=== PATIENT | female | born 1970 ===

== ENCOUNTER 2020-04-02 16:19 | Outpatient (REF) | payer OTHER, SELFPAY ==
[2020-04-02 17:36] LABS: Thyroid Stimulating Hormone 0.32 uIU/mL (0.32-4.0)
== END 2020-04-02 16:20 | disposition home or self-care (01) ==
LOC: HO.LAB 16:19
PROVIDERS: PCP Internal Medicine; Visit Provider Internal Medicine
DX: E89.0 Postprocedural hypothyroidism (principal); L68.0 Hirsutism; E66.01 Morbid (severe) obesity due to excess calories
CPT/HCPCS: 84439; 84443

== ENCOUNTER → 2020-04-03 08:08 | Outpatient (BNVA) | payer OTHER, SELFPAY | PROVIDERS: PCP Internal Medicine; Referring Provider Internal Medicine; Visit Provider Internal Medicine | DX: Z76.89 Persons encountering health services in other specified circumstances (principal) ==

== ENCOUNTER 2020-08-29 10:42 | Outpatient (REF) | payer OTHER, SELFPAY ==
--- NOTE | ~2020-08-29 | XR_ITS ---
EXAMINATION: XR KNEE, LEFT CLINICAL INFORMATION: Pain left knee COMPARISON: None TECHNIQUE: Four views of the left knee. FINDINGS: The tricompartment joint space is maintained normal. No bony erosive changes. No fracture or dislocation. The soft tissues are normal. XR/XR knee LT 4V IMPRESSION: Unremarkable left knee exam.
[2020-08-29 14:08] LABS: D Dimer 230 NG/ML
== END 2020-08-29 10:43 | disposition home or self-care (01) ==
LOC: HO.HMGCX 10:42
PROVIDERS: Visit Provider Nurse Practitioner Family
DX: M25.562 Pain in left knee (principal)
CPT/HCPCS: 36415; 73564; 85379

== ENCOUNTER 2020-09-05 13:32 | Outpatient (REF) | payer OTHER, SELFPAY ==
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
== END 2020-09-05 13:33 | disposition home or self-care (01) ==
LOC: HO.MAMMO 13:32
PROVIDERS: Visit Provider Internal Medicine
DX: Z12.31 Encounter for screening mammogram for malignant neoplasm of breast (principal)
CPT/HCPCS: 77063; 77067

== ENCOUNTER 2020-09-30 08:19 | Outpatient (REF) | payer OTHER, SELFPAY | END 2020-09-30 08:20 | disposition home or self-care (01) | LOC: HO.HOSX 08:19 | PROVIDERS: Visit Provider Physician Assistant | DX: Z13.89 Encounter for screening for other disorder (principal) ==

== ENCOUNTER → 2020-10-06 07:56 | Outpatient (BNVA) | payer OTHER, SELFPAY | PROVIDERS: PCP Internal Medicine; Visit Provider Internal Medicine ==

== ENCOUNTER 2020-10-07 09:57 | Outpatient (REF) | payer OTHER, SELFPAY ==
--- NOTE | ~2020-10-07 | XR_ITS ---
EXAMINATION: XR KNEE, LEFT CLINICAL INFORMATION: Left knee pain. COMPARISON: Multiple priors, most recent left knee radiographs dated 08/29/2020 TECHNIQUE: [place] view of the left knee. FINDINGS: Normal patellofemoral alignment. Small patellofemoral marginal osteophytes. No osseous erosion. No abnormal soft tissue calcification. XR/XR knee LT 2V IMPRESSION: Mild patellofemoral osteoarthritis. Normal alignment.
[2020-10-07 14:53] LABS: Albumin Level 4.6 g/dL (3.5-5.0); Calcium 9.4 mg/dL (8.4-10.2)
[2020-10-07 15:13] LABS: Free T4 (Free Thyroxine) 1.25 ng/dL (0.71-1.85); Thyroid Stimulating Hormone 1.61 uIU/mL (0.32-4.0)
[2020-10-08 09:51] LABS: Sex Hormone Binding Globulin 51 nmol/L (17-124)
[2020-10-09 10:07] LABS: Calcium (PTHI) 9.4 mg/dL (8.6-10.2); PTHI 129 pg/mL (14-64)
[2020-10-11 13:27] LABS: Testosterone, Free 3.2 pg/mL (0.1-6.4); Testosterone, Total 29 ng/dL (2-45)
== END 2020-10-07 09:58 | disposition home or self-care (01) ==
LOC: HO.HOSX 09:57
PROVIDERS: Absent Provider Internal Medicine; PCP Internal Medicine; Visit Provider Physician Assistant
DX: M25.562 Pain in left knee (principal); M54.16 Radiculopathy, lumbar region; E89.0 Postprocedural hypothyroidism; N91.2 Amenorrhea, unspecified; E21.3 Hyperparathyroidism, unspecified; E55.9 Vitamin D deficiency, unspecified
CPT/HCPCS: 36415; 73560; 82040; 82306; 82310; 83970; 84100; 84270; 84402; 84403; 84439; 84443; 99202

== ENCOUNTER 2020-10-31 08:01 | Outpatient (REF) | payer OTHER, SELFPAY ==
--- NOTE | ~2020-10-31 | XR_ITS ---
EXAMINATION: XR LUMBAR SPINE WITH BENDING XR SI JOINTS CLINICAL INFORMATION: Low back pain. COMPARISON: None TECHNIQUE: Lumbar spine with bending views. SI joints 3 views. FINDINGS: LUMBAR SPINE: There is normal lumbar lordosis. There is loss of L5-S1 disc height with minimal grade 1 anterolisthesis L4-S1. The rest of the disc heights, vertebral heights and vertebral alignment is normal. On flexion and extension views, there is no movement of the vertebrae. On oblique views, there is no pars defect. No visible acute fracture or dislocation seen. There is no lytic or sclerotic process. SI JOINTS: There is normal symmetry of bilateral SI joints with minimal right SI joint sclerosis. No visible acute fracture, dislocation or subluxation seen. The soft tissues are normal. XR/XR sacroiliac joint 1-2V IMPRESSION: Grade 1 anterolisthesis L5 over S1 with degenerative disc changes at L5-S1 disc level. No pars defect seen. No subluxation seen on flexion or extension views. Minimal sclerosis right SI joint, likely early sacroiliitis. The left SI joint appears unremarkable.
--- NOTE | ~2020-10-31 | XR_ITS ---
EXAMINATION: XR LUMBAR SPINE WITH BENDING XR SI JOINTS CLINICAL INFORMATION: Low back pain. COMPARISON: None TECHNIQUE: Lumbar spine with bending views. SI joints 3 views. FINDINGS: LUMBAR SPINE: There is normal lumbar lordosis. There is loss of L5-S1 disc height with minimal grade 1 anterolisthesis L4-S1. The rest of the disc heights, vertebral heights and vertebral alignment is normal. On flexion and extension views, there is no movement of the vertebrae. On oblique views, there is no pars defect. No visible acute fracture or dislocation seen. There is no lytic or sclerotic process. SI JOINTS: There is normal symmetry of bilateral SI joints with minimal right SI joint sclerosis. No visible acute fracture, dislocation or subluxation seen. The soft tissues are normal. XR/XR lumbar spine 6V w bending IMPRESSION: Grade 1 anterolisthesis L5 over S1 with degenerative disc changes at L5-S1 disc level. No pars defect seen. No subluxation seen on flexion or extension views. Minimal sclerosis right SI joint, likely early sacroiliitis. The left SI joint appears unremarkable.
[2020-10-31 11:24] LABS: Free T4 (Free Thyroxine) 1.22 ng/dL (0.71-1.85); Thyroid Stimulating Hormone 1.73 uIU/mL (0.32-4.0)
== END 2020-10-31 08:02 | disposition home or self-care (01) ==
LOC: HO.XRAY 08:01
PROVIDERS: Absent Provider Internal Medicine; PCP Internal Medicine; Visit Provider Internal Medicine
DX: M54.5 Low back pain (principal); R10.9 Unspecified abdominal pain; M25.562 Pain in left knee; M79.601 Pain in right arm; M79.651 Pain in right thigh; E89.0 Postprocedural hypothyroidism; G89.29 Other chronic pain
CPT/HCPCS: 36415; 72114; 72200; 84439; 84443; 99202

== ENCOUNTER 2020-12-10 06:30 | Outpatient (REF) | payer OTHER, SELFPAY ==
--- NOTE | ~2020-12-10 | FL_ITS ---
EXAMINATION: XR FLUOROSCOPY WITH IMAGES CLINICAL INFORMATION: Bilateral sphenoid injection for medial branch block.. COMPARISON: None. TECHNIQUE: Fluoroscopy performed by Parish Mcpherson. Fluoroscopy time: 0.5 minutes DAP: 5.7 Gycm2 Images: 1 FINDINGS: There are needles positioned bilaterally adjacent and 5, L4 and L3 pedicles with contrast opacifying the soft tissues. Mild loss of L4-L5 and L5-S1 disc heights is noted. FL/FL guidance in treatment room IMPRESSION: Fluoroscopy was provided to Dr. Parish Redding for pain management.
== END 2020-12-10 06:31 | disposition home or self-care (01) ==
LOC: HO.RADIR 06:30
PROVIDERS: Visit Provider Internal Medicine
DX: I45.4 Nonspecific intraventricular block (principal); I10 Essential (primary) hypertension; E21.3 Hyperparathyroidism, unspecified; E03.9 Hypothyroidism, unspecified; E55.9 Vitamin D deficiency, unspecified; G47.33 Obstructive sleep apnea (adult) (pediatric)
CPT/HCPCS: 64493; 64494; Q9967

== ENCOUNTER → 2020-12-19 08:50 | Outpatient (BNVA) | payer OTHER, SELFPAY | PROVIDERS: PCP Internal Medicine; Visit Provider Internal Medicine | DX: M54.16 Radiculopathy, lumbar region (principal) | CPT/HCPCS: 99212 ==

== ENCOUNTER 2021-02-10 06:53 | Outpatient (REF) | payer OTHER, SELFPAY ==
--- NOTE | ~2021-02-10 | FL_ITS ---
EXAMINATION: XR FLUOROSCOPY WITH IMAGES CLINICAL INFORMATION: M54.16 - Radiculopathy, lumbar region COMPARISON: Radiographs lumbar spine 10/31/2020 TECHNIQUE: Fluoroscopy performed by Dr. José Vizcarra. Fluoroscopy time: 0.4 minutes DAP: 6.26 Gycm2 Images: 3 FINDINGS: There is interlaminar spinal needle just left of midline at level of L5-S1. There are degenerative changes again noted lumbar spine with lumbosacral disc narrowing and endplate sclerosis and mild spondylolisthesis lumbosacral junction. FL/FL guidance in treatment room IMPRESSION: Fluoroscopy for pain management procedure.
== END 2021-02-10 06:54 | disposition home or self-care (01) ==
LOC: HO.RADIR 06:53
PROVIDERS: Visit Provider Anesthesiology
DX: M54.16 Radiculopathy, lumbar region (principal)
CPT/HCPCS: 62321; J2250; J3300; Q9967

== ENCOUNTER → 2021-03-11 09:44 | Outpatient (BNVA) | payer OTHER, SELFPAY | PROVIDERS: PCP Internal Medicine; Visit Provider Anesthesiology ==

== ENCOUNTER 2021-03-21 21:11 | Emergency (ER) | payer OTHER, SELFPAY ==
[2021-03-21 21:33] VITALS: BP 151/74; PULSE 78; RESP 16; TEMP 36.6; O2SAT 98; BMI 40.7
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
[2021-03-21] MEDS: SUMAtriptan succinate 6 MG/0.5 ML VIAL SUBCUT (22:31)
[2021-03-21] MEDS: diphenhydrAMINE HCL 25 MG TABLET 50 MG PO (23:52)
[2021-03-21] MEDS: Ketorolac Tromethamine 60 MG/2 ML VIAL IM (23:54)
== END 2021-03-22 00:21 | disposition home or self-care (01) ==
PROVIDERS: Emergency Provider Internal Medicine; PCP Internal Medicine
DX: G43.909 Migraine, unspecified, not intractable, without status migrainosus (principal); F17.210 Nicotine dependence, cigarettes, uncomplicated; Z71.6 Tobacco abuse counseling; Z79.899 Other long term (current) drug therapy
CPT/HCPCS: 96372; 99284; J1885; J3030; Q0163

== ENCOUNTER → 2021-03-24 10:30 | Outpatient (BNVA) | payer OTHER, SELFPAY | PROVIDERS: PCP Internal Medicine; Referring Provider Internal Medicine; Visit Provider Surgery | DX: R22.9 Localized swelling, mass and lump, unspecified (principal) | CPT/HCPCS: 99202 ==

== ENCOUNTER 2021-04-01 09:14 | Outpatient (REF) | payer OTHER, SELFPAY ==
[2021-04-01 09:28] LABS: MANUAL DIFF FLAG NO
[2021-04-01 09:43] LABS: Basophils Percent Auto 0.5 % (0-2); Eosinophils Absolute Auto 0.1 X10*3/uL (0.0-0.4); Eosinophils Percent Auto 2.3 % (0-4); Hematocrit 39.4 % (37.0-47.0); Hemoglobin 13.1 g/dl (12.0-16.0); Imm Gran Abs Auto 0.01 X10*3/uL (0.00-0.03); Imm Gran Pct Auto 0.3 % (0.0-0.4); Lymphocytes Absolute Auto 1.4 X10*3/uL (1.2-4.9); Lymphocytes Percent Auto 36.6 % (20-40); Mean Corpuscular HGB Conc 33.2 g/dl (31.0-35.0); Mean Corpuscular Hemoglobin 29.7 pg (27.0-33.0); Mean Corpuscular Volume 89.3 fL (80.0-98.0); Monocytes Absolute Auto 0.4 X10*3/uL (0.1-1.2); Monocytes Percent Auto 9.1 % (2-11); Neutrophils Percent Auto 51.2 % (45-73); Platelet Count 196 X10*3/uL (160-400); Red Blood Count 4.41 X10*6/uL (4.20-5.50); Red Cell Distribution Width 12.6 % (11.0-16.0); White Blood Count 3.8 X10*3/uL (4.8-10.8)
[2021-04-01 10:15] LABS: Alanine Aminotransferase 39 U/L (0-31); Albumin Level 4.2 g/dL (3.5-5.0); Alkaline Phosphatase 66 U/L (39-117); Anion Gap 10 (12-20); Aspartate Amino Transferase 23 U/L (5-31); Bilirubin Total 0.4 mg/dL (0.0-1.0); Blood Urea Nitrogen 13 mg/dL (9-16); Calcium 9.1 mg/dL (8.4-10.2); Carbon Dioxide 29 mmol/L (22-29); Chloride 105 mmol/L (96-108); Cholesterol 202 mg/dL; Estimated Glomerular Filt Rate > 60; Glucose Fasting 95 mg/dL (60-99); HDL Cholesterol 66 mg/dL; LDL Cholesterol Calculated 125 mg/dl; Potassium 4.2 mmol/L (3.3-5.1); Sodium 140 mmol/L (135-145); Total Protein 6.9 g/dL (6.5-8.0); Triglycerides 57 mg/dL
[2021-04-01 10:38] LABS: Vitamin D 25-OH Total 23.7 ng/mL (>30)
[2021-04-01 11:03] LABS: Folate 9.4 ng/mL (> or = 4.0); Vitamin B12 1993 pg/mL (200-900)
== END 2021-04-01 09:15 | disposition home or self-care (01) ==
LOC: HO.LAB 09:14
PROVIDERS: PCP Internal Medicine; Visit Provider Nurse Practitioner Family
DX: Z13.1 Encounter for screening for diabetes mellitus (principal); Z13.220 Encounter for screening for lipoid disorders; E03.9 Hypothyroidism, unspecified
CPT/HCPCS: 36415; 80053; 80061; 82306; 82607; 82746; 85025

== ENCOUNTER 2021-04-17 07:54 | Outpatient (REF) | payer OTHER, SELFPAY ==
[2021-04-17 08:00] VITALS: BMI 35.9
[2021-04-17 08:01] VITALS: BP 133/78; PULSE 86; RESP 16; TEMP 36; O2SAT 95
[2021-04-17 08:51] VITALS: BP 129/76; PULSE 79; RESP 16; O2SAT 98
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
== END 2021-04-17 07:55 | disposition home or self-care (01) ==
LOC: HO.MS 07:54
PROVIDERS: PCP Internal Medicine; Visit Provider Surgery
PROC: (CPT 21930; principal; 2021-04-17 08:30)
DX: D17.1 Benign lipomatous neoplasm of skin and subcutaneous tissue of trunk (principal)
CPT/HCPCS: 21930; 88304

== ENCOUNTER → 2021-04-23 10:34 | Outpatient (BNVA) | payer OTHER, SELFPAY | PROVIDERS: PCP Internal Medicine; Referring Provider Internal Medicine; Visit Provider Surgery | DX: Z48.817 Encounter for surgical aftercare following surgery on the skin and subcutaneous tissue (principal); Z87.2 Personal history of diseases of the skin and subcutaneous tissue | CPT/HCPCS: 99212 ==

== ENCOUNTER 2021-05-27 13:35 | Outpatient (REF) | payer OTHER, SELFPAY ==
[2021-05-27 14:54] LABS: Binax Internal Control QC Valid; Binax Now Covid-19 Ag Negative (Negative)
== END 2021-05-27 13:36 | disposition home or self-care (01) ==
LOC: HO.LAB 13:35
PROVIDERS: Visit Provider Internal Medicine
DX: Z20.822 Contact with and (suspected) exposure to COVID-19 (principal)
CPT/HCPCS: C9803

== ENCOUNTER → 2021-06-18 13:40 | Outpatient (REF) | payer OTHER, SELFPAY ==
--- NOTE | 2021-06-18 13:46 | ECG_ITS ---
Test Reason : cp Blood Pressure : / mmHG Vent. Rate : 067 BPM Atrial Rate : 067 BPM P-R Int : 156 ms QRS Dur : 084 ms QT Int : 404 ms P-R-T Axes : 024 028 029 degrees QTc Int : 426 ms Normal sinus rhythm Normal ECG When compared with ECG of 26-NOV-2018 10:48, No significant change was found Referred By: Sammi Beal Electronically Signed By:KARO ROSA
== END ==
LOC: HO.CARD 13:40
PROVIDERS: PCP Internal Medicine; Visit Provider Internal Medicine
DX: R07.9 Chest pain, unspecified (principal)
CPT/HCPCS: 93005

== ENCOUNTER 2021-07-30 13:32 | Outpatient (REF) | payer OTHER, SELFPAY ==
[2021-07-30 13:54] LABS: MANUAL DIFF FLAG NO
[2021-07-30 14:14] LABS: Basophils Percent Auto 0.5 % (0-2); Eosinophils Absolute Auto 0.1 X10*3/uL (0.0-0.4); Eosinophils Percent Auto 1.9 % (0-4); Hematocrit 40.1 % (37.0-47.0); Hemoglobin 13.3 g/dl (12.0-16.0); Imm Gran Abs Auto 0.01 X10*3/uL (0.00-0.03); Imm Gran Pct Auto 0.3 % (0.0-0.4); Lymphocytes Absolute Auto 1.6 X10*3/uL (1.2-4.9); Lymphocytes Percent Auto 42.9 % (20-40); Mean Corpuscular HGB Conc 33.2 g/dl (31.0-35.0); Mean Corpuscular Hemoglobin 29.5 pg (27.0-33.0); Mean Corpuscular Volume 88.9 fL (80.0-98.0); Mean Platelet Volume 9.9 fL (9.4-12.3); Monocytes Absolute Auto 0.3 X10*3/uL (0.1-1.2); Monocytes Percent Auto 7.2 % (2-11); Neutrophils Absolute Auto 1.8 x10*3/uL (2.0-8.3); Neutrophils Percent Auto 47.2 % (45-73); Platelet Count 185 X10*3/uL (160-400); Red Blood Count 4.51 X10*6/uL (4.20-5.50); Red Cell Distribution Width 12.4 % (11.0-16.0); White Blood Count 3.8 X10*3/uL (4.8-10.8)
[2021-07-30 14:45] LABS: Alanine Aminotransferase 26 U/L (0-31); Albumin Level 4.2 g/dL (3.5-5.0); Alkaline Phosphatase 61 U/L (39-117); Anion Gap 10 (12-20); Aspartate Amino Transferase 18 U/L (5-31); Bilirubin Total 0.5 mg/dL (0.0-1.0); Blood Urea Nitrogen 15 mg/dL (9-16); Calcium 9.2 mg/dL (8.4-10.2); Carbon Dioxide 29 mmol/L (22-29); Chloride 105 mmol/L (96-108); Cholesterol 206 mg/dL; Estimated Glomerular Filt Rate > 60; Glucose Fasting 90 mg/dL (60-99); HDL Cholesterol 67 mg/dL; LDL Cholesterol Calculated 130 mg/dl; Potassium 4.1 mmol/L (3.3-5.1); Sodium 140 mmol/L (135-145); Total Protein 7.2 g/dL (6.5-8.0); Triglycerides 49 mg/dL
[2021-07-30 14:53] LABS: Thyroid Stimulating Hormone 0.49 uIU/mL (0.32-4.0)
[2021-07-31 08:05] LABS: HBc Num1 0.08 S/CO (0.00-0.79); Hepatitis A Antibody IgM 0.21 Index (0-0.79); Hepatitis B Core Antibody Nonreactive (Nonreactive); ~HepC Num1 0.14 S/CO (0.00-0.79); ~Hepatitis A Antibody IgM Nonreactive (Nonreactive); ~Hepatitis B Surface Antibody NONREACTIVE (Nonreactive); ~Hepatitis C Antibody Nonreactive (Nonreactive)
[2021-07-31 08:20] LABS: HBsAGNum1 0.19 S/CO (0.00-0.99); Hepatitis B Surface Antigen Negative (Negative)
[2021-07-31 16:06] LABS: Calcium (PTHI) 9.1 mg/dL (8.6-10.4); PTHI 87 pg/mL (16-77)
[2021-08-03 10:46] LABS: Calcium, Ionized 4.8 mg/dL (4.8-5.6)
[2021-08-04 18:26] LABS: Vitamin D 25-OH, D2 <4 ng/mL; Vitamin D 25-OH, D3 30 ng/mL; Vitamin D 25-OH, Total 30 ng/mL (30-100)
== END 2021-07-30 13:33 | disposition home or self-care (01) ==
LOC: HO.LAB 13:32
PROVIDERS: Nurse Practitioner Family; PCP Internal Medicine; Visit Provider Internal Medicine
DX: E66.01 Morbid (severe) obesity due to excess calories (principal); Z68.41 Body mass index [BMI] 40.0-44.9, adult; E55.9 Vitamin D deficiency, unspecified; E89.0 Postprocedural hypothyroidism; E21.3 Hyperparathyroidism, unspecified; D64.9 Anemia, unspecified; E78.5 Hyperlipidemia, unspecified; R79.89 Other specified abnormal findings of blood chemistry
CPT/HCPCS: 36415; 80053; 80061; 82306; 82330; 83970; 84443; 85025; 86704; 86706; 86709; 86803; 87340

== ENCOUNTER 2021-09-30 08:45 | Outpatient (REF) | payer OTHER, SELFPAY ==
[2021-09-30 11:18] LABS: Free T4 (Free Thyroxine) 1.18 ng/dL (0.71-1.85); Thyroid Stimulating Hormone 0.91 uIU/mL (0.32-4.0)
== END 2021-09-30 08:46 | disposition home or self-care (01) ==
LOC: HO.LAB 08:45
PROVIDERS: PCP Internal Medicine; Visit Provider Internal Medicine
DX: E89.0 Postprocedural hypothyroidism (principal)
CPT/HCPCS: 36415; 84439; 84443

== ENCOUNTER → 2021-10-05 08:05 | Outpatient (BNVA) | payer OTHER, SELFPAY | PROVIDERS: PCP Internal Medicine; Visit Provider Internal Medicine | DX: Z13.89 Encounter for screening for other disorder (principal) ==

== ENCOUNTER → 2021-11-02 09:08 | Outpatient (BNVA) | payer OTHER, SELFPAY | PROVIDERS: PCP Internal Medicine; Visit Provider Dietitian, Registered | DX: E66.01 Morbid (severe) obesity due to excess calories (principal); Z68.41 Body mass index [BMI] 40.0-44.9, adult; Z98.84 Bariatric surgery status; Z71.3 Dietary counseling and surveillance | CPT/HCPCS: 97802 ==

== ENCOUNTER 2021-11-04 14:07 | Emergency (ER) | payer OTHER, SELFPAY ==
--- NOTE | ~2021-11-04 | CT_ITS ---
EXAMINATION: CT HEAD WITHOUT CONTRAST CLINICAL INFORMATION: Headache times days. COMPARISON: None TECHNIQUE: Contiguous axial imaging was performed from the skull base to vertex without intravenous administration of contrast. This CT examination was performed using dose optimization techniques as appropriate, variously including the following: *Automated exposure control *Adjustment of mA and/or kV according to patient size (this includes techniques or standardized protocols for targeted exams where dose is matched to indication/reason for exam; i.e. extremities or head) *Use of iterative reconstruction technique DLP: 700 mGy-cm FINDINGS: There is no evidence of acute intracranial hemorrhage or territorial infarction. No abnormal mass effect or midline shift is seen. Gomez to white matter differentiation is well preserved. No extra-axial fluid collections are identified. The ventricles are normal in size. There is no abnormal attenuation within the brain parenchyma. The osseous structures and soft tissues are normal. The mastoid air cells and visualized portions of the paranasal sinuses are well aerated. CT/CT head/brain wo con IMPRESSION: No acute intracranial process seen.
[2021-11-04 14:27] VITALS: BP 145/86; PULSE 77; RESP 16; TEMP 36.4; O2SAT 98; BMI 40.7
--- NOTE | 2021-11-04 15:06 | ED.GENADULT ---
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 Patient states that she gets migraines fairly often and that this feels like one of those but her normal medications aren't helping. Patient states that she has been nauseous and vomited once. Patient denies any dizziness, lightheadedness, abdominal pain, fever, chills, blurry vision, double vision, loss of vision, chest pain, difficulty breathing, shortness of breath, back pain, night sweats, pain with urination, increased urinary frequency, increased urinary urgency, blood in her urine or stool, syncope or a near syncopal episode, recent trauma or falls, bowel incontinence, bladder incontinence, bowel retention, bladder retention, or any other complaints at this time. Onset (ago): day(s) (5) Location: head Radiation: non-radiation Severity: mild Severity scale (1-10): 1 Quality: dull Pain Consistency: constant Relieving factors: none Exacerbating factors: none Associated symptoms: nausea/vomiting Treatments prior to arrival: none Related Data Home Medications Medication Instructions Recorded Confirmed calcium citrate 315 mg tab PO 04/03/20 10/05/21 calcium-vitamin D3 6.25 mcg (250 unit) tablet citalopram 20 mg tablet 20 mg PO DAILY 04/03/20 10/05/21 trazodone 100 mg tablet 100 mg PO BEDTIME PRN insomnia 10/06/20 10/05/21 lorazepam 2 mg tablet 2 mg PO BEDTIME PRN 03/24/21 10/05/21 Previous Rx's Medication Instructions Recorded esterified estrogens 0.3 mg tablet 0.3 mg PO DAILY 30 days #30 tabs 04/09/20 pediatric multivitamin 1 tab PO DAILY #30 tabs 03/07/21 (Flintstones/Extra C) jdgkmrvowc-nlumnuvfycdbi-wvjpftfa 1 tab PO Q6H PRN pain headache 15 03/11/21 50 mg-325 mg-40 mg tablet days #60 tabs omeprazole 40 mg capsule,delayed 40 mg PO DAILY 90 days #90 caps 09/06/21 release furosemide 20 mg tablet 20 mg PO DAILY 30 days #30 tabs 09/13/21 cholecalciferol (vitamin D3) 25 25 mcg PO DAILY 3 months #90 tabs 10/11/21 mcg (1,000 unit) tablet tramadol 50 mg tablet 50 mg PO Q8H PRN pain 30 days #90 10/12/21 tabs cyclobenzaprine 10 mg tablet 10 mg PO BEDTIME PRN muscle spasm 10/20/21 90 days #90 tabs levothyroxine 137 mcg tablet 137 mcg PO DAILY 30 days #30 tabs 11/03/21 Allergies Allergy/AdvReac Type Severity Reaction Status Date / Time aspirin Allergy Severe Swelling Verified 10/05/21 08:08 topiramate AdvReac Intermediate cough Verified 10/05/21 08:08 Review of Systems Constitutional: Constitutional: Reports no additional constitutional complaints, Denies chills, Denies fever(s), Reports headache(s) and Denies night sweats Eyes: Eyes: Reports no additional eye complaints, Denies blurry vision, Denies change in vision, Denies diplopia, Denies eye discharge, Denies loss of vision and Denies eye pain ENT: Denies dizziness and Reports headache(s) Cardiovascular: Cardiovascular: Reports no additional cardiovascular complaints, Denies chest pain, Denies lightheadedness, Denies Loss of Consciousness and Denies dyspnea Respiratory: Respiratory: Reports no additional respiratory complaints and Denies dyspnea Gastrointestinal: Gastrointestinal: Reports no additional gastrointestinal complaints, Denies abdominal pain, Denies melena, Denies hematochezia, Denies change in bowel habits, Denies change in stool character, Reports nausea and Reports vomiting Genitourinary: Genitourinary: Denies hematuria, Denies urinary frequency, Denies dysuria, Denies urinary incontinence, Denies urinary hesitancy and Denies urinary urgency Musculoskeletal: Musculoskeletal: Reports no additional musculoskeletal complaints, Denies numbness and Denies tingling Neurologic: Denies dizziness, Reports headache(s), Denies loss of vision, Denies numbness and Denies tingling Psychiatric: Psychiatric: Reports no additional psychiatric complaints Endocrine: Endocrine: Reports no additional endocrine complaints Hematologic/Lymphatic: Hematologic/Lymphatic: Reports no additional hematologic/lymphatic complaints Allergic/Immunologic: Allergic/Immunologic: Reports no additional allergic/immunologic complaints PMFSH Past Medical History Attestation statement: The following information was validated with the patient. Source: old records reviewed Medical History HTN (hypertension) Obstructive sleep apnea Surgical History History of thyroidectomy Hx of gastric bypass Hx of hemorrhoidectomy Hx of hysterectomy Hx of multiple trauma Hx of tubal ligation Family History Family History Father Diabetes Hypertension Mother No problems noted. Brother Substance use disorder Family/Other Mental health disorder Social History Social History Housing: Apartment Alcohol intake: never Patient Tobacco Use Status: Former Tobacco user Tobacco use type: Cigarette Cigarette Packs Per Day: 1 Years Smoked: 15 e-Cigarette/Vaping Use: Never Used Second Hand Smoke Exposure: No Use of substances other than those prescribed or required for medical reasons: No Advance Directives: No Advance Directives Information Provided: No Patient : No service: No 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al status: unemployed Cognitive needs: No Hearing needs: No Vision needs: Yes (Glasses) Physical Exam ED Vital Signs: Vital Signs - 24 hr 11/04/21 14:27 11/04/21 15:08 Temperature 97.6 F 98.3 F Pulse Rate 77 66 Respiratory Rate 16 18 Blood Pressure 145/86 H 127/76 Pulse Oximetry 98 97 Oxygen Delivery Method Room Air Room Air BMI result Body Mass Index 40.7 Const General: cooperative, no acute distress, alert and awake Nutritional Appearance: well nourished Orientation/consciousness: patient oriented x3 Limitations: no limitations [facility] Head: Yes normal to inspection and Yes atraumatic Ears: hearing grossly normal bilaterally and external ears normal General nose exam: Normal external nose present, no nasal discharge noted and no epistaxis Face and sinus: Yes normal facial exam, No abrasion and No laceration Mouth: Normal oral and palatal mucosa present, no drooling and no muffled voice Eyes General: appearance normal, both eyes and all related structures Periorbital: periorbital findings normal Eyelids: Yes eyelids normal Conjunctivae: conjunctivae normal Pupils: Equal, round and reactive pupils present EOM: EOMs intact bilaterally Neck Neck: Yes normal visual inspection, Yes full ROM and Yes no lymphadenopathy Chest Chest palpation & inspection: normal inspection of the chest Resp Effort & Inspection: normal respiratory effort and able to speak in complete sentences Auscultation: clear to auscultation bilaterally Cardio Rate: regular rate Rhythm: regular rhythm GI Inspection: Yes normal to inspection Neuro General: patient oriented x3 and moves all extremities Cranial nerves: Yes Equal, round and reactive pupils present Cognition (Neuro): normal cognition Motor exam (neuro): 5/5 motor strength present throughout Sensory Exam: Normal double simultaneous stimulation for sensation Coordination: mxpgan-qq-tiro test normal Extrem General: Yes normal to inspection, Yes full ROM and Yes capillary refill normal Psych Appearance: grossly normal Mental Status: mental status grossly normal Affect: normal affect Attitude: cooperative Thought process: Normal thought process present Thought content: Normal thought content present Insight: Good insight present (Psych) Medical Decision Making MDM Narrative Medical decision making narrative: Patient is a 51 year old female presenting to the emergency department today with a migraine headache. Patient's physical exam was unremarkable. Patient's blood work was unremarkable. Patient's head CT showed no acute process. I explained my physical exam findings as well as all test results to the patient. I answered all questions asked by the patient. Patient received IM toradol, IM benadryl, and PO Zofran which she stated helped her symptoms significantly. I stressed the importance of the patient taking her medication as prescribed. I stressed the importance of the patient following up with her primary care provider. I stressed the importance of the patient returning to the emergency department immediately if her symptoms were to worsen or if she were to develop any dizziness, shortness of breath, difficulty breathing, chest pain, blurry vision, loss of vision, nausea, vomiting, abdominal pain, fever, chills, back pain, or any other complaints. Patient verbalized agreement and understanding with this treatment plan and discharge. Differential Diagnosis Differential Diagnosis: migraine, headache Medical Records Medical records reviewed: Yes I reviewed the patient's medical records. Lab Data Lab results reviewed: Yes I reviewed the patient's lab results. Result diagrams: 11/04/21 16:25 11/04/21 16:25 Labs: Lab Results 11/04/21 11/04/21 11/04/21 Range/Units 16:25 16:25 16:25 WBC 4.8 (4.8-10.8) X10*3/uL RBC 4.82 (4.20-5.50) X10*6/uL Hgb 14.0 (12.0-16.0) g/dl Hct 42.1 (37.0-47.0) % MCV 87.3 (80.0-98.0) fL MCH 29.0 (27.0-33.0) pg MCHC 33.3 (31.0-35.0) g/dl RDW 12.6 (11.0-16.0) % Plt Count 193 (160-400) X10*3/uL MPV 10.4 (9.4-12.3) fL Immature Gran % (Auto) 0.4 (0.0-0.4) % Neut % (Auto) 48.7 (45-73) % Lymph % (Auto) 40.2 H (20-40) % [place] % (Auto) 8.4 (2-11) % Eos % (Auto) 1.9 (0-4) % Baso % (Auto) 0.4 (0-2) % Lymph # (Auto) 1.9 (1.2-4.9) X10*3/uL [place] # (Auto) 0.4 (0.1-1.2) X10*3/uL Eos # (Auto) 0.1 (0.0-0.4) X10*3/uL Baso # (Auto) 0.0 (0.0-0.2) X10*3/uL Abs Immat Gran (auto) 0.02 (0.00-0.03) X10*3/uL Absolute Neuts (auto) 2.3 (2.0-8.3) x10*3/uL Absolute Nucleated RBC 0.000 (0.0-0.012) X10*3/uL Nucleated RBC % (auto) 0.0 (0.0-0.2) /100WBC Sodium 138 (135-145) mmol/L Potassium 4.4 (3.3-5.1) mmol/L Chloride 101 (96-108) mmol/L Carbon Dioxide 31 H (22-29) mmol/L Anion Gap 10 L (12-20) BUN 15 (9-16) mg/dL Creatinine 0.76 (0.5-1.4) mg/dL Estim Creat Clear Calc 102.3 Estimated GFR > 60 Random Glucose 88 (60-115) mg/dL Calcium 9.3 (8.4-10.2) mg/dL Magnesium 2.1 (1.6-2.6) mg/dL Total Bilirubin 0.4 (0.0-1.0) mg/dL AST 27 D (5-31) U/L ALT 32 H (0-31) U/L Alkaline Phosphatase 63 (39-117) U/L Total Protein 7.6 (6.5-8.0) g/dL Albumin 4.5 (3.5-5.0) g/dL COVID-19 (JC) (Negative) COVID-19 Clin Com Influenza Type A (MARYAM) Negative (Negative) Influenza Type B (MARYAM) Negative (Negative) Influenza A & B Note See Note 11/04/21 Range/Units 16:25 WBC (4.8-10.8) X10*3/uL RBC (4.20-5.50) X10*6/uL Hgb (12.0-16.0) g/dl Hct (37.0-47.0) % MCV (80.0-98.0) fL MCH (27.0-33.0) pg MCHC (31.0-35.0) g/dl RDW (11.0-16.0) % Plt Count (160-400) X10*3/uL MPV (9.4-12.3) fL Immature Gran % (Auto) (0.0-0.4) % Neut % (Auto) (45-73) % Lymph % (Auto) (20-40) % [place] % (Auto) (2-11) % Eos % (Auto) (0-4) % Baso % (Auto) (0-2) % Lymph # (Auto) (1.2-4.9) X10*3/uL [place] # (Auto) (0.1-1.2) X10*3/uL Eos # (Auto) (0.0-0.4) X10*3/uL Baso # (Auto) (0.0-0.2) X10*3/uL Abs Immat Gran (auto) (0.00-0.03) X10*3/uL Absolute Neuts (auto) (2.0-8.3) x10*3/uL Absolute Nucleated RBC (0.0-0.012) X10*3/uL Nucleated RBC % (auto) (0.0-0.2) /100WBC Sodium (135-145) mmol/L Potassium (3.3-5.1) mmol/L Chloride (96-108) mmol/L Carbon Dioxide (22-29) mmol/L Anion Gap (12-20) BUN (9-16) mg/dL Creatinine (0.5-1.4) mg/dL Estim Creat Clear Calc Estimated GFR Random Glucose (60-115) mg/dL Calcium (8.4-10.2) mg/dL Magnesium (1.6-2.6) mg/dL Total Bilirubin (0.0-1.0) mg/dL AST (5-31) U/L ALT (0-31) U/L Alkaline Phosphatase (39-117) U/L Total Protein (6.5-8.0) g/dL Albumin (3.5-5.0) g/dL COVID-19 (JC) Negative (Negative) COVID-19 Clin Com See Note Influenza Type A (MARYAM) (Negative) Influenza Type B (MARYAM) (Negative) Influenza A & B Note Imaging Data CT scan - head: Attestation: I personally reviewed and interpreted this imaging study as follows: My impression: No acute process. Radiologist's impression: EXAMINATION: CT HEAD WITHOUT CONTRAST CLINICAL INFORMATION: Headache times days.? COMPARISON: None TECHNIQUE: Contiguous axial imaging was performed from the skull base to vertex without intravenous administration of contrast. This CT examination was performed using dose optimization techniques as appropriate, variously including the following: *Automated exposure control *Adjustment of mA and/or kV according to patient size (this includes techniques or standardized protocols for targeted exams where dose is matched to indication/reason for exam; i.e. extremities or head) *Use of iterative reconstruction technique DLP: 700 mGy-cm FINDINGS: There is no evidence of acute intracranial hemorrhage or territorial infarction. No abnormal mass effect or midline shift is seen. Gomez to white matter differentiation is well preserved. No extra-axial fluid collections are identified. The ventricles are normal in size. There is no abnormal attenuation within the brain parenchyma. The osseous structures and soft tissues are normal. The mastoid air cells and visualized portions of the paranasal sinuses are well aerated. ? CT/CT head/brain wo con IMPRESSION: No acute intracranial process seen. Dictated By: Dov Chong MD Signed By: Electronically signed by Dov Chong MD 11/04/21 [id number] Discharge Plan Discharge Clinical Impression: Migraine Patient Disposition: Home, Self-Care Instructions: Migraine Headache (ED) Additional Instructions: Follow up with your primary care provider. Return to the emergency department immediately if your symptoms worsen or if you develop any dizziness, shortness of breath, difficulty breathing, chest pain, blurry vision, loss of vision, nausea, vomiting, abdominal pain, fever, chills, back pain, or any other complaints. Prescriptions: No Action Flintstones/Extra C Tablet,Chewable 1 tab PO DAILY Qty: 30 8RF omeprazole 40 mg capsule,delayed release(DR/EC) 40 mg PO DAILY 90 Days Qty: 90 3RF furosemide 20 mg tablet 20 mg PO DAILY 30 Days Qty: 30 2RF cholecalciferol (vitamin D3) 25 mcg (1,000 unit) tablet 25 mcg PO DAILY 90 Days Qty: 90 0RF tramadol 50 mg tablet 50 mg PO Q8H PRN (Reason: pain) 30 Days Qty: 90 0RF cyclobenzaprine 10 mg tablet 10 mg PO BEDTIME PRN (Reason: muscle spasm) 90 Days Qty: 90 0RF levothyroxine 137 mcg tablet 137 mcg PO DAILY 30 Days Qty: 30 1RF esterified estrogens 0.3 mg tablet 0.3 mg PO DAILY 30 Days Qty: 30 0RF citalopram 20 mg tablet 20 mg PO DAILY calcium citrate-vitamin D3 315 mg-6.25 mcg (250 unit) tablet PO trazodone 100 mg tablet 100 mg PO BEDTIME PRN (Reason: insomnia) haxzibcyod-doemxhlzravat-fkwk 50-325-40 mg tablet 1 tab PO Q6H PRN (Reason: pain headache) 15 Days Qty: 60 5RF lorazepam 2 mg tablet 2 mg PO BEDTIME PRN Referrals: Sammi Kennedy MD [Primary Care Provider] - Print Language: Lebanese
[2021-11-04 15:08] VITALS: BP 127/76; PULSE 66; RESP 18; TEMP 36.8; O2SAT 97
[2021-11-04] MEDS: Ondansetron ODT 4 MG TAB.RAPDIS TRANSLINGU (16:13)
[2021-11-04] MEDS: diphenhydrAMINE HCL 50 MG/ML VIAL IM (16:13)
[2021-11-04] MEDS: Ketorolac Tromethamine 15 MG/ML VIAL IM (16:13)
--- NOTE | 2021-11-04 16:23 | PC.NURSE ---
patient a&ox3, c/o headache, pt medicated per order, tech to draw labs/nasal swabs, will continue to monitor.
[2021-11-04 16:38] LABS: MANUAL DIFF FLAG NO
[2021-11-04 17:00] LABS: Alanine Aminotransferase 32 U/L (0-31); Albumin Level 4.5 g/dL (3.5-5.0); Alkaline Phosphatase 63 U/L (39-117); Anion Gap 10 (12-20); Aspartate Amino Transferase 27 U/L (5-31); Bilirubin Total 0.4 mg/dL (0.0-1.0); Blood Urea Nitrogen 15 mg/dL (9-16); Calcium 9.3 mg/dL (8.4-10.2); Carbon Dioxide 31 mmol/L (22-29); Chloride 101 mmol/L (96-108); Creatinine Clr Calc Pharmacy 102.3; Estimated Glomerular Filt Rate > 60; Glucose Random 88 mg/dL (60-115); Magnesium 2.1 mg/dL (1.6-2.6); Potassium 4.4 mmol/L (3.3-5.1); Sodium 138 mmol/L (135-145); Total Protein 7.6 g/dL (6.5-8.0)
[2021-11-04 17:02] LABS: Basophils Percent Auto 0.4 % (0-2); Eosinophils Absolute Auto 0.1 X10*3/uL (0.0-0.4); Eosinophils Percent Auto 1.9 % (0-4); Hematocrit 42.1 % (37.0-47.0); Imm Gran Abs Auto 0.02 X10*3/uL (0.00-0.03); Imm Gran Pct Auto 0.4 % (0.0-0.4); Lymphocytes Absolute Auto 1.9 X10*3/uL (1.2-4.9); Lymphocytes Percent Auto 40.2 % (20-40); Mean Corpuscular HGB Conc 33.3 g/dl (31.0-35.0); Mean Corpuscular Volume 87.3 fL (80.0-98.0); Mean Platelet Volume 10.4 fL (9.4-12.3); Monocytes Absolute Auto 0.4 X10*3/uL (0.1-1.2); Monocytes Percent Auto 8.4 % (2-11); Neutrophils Absolute Auto 2.3 x10*3/uL (2.0-8.3); Neutrophils Percent Auto 48.7 % (45-73); Platelet Count 193 X10*3/uL (160-400); Red Blood Count 4.82 X10*6/uL (4.20-5.50); Red Cell Distribution Width 12.6 % (11.0-16.0); White Blood Count 4.8 X10*3/uL (4.8-10.8)
[2021-11-04 17:08] LABS: COVID-19 Test Negative (Negative); IDNOW Serial# 16C4AD1C; Influenza A Negative (Negative); Influenza B2 Negative (Negative)
== END 2021-11-04 17:45 | disposition home or self-care (01) ==
PROVIDERS: Physician Assistant Medical; Emergency Provider Emergency Medicine; PCP Internal Medicine
DX: G43.909 Migraine, unspecified, not intractable, without status migrainosus (principal); F41.9 Anxiety disorder, unspecified; F33.1 Major depressive disorder, recurrent, moderate; Z20.822 Contact with and (suspected) exposure to COVID-19; Z87.891 Personal history of nicotine dependence; Z79.899 Other long term (current) drug therapy
CPT/HCPCS: 70450; 80053; 83735; 85025; 87502; 87635; 96372; 99284; J1200; J1885

== ENCOUNTER 2021-11-13 10:21 | Outpatient (REF) | payer OTHER, SELFPAY ==
[2021-11-13 12:11] LABS: Alanine Aminotransferase 57 U/L (0-31); Albumin Level 4.3 g/dL (3.5-5.0); Alkaline Phosphatase 62 U/L (39-117); Anion Gap 12 (12-20); Aspartate Amino Transferase 34 U/L (5-31); Bilirubin Total 0.5 mg/dL (0.0-1.0); Blood Urea Nitrogen 14 mg/dL (9-16); Carbon Dioxide 28 mmol/L (22-29); Chloride 103 mmol/L (96-108); Estimated Glomerular Filt Rate > 60; Glucose Random 83 mg/dL (60-115); Phosphorus 3.7 mg/dL (2.7-4.5); Sodium 139 mmol/L (135-145); Total Protein 7.1 g/dL (6.5-8.0)
[2021-11-13 12:32] LABS: Free T4 (Free Thyroxine) 1.33 ng/dL (0.71-1.85); Thyroid Stimulating Hormone 0.69 uIU/mL (0.32-4.0); Vitamin D 25-OH Total 32.8 ng/mL (>30)
[2021-11-15 18:01] LABS: Calcium (PTHI) 9.2 mg/dL (8.6-10.4); PTHI 110 pg/mL (16-77)
== END 2021-11-13 10:22 | disposition home or self-care (01) ==
LOC: HO.LAB 10:21
PROVIDERS: PCP Student in an Organized Health Care Education/Training Program; Visit Provider Internal Medicine
DX: E21.3 Hyperparathyroidism, unspecified (principal); E89.0 Postprocedural hypothyroidism; E55.9 Vitamin D deficiency, unspecified
CPT/HCPCS: 36415; 80053; 82306; 83970; 84100; 84439; 84443

== ENCOUNTER 2021-11-17 15:54 | Outpatient (REF) | payer OTHER, SELFPAY ==
[2021-11-17 16:52] LABS: Total Volume 24 Hour Urine 2300 mL
[2021-11-17 17:05] LABS: Creatinine, 24Hr Urine 1.9 G/Day (1.0-2.0); Creatinine, mg/dL 82.34
[2021-11-19 17:42] LABS: Calcium, 24 Hr Urine 251 mg/24 h; Calcium/Creatinine Ratio 131 mg/g creat (30-275); Creatinine 24Hr Urine 1.91 g/24 h (0.50-2.15)
== END 2021-11-17 15:55 | disposition home or self-care (01) ==
LOC: HO.LNP 15:54
PROVIDERS: Visit Provider Internal Medicine
DX: E21.3 Hyperparathyroidism, unspecified (principal)
CPT/HCPCS: 82340; 82570

== ENCOUNTER → 2022-01-04 11:04 | Outpatient (BNVA) | payer OTHER, SELFPAY | PROVIDERS: PCP Internal Medicine; Visit Provider Dietitian, Registered | DX: E66.01 Morbid (severe) obesity due to excess calories (principal); Z68.41 Body mass index [BMI] 40.0-44.9, adult; Z71.3 Dietary counseling and surveillance | CPT/HCPCS: 97803 ==

== ENCOUNTER 2022-01-13 19:59 | Emergency (ER) | payer OTHER, SELFPAY ==
[2022-01-13 21:05] VITALS: BP 134/86; PULSE 74; RESP 16; TEMP 37.7; O2SAT 98; BMI 29.2
[2022-01-13 22:21] LABS: MANUAL DIFF FLAG NO
[2022-01-13 22:23] LABS: Basophils Percent Auto 0.6 % (0-2); Eosinophils Absolute Auto 0.1 X10*3/uL (0.0-0.4); Eosinophils Percent Auto 2.5 % (0-4); Hematocrit 39.6 % (37.0-47.0); Hemoglobin 13.6 g/dl (12.0-16.0); Imm Gran Abs Auto 0.01 X10*3/uL (0.00-0.03); Imm Gran Pct Auto 0.2 % (0.0-0.4); Lymphocytes Absolute Auto 1.9 X10*3/uL (1.2-4.9); Lymphocytes Percent Auto 35.6 % (20-40); Mean Corpuscular HGB Conc 34.3 g/dl (31.0-35.0); Mean Corpuscular Hemoglobin 29.8 pg (27.0-33.0); Mean Corpuscular Volume 86.8 fL (80.0-98.0); Mean Platelet Volume 10.2 fL (9.4-12.3); Monocytes Absolute Auto 0.4 X10*3/uL (0.1-1.2); Monocytes Percent Auto 8.1 % (2-11); Neutrophils Absolute Auto 2.8 x10*3/uL (2.0-8.3); Platelet Count 220 X10*3/uL (160-400); Red Blood Count 4.56 X10*6/uL (4.20-5.50); Red Cell Distribution Width 12.5 % (11.0-16.0); White Blood Count 5.2 X10*3/uL (4.8-10.8)
[2022-01-13 22:38] LABS: Alanine Aminotransferase 28 U/L (0-31); Albumin Level 4.3 g/dL (3.5-5.0); Alkaline Phosphatase 62 U/L (39-117); Anion Gap 15 (12-20); Aspartate Amino Transferase 21 U/L (5-31); Bilirubin Total 0.3 mg/dL (0.0-1.0); Blood Urea Nitrogen 12 mg/dL (9-16); Calcium 9.4 mg/dL (8.4-10.2); Carbon Dioxide 27 mmol/L (22-29); Chloride 104 mmol/L (96-108); Creatinine Clr Calc Pharmacy 80.6; Estimated Glomerular Filt Rate > 60; Glucose Random 144 mg/dL (60-115); Potassium 3.6 mmol/L (3.3-5.1); Sodium 142 mmol/L (135-145); Total Protein 7.2 g/dL (6.5-8.0)
--- NOTE | 2022-01-13 23:30 | ED.GENADULT ---
HPI - General Adult General Chief complaint: General Medical Stated complaint: headache,dizziness,nausea Time Seen by Provider: 01/13/22 23:30 Source: patient Mode of arrival: ambulatory Limitations: no limitations Related Data Home Medications Medication Instructions Recorded Confirmed citalopram 20 mg tablet 20 mg PO DAILY 04/03/20 12/03/21 trazodone 100 mg tablet 100 mg PO BEDTIME PRN insomnia 10/06/20 12/03/21 lorazepam 2 mg tablet 2 mg PO BEDTIME PRN 03/24/21 12/03/21 Previous Rx's Medication Instructions Recorded pediatric multivitamin 1 tab PO DAILY #30 tabs 03/07/21 (Flintstones/Extra C chewable tablet) pgtzyyahbg-mbnxuxfqhafuc-wlnbshpp 1 tab PO Q6H PRN pain headache 15 03/11/21 50 mg-325 mg-40 mg tablet days #60 tabs omeprazole 40 mg capsule,delayed 40 mg PO DAILY 90 days #90 caps 09/06/21 release cyclobenzaprine 10 mg tablet 10 mg PO BEDTIME PRN muscle spasm 10/20/21 90 days #90 tabs calcium carbonate 650 mg calcium 650 mg PO BID 30 days #60 tabs 11/19/21 (1,625 mg) tablet tramadol 50 mg tablet 50 mg PO Q8H PRN pain 30 days #90 12/01/21 tabs hydrochlorothiazide 12.5 mg tablet 12.5 mg PO DAILY 90 days #90 tabs 12/03/21 levothyroxine 137 mcg tablet 137 mcg PO DAILY 30 days #30 tabs 12/31/21 Allergies Allergy/AdvReac Type Severity Reaction Status Date / Time aspirin Allergy Severe Swelling Verified 12/03/21 10:28 topiramate AdvReac Intermediate cough Verified 12/03/21 10:28 PMFSH Past Medical History Medical History Amenorrhea Common cold JAYLENE (generalized anxiety disorder) Hot flash not due to menopause HTN (hypertension) Hyperparathyroidism Hypothyroidism Lump of skin Moderate recurrent major depression Morbid obesity with BMI of 40.0-44.9, adult Obesity Obstructive sleep apnea Vitamin D deficiency Surgical History History of thyroidectomy Hx of gastric bypass Hx of hemorrhoidectomy Hx of hysterectomy Hx of multiple trauma Hx of tubal ligation Family History Family History Father Diabetes Hypertension Mother No problems noted. Brother Substance use disorder Family/Other Mental health disorder Social History Social History Housing: Apartment Alcohol intake: never Patient Tobacco Use Status: Former Tobacco user Tobacco use type: Cigarette Cigarette Packs Per Day: 1 Years Smoked: 15 e-Cigarette/Vaping Use: Never Used Second Hand Smoke Exposure: No service: No 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al status: unemployed Cognitive needs: No Hearing needs: No Vision needs: Yes (Glasses) Physical Exam ED Vital Signs: Vital Signs - 24 hr 01/13/22 21:05 Temperature 99.9 F Pulse Rate 74 Respiratory Rate 16 Blood Pressure 134/86 Pulse Oximetry 98 Oxygen Delivery Method Room Air BMI result Body Mass Index 29.2 Medical Decision Making Lab Data Result diagrams: 01/13/22 22:16 01/13/22 22:16 Labs: Lab Results 01/13/22 01/13/22 Range/Units 22:16 22:16 WBC 5.2 (4.8-10.8) X10*3/uL RBC 4.56 (4.20-5.50) X10*6/uL Hgb 13.6 (12.0-16.0) g/dl Hct 39.6 (37.0-47.0) % MCV 86.8 (80.0-98.0) fL MCH 29.8 (27.0-33.0) pg MCHC 34.3 (31.0-35.0) g/dl RDW 12.5 (11.0-16.0) % Plt Count 220 (160-400) X10*3/uL MPV 10.2 (9.4-12.3) fL Immature Gran % (Auto) 0.2 (0.0-0.4) % Neut % (Auto) 53.0 (45-73) % Lymph % (Auto) 35.6 (20-40) % [place] % (Auto) 8.1 (2-11) % Eos % (Auto) 2.5 (0-4) % Baso % (Auto) 0.6 (0-2) % Lymph # (Auto) 1.9 (1.2-4.9) X10*3/uL [place] # (Auto) 0.4 (0.1-1.2) X10*3/uL Eos # (Auto) 0.1 (0.0-0.4) X10*3/uL Baso # (Auto) 0.0 (0.0-0.2) X10*3/uL Abs Immat Gran (auto) 0.01 (0.00-0.03) X10*3/uL Absolute Neuts (auto) 2.8 (2.0-8.3) x10*3/uL Absolute Nucleated RBC 0.000 (0.0-0.012) X10*3/uL Nucleated RBC % (auto) 0.0 (0.0-0.2) /100WBC Sodium 142 (135-145) mmol/L Potassium 3.6 (3.3-5.1) mmol/L Chloride 104 (96-108) mmol/L Carbon Dioxide 27 (22-29) mmol/L Anion Gap 15 (12-20) BUN 12 (9-16) mg/dL Creatinine 0.77 (0.5-1.4) mg/dL Estim Creat Clear Calc 80.6 Estimated GFR > 60 Random Glucose 144 H (60-115) mg/dL Calcium 9.4 (8.4-10.2) mg/dL Total Bilirubin 0.3 (0.0-1.0) mg/dL AST 21 (5-31) U/L ALT 28 (0-31) U/L Alkaline Phosphatase 62 (39-117) U/L Total Protein 7.2 (6.5-8.0) g/dL Albumin 4.3 (3.5-5.0) g/dL Discharge Plan Discharge Prescriptions: No Action Flintstones/Extra C Tablet,Chewable 1 tab PO DAILY Qty: 30 8RF omeprazole 40 mg capsule,delayed release(DR/EC) 40 mg PO DAILY 90 Days Qty: 90 3RF cyclobenzaprine 10 mg tablet 10 mg PO BEDTIME PRN (Reason: muscle spasm) 90 Days Qty: 90 0RF tramadol 50 mg tablet 50 mg PO Q8H PRN (Reason: pain) 30 Days Qty: 90 0RF levothyroxine 137 mcg tablet 137 mcg PO DAILY 30 Days Qty: 30 11RF hydrochlorothiazide 12.5 mg tablet 12.5 mg PO DAILY 90 Days Qty: 90 1RF citalopram 20 mg tablet 20 mg PO DAILY trazodone 100 mg tablet 100 mg PO BEDTIME PRN (Reason: insomnia) fkllemsyup-psjqtpzmfwufn-mszd 50-325-40 mg tablet 1 tab PO Q6H PRN (Reason: pain headache) 15 Days Qty: 60 5RF lorazepam 2 mg tablet 2 mg PO BEDTIME PRN calcium carbonate 650 mg calcium (1,625 mg) tablet 650 mg PO BID 30 Days Qty: 60 11RF
[2022-01-13 23:34] VITALS: BP 125/78; PULSE 58; RESP 17; O2SAT 99
[2022-01-14 00:55] LABS: Appearance Urine Clear; Color Urine Yellow; Glucose Urine UA Negative (Negative); Leukocyte Esterase Urine Trace (Negative); Nitrite Urine Positive (Negative); Specific Gravity - Urine 1.025 (1.005-1.025); Urine Blood Negative (Negative); Urine Ketones Negative (Negative); Urine Protein Negative (Neg-Trace)
--- NOTE | 2022-01-14 01:13 | ED.GENADULT ---
HPI - General Adult General Chief complaint: General Medical Stated complaint: headache,dizziness,nausea Time Seen by Provider: 01/13/22 23:30 Source: patient Mode of arrival: ambulatory Limitations: no limitations History of Present Illness HPI narrative: Patient comes to the emergency room complaining of anxiety, depression, no suicidal or homicidal ideation. Of this anxiety has been worsening patient's headaches/migraines. Patient states that she has been feeling worse over the last week because she abruptly stopped taking lorazepam. Patient has a prescription of lorazepam 2 mg once a day. She has been unable to get in touch with her PCP and patient has been out of her medications for 5 days. Patient denies any visual changes Related Data Home Medications Medication Instructions Recorded Confirmed citalopram 20 mg tablet 20 mg PO DAILY 04/03/20 12/03/21 trazodone 100 mg tablet 100 mg PO BEDTIME PRN insomnia 10/06/20 12/03/21 lorazepam 2 mg tablet 2 mg PO BEDTIME PRN 03/24/21 12/03/21 Previous Rx's Medication Instructions Recorded pediatric multivitamin 1 tab PO DAILY #30 tabs 03/07/21 (Flintstones/Extra C chewable tablet) zsqodntabs-vxhcibddtlwzv-slpgvbdg 1 tab PO Q6H PRN pain headache 15 03/11/21 50 mg-325 mg-40 mg tablet days #60 tabs omeprazole 40 mg capsule,delayed 40 mg PO DAILY 90 days #90 caps 09/06/21 release cyclobenzaprine 10 mg tablet 10 mg PO BEDTIME PRN muscle spasm 10/20/21 90 days #90 tabs calcium carbonate 650 mg calcium 650 mg PO BID 30 days #60 tabs 11/19/21 (1,625 mg) tablet tramadol 50 mg tablet 50 mg PO Q8H PRN pain 30 days #90 12/01/21 tabs hydrochlorothiazide 12.5 mg tablet 12.5 mg PO DAILY 90 days #90 tabs 12/03/21 levothyroxine 137 mcg tablet 137 mcg PO DAILY 30 days #30 tabs 12/31/21 pivkmrnxfp-kbmannirtyhbh-ijkjobdx 1 cap PO Q8H PRN pain #10 caps 01/14/22 50 mg-300 mg-40 mg capsule (Fioricet) lorazepam 2 mg tablet 2 mg PO DAILY #10 tabs 09/01/22 Allergies Allergy/AdvReac Type Severity Reaction Status Date / Time aspirin Allergy Severe Swelling Verified 12/03/21 10:28 topiramate AdvReac Intermediate cough Verified 12/03/21 10:28 Review of Systems Review of Systems: Constitutional : No Weight loss, No Fever, No Chills, No Night Sweats, No Fatigue, No Malaise ENT/Mouth : No Hearing loss, No Ear Pain, No Nasal Congestion, No Sinus Pain, No Hoarseness, No sore throat, No Rhinorrhea, No Swallowing Difficulty Eyes: No Eye Pain, No Swelling, No Redness, No Foreign Body, No Discharge, No Vision Changes Cardiovascular : No Chest Pain, No SOB, No Dyspnea on Exertion, No Orthopnea, No Edema, No Palpitations Respiratory : No Cough, No Sputum, No Wheezing, No Smoke Exposure, No Dyspnea Gastrointestinal : No Nausea, No Vomiting, No Diarrhea, No Constipation, No abdominal Pain, No Hematochezia, No Melena Genitourinary : no irregular bleeding, No Dysuria, No Urinary Frequency, No Hematuria, No Urinary Incontinence, No Urgency, No Flank Pain, No Urinary Flow Changes, No Hesitancy Musculoskeletal : No joint pain, No Myalgias, No Joint Swelling Skin : No Skin Lesions, No rash Neuro : No Weakness, No Numbness, No Paresthesias, No Loss of Consciousness, No Dizziness, complaining of a migraine Headache Psych : Complaining of worsening anxiety and depression, no suicidal or homicidal ideation, possibly withdrawing from benzos, Heme/Lymph: No Bruising, No Bleeding,No Lymphadenopathy Endocrine : No Polyuria, No Polydipsia, No Temperature Intolerance PMFSH Past Medical History Medical History Amenorrhea Common cold JAYLENE (generalized anxiety disorder) Hot flash not due to menopause HTN (hypertension) Hyperparathyroidism Hypothyroidism Lump of skin Moderate recurrent major depression Morbid obesity with BMI of 40.0-44.9, adult Obesity Obstructive sleep apnea Vitamin D deficiency Surgical History History of thyroidectomy Hx of gastric bypass Hx of hemorrhoidectomy Hx of hysterectomy Hx of multiple trauma Hx of tubal ligation Family History Family History Father Diabetes Hypertension Mother No problems noted. Brother Substance use disorder Family/Other Mental health disorder Social History Social History Housing: Apartment Alcohol intake: never Patient Tobacco Use Status: Former Tobacco user Tobacco use type: Cigarette Cigarette Packs Per Day: 1 Years Smoked: 15 e-Cigarette/Vaping Use: Never Used Second Hand Smoke Exposure: No Advance Directives: No Advance Directives Information Provided: Yes service: No 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al status: unemployed Cognitive needs: No Hearing needs: No Vision needs: Yes (Glasses) Physical Exam ED Vital Signs: Vital Signs - 24 hr 01/13/22 21:05 01/13/22 23:34 01/14/22 02:00 Temperature 99.9 F 98.0 F Pulse Rate 74 58 54 Respiratory Rate 16 17 16 Blood Pressure 134/86 125/78 112/74 Pulse Oximetry 98 99 98 Oxygen Delivery Method Room Air Room Air Room Air 01/14/22 03:59 Temperature 97.8 F Pulse Rate 52 Respiratory Rate 16 Blood Pressure 102/70 Pulse Oximetry 98 Oxygen Delivery Method Room Air BMI result Body Mass Index 29.2 Const Other: Appearance: Alert. Oriented X3. No acute distress. Eyes: Pupils equal, round and reactive to light. Patient has photophobia ENT: Pharynx normal. Neck: Normal inspection. Neck supple. No lymph nodes noted. No crepitus CVS: Normal heart rate and rhythm. Pulses normal. Normal S1 and S2 Respiratory: No respiratory distress. Breath sounds normal. No Wheezing. No rales Abdomen: Soft and nontender. No rigidity. No distention. Skin: Skin warm and dry. Normal skin color. Normal skin turgor. Extremities: No lower extremity edema. No Lacerations. No Rash Neuro: Oriented X 3. No motor deficit. No sensory deficit. Moving all extremities. No slurred speech. CN 2 through 12 grossly intact Psych: calm, cooperative, normal affect Course Course Course Narrative: Patient is possibly withdrawing from benzodiazepines. Patient given 2 mg p.o. of lorazepam. For headache patient given IV fluids, morphine, diphenhydramine, Reglan. I checked the patient's prescription monitoring program, patient does get prescriptions every month, she did not get her prescription refilled in December. Patient was given an additional dose of sumatriptan for the migraine. Patient feeling better. Medical Decision Making Lab Data Result diagrams: 01/13/22 22:16 01/13/22 22:16 Labs: Lab Results 01/13/22 01/13/22 01/14/22 Range/Units 22:16 22:16 00:45 WBC 5.2 (4.8-10.8) X10*3/uL RBC 4.56 (4.20-5.50) X10*6/uL Hgb 13.6 (12.0-16.0) g/dl Hct 39.6 (37.0-47.0) % MCV 86.8 (80.0-98.0) fL MCH 29.8 (27.0-33.0) pg MCHC 34.3 (31.0-35.0) g/dl RDW 12.5 (11.0-16.0) % Plt Count 220 (160-400) X10*3/uL MPV 10.2 (9.4-12.3) fL Immature Gran % (Auto) 0.2 (0.0-0.4) % Neut % (Auto) 53.0 (45-73) % Lymph % (Auto) 35.6 (20-40) % [place] % (Auto) 8.1 (2-11) % Eos % (Auto) 2.5 (0-4) % Baso % (Auto) 0.6 (0-2) % Lymph # (Auto) 1.9 (1.2-4.9) X10*3/uL [place] # (Auto) 0.4 (0.1-1.2) X10*3/uL Eos # (Auto) 0.1 (0.0-0.4) X10*3/uL Baso # (Auto) 0.0 (0.0-0.2) X10*3/uL Abs Immat Gran (auto) 0.01 (0.00-0.03) X10*3/uL Absolute Neuts (auto) 2.8 (2.0-8.3) x10*3/uL Absolute Nucleated RBC 0.000 (0.0-0.012) X10*3/uL Nucleated RBC % (auto) 0.0 (0.0-0.2) /100WBC Sodium 142 (135-145) mmol/L Potassium 3.6 (3.3-5.1) mmol/L Chloride 104 (96-108) mmol/L Carbon Dioxide 27 (22-29) mmol/L Anion Gap 15 (12-20) BUN 12 (9-16) mg/dL Creatinine 0.77 (0.5-1.4) mg/dL Estim Creat Clear Calc 80.6 Estimated GFR > 60 Random Glucose 144 H (60-115) mg/dL Calcium 9.4 (8.4-10.2) mg/dL Total Bilirubin 0.3 (0.0-1.0) mg/dL AST 21 (5-31) U/L ALT 28 (0-31) U/L Alkaline Phosphatase 62 (39-117) U/L Total Protein 7.2 (6.5-8.0) g/dL Albumin 4.3 (3.5-5.0) g/dL Urine Color Yellow Urine Appearance Clear Urine pH 6.0 (5.0-9.0) Ur Specific [place] 1.025 (1.005-1.025) Urine Protein Negative (Neg-Trace) mg/dL Urine Glucose (UA) Negative (Negative) mg/dL Urine Ketones Negative (Negative) mg/dL Urine Blood Negative (Negative) Urine Nitrite Positive H (Negative) Ur Leukocyte Esterase Trace H (Negative) Urine RBC 0-2 (0-2) /HPF Urine WBC 0-5 (0-5) /HPF Ur Squamous Epith Cells 11-20 (0-2) /HPF Urine Bacteria 2+ (None Seen) Hyaline Casts 0-2 (0-2) /LPF Discharge Plan Discharge Clinical Impression: Migraine, Benzodiazepine withdrawal Patient Disposition: Home, Self-Care Instructions: Migraine Headache (ED) Additional Instructions: Please follow-up with your primary care physician tomorrow. If you have any worsening or new symptoms, please return to the emergency room or call 911 Prescriptions: New wridemoqnu-daznowzkqsies-vnqd [Fioricet] 50-300-40 mg capsule 1 cap PO Q8H PRN (Reason: pain) Qty: 10 0RF lorazepam 2 mg tablet 2 mg PO DAILY Qty: 10 0RF No Action Flintstones/Extra C Tablet,Chewable 1 tab PO DAILY Qty: 30 8RF omeprazole 40 mg capsule,delayed release(DR/EC) 40 mg PO DAILY 90 Days Qty: 90 3RF cyclobenzaprine 10 mg tablet 10 mg PO BEDTIME PRN (Reason: muscle spasm) 90 Days Qty: 90 0RF tramadol 50 mg tablet 50 mg PO Q8H PRN (Reason: pain) 30 Days Qty: 90 0RF levothyroxine 137 mcg tablet 137 mcg PO DAILY 30 Days Qty: 30 11RF hydrochlorothiazide 12.5 mg tablet 12.5 mg PO DAILY 90 Days Qty: 90 1RF citalopram 20 mg tablet 20 mg PO DAILY trazodone 100 mg tablet 100 mg PO BEDTIME PRN (Reason: insomnia) qynedczplf-wtdhpdhqfgrzy-cfsk 50-325-40 mg tablet 1 tab PO Q6H PRN (Reason: pain headache) 15 Days Qty: 60 5RF lorazepam 2 mg tablet 2 mg PO BEDTIME PRN calcium carbonate 650 mg calcium (1,625 mg) tablet 650 mg PO BID 30 Days Qty: 60 11RF
[2022-01-14 01:21] LABS: Bacteria Urine 2+ (None Seen); Hyaline Casts Urine 0-2 /LPF (0-2); RBC Urine 0-2 /HPF (0-2); UACC Culture Trigger YES; WBC Urine 0-5 /HPF (0-5)
[2022-01-14] MEDS: Morphine Sulfate 4 MG/ML CARTRIDGE IVPUSH (01:22)
[2022-01-14] MEDS: LORazepam 1 MG TABLET 2 MG PO (01:22)
[2022-01-14] MEDS: diphenhydrAMINE HCL 50 MG/ML VIAL 25 MG IVPUSH (01:22)
[2022-01-14] MEDS: Metoclopramide HCl 10 MG/2 ML VIAL IVPUSH (01:22)
[2022-01-14] MEDS: 0.9 % Sodium Chloride 1,000 ML 999 ML IVCONT (01:23)
[2022-01-14 02:00] VITALS: BP 112/74; PULSE 54; RESP 16; TEMP 36.7; O2SAT 98
[2022-01-14 03:59] VITALS: BP 102/70; PULSE 52; RESP 16; TEMP 36.6; O2SAT 98
[2022-01-14] MEDS: SUMAtriptan succinate 50 MG TABLET PO (03:59)
== END 2022-01-14 04:40 | disposition home or self-care (01) ==
PROVIDERS: Emergency Provider Emergency Medicine; PCP Internal Medicine
DX: G43.909 Migraine, unspecified, not intractable, without status migrainosus (principal); R42 Dizziness and giddiness; Z79.899 Other long term (current) drug therapy; Z87.891 Personal history of nicotine dependence
CPT/HCPCS: 36415; 80053; 81001; 85025; 87086; 87088; 87186; 96374; 96375; 99284; J1200; J2270; J2765

== ENCOUNTER → 2022-03-09 14:55 | Outpatient (BNVA) | payer OTHER, SELFPAY | PROVIDERS: PCP Internal Medicine; Visit Provider Nurse Practitioner Family | DX: G43.109 Migraine with aura, not intractable, without status migrainosus (principal); R06.83 Snoring; G47.19 Other hypersomnia; E66.9 Obesity, unspecified; Z68.41 Body mass index [BMI] 40.0-44.9, adult | CPT/HCPCS: 99202 ==

== ENCOUNTER 2022-04-12 11:42 | Outpatient (REF) | payer OTHER, SELFPAY ==
[2022-04-12 13:53] LABS: Alanine Aminotransferase 30 U/L (0-31); Albumin Level 4.4 g/dL (3.5-5.0); Alkaline Phosphatase 66 U/L (39-117); Anion Gap 10 (12-20); Aspartate Amino Transferase 18 U/L (5-31); Bilirubin Total 0.7 mg/dL (0.0-1.0); Blood Urea Nitrogen 12 mg/dL (9-16); Calcium 9.7 mg/dL (8.4-10.2); Carbon Dioxide 31 mmol/L (22-29); Chloride 101 mmol/L (96-108); Cholesterol 211 mg/dL; Estimated Glomerular Filt Rate > 60; Free T4 (Free Thyroxine) 1.19 ng/dL (0.71-1.85); Glucose Random 94 mg/dL (60-115); HDL Cholesterol 72 mg/dL; LDL Cholesterol Calculated 129 mg/dl; Phosphorus 3.3 mg/dL (2.7-4.5); Potassium 4.1 mmol/L (3.3-5.1); Sodium 138 mmol/L (135-145); Thyroid Stimulating Hormone 0.46 uIU/mL (0.32-4.0); Total Protein 7.5 g/dL (6.5-8.0); Triglycerides 53 mg/dL; Vitamin D 25-OH Total 25.8 ng/mL (>30)
[2022-04-14 12:23] LABS: Calcium (PTHI) 9.7 mg/dL (8.6-10.4); PTHI 106 pg/mL (16-77)
== END 2022-04-12 11:43 | disposition home or self-care (01) ==
LOC: HO.LAB 11:42
PROVIDERS: Visit Provider Internal Medicine
DX: E21.3 Hyperparathyroidism, unspecified (principal); E89.0 Postprocedural hypothyroidism; E55.9 Vitamin D deficiency, unspecified; E78.5 Hyperlipidemia, unspecified
CPT/HCPCS: 36415; 80053; 80061; 82306; 83970; 84100; 84439; 84443

== ENCOUNTER 2022-05-02 | Outpatient (REF) | payer OTHER, SELFPAY ==
[2022-05-03 11:21] LABS: Creatinine, mg/dL 96.67
[2022-05-03 13:37] LABS: Total Volume 24 Hour Urine 2025 mL
[2022-05-05 18:23] LABS: Calcium, 24 Hr Urine 192 mg/24 h; Calcium/Creatinine Ratio 102 mg/g creat (30-275); Creatinine 24Hr Urine 1.88 g/24 h (0.50-2.15)
== END 2022-05-02 00:01 | disposition home or self-care (01) ==
LOC: HO.LNP
PROVIDERS: Visit Provider Internal Medicine
DX: E21.3 Hyperparathyroidism, unspecified (principal)
CPT/HCPCS: 82340; 82570

== ENCOUNTER 2022-06-16 15:02 | Outpatient (REF) | payer OTHER, SELFPAY ==
--- NOTE | ~2022-06-16 | US_ITS ---
EXAMINATION: US SOFT TISSUE NECK CLINICAL INFORMATION: Acute parotiditis on the right COMPARISON: None TECHNIQUE: Ultrasound of the parotid glands is performed with high- frequency bustamante-scale imaging and color Doppler. FINDINGS: The right parotid appears unremarkable and similar to the left. A small lymph node is present adjacent to the left parotid gland measuring 4 x 3 x 3 mm. An abnormal mass or fluid collection is not seen. US/US soft tiss head and/or neck IMPRESSION: No significant abnormality is seen.
[2022-06-16 15:10] LABS: MANUAL DIFF FLAG NO
[2022-06-16 15:29] LABS: Basophils Percent Auto 0.4 % (0-2); Eosinophils Absolute Auto 0.1 X10*3/uL (0.0-0.4); Eosinophils Percent Auto 2.8 % (0-4); Hematocrit 38.5 % (37.0-47.0); Hemoglobin 13.1 g/dl (12.0-16.0); Imm Gran Abs Auto 0.01 X10*3/uL (0.00-0.03); Imm Gran Pct Auto 0.2 % (0.0-0.4); Lymphocytes Absolute Auto 1.6 X10*3/uL (1.2-4.9); Lymphocytes Percent Auto 34.6 % (20-40); Mean Corpuscular Hemoglobin 29.5 pg (27.0-33.0); Mean Corpuscular Volume 86.7 fL (80.0-98.0); Mean Platelet Volume 11.6 fL (9.4-12.3); Monocytes Absolute Auto 0.3 X10*3/uL (0.1-1.2); Monocytes Percent Auto 7.3 % (2-11); Neutrophils Absolute Auto 2.5 x10*3/uL (2.0-8.3); Neutrophils Percent Auto 54.7 % (45-73); Platelet Count 156 X10*3/uL (160-400); Red Blood Count 4.44 X10*6/uL (4.20-5.50); Red Cell Distribution Width 12.7 % (11.0-16.0); White Blood Count 4.6 X10*3/uL (4.8-10.8)
[2022-06-18 01:03] LABS: Mumps Virus IgG Antibody <9.00 AU/mL
[2022-06-19 21:59] LABS: Mumps Virus IgM Antibody <1:20 titer
== END 2022-06-16 15:03 | disposition home or self-care (01) ==
LOC: HO.US 15:02
PROVIDERS: Absent Provider Nurse Practitioner Family; PCP Internal Medicine; Visit Provider Internal Medicine
DX: K11.21 Acute sialoadenitis (principal)
CPT/HCPCS: 36415; 76536; 85025; 86735

== ENCOUNTER → 2022-07-07 08:53 | Outpatient (REF) | payer OTHER, SELFPAY | LOC: HO.SL 08:53 | PROVIDERS: PCP Internal Medicine; Visit Provider Nurse Practitioner Family | DX: Z13.89 Encounter for screening for other disorder (principal) ==

== ENCOUNTER 2022-09-27 11:19 | Outpatient (REF) | payer OTHER, SELFPAY ==
[2022-09-27 13:30] LABS: Alanine Aminotransferase 41 U/L (0-31); Albumin Level 4.4 g/dL (3.5-5.0); Alkaline Phosphatase 63 U/L (39-117); Anion Gap 11 (12-20); Aspartate Amino Transferase 24 U/L (5-31); Bilirubin Total 0.7 mg/dL (0.0-1.0); Blood Urea Nitrogen 15 mg/dL (9-16); Calcium 9.2 mg/dL (8.4-10.2); Carbon Dioxide 32 mmol/L (22-29); Chloride 101 mmol/L (96-108); Estimated Glomerular Filt Rate > 60; Glucose Random 92 mg/dL (60-115); Phosphorus 3.4 mg/dL (2.7-4.5); Sodium 140 mmol/L (135-145); Total Protein 7.2 g/dL (6.5-8.0)
[2022-09-27 13:48] LABS: Free T4 (Free Thyroxine) 1.19 ng/dL (0.71-1.85); Thyroid Stimulating Hormone 1.49 uIU/mL (0.32-4.0); Vitamin D 25-OH Total 24.9 ng/mL (>30)
[2022-09-28 16:25] LABS: Calcium (PTHI) 9.3 mg/dL (8.6-10.4); PTHI 147 pg/mL (16-77)
== END 2022-09-27 11:20 | disposition home or self-care (01) ==
LOC: HO.LAB 11:19
PROVIDERS: PCP Internal Medicine; Visit Provider Internal Medicine
DX: E55.9 Vitamin D deficiency, unspecified (principal); E21.3 Hyperparathyroidism, unspecified; E89.0 Postprocedural hypothyroidism
CPT/HCPCS: 36415; 80053; 82306; 83970; 84100; 84439; 84443; 99212

== ENCOUNTER 2022-11-10 10:20 | Outpatient (REF) | payer OTHER, SELFPAY ==
--- NOTE | ~2022-11-10 | MM_ITS ---
EXAMINATION: MM SCREENING DIGITAL BREAST TOMOSYNTHESIS, BILATERAL CLINICAL INFORMATION: Screening. Asymptomatic. The lifetime risk of breast cancer based on the Tyrer-Cuzick Model is 13.1.%. COMPARISON: Mammography: This study is compared with the prior mammograms dating back to 2019. TECHNIQUE: Digital breast tomosynthesis is performed in both the craniocaudal and mediolateral oblique views along with computer-aided detection (CAD). Synthesized 2D images are generated from the tomosynthesis. FINDINGS: There are scattered areas of fibroglandular density (ACR BI-RADS breast composition Category b). There are no significant masses, abnormal calcifications, or other abnormalities. There is a single triangular fragment of shrapnel in the upper outer quadrant of the right breast. There are multiple benign calcifications at the central and inferior portion of the right breast. Some of these hyperdense areas may also be due to shrapnel. MM/MM tomosynthesis screening BI IMPRESSION: No mammographic evidence of malignancy. ASSESSMENT: BI-RADS BI-RADS 2 - Benign Findings RECOMMENDATION: Routine annual mammography screening. 1 year F/U This patient's information was entered into a reminder system with a target due date for their next mammogram.
== END 2022-11-10 10:21 | disposition home or self-care (01) ==
LOC: HO.MAMMO 10:20
PROVIDERS: PCP Internal Medicine; Visit Provider Internal Medicine
DX: Z12.31 Encounter for screening mammogram for malignant neoplasm of breast (principal)
CPT/HCPCS: 77063; 77067

== ENCOUNTER → 2022-11-10 10:30 | Outpatient (BNV) | payer OTHER, SELFPAY | PROVIDERS: PCP Internal Medicine; Visit Provider Radiology Diagnostic Radiology | DX: Z12.31 Encounter for screening mammogram for malignant neoplasm of breast (principal) | CPT/HCPCS: 77063; 77067 ==

== ENCOUNTER 2022-11-14 08:23 | Emergency (ER) | payer OTHER, SELFPAY ==
[2022-11-14 08:27] VITALS: BP 139/81; PULSE 81; RESP 18; TEMP 37.8; O2SAT 99; BMI 30.7
--- NOTE | 2022-11-14 09:21 | ED.FEMALEGU ---
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 Reports lower back pain. Denies flank pain. Denies nausea, vomiting, diarrhea, constipation. Denies any abnormal vaginal discharge. Denies concern for STIs. MD elicited complaint: dysuria Onset (ago): day(s) Location of symptoms: suprapubic Severity: severe Severity scale (1-10): 8 Quality of pain: aching Consistency: constant Vaginal discharge: none Vaginal bleeding: none Urinary symptoms: Dysuria, Urgency and Frequency Exacerbating factors: none Relieving factors: none Associated symptoms: chills Treatment prior to arrival: none Related Data Home Medications Medication Instructions Recorded Confirmed citalopram 20 mg tablet 20 mg PO DAILY 04/03/20 10/27/22 cyclobenzaprine 10 mg tablet 10 mg PO BEDTIME PRN muscle spasm 09/27/22 10/27/22 omeprazole 40 mg capsule,delayed 40 mg PO DAILY PRN 09/27/22 10/27/22 release Previous Rx's Medication Instructions Recorded snpdghloqo-hcpsjpwfxnuac-xwucqrns 1 tab PO Q6H PRN pain headache 15 03/11/21 50 mg-325 mg-40 mg tablet days #60 tabs levothyroxine 137 mcg tablet 137 mcg PO DAILY 30 days #30 tabs 12/31/21 lorazepam 2 mg tablet 2 mg PO DAILY #10 tabs 01/14/22 cholecalciferol (vitamin D3) 25 25 mcg PO DAILY 30 days #30 caps 09/29/22 mcg (1,000 unit) capsule tramadol 50 mg tablet 50 mg PO Q8H PRN pain 30 days #90 10/25/22 tabs hydrochlorothiazide 12.5 mg tablet 12.5 mg PO DAILY 90 days #90 tabs 11/13/22 nitrofurantoin 100 mg PO BID #10 caps 11/14/22 monohydrate/macrocrystals 100 mg capsule (Macrobid) Allergies Allergy/AdvReac Type Severity Reaction Status Date / Time aspirin Allergy Severe Swelling Verified 10/27/22 11:25 topiramate AdvReac Intermediate cough Verified 10/27/22 11:25 Review of Systems Review of Systems: As per HPI. Yes all other systems are reviewed and are negative Constitutional: Constitutional: Reports as per HPI [facility] Past Medical History Medical History (Updated 11/14/22 @ 10:52 by Ankita Kenny NP) Amenorrhea Common cold JAYLENE (generalized anxiety disorder) Hot flash not due to menopause HTN (hypertension) Hyperparathyroidism Hypothyroidism Lump of skin Moderate recurrent major depression Morbid obesity with BMI of 40.0-44.9, adult Obesity Obstructive sleep apnea Vitamin D deficiency Surgical History History of thyroidectomy Hx of gastric bypass Hx of hemorrhoidectomy Hx of hysterectomy Hx of multiple trauma Hx of tubal ligation Family History Family History Father Diabetes Hypertension Mother No problems noted. Brother Substance use disorder Family/Other Mental health disorder Maternal Aunt Cancer Social History Social History Housing: Apartment Alcohol intake: current Alcohol intake frequency: a few times a month Alcohol type: wine Patient Tobacco Use Status: Current everyday Tobacco user Tobacco use type: Cigarette Cigarettes Per Day: 3 Years Smoked: 15 e-Cigarette/Vaping Use: Never Used Second Hand Smoke Exposure: No Advance Directives: No Advance Directives Information Provided: Yes service: No 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al status: unemployed Cognitive needs: No Hearing needs: No Vision needs: Yes (Glasses) Physical Exam Vital Signs: Vital Signs: Last Vital Signs Temp 100.1 F 11/14/22 08:27 Pulse 81 11/14/22 08:27 Resp 18 11/14/22 08:27 BP 139/81 11/14/22 08:27 Pulse Ox 99 11/14/22 08:27 O2 Del Method Room Air 11/14/22 08:27 BMI result Body Mass Index 30.7 Vital signs have been reviewed and appear to be correct. Blood pressure normal. Heart rate normal. Respiratory rate normal. Temperature normal. Oxygen saturation normal. Const: General: cooperative, healthy appearing and no acute distress Orientation/consciousness: oriented to person, oriented to place, oriented to time and patient oriented x3 Limitations: no limitations HEENT: Head: Yes normocephalic and Yes atraumatic Ears: external ears normal General nose exam: Normal external nose present Face and sinus: Yes face symmetric Mouth: oropharynx normal and moist mucous membranes Throat: Yes uvula midline Eyes: Pupils: Equal, round and reactive pupils present Neck: Neck: Yes normal visual inspection and Yes supple Resp: Effort & Inspection: normal respiratory effort and able to speak in complete sentences Auscultation: clear to auscultation bilaterally Cardio: Rate: regular rate Rhythm: regular rhythm Heart sounds: S1 normal heart sound present and S2 normal heart sound present GI: Palpation (GI): Soft to palpation and nontender Auscultation: normoactive bowel sounds : General: Yes no CVA tenderness Back/Spine/Pelvis: Back: no CVA tenderness Skin: General skin exam: elasticity normal and turgor normal Neuro: General: oriented to person, oriented to place, oriented to time, patient oriented x3, moves all extremities, no focal motor deficits and CN's II-XI intact bilaterally Cranial nerves: Yes Equal, round and reactive pupils present Cognition (Neuro): normal cognition Extrem: General: Yes full ROM, Yes no pedal edema and Yes no calf tenderness Psych: Mental Status: mental status grossly normal Affect: normal affect Thought process: Normal thought process present Medications Administered Discontinued Medications Generic Name Dose Route Start Last Admin Trade Name Freq PRN Reason Stop Dose Admin Ibuprofen 600 mg 11/14/22 10:06 11/14/22 10:26 Ibuprofen 600 Mg Tablet PO 11/14/22 10:07 Not Given ONCE ONE Phenazopyridine HCl 200 mg 11/14/22 10:06 11/14/22 10:24 Phenazopyridine Hcl 200 Mg Tablet PO 11/14/22 10:07 200 mg ONCE ONE Administration Medical Decision Making Medical Decision Making [facility] Narrative: Patient is a 52-year-old Tajik-speaking female with history of HTN, migraines, HLD, elevated LFTs, hypothyroidism presenting to the emergency department with dysuria and lower abdominal discomfort since yesterday as well as sweats, chills last night. On exam patient is awake, A+Ox3, VS WNL, temp 100.1, normal neurological exam without focal deficits, abdomen is soft and nontender, no guarding or rebound tenderness, no CVA tenderness. Given reported symptoms and physical exam findings, differential includes UTI, pyelonephritis, SOLANGE. Less likely renal colic as patient denies flank pain, has no CVA tenderness. Do not suspect sepsis at this time. UA positive for 2+ leukocytes, 3+ blood, 4+ protein, 4+ bacteria. Labs notable for no leukocytosis, no evidence of SOLANGE. Culture from 01/14/22 grew staph xylosis which was succeptible to Macrobid. Will prescribe Macrobid for UTI today. Patient updated on all results and all questions answered. Return precautions discussed at bedside. Instructed patient to follow-up with PCP. Patient verbalized understanding of and agreement with plan. Differential Diagnosis Differential Diagnoses: The differential diagnosis associated with the presentation includes As above. Lab Data MDM Lab Attestation statement: I reviewed the patient's lab results. As above. 11/14/22 10:20 11/14/22 10:20 Labs: Lab Results 11/14/22 11/14/22 11/14/22 Range/Units 08:46 08:46 10:20 WBC 5.4 (4.8-10.8) X10*3/uL RBC 4.73 (4.20-5.50) X10*6/uL Hgb 13.6 (12.0-16.0) g/dl Hct 41.6 (37.0-47.0) % MCV 87.9 (80.0-98.0) fL MCH 28.8 (27.0-33.0) pg MCHC 32.7 (31.0-35.0) g/dl RDW 12.7 (11.0-16.0) % Plt Count 205 D (160-400) X10*3/uL MPV 10.0 (9.4-12.3) fL Immature Gran % (Auto) 0.2 (0.0-0.4) % Neut % (Auto) 58.0 (45-73) % Lymph % (Auto) 31.5 (20-40) % [place] % (Auto) 6.9 (2-11) % Eos % (Auto) 3.0 (0-4) % Baso % (Auto) 0.4 (0-2) % Lymph # (Auto) 1.7 (1.2-4.9) X10*3/uL [place] # (Auto) 0.4 (0.1-1.2) X10*3/uL Eos # (Auto) 0.2 (0.0-0.4) X10*3/uL Baso # (Auto) 0.0 (0.0-0.2) X10*3/uL Abs Immat Gran (auto) 0.01 (0.00-0.03) X10*3/uL Absolute Neuts (auto) 3.1 (2.0-8.3) x10*3/uL Absolute Nucleated RBC 0.000 (0.0-0.012) X10*3/uL Nucleated RBC % (auto) 0.0 (0.0-0.2) /100WBC Sodium (135-145) mmol/L Potassium (3.3-5.1) mmol/L Chloride (96-108) mmol/L Carbon Dioxide (22-29) mmol/L Anion Gap (12-20) BUN (9-16) mg/dL Creatinine (0.5-1.4) mg/dL Estim Creat Clear Calc Estimated GFR Random Glucose (60-115) mg/dL Calcium (8.4-10.2) mg/dL Urine Color Yellow Urine Appearance Turbid Urine pH 6.0 (5.0-9.0) Ur Specific [place] >= 1.030 H (1.005-1.025) Urine Protein >=1000 (4+) H (Neg-Trace) mg/dL Urine Glucose (UA) Negative (Negative) mg/dL Urine Ketones Negative (Negative) mg/dL Urine Blood Large (3+) H (Negative) Urine Nitrite Negative (Negative) Ur Leukocyte Esterase Moderate (2+) H (Negative) Urine RBC >20 H (0-2) /HPF Urine WBC >50 H (0-5) /HPF Ur Squamous Epith Cells >20 (0-2) /HPF Urine Bacteria 4+ (None Seen) Hyaline Casts 0-2 (0-2) /LPF Urine Test NEGATIVE (NEGATIVE) 11/14/22 Range/Units 10:20 WBC (4.8-10.8) X10*3/uL RBC (4.20-5.50) X10*6/uL Hgb (12.0-16.0) g/dl Hct (37.0-47.0) % MCV (80.0-98.0) fL MCH (27.0-33.0) pg MCHC (31.0-35.0) g/dl RDW (11.0-16.0) % Plt Count (160-400) X10*3/uL MPV (9.4-12.3) fL Immature Gran % (Auto) (0.0-0.4) % Neut % (Auto) (45-73) % Lymph % (Auto) (20-40) % [place] % (Auto) (2-11) % Eos % (Auto) (0-4) % Baso % (Auto) (0-2) % Lymph # (Auto) (1.2-4.9) X10*3/uL [place] # (Auto) (0.1-1.2) X10*3/uL Eos # (Auto) (0.0-0.4) X10*3/uL Baso # (Auto) (0.0-0.2) X10*3/uL Abs Immat Gran (auto) (0.00-0.03) X10*3/uL Absolute Neuts (auto) (2.0-8.3) x10*3/uL Absolute Nucleated RBC (0.0-0.012) X10*3/uL Nucleated RBC % (auto) (0.0-0.2) /100WBC Sodium 139 (135-145) mmol/L Potassium 4.4 (3.3-5.1) mmol/L Chloride 103 (96-108) mmol/L Carbon Dioxide 29 (22-29) mmol/L Anion Gap 11 L (12-20) BUN 17 H (9-16) mg/dL Creatinine 0.72 (0.5-1.4) mg/dL Estim Creat Clear Calc 102.2 Estimated GFR > 60 Random Glucose 101 (60-115) mg/dL Calcium 9.4 (8.4-10.2) mg/dL Urine Color Urine Appearance Urine pH (5.0-9.0) Ur Specific [place] (1.005-1.025) Urine Protein (Neg-Trace) mg/dL Urine Glucose (UA) (Negative) mg/dL Urine Ketones (Negative) mg/dL Urine Blood (Negative) Urine Nitrite (Negative) Ur Leukocyte Esterase (Negative) Urine RBC (0-2) /HPF Urine WBC (0-5) /HPF Ur Squamous Epith Cells (0-2) /HPF Urine Bacteria (None Seen) Hyaline Casts (0-2) /LPF Urine Test (NEGATIVE) External Record Review External record reviewed: Inpatient record, Office record and Outpatient record Prescription Management I considered prescription management with: Antibiotic (Macrobid) Chronic Conditions Patient?s care impacted by: Hypertension Discharge Plan Discharge Clinical Impression: UTI (urinary tract infection) Patient Disposition: Home, Self-Care Instructions: Urinary Tract Infection in Women (DC) Additional Instructions: You have been evaluated in the emergency department today for your urinary symptoms. Your evaluation, including urinalysis, suggests that your symptoms are due to urinary tract infection. Please take your prescribed antibiotics for the full course of medication as directed. Please follow-up with your primary care provider within 2 days. Return to the emergency department if you experience fevers 100.4? F or greater, worsening or uncontrolled pain, vomiting, flank pain, or for any other concerning symptoms. Prescriptions: New nitrofurantoin monohyd/m-cryst [Macrobid] 100 mg capsule 100 mg PO BID Qty: 10 0RF Rx Instructions: must administer with a meal/food No Action levothyroxine 137 mcg tablet 137 mcg PO DAILY 30 Days Qty: 30 11RF cholecalciferol (vitamin D3) 25 mcg (1,000 unit) capsule 25 mcg PO DAILY 30 Days Qty: 30 11RF tramadol 50 mg tablet 50 mg PO Q8H PRN (Reason: pain) 30 Days Qty: 90 0RF hydrochlorothiazide 12.5 mg tablet 12.5 mg PO DAILY 90 Days Qty: 90 0RF lorazepam 2 mg tablet 2 mg PO DAILY Qty: 10 0RF citalopram 20 mg tablet 20 mg PO DAILY ctsxjzacas-undgygagrsawa-psnu 50-325-40 mg tablet 1 tab PO Q6H PRN (Reason: pain headache) 15 Days Qty: 60 5RF cyclobenzaprine 10 mg tablet 10 mg PO BEDTIME PRN (Reason: muscle spasm) omeprazole 40 mg capsule,delayed release(DR/EC) 40 mg PO DAILY PRN
--- NOTE | 2022-11-14 10:55 | PC.NURSE ---
pt medicated per Masr for 10/10 pain
== END 2022-11-14 11:13 | disposition home or self-care (01) ==
PROVIDERS: Emergency Provider Emergency Medicine Emergency Medical Services; PCP Internal Medicine
DX: N39.0 Urinary tract infection, site not specified (principal); R30.0 Dysuria; I10 Essential (primary) hypertension; G43.909 Migraine, unspecified, not intractable, without status migrainosus; E78.5 Hyperlipidemia, unspecified
CPT/HCPCS: 36415; 80048; 81001; 81025; 85025; 87086; 96372; 99284; J1885

== ENCOUNTER 2022-11-21 19:40 | Emergency (ER) | payer OTHER, SELFPAY ==
[2022-11-21 20:00] VITALS: BP 147/86; PULSE 87; RESP 18; TEMP 36.8; O2SAT 97; BMI 41.6
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
[2022-11-21 20:48] LABS: Alanine Aminotransferase 34 U/L (0-31); Albumin Level 4.2 g/dL (3.5-5.0); Alkaline Phosphatase 66 U/L (39-117); Anion Gap 11 (12-20); Aspartate Amino Transferase 24 U/L (5-31); Bilirubin Total 0.5 mg/dL (0.0-1.0); Blood Urea Nitrogen 16 mg/dL (9-16); Calcium 9.9 mg/dL (8.4-10.2); Carbon Dioxide 30 mmol/L (22-29); Chloride 107 mmol/L (96-108); Creatinine Clr Calc Pharmacy 106.6; Estimated Glomerular Filt Rate > 60; Glucose Random 103 mg/dL (60-115); Sodium 144 mmol/L (135-145); Total Protein 7.5 g/dL (6.5-8.0)
[2022-11-21 22:25] VITALS: BP 124/66; PULSE 85; RESP 18; TEMP 36.7; O2SAT 97
--- NOTE | 2022-11-21 23:26 | PC.NURSE ---
pt medicated according to jeremy. court interpreter utilized. pt provided with discharge packet. pt vrebalized understanding of discharge plan
[2022-11-21 23:28] VITALS: BP 127/79; PULSE 74; RESP 15; TEMP 36.8; O2SAT 98
== END 2022-11-21 23:35 | disposition home or self-care (01) ==
PROVIDERS: Physician Assistant; Emergency Provider Emergency Medicine Emergency Medical Services; PCP Internal Medicine
DX: N39.0 Urinary tract infection, site not specified (principal); R31.9 Hematuria, unspecified; F17.210 Nicotine dependence, cigarettes, uncomplicated; Z71.6 Tobacco abuse counseling; Z79.899 Other long term (current) drug therapy
CPT/HCPCS: 36415; 80053; 81001; 81025; 84702; 85025; 87086; 99284

== ENCOUNTER 2022-12-09 11:15 | Outpatient (REF) | payer OTHER, SELFPAY ==
--- NOTE | ~2022-12-09 | XR_ITS ---
EXAMINATION: XR KNEE, LEFT XR KNEE STANDING, BILATERAL CLINICAL INFORMATION: Left knee pain. COMPARISON: 10/07/2020 and 08/29/2020 TECHNIQUE: AP standing view of both knees and patellar sunrise and lateral views of the left knee. FINDINGS: There is minimal spurring seen medial joint space compartments of the right knee. Views of the left knee demonstrate duio-re-ucsptjbg narrowing of the medial joint space compartment. Lateral joint space is maintained with mild spurring. No significant effusion is seen. There is spurring about the lateral facet of the patellofemoral joint. XR/XR knee standing BI IMPRESSION: Degenerative change of the left knee involving the medial joint space compartment and patellofemoral joint.
--- NOTE | ~2022-12-09 | XR_ITS ---
EXAMINATION: XR KNEE, LEFT XR KNEE STANDING, BILATERAL CLINICAL INFORMATION: Left knee pain. COMPARISON: 10/07/2020 and 08/29/2020 TECHNIQUE: AP standing view of both knees and patellar sunrise and lateral views of the left knee. FINDINGS: There is minimal spurring seen medial joint space compartments of the right knee. Views of the left knee demonstrate zzzx-um-fbkuqjnq narrowing of the medial joint space compartment. Lateral joint space is maintained with mild spurring. No significant effusion is seen. There is spurring about the lateral facet of the patellofemoral joint. XR/XR knee LT 2V IMPRESSION: Degenerative change of the left knee involving the medial joint space compartment and patellofemoral joint.
== END 2022-12-09 11:16 | disposition home or self-care (01) ==
LOC: HO.HOSX 11:15
PROVIDERS: Visit Provider Physician Assistant
DX: M17.12 Unilateral primary osteoarthritis, left knee (principal)
CPT/HCPCS: 20610; 73560; 73565; J1040

== ENCOUNTER 2022-12-09 13:57 | Outpatient (AMB) | payer OTHER, SELFPAY ==
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
[2022-12-09 14:18] VITALS: BMI 41.6
== END 2022-12-09 15:21 | disposition home or self-care (01) ==
PROVIDERS: PCP Internal Medicine; Visit Provider Physician Assistant
DX: M17.12 Unilateral primary osteoarthritis, left knee (principal)
CPT/HCPCS: 20610; 99213

== ENCOUNTER 2022-12-24 09:42 | Outpatient (AMB) | payer OTHER, SELFPAY ==
--- NOTE | 2022-12-24 09:51 | A.OFFVIS_ITS ---
Intake Intake Visit Reasons: ER follow up- UTI/hematuria Intake Note: New Patient presents for initial visit [facility] [place] ER follow up uti/hematuria ER Visit : 11/21/22 Urology Medications: none Blood Thinner: none PVR: 0ml's [employer] Installation Manager Required: Yes Accompanied by: Self / Same As Patient Allergies aspirin Allergy (Severe, Verified 12/24/22 10:41) Swelling topiramate Adverse Reaction (Intermediate, Verified 12/24/22 10:41) cough Medication List - Last Reconciled 12/24/22 by YOANA Jordan dtthfssrjs-spyuzqkeyhyga-vwbm 50-325-40 mg 1 tab PO Q6H PRN 15 days celecoxib (Celebrex) 200 mg PO BID 30 days cholecalciferol (vitamin D3) 25 mcg PO DAILY 30 days cyclobenzaprine 10 mg PO BEDTIME PRN diphenhydramine HCl (Benadryl) 25 mg PO Q6-8H PRN levothyroxine 137 mcg PO DAILY 30 days lorazepam 2 mg PO DAILY omeprazole 40 mg PO DAILY PRN tramadol 50 mg PO Q8H PRN 30 days HPI HPI Comments History of Present Illness Details Matthias is a pleasant 52-year-old Azeri-speaking female patient of Dr. Nacho Beal. She has a past medical history of hypertension, obesity, migraines, hyperparathyroidism, depression, vitamin-D deficiency, and obstructive sleep apnea. She presents to the office today as a new patient for recurrent urinary tract infection. In discussion with the patient today she reports seeking emergency room care approximately 1 month ago for dysuria, suprapubic pain, and hematuria. She reports being diagnosed with a urinary tract infection at which time she was prescribed antibiotics and suggested to follow-up with Urology. When asked she reports completing antibiotic therapy as prescribed by ER physician. She denies any UTI like symptoms at this time. However, she continues with bladder pressure and mixed stress incontinence however she states this is not new for her. She discusses having had a previous surgical intervention on her bladder through [facility] many years ago. Will attempt to obtain records for continuity of care. She also reports having tried pelvic floor therapy in the past with no benefit. In office urinalysis results reviewed with the patient today. When asked she currently denies urinary urgency, urinary frequency, nocturia, hematuria, dysuria, foul smelling urine, changes to urinary stream, flank pain, fever, and or chills. When asked she does report having had 2 vaginal births in the past and reports second vaginal to have been a long labor as well as her baby to have been on the larger size. Discussed trial of Estrace as well as obtaining retroperitoneal ultrasound for further assessment evaluation. Discussed pelvic floor therapy and or overactive bladder medications to assist with neck stress incontinence. Patient otherwise denies any issues or concerns at this time. [facility] Medical History Amenorrhea Common cold JAYLENE (generalized anxiety disorder) Hot flash not due to menopause HTN (hypertension) Hyperparathyroidism Hypothyroidism Lump of skin Moderate recurrent major depression Morbid obesity with BMI of 40.0-44.9, adult Obesity Obstructive sleep apnea Vitamin D deficiency Surgical History History of thyroidectomy Hx of gastric bypass Hx of hemorrhoidectomy Hx of hysterectomy Hx of multiple trauma Hx of tubal ligation Family History Father Diabetes Hypertension Mother No problems noted. 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 Cognitive needs: No Hearing needs: No Vision needs: Yes (Glasses) Review of Systems Eyes Reports no additional complaints ENT Reports as per HPI Card Reports as per HPI Resp Reports as per HPI GI Reports as per HPI Reports as per HPI Musc Reports no additional complaints Neuro Reports no additional complaints Psych Reports as per HPI Endo Reports no additional complaints Jeanmarie/Lymph Reports no additional complaints Aller/Immun Reports no additional complaints Physical Exam Const General: cooperative, healthy appearing, comfortable, no acute distress, well developed, alert and awake Nutritional Appearance: overweight Orientation/consciousness: patient oriented x3 Limitations: no limitations HEENT Head: Yes normal to inspection, Yes normocephalic and Yes atraumatic Ears: hearing grossly normal bilaterally Eyes General: appearance normal, both eyes and all related structures Neck Neck: Yes normal visual inspection and Yes trachea midline Chest Chest palpation & inspection: normal inspection of the chest Resp Effort & Inspection: normal respiratory effort and able to speak in complete sentences Cardio Rate: regular rate GI Inspection: Yes normal to inspection General: Yes no CVA tenderness Back/Spine/Pelvis Back: no CVA tenderness Skin General skin exam: no rashes or lesions noted Neuro General: patient oriented x3 Extrem General: Yes normal to inspection Psych Appearance: grossly normal and well kempt Mental Status: mental status grossly normal Speech and movement: Normal speech and movement present and Clear speech present Affect: normal affect Attitude: cooperative Thought process: Normal thought process present Thought content: Normal thought content present Insight: Good insight present (Psych) Judgement: Good judgement present (Psych) Office Procedures Post Void Residual Post Residual Void Post Void Residual (PVR): 0 27106-Iilx Void Residual by ultrasound Results AMB Urinalysis, Automated UA Leukoctes 0 Preet/uL Last Edit by RawFlow on 12/24/22 10:15 UA Nitrite Last Edit by RawFlow on 12/24/22 10:15 UA Urobilinogen 0.2 mg/dL Last Edit by RawFlow on 12/24/22 10:15 UA Protein 30 mg/dL Last Edit by RawFlow on 12/24/22 10:15 UA pH 5.5 Last Edit by RawFlow on 12/24/22 10:15 UA Blood 0 Ishmael/uL Last Edit by RawFlow on 12/24/22 10:15 UA Specific [place] 1.030 Last Edit by RawFlow on 12/24/22 10:15 UA Ketone Last Edit by RawFlow on 12/24/22 10:15 UA Bilirubin 0 mg/dL Last Edit by RawFlow on 12/24/22 10:15 UA Glucose 0 mg/dL Last Edit by RawFlow on 12/24/22 10:15 Results Reviewed Results Reviewed: Laboratory Last Values Urine pH (Auto) 5.5 12/24/22 10:01 Specific [place] (Auto) 1.030 12/24/22 10:01 Urine Protein (Auto) 30 mg/dL 12/24/22 10:01 Glucose (UA)(Auto) 0 mg/dL 12/24/22 10:01 Urine Blood (Auto) 0 Ishmael/uL 12/24/22 10:01 Urine Bilirubin (Auto) 0 mg/dL 12/24/22 10:01 Urine Urobilinogen (Auto) 0.2 mg/dL 12/24/22 10:01 Leukocyte Esterase (Auto) 0 Preet/uL 12/24/22 10:01 Assessment & Plan Assessment & Plan (1) Sensation of pressure in bladder area: Code(s): R39.89 - Other symptoms and signs involving the genitourinary system (2) Mixed incontinence urge and stress: Code(s): N39.46 - Mixed incontinence (3) Recurrent UTI: Code(s): N39.0 - Urinary tract infection, site not specified Plan In office urinalysis results reviewed with the patient today; as noted above. Discussed at length UTI prevention with D mannose supplement, vitamin-C, increasing fluid intake, behavioral therapy with timed voiding, perineal hygiene and postcoital voiding, and management of constipation with stool softeners and increased fiber intake. Will attempt to obtain previous [facility] records for continuity of care. Discussed obtaining retroperitoneal ultrasound for further assessment evaluation. Discussed pelvic floor therapy and or trial of overactive bladder medication Discussed near future in office cystoscopy is symptoms persist and/or worsen Start oxybutynin as discussed and prescribed. Discussed trial of Estrace cream Follow-up in 6-8 weeks with PVR and imaging to be completed prior; or sooner with any issues, concerns, and or questions. Orders: Orders US retroperitoneal comp Today N39.0 - Urinary tract infection, site not specified, N39.46 - Mixed incontinence, R39.89 - Other symptoms and signs involving the genitourinary system AMB Urinalysis Automated Today Z13.9 - Encounter for screening, unspecified AMB Post Void Residual by ultrasound Today Z13.9 - Encounter for screening, unspecified Medications: New oxybutynin chloride ER 10 mg PO DAILY 30 tabs 1RF 30 days N32.81 - Overactive bladder Patient Instructions: The patient had an opportunity to ask questions regarding the treatment plan. All questions were answered. Physical exam, labs, and imaging were discussed and reviewed in detail. As well as risks, benefits, and discussion of treatment choices. No major barriers to understanding were identified. The patient expressed understanding and agreement with the above treatment plan. The patient was made aware they should contact our office by phone for worsening of their current condition, the appearance of new symptoms, or with any questions or concerns. Compliance is encouraged with any medications and follow up testing that is ordered. It is a privilege to be allowed the opportunity to participate in? your urological care.? Again, if you have any questions or concerns If you have any questions or concerns please do not hesitate to contact me. The office is [phone]. This note is constructed using voice recognition software. While every effort has been made to ensure accuracy embossing unit operator errors may have been included. Yours sincerely, YOANA Jordan Coding Level of Care Code New Pt Level 4 (50978) Diagnoses Sensation of pressure in bladder area R39.89 Mixed incontinence urge and stress N39.46 Recurrent UTI N39.0 CPT Codes Post Residual Void - PVR CPT Code: 70267-Nthx Void Residual by ultrasound ([id number])
== END 2022-12-24 10:41 | disposition home or self-care (01) ==
PROVIDERS: PCP Internal Medicine; Visit Provider Nurse Practitioner Family
DX: R39.89 Other symptoms and signs involving the genitourinary system (principal); N39.46 Mixed incontinence; N39.0 Urinary tract infection, site not specified
CPT/HCPCS: 99204

== ENCOUNTER → 2022-12-24 09:42 | Outpatient (BNVA) | payer OTHER, SELFPAY | PROVIDERS: PCP Internal Medicine; Visit Provider Nurse Practitioner Family | DX: N39.0 Urinary tract infection, site not specified (principal); R31.9 Hematuria, unspecified; N39.46 Mixed incontinence | CPT/HCPCS: 51798; 99202 ==

== ENCOUNTER 2023-01-27 15:06 | Outpatient (REF) | payer OTHER, SELFPAY ==
--- NOTE | ~2023-01-27 | US_ITS ---
EXAMINATION: US RETROPERITONEAL COMPLETE (RENAL) CLINICAL INFORMATION: Urinary tract infection, site not specified. COMPARISON: Ultrasound abdomen complete 10/28/2015. TECHNIQUE: Real-time imaging of the kidneys and bladder. FINDINGS: RIGHT KIDNEY: 12.3 x 5.2 x 4.7 cm (SAG x AP x TRV). The kidney is normal in size, contour, and echogenicity. Renal cortical thickness is normal. No calculi or focal parenchymal lesions. No hydronephrosis. LEFT KIDNEY: 12.6 x 7.3 x 5.2 cm (SAG x AP x TRV). The kidney is normal in size, contour, and echogenicity. Renal cortical thickness is normal. No renal calculi or hydronephrosis. Multiple benign parapelvic Bosniak class I renal cysts are noted which require no additional imaging or follow-up. No solid renal masses are seen. BLADDER: Partially distended. Bilateral ureteral jets are demonstrated. Prevoid bladder volume is 128 mL. There is no postvoid residual. US/US retroperitoneal comp IMPRESSION: Negative exam.
== END 2023-01-27 15:07 | disposition home or self-care (01) ==
LOC: HO.US 15:06
PROVIDERS: PCP Internal Medicine; Visit Provider Nurse Practitioner Family
DX: N39.0 Urinary tract infection, site not specified (principal); N39.46 Mixed incontinence; R39.89 Other symptoms and signs involving the genitourinary system
CPT/HCPCS: 76770

== ENCOUNTER 2023-01-31 09:19 | Outpatient (AMB) | payer OTHER, SELFPAY ==
--- NOTE | 2023-01-31 09:23 | A.OFFVIS_ITS ---
Intake Intake Visit Reasons: 6w/US(SET) Intake Note: Patient presents for follow up visit uti/hematuria Urology Medications: Oxybutynin Blood Thinner: none PVR: 131ml's Body Former Required: Yes Body Former Name: Hailee Accompanied by: Spouse Allergies aspirin Allergy (Severe, Verified 01/31/23 10:19) Swelling topiramate Adverse Reaction (Intermediate, Verified 01/31/23 10:19) cough Medication List - Last Reconciled 01/31/23 by YOANA Jordan psigozrqew-thvotobyvcepi-lxch 50-325-40 mg 1 tab PO Q6H PRN 15 days celecoxib (Celebrex) 200 mg PO BID 30 days cholecalciferol (vitamin D3) 25 mcg PO DAILY 30 days cyclobenzaprine 10 mg PO BEDTIME PRN diphenhydramine HCl (Benadryl) 25 mg PO Q6-8H PRN levothyroxine 137 mcg PO DAILY lorazepam 2 mg PO DAILY mirabegron ER (Myrbetriq) 25 mg PO DAILY 30 days omeprazole 40 mg PO DAILY PRN tramadol 50 mg PO Q8H PRN 30 days HPI HPI Comments History of Present Illness Details Caro is a pleasant 53-year-old German-speaking female patient of Dr. Nacho Beal was accompanied by her spouse at today's visit. She has a past medical history of hypertension, obesity, migraines, hyperparathyroidism, depres jus, vitamin-D deficiency, and obstructive sleep apnea. She presents to the office today for a follow up. Of note, patient was seen approximately 6 weeks ago as a new patient for recurrent urinary tract infection at which time a retroperitoneal ultrasound was ordered for further assessment evaluation. During last office visit patient's primary concern was ongoing urinary incontinence. At which time she was started on oxybutynin 10mg daily. Recent retroperitoneal ultrasound results reviewed with the patient today. Bilateral kidneys with no calculi, lesions, and or hydronephrosis noted. Left kidney with multiple benign peripelvic Bosniak class 1 renal cyst which require no additional imaging or follow-up per radiology report. The bladder is partially distended. Prevoid bladder volume is approximately 130 mL. Postvoid bladder volume is 0 mL. When asked she reports no significant improvement in urinary incontinence on 10 mg of oxybutynin daily. In discussion with the patient today regarding pelvic floor therapy and weight loss to assist with urinary incontinence she becomes tearful and discusses feeling like an experiment. Discussed at length potential causes for urinary incontinence. Discussed lifestyle modifications and trial of medications. Discussed in office cystoscopy for further assessment evaluation as patient reports she would not like to continue with trial of medications. When asked she denies having had any UTI like symptoms since her last office visit. She discusses having had a previous surgical intervention on her bladder through [facility] many years ago however does not recall what procedure was performed discussed attempting to obtain records for continuity of care. She also reports having tried pelvic floor therapy in the past with no benefit. In office urinalysis results reviewed with the patient today. When asked she currently denies urinary urgency, urinary frequency, nocturia, hematuria, dysuria, foul smelling urine, changes to urinary stream, flank pain, fever, and or chills. When asked she does report having had 2 vaginal births in the past and reports second vaginal to have been a long labor as well as her baby to have been on the larger size. She discusses feeling frustrated that her urinary incontinence has been present for many years and feels no improvement despite her previous treatment options. [facility] Medical History Amenorrhea Common cold JAYLENE (generalized anxiety disorder) Hot flash not due to menopause HTN (hypertension) Hyperparathyroidism Hypothyroidism Lump of skin Moderate recurrent major depression Morbid obesity with BMI of 40.0-44.9, adult Obesity Obstructive sleep apnea Vitamin D deficiency Surgical History History of thyroidectomy Hx of gastric bypass Hx of hemorrhoidectomy Hx of hysterectomy Hx of multiple trauma Hx of tubal ligation Family History Father Diabetes Hypertension Mother No problems noted. 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 Cognitive needs: No Hearing needs: No Vision needs: Yes (Glasses) Review of Systems Eyes Reports no additional complaints ENT Reports as per HPI Card Reports as per HPI Resp Reports as per HPI GI Reports as per HPI Reports as per HPI Musc Reports no additional complaints Neuro Reports no additional complaints Psych Reports as per HPI Endo Reports no additional complaints Jeanmarie/Lymph Reports no additional complaints Aller/Immun Reports no additional complaints Physical Exam Const General: cooperative, healthy appearing, comfortable, no acute distress, well de veloped, alert and awake Nutritional Appearance: overweight Orientation/consciousness: patient oriented x3 Limitations: no limitations HEENT Head: Yes normal to inspection, Yes normocephalic and Yes atraumatic Ears: hearing grossly normal bilaterally Eyes General: appearance normal, both eyes and all related structures Neck Neck: Yes normal visual inspection and Yes trachea midline Chest Chest palpation & inspection: normal inspection of the chest Resp Effort & Inspection: normal respiratory effort and able to speak in complete sentences Cardio Rate: regular rate GI Inspection: Yes normal to inspection General: Yes no CVA tenderness Back/Spine/Pelvis Back: no CVA tenderness Skin General skin exam: no rashes or lesions noted Neuro General: patient oriented x3 Extrem General: Yes normal to inspection Psych Appearance: grossly normal and well kempt Mental Status: mental status grossly normal Speech and movement: Normal speech and movement present and Clear speech present Affect: normal affect Attitude: cooperative Thought process: Normal thought process present Thought content: Normal thought content present Insight: Good insight present (Psych) Judgement: Good judgement present (Psych) Office Procedures Post Void Residual Post Residual Void Post Void Residual (PVR): 131 [id number] Void Residual by ultrasound Results AMB Urinalysis, Automated UA Leukoctes 0 Preet/uL Last Edit by Luis F Goetz on 01/31/23 09:53 UA Nitrite Last Edit by Luis F Goetz on 01/31/23 09:53 UA Urobilinogen 0.2 mg/dL Last Edit by Luis F Goetz on 01/31/23 09:53 UA Protein 15 mg/dL Last Edit by Luis F Goetz on 01/31/23 09:53 UA pH 6.0 Last Edit by Luis F Goetz on 01/31/23 09:53 UA Blood 0 Ishmael/uL Last Edit by Luis F Goetz on 01/31/23 09:53 UA Specific [place] 1.020 Last Edit by Luis F Hodgsonxavi on 01/31/23 09:53 UA Ketone Negative Last Edit by Luis F Hodgsonxavi on 01/31/23 09:53 UA Bilirubin 0 mg/dL Last Edit by Mehrdadcoybelen Hodgsonxavi on 01/31/23 09:53 UA Glucose 0 mg/dL Last Edit by Mehrdadjoanne Remaxavi on 01/31/23 09:53 Results Reviewed Results Reviewed: Laboratory Last Values Urine pH (Auto) 6.0 01/31/23 09:39 Specific [place] (Auto) 1.020 01/31/23 09:39 Urine Protein (Auto) 15 mg/dL 01/31/23 09:39 Glucose (UA)(Auto) 0 mg/dL 01/31/23 09:39 Urine Ketones (Auto) Negative 01/31/23 09:39 Urine Blood (Auto) 0 Ishmael/uL 01/31/23 09:39 Urine Bilirubin (Auto) 0 mg/dL 01/31/23 09:39 Urine Urobilinogen (Auto) 0.2 mg/dL 01/31/23 09:39 Leukocyte Esterase (Auto) 0 Preet/uL 01/31/23 09:39 Date of Service: 01/27/23 Procedure(s): US retroperitoneal comp FINDINGS: RIGHT KIDNEY: 12.3 x 5.2 x 4.7 cm (SAG x AP x TRV). The kidney is normal in size, contour, and echogenicity. Renal cortical thickness is normal. No calculi or focal parenchymal lesions. No hydronephrosis. LEFT KIDNEY: 12.6 x 7.3 x 5.2 cm (SAG x AP x TRV). The kidney is normal in size, contour, and echogenicity. Renal cortical thickness is normal. No renal calculi or hydronephrosis. Multiple benign parapelvic Bosniak class I renal cysts are noted which require no additional imaging or follow-up. No solid renal masses are seen. BLADDER: Partially distended. Bilateral ureteral jets are demonstrated. Prevoid bladder volume is 128 mL. There is no postvoid residual. IMPRESSION: Negative exam. Assessment & Plan Assessment & Plan (1) Mixed incontinence urge and stress: Code(s): N39.46 - Mixed incontinence (2) Recurrent UTI: Code(s): N39.0 - Urinary tract infection, site not specified Plan In office urinalysis results reviewed with the patient today; as noted above. PVR 131ml's Discussed at length potential causes for urinary incontinence. Stop oxybutynin as patient reports no improvement in urinary symptoms. Start Myrbetriq 25 mg daily as discussed and prescribed. Recent retroperitoneal ultrasound results reviewed with the patient today Discussed UTI prevention with D mannose supplement, vitamin-C, increasing fluid intake, behavioral therapy with timed voiding, perineal hygiene and postcoital voiding, and management of constipation with stool softeners and increased fiber intake. Discussed at length daily pelvic floor exercises to assist with incontinence. Discussed bladder triggers/irritants and avoiding heavy lifting, losing excess weight, and cutting down on caffeine and or alcohol Discussed potential candidate for bladder Botox versus InterStim Discussed possible near future in office urodynamics for further assessment lux luation Follow-up in office cystoscopy in 1-2 months; or sooner with any issues, concerns, and or questions. Orders: Orders AMB Post Void Residual by ultrasound Today N39.0 - Urinary tract infection, site not specified AMB Urinalysis Automated Today Z13.9 - Encounter for screening, unspecified Medications: New mirabegron ER (Myrbetriq) 25 mg PO DAILY 30 days 30 tabs 1RF N32.81 - Overactive bladder, R35.1 - Nocturia Discontinued oxybutynin chloride ER Discontinued Reason: Doctor's Order 10 mg PO DAILY 30 days 30 tabs 1RF N32.81 - Overactive bladder Patient Instructions: The patient had an opportunity to ask questions regarding the treatment plan. All questions were answered. Physical exam, labs, and imaging were discussed and reviewed in detail. As well as risks, benefits, and discussion of treatment choices. No major barriers to understanding were identified. The patient expressed understanding and agreement with the above treatment plan. The patient was made aware they should contact our office by phone for worsening of their current condition, the appearance of new symptoms, or with any questions or concerns. Compliance is encouraged with any medications and follow up testing that is ordered. It is a privilege to be allowed the opportunity to participate in? your urological care.? Again, if you have any questions or concerns If you have any questions or concerns please do not hesitate to contact me. The office is [phone]. This note is constructed using voice recognition software. While every effort has been made to ensure accuracy store cashier errors may have been included. Yours sincerely, BRODY Jordan-BC Coding Level of Care Code Est Pt Level 4 (84185) Diagnoses Mixed incontinence urge and stress N39.46 Recurrent UTI N39.0 CPT Codes Post Residual Void - PVR CPT Code: 35510-Oovw Void Residual by ultrasound ([id number])
== END 2023-01-31 10:20 | disposition home or self-care (01) ==
PROVIDERS: PCP Internal Medicine; Visit Provider Nurse Practitioner Family
DX: N39.46 Mixed incontinence (principal); N39.0 Urinary tract infection, site not specified
CPT/HCPCS: 99214

== ENCOUNTER → 2023-01-31 09:19 | Outpatient (BNVA) | payer OTHER, SELFPAY | PROVIDERS: PCP Internal Medicine; Visit Provider Nurse Practitioner Family | DX: N39.46 Mixed incontinence (principal); N39.0 Urinary tract infection, site not specified | CPT/HCPCS: 51798; 81003; 99212 ==

== ENCOUNTER 2023-03-04 10:22 | Outpatient (AMB) | payer OTHER, SELFPAY ==
--- NOTE | 2023-03-04 10:27 | A.OFFVIS_ITS ---
Intake Intake Visit Reasons: cysto Intake Note: Patient presents today for a CYSTOSCOPY Procedure: Meds: Myrbetriq Allergies to Antibiotic: No Known Allergies Blood Thinner: None Urinalysis test cleared for Cysto Disposable Uro-G Cystoscope Cannula: Lot: [id number] Exp: 09/26/2024 Stylist Assistant Required: No Accompanied by: Self / Same As Patient Allergies aspirin Allergy (Severe, Verified 03/04/23 10:41) Swelling topiramate Adverse Reaction (Intermediate, Verified 03/04/23 10:41) cough Medication List - Last Reconciled 03/04/23 by Taj Sanabria MD [id number] 50-325-40 mg 1 tab PO Q6H PRN 15 days celecoxib (Celebrex) 200 mg PO BID 30 days cholecalciferol (vitamin D3) 25 mcg PO DAILY 30 days cyclobenzaprine 10 mg PO BEDTIME PRN diphenhydramine HCl (Benadryl) 25 mg PO Q6-8H PRN estradiol (Vagifem) 10 mcg vaginal 2XW levothyroxine 137 mcg PO DAILY lorazepam 2 mg PO DAILY mirabegron ER (Myrbetriq) 50 mg PO DAILY omeprazole 40 mg PO DAILY PRN tramadol 50 mg PO Q8H PRN 30 days HPI HPI Comments History of Present Illness Details Caro is a 53-year-old female who presents today to the office for a follow-up. 03/04/2023? She is followed today for a Cystoscopy procedure. The patient is a [place] speaking female. Certified diamond cleaver was present during the visit. Past medical history of hypertension, migraines, hyperparathyroidism, obstructive sleep apnea. Comorbidities: obesity. She denies any family history of bladder cancer. She has seen Apple Vázquez on 01/31/2023 for UTI/hematuria. The patient was prescribed Myrbetriq 25 mg at that time and was advised to discontinue oxybutynin 10 mg. The patient was advised to follow-up for office Cystoscopy. She states that Myrbetriq is not helping. She also complains of recurrent urinary tract infection and her last one was about 2 months ago. She states she had surgery at [facility] about 5 yrs ago for dropped bladder which improved but her urinary symptoms of leakage with urgency did not improve after the surgery. I reviewed the renal US results from 01/27/23 - which revealed bilateral simple renal cyst. Cystoscopy procedure: Consent was obtained for cystoscopy procedure. Cystosocpy findings: No suspicious bladder lesions, mild bladder wall thickening 03/04/2023: Evaluation today?UA? leukocy jaleel: negative: blood: negative. 03/04/2023: Plan: Will increase Myrbetriq to 50 mg daily. Will start vaginal local estrogen therapy. Discussed scheduling Urodynamicss if her bladder symptoms do not improve on the changes in the medication therapy. REPLACED BY [facility] Medical History Morbid obesity with BMI of 40.0-44.9, adult JAYLENE (generalized anxiety disorder) Moderate recurrent major depression Lump of skin Vitamin D deficiency Hyperparathyroidism Common cold Hot flash not due to menopause HTN (hypertension) Amenorrhea Obesity Hypothyroidism Obstructive sleep apnea Surgical History History of thyroidectomy Hx of gastric bypass Hx of hemorrhoidectomy Hx of hysterectomy Hx of tubal ligation Hx of multiple trauma Family History Father Diabetes Hypertension Mother No problems noted. 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 Cognitive needs: No Hearing needs: No Vision needs: Yes (Glasses) Review of Systems Const All systems reviewed & are unremarkable except as noted in HPI and below Reports no additional complaints Eyes Reports no additional complaints ENT Reports no additional complaints Card Denies dyspnea Resp Denies cough and Denies dyspnea GI Reports no additional complaints Reports no additional complaints Musc Reports no additional complaints Skin/Breast Denies rash and Denies unusual bruising Neuro Reports no additional complaints Psych Reports no additional complaints Endo Reports no additional complaints Jeanmarie/Lymph Reports no additional complaints Aller/Immun Reports no additional complaints Office Procedures Cystoscopy Consent Discussed risk and benefit or proposed procedure with the patient. Information consent for procedure given to the patient. Discussed technical aspects, risks, benefits and alternatives in full. Addressed all of the patient's questions and concerns regarding the procedure. The patient demonstrated knowledge and understanding. They wish to proceed with this procedure. Preparation The patient was prepped in the usual manner. A agricultural sciences professor was present and in the room. Genitalia was prepped with betadine solution in a sterile manner. Lidocaine Jelly 2% was placed into the urethra and 16Fr flexible Olympus cystoscope was inserted into the meatus after adequate lubrication. Procedure Time out per protocol performed. Bladder Inspection Bladder Inspection: The bladder was inspected in its entirety with utilization retroflexion displaying: Tumor(s): none visualized Trabeculation: mild Mucosal Erthema: N/A Orifices: normal shape and position Urethra: normal Cystoscopy findings: no suspicious bladder lesions visualized [id number] DISPOSABLE SCOPE URO-G FLEXIBLE SCOPE Procedure code (CPT) selection complete Office Meds lidocaine HCl 2 % mucosal jelly in applicator Performing Provider: Taj Sanabria MD [place] [facility] [place] [facility] Administered by: Luann Rodriguez RN on 03/04/23 11:08 Dose Route Admin Location Dispensed Lot Number Expiration Date [facility] [place] Paralegal Supervisor 10 mL intra-urethral 20 mL naproxen 500 mg tablet Performing Provider: Taj Sanabria MD [place] [facility] [place] [facility] Administered by: Luann Rodriguez RN on 03/04/23 11:08 Dose Route Admin Location Dispensed Lot Number Expiration Date [facility] [place] Paralegal Supervisor 500 mg PO 1 tab ciprofloxacin HCl 500 mg tablet Performing Provider: Taj Sanabria MD [place]forming [place] [facility] [place] [facility] Administered by: Luann Rodriguez RN on 03/04/23 11:08 Dose Route Admin Location Dispensed Lot Number Expiration Date [facility] Paralegal Supervisor 500 mg PO 1 tab Results AMB Urinalysis, Automated UA Leukoctes 0 Preet/uL Last Edit by CATHERINE Ibarra on 03/04/23 10:58 UA Nitrite Negative Last Edit by CATHERINE Ibarra on 03/04/23 10:58 UA Urobilinogen 0.2 mg/dL Last Edit by CATHERINE Ibarra on 03/04/23 10:5 8 UA Protein 15 mg/dL Last Edit by CATHERINE Ibarra on 03/04/23 10:58 UA pH 6.0 Last Edit by CATHERINE Ibarra on 03/04/23 10:58 UA Blood 0 Ishmael/uL Last Edit by CATHERINE Ibarra on 03/04/23 10:58 UA Specific [place] 1.015 Last Edit by CATHERINE Ibarra on 03/04/23 10: 58 UA Ketone Negative Last Edit by CATEHRINE Ibarra on 03/04/23 10:58 UA Bilirubin 1 mg/dL Last Edit by CATHERINE Ibarra on 03/04/23 10:58 1+ Amanda De La Fuente 03/04/23 10:58 UA Glucose 0 mg/dL Last Edit by CATHERINE Ibarra on 03/04/23 10:58 Results Reviewed Results Reviewed: Laboratory Last Values Urine pH (Auto) 6.0 03/04/23 10:50 Specific [place] (Auto) 1.015 03/04/23 10:50 Urine Protein (Auto) 15 mg/dL 03/04/23 10:50 Glucose (UA)(Auto) 0 mg/dL 03/04/23 10:50 Urine Ketones (Auto) Negative 03/04/23 10:50 Urine Blood (Auto) 0 Ishmael/uL 03/04/23 10:50 Urine Nitrite (Auto) Negative 03/04/23 10:50 Urine Bilirubin (Auto) 1 mg/dL 03/04/23 10:50 Urine Urobilinogen (Auto) 0.2 mg/dL 03/04/23 10:50 Leukocyte Esterase (Auto) 0 Preet/uL 03/04/23 10:50 Date of Service: 01/27/23 EXAMINATION:? US RETROPERITONEAL COMPLETE (RENAL) CLINICAL INFORMATION: Urinary tract infection, site not specified. COMPARISON:? Ultrasound abdomen complete 10/28/2015. FINDINGS: RIGHT KIDNEY: 12.3 x 5.2 x 4.7 cm (SAG x AP x TRV). The kidney is normal in size, contour, and echogenicity. Renal cortical thickness is normal. No calculi or focal parenchymal lesions. No hydronephrosis. LEFT KIDNEY: 12.6 x 7.3 x 5.2 cm (SAG x AP x TRV). The kidney is normal in size, contour, and echogenicity. Renal cortical thickness is normal. No renal calculi or hydronephrosis. Multiple benign parapelvic Bosniak class I renal cysts are noted which require no additional imaging or follow-up. No solid renal masses are seen. BLADDER: Partially distended. Bilateral ureteral jets are demonstrated. Prevoid bladder volume is 128 mL. There is no postvoid residual.? IMPRESSION:? Negative exam. Assessment & Plan Assessment & Plan (1) Sensation of pressure in bladder area: Code(s): R39.89 - Other symptoms and signs involving the genitourinary system (2) Mixed incontinence urge and stress: Code(s): N39.46 - Mixed incontinence (3) Recurrent UTI: Code(s): N39.0 - Urinary tract infection, site not specified Plan Will increase Myrbetriq to 50 mg daily. Will start vaginal local estrogen therapy. Discussed scheduling Urodynamicss if her bladder symptoms do not improve on the changes in the medication therapy. Orders: Orders AMB Urinalysis Automated 03/04/23 Z13.9 - Encounter for screening, unspecified AMB Cystoscopy 03/04/23 N39.46 - Mixed incontinence Medications: New mirabegron ER (Myrbetriq) Myrbetriq 50 mg to replace 25 mg dose 50 mg PO DAILY 30 tabs 2RF estradiol (Vagifem) Use at bedtime 2 times a week, Mon/Thurs 10 mcg vaginal 2XW 24 tabs 1RF Discontinued mirabegron ER (Myrbetriq) Discontinued Reason: Doctor's Order 25 mg PO DAILY 30 days 30 tabs 1RF N32.81 - Overactive bladder, R35.1 - Nocturia Patient Instructions: The patient had an opportunity to ask questions regarding treatment plan. All questions were answered. Imaging, Laboratory studies and physical exam results were discussed and reviewed in detail. No major barriers to understanding were identified. The patient expressed understanding and agreement with the above treatment plan.? ? ? The patient is aware they should contact our office by phone for worsening of their current condition or the appearance of new symptoms. Compliance is encouraged with any medications and followup testing that is ordered.? ? ? It is a privilege to be allowed the opportunity to participate in the urologic care of your patient. If you have any questions or concerns regarding treatment for the above conditions please do not hesitate to contact me. The office telephone contact is [phone].? ? ? This note is constructed in part using voice recognition software. While every effort has been made to ensure accuracy tool and die engineer errors may have been included.? ? ? Yours sincerely,? ? ? Taj Sanabria MD? Coding Level of Care Code Est Pt Level 3 (60033) Diagnoses Sensation of pressure in bladder area R39.89 Mixed incontinence urge and stress N39.46 Recurrent UTI N39.0 CPT Codes Cystoscopy - CPT: 80756-[id number] ([id number])
== END 2023-03-04 12:01 | disposition home or self-care (01) ==
PROVIDERS: PCP Internal Medicine; Visit Provider Urology
DX: R39.89 Other symptoms and signs involving the genitourinary system (principal); N39.46 Mixed incontinence; N39.0 Urinary tract infection, site not specified
CPT/HCPCS: 52000; 99213

== ENCOUNTER → 2023-03-04 10:22 | Outpatient (BNVA) | payer OTHER, SELFPAY | PROVIDERS: PCP Internal Medicine; Visit Provider Urology | DX: N39.46 Mixed incontinence (principal); R39.89 Other symptoms and signs involving the genitourinary system; R39.0 Extravasation of urine | CPT/HCPCS: 52000; 81003; 99212 ==

== ENCOUNTER 2023-03-24 11:49 | Outpatient (REF) | payer OTHER, SELFPAY ==
[2023-03-24 14:16] LABS: Alanine Aminotransferase 24 U/L (0-31); Albumin Level 4.3 g/dL (3.5-5.0); Alkaline Phosphatase 56 U/L (39-117); Anion Gap 11 (12-20); Aspartate Amino Transferase 21 U/L (5-31); Bilirubin Total 0.5 mg/dL (0.0-1.0); Blood Urea Nitrogen 12 mg/dL (9-16); Calcium 8.9 mg/dL (8.4-10.2); Carbon Dioxide 31 mmol/L (22-29); Chloride 101 mmol/L (96-108); Estimated Glomerular Filt Rate > 60; Glucose Random 90 mg/dL (60-115); Phosphorus 2.6 mg/dL (2.7-4.5); Potassium 3.2 mmol/L (3.3-5.1); Sodium 140 mmol/L (135-145); Total Protein 7.3 g/dL (6.5-8.0)
[2023-03-28 17:17] LABS: Calcium (PTHI) 9.3 mg/dL (8.6-10.4); PTHI 92 pg/mL (16-77)
== END 2023-03-24 11:50 | disposition home or self-care (01) ==
LOC: HO.LAB 11:49
PROVIDERS: PCP Internal Medicine; Visit Provider Internal Medicine
DX: E21.3 Hyperparathyroidism, unspecified (principal); E55.9 Vitamin D deficiency, unspecified
CPT/HCPCS: 36415; 80053; 82306; 83970; 84100

== ENCOUNTER 2023-03-28 15:14 | Outpatient (AMB) | payer OTHER, SELFPAY ==
[2023-03-28 15:18] VITALS: BP 126/84; PULSE 80; BMI 44.2
--- NOTE | 2023-03-28 15:18 | A.OFFVIS_ITS ---
Intake Vital Signs 03/28/23 15:18 Height 5 ft 3 in Weight 249 lb 12.54 oz BMI 44.2 BP 126/84 Blood Pressure Location Lt brachial Position Sitting Pulse 80 Pulse Source Pulse Oximeter Intake Visit Reasons: F/U Hyperparathyroidism Intake Note: Patient present for Hyperparathyroidism follow up visit. Previously followed by Dr. Natarajan. Corporate Planning Manager Required: Yes Corporate Planning Manager Language: Bolivian Information Interpreted: non-clinical & clinical Accompanied by: Self / Same As Patient Allergies aspirin Allergy (Severe, Verified 03/28/23 15:25) Swelling topiramate Adverse Reaction (Intermediate, Verified 03/28/23 15:25) cough Medication List - Last Reconciled 03/28/23 by Jose Maria Kang MD [id number]-pumejezqlzwjq-zwny 50-325-40 mg 1 tab PO Q6H PRN 15 days celecoxib (Celebrex) 200 mg PO BID 30 days cholecalciferol (vitamin D3) 25 mcg PO DAILY 30 days cyclobenzaprine 10 mg PO BEDTIME PRN diphenhydramine HCl (Benadryl) 25 mg PO Q6-8H PRN estradiol (Vagifem) 10 mcg vaginal 2XW levothyroxine 137 mcg PO DAILY lorazepam 2 mg PO DAILY mirabegron ER (Myrbetriq) 50 mg PO DAILY omeprazole 40 mg PO DAILY PRN tramadol 50 mg PO Q8H PRN 30 days HPI HPI Comments History of Present Illness Details 53 YO Female with PMHx Obesity s/p gastric bypass, HTN who is seen in F/U for 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 1) Nontoxic MNG: She had a thyroid US completed in late November which revealed multiple bilateral thyroid nodules meeting indication for FNA biposy. She underwent FNA biopsy 02/08/19 of 3 nodules with results listed below: 1) L mid pole 1.7 cm nodule - Benign ([place] Category II) 2) L mid-lower pole 3.5 cm nodule - nondiagnostic 3) R mid pole 3.6 cm nodule - Benign ([place] Category II) She did have a significant amount of bleeding from the bipsy of the L mid-lower pole nodule, thus biopsy of this nodule was aborted prematurely. She had an additional L mid pole 1.9 cm nodule meeting indication for FNA biopsy, but due to the bleeding from the 3.5 cm nodule, this 1.9 cm nodule was not biopsied. She did complain of compressive symptoms with dysphagia as well as hoarseness of voice, and requested surgical thyroidectomy. This was completed 07/11/2019. Official path report revealed follicular nodular hyperplasia, and was benign. She has recovered well from the surgery. Postoperatively she was started on Levothyroxine 137 mcg PO daily, which she takes every morning. She waits 1 hour to eat, and takes the remainder of her medications after eating breakfast. She denies any symptoms of hypothyroidism. Except for recent weight gain of 30 lb recently She does have a family history of multinodular thyroid in her Daughter, but no known family history of thyroid cancer. She does take Biotin daily. 2) PCOS with Hirsutism: She initially complained of hirsutism which was very bothersome to her. She had a full biochemical workup for hyperandrogenism, which was WNL. She was started on Spironolactone 50 mg PO daily, but developed skin discoloration around her mouth, chin and forehead. Spironolactone was stopped, and skin discoloration resolved. She has remained off Spironolactone since. After her last visit her androgen levels were repeated and were WNL. She denies any violaceous striae. She denies frequent vaginal infections. Menarche was age 14. Menses were always irregular. She had a hysterectomy 12-13 years ago due to fibroid uterus. She has 2 children and did have issues with infertility. She used Clomid to help with Ovulation. She had imaging of the ovaries in 2016 which revealed only 1 ovary identified with multiple cysts. She is currently experiencing menopause symptoms and is following with [facility] for this. She does report galactorrhea which has persisted for many years from the R breast. Prolactin was WNL. 3) Hyperparathyroidism: Labs revealed elevated PTH. She states she rarely consumes dairy. She does remain on Vitamin D 1000 IU daily. She takes a Calcium supplement 650 mg PO daily. Labs: Laboratory Tests 11/13/21 11/13/21 11/17/21 10:44 10:44 15:55 Albumin 4.3 25-OH Vitamin D To benjie 32.8 TSH 0.69 Free T4 1.33 PTH Intact 110 H Calcium (PTH Intac t) 9.2 Ur 24 Hour Volume 2300 Ur Creatinine 24 H our 1.9 COUNTS INCLUDE 234 BEDS AT THE [facility] Medical History Morbid obesity with BMI of 40.0-44.9, adult JAYLENE (generalized anxiety disorder) Moderate recurrent major depression Lump of skin Vitamin D deficiency Hyperparathyroidism Common cold Hot flash not due to menopause HTN (hypertension) Amenorrhea Obesity Hypothyroidism Obstructive sleep apnea Surgical History History of thyroidectomy Hx of gastric bypass Hx of hemorrhoidectomy Hx of hysterectomy Hx of tubal ligation Hx of multiple trauma Family History Father Diabetes Hypertension Mother No problems noted. 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 Assessment & Plan Assessment & Plan (1) Hypothyroidism: Code(s): E03.9 - Hypothyroidism, unspecified Qualifiers: Hypothyroidism type: postoperative Qualified Code(s): E89.0 - Postprocedural hypothyroidism Plan: This is a 53-year-old female with a history of post-operative hypothyroidism currently being treated with levothyroxine 137 mcg. Appears to be clinically and biochemically euthyroid. Plan is to check TSH and free T4 and adjust levothyroxine (2) Vitamin D deficiency: Code(s): E55.9 - Vitamin D deficiency, unspecified Plan: Slightly low 25- vitamin-D level with PTH pending. Plan is to increase the vitamin-D to 3000-units per day and recheck 25 hydroxy vitamin-D and PTH and calcium in 3 months Orders: Orders Free T4 (Free Thyroxine) Today E03.9 - Hypothyroidism, unspecified Vitamin D 25-OH Total 3 Months E55.9 - Vitamin D deficiency, unspecified PTHI 3 Months E55.9 - Vitamin D deficiency, unspecified Thyroid Stimulating Hormone Today E03.9 - Hypothyroidism, unspecified Medications: New cholecalciferol (vitamin D3) take with 1000 IU for total of 3000 IU/day 50 mcg PO DAILY 30 caps 6RF Discontinued cholecalciferol (vitamin D3) Discontinued Reason: Doctor's Order 25 mcg PO DAILY 30 days 30 caps 11RF E55.9 - Vitamin D deficiency, unspecified Coding Level of Care Code Est Pt Level 3 (79838) Diagnoses Postoperative hypothyroidism E89.0 Hypothyroidism type: postoperative Vitamin D deficiency E55.9
== END 2023-03-28 15:57 | disposition home or self-care (01) ==
PROVIDERS: PCP Internal Medicine; Visit Provider Internal Medicine Endocrinology, Diabetes & Metabolism
DX: E89.0 Postprocedural hypothyroidism (principal); E55.9 Vitamin D deficiency, unspecified
CPT/HCPCS: 99213

== ENCOUNTER 2023-03-28 15:14 | Outpatient (REF) | payer OTHER, SELFPAY ==
[2023-03-28 17:36] LABS: Alanine Aminotransferase 24 U/L (0-31); Albumin Level 4.2 g/dL (3.5-5.0); Alkaline Phosphatase 55 U/L (39-117); Anion Gap 12 (12-20); Aspartate Amino Transferase 23 U/L (5-31); Bilirubin Total 0.4 mg/dL (0.0-1.0); Blood Urea Nitrogen 11 mg/dL (9-16); Calcium 9.5 mg/dL (8.4-10.2); Carbon Dioxide 31 mmol/L (22-29); Chloride 102 mmol/L (96-108); Estimated Glomerular Filt Rate > 60; Glucose Random 88 mg/dL (60-115); Phosphorus 3.2 mg/dL (2.7-4.5); Potassium 3.9 mmol/L (3.3-5.1); Sodium 141 mmol/L (135-145); Total Protein 7.4 g/dL (6.5-8.0)
[2023-03-28 17:56] LABS: Free T4 (Free Thyroxine) 0.99 ng/dL (0.71-1.85); Thyroid Stimulating Hormone 0.43 uIU/mL (0.32-4.0)
== END 2023-03-28 15:15 | disposition home or self-care (01) ==
LOC: HO.LAB 15:14
PROVIDERS: PCP Internal Medicine; Visit Provider Internal Medicine Endocrinology, Diabetes & Metabolism
DX: E89.0 Postprocedural hypothyroidism (principal); E55.9 Vitamin D deficiency, unspecified; E87.6 Hypokalemia; E83.39 Other disorders of phosphorus metabolism; Z79.899 Other long term (current) drug therapy
CPT/HCPCS: 36415; 80053; 84100; 84439; 84443; 99212

== ENCOUNTER 2023-03-29 11:09 | Outpatient (REF) | payer OTHER, SELFPAY ==
--- NOTE | ~2023-03-29 | XR_ITS ---
EXAMINATION: XR ABDOMEN KUB CLINICAL INDICATION: Back pain. COMPARISON: Ultrasound retroperitoneum 01/28/2023. Lumbar spine radiographs of 10/31/2020. TECHNIQUE: 2 AP views of the abdomen. FINDINGS: Surgical clips redemonstrated in the left upper quadrant and the upper abdomen. Small 6 mm radiodense fragment overlying the right upper quadrant, possibly representing a foreign body. Correlation with clinical exam and possible additional radiographs recommended. Mild levoscoliosis of the lumbar spine with multilevel degenerative changes. Omtosttz-rb-iqysg amount of stool in the colon. Nonobstructive bowel gas pattern. Asymmetric degenerative changes in the right sacroiliac joint. XR/XR KUB IMPRESSION: 1. Nonobstructive bowel gas pattern. Rqhgeamf-xe-prbdh amount of stool in the colon. 2. Small 6 mm radiodense fragment overlying the right upper quadrant, possibly representing a foreign body. Correlation with clinical exam and possible additional radiographs recommended. 3. No radiodense renal calculi are appreciated, although visualization of the kidneys is limited due to overlying bowel.
--- NOTE | ~2023-03-29 | XR_ITS ---
EXAMINATION: XR KNEE, LEFT CLINICAL INFORMATION: Pain in left knee COMPARISON: 12/09/2022 TECHNIQUE: AP, sunrise and lateral views of the left knee. FINDINGS: Nlih-ny-cdwscupk medial joint space narrowing. Small tricompartmental osteophytes. Moderate joint effusion. Small spur at the anterior distal aspect of the femur. XR/XR knee LT 2V IMPRESSION: Owks-ab-lxwylcxg degenerative changes.
== END 2023-03-29 11:10 | disposition home or self-care (01) ==
LOC: HO.XRAY 11:09
PROVIDERS: PCP Internal Medicine; Visit Provider Internal Medicine
DX: M54.9 Dorsalgia, unspecified (principal); M25.562 Pain in left knee
CPT/HCPCS: 73560; 74018

== ENCOUNTER 2023-03-30 09:35 | Outpatient (AMB) | payer OTHER, SELFPAY ==
--- NOTE | 2023-03-30 09:36 | A.OFFVIS_ITS ---
Intake Vital Signs 03/30/23 09:39 Height 5 ft 3 in Weight 249 lb BMI 44.1 Intake Visit Reasons: OV- LT knee pain Intake Note: Caro a 53 year old female presents today for a follow up of left knee pain, last injection 12/09/22. Patient reports last injection provided relief for a very short period of time. States she is now also having pain in her right knee. Patient would like to discuss repeat of injection. Allergies aspirin Allergy (Severe, Verified 03/30/23 09:38) Swelling topiramate Adverse Reaction (Intermediate, Verified 03/30/23 09:38) cough Medication List - Last Reconciled 03/30/23 by Danielle Wheatley PA-C [id number]-[id number] 50-325-40 mg 1 tab PO Q6H PRN 15 days celecoxib (Celebrex) 200 mg PO BID 30 days cholecalciferol (vitamin D3) 50 mcg PO DAILY cyclobenzaprine 10 mg PO BEDTIME PRN diphenhydramine HCl (Benadryl) 25 mg PO Q6-8H PRN estradiol (Vagifem) 10 mcg vaginal 2XW levothyroxine 137 mcg PO DAILY lorazepam 2 mg PO DAILY mirabegron ER (Myrbetriq) 50 mg PO DAILY omeprazole 40 mg PO DAILY PRN tramadol 50 mg PO Q8H PRN 30 days HPI OV- LT knee pain HPI Details 53-year-old female who returns to the [facility] today with an senior sharepoint architect for a follow-up of left knee pain. She states she has pain in her left knee and has been having pain in the right knee as well. She is taking Celebrex for her knee with minimal relief. She had her last injection on 12/09/22 which provided her relief for only about 2 days. She would like to discuss repeating the injection. [facility] Medical History Morbid obesity with BMI of 40.0-44.9, adult JAYLENE (generalized anxiety disorder) Moderate recurrent major depression Lump of skin Vitamin D deficiency Hyperparathyroidism Common cold Hot flash not due to menopause HTN (hypertension) Amenorrhea Obesity Hypothyroidism Obstructive sleep apnea Surgical History History of thyroidectomy Hx of gastric bypass Hx of hemorrhoidectomy Hx of hysterectomy Hx of tubal ligation Hx of multiple trauma Family History Father Diabetes Hypertension Mother No problems noted. 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 Cognitive needs: No Hearing needs: No Vision needs: Yes (Glasses) Review of Systems Const All systems reviewed & are unremarkable except as noted in HPI and below Physical Exam Vital Signs: BMI result Body Mass Index 44.1 Const General: cooperative, healthy appearing, comfortable, no acute distress, well developed and alert Orientation/consciousness: patient oriented x3 HEENT Head: Yes normal to inspection, Yes normocephalic and Yes atraumatic Eyes General: appearance normal, both eyes and all related structures Resp Effort & Inspection: normal respiratory effort and able to speak in complete sentences Cardio Rate: regular rate Peripheral pulses: Peripheral pulses 2+ throughout GI Palpation (GI): Soft to palpation Skin Lesions: no lesions Rashes: no rashes Neuro General: patient oriented x3 Extrem Other: Left knee: Skin intact, no erythema or joint effusion. Lateral retropatellar tenderness present. Full ROM with crepitus. Negative Tyrell?s. No ligamentous laxity. NVI. Right knee: Skin intact, no erythema or joint effusion. Tenderness along the medial and lateral joint line. Full ROM with crepitus. Negative Tyrell?s. No ligamentous laxity. NVI. Office Procedures Joint Injection/Drain Joint Injection/Drain Primary Site: right knee Secondary Site: left knee Prep: site was prepped using aseptic technique, ethochloride spray was applied and injection warnings given Injected: 80 mg of, DepoMedrol, with 8 mL of, 1% plain lidocaine and in the joint Approach Used: anterolateral Procedure: The patient tolerated the procedure well and there was some relief with the local anesthesia Coding 06312 - Glenohumeral/Tronchanteric Bursa/Intraarticular Procedure code (CPT) selection complete Results Reviewed Results Reviewed: 03/30/23 09:49 Lidocaine HCl 2 % MPF [Xylocaine 2 % MPF] 5 ml .ROUTE .STK-MED ONE methylPREDNISolone acetate [DEPO-MedroL] 80 mg .ROUTE .STK-MED ONE Assessment & Plan Assessment & Plan (1) Patellofemoral arthritis of left knee: Code(s): M17.12 - Unilateral primary osteoarthritis, left knee (2) Patellofemoral arthralgia of both knees: Code(s): M22.2X1 - Patellofemoral disorders, right knee; M22.2X2 - Patellofemoral disorders, left knee Plan We discussed options today which include steroid injection. They did consent to move forward with the bilateral knee injection, which was tolerated well. I recommended rest, ice and elevation and OTC anti-inflammatories PRN for discomfort. We will also refer her to pain management to discuss geniculate injection. If symptoms persist or worsens over the next 6-8 weeks, patient will contact the office, otherwise follow-up as needed. Orders: Referrals Pain Management Referral M17.12 - Unilateral primary osteoarthritis, left knee, M22.2X1 - Patellofemoral disorders, right knee, M22.2X2 - Patellofemoral disorders, left knee Patient Instructions: Scribed for Danielle Wheatley PA-C, by Abraham Kennedy medical billing representative, on 03/30/2023 at 9:30 AM EST. Danielle Padilla PA-C, have personally reviewed and agree with the information entered by the scribe. Coding Level of Care Code Est Pt Level 3 (54952) Diagnoses Patellofemoral arthritis of left knee M17.12 Patellofemoral arthralgia of both knees M22.2X1; M22.2X2 CPT Codes Coding - Joint 7: 23508 - Glenohumeral/Tronchanteric Bursa/Intraarticular ([id number])
[2023-03-30 09:39] VITALS: BMI 44.1
== END 2023-03-30 10:06 | disposition home or self-care (01) ==
PROVIDERS: PCP Internal Medicine; Visit Provider Physician Assistant
DX: M17.12 Unilateral primary osteoarthritis, left knee (principal); M22.2X1 Patellofemoral disorders, right knee; M22.2X2 Patellofemoral disorders, left knee
CPT/HCPCS: 20610; 99213

== ENCOUNTER → 2023-03-30 09:35 | Outpatient (BNVA) | payer OTHER, SELFPAY | PROVIDERS: PCP Internal Medicine; Visit Provider Physician Assistant | DX: M17.12 Unilateral primary osteoarthritis, left knee (principal); M22.2X1 Patellofemoral disorders, right knee; M22.2X2 Patellofemoral disorders, left knee | CPT/HCPCS: 20610; 99212; J1040 ==

== ENCOUNTER 2023-05-02 09:05 | Outpatient (AMB) | payer OTHER, SELFPAY ==
--- NOTE | 2023-05-02 09:18 | A.OFFPC_ITS ---
Vital Signs 05/02/23 09:25 Height 5 ft 3 in Weight 249 lb BMI 44.1 BP 136/80 Blood Pressure Location Lt brachial Position Sitting Intake Visit Reasons: PE Intake Note: Patient here for a physical exam Psychologist Private Practice Required: No Accompanied by: Slava Allergies aspirin Allergy (Severe, Verified 05/02/23 09:26) Swelling topiramate Adverse Reaction (Intermediate, Verified 05/02/23 09:26) cough Medication List - Last Reconciled 05/02/23 by Sammi Beal MD [id number]-uvtdxivlcmvzj-obsw 50-325-40 mg 1 tab PO Q6H PRN 15 days cholecalciferol (vitamin D3) 50 mcg PO DAILY cyclobenzaprine 10 mg PO BEDTIME PRN diphenhydramine HCl (Benadryl) 25 mg PO Q6-8H PRN estradiol (Vagifem) 10 mcg vaginal 2XW levothyroxine 137 mcg PO DAILY lorazepam 2 mg PO DAILY mirabegron ER (Myrbetriq) 50 mg PO DAILY omeprazole 40 mg PO DAILY PRN tramadol 50 mg PO Q8H PRN 30 days Tobacco use date assessed: 05/02/23 Dental Screening Dental Screen Date: 05/02/23 Did you have a dental visit in the last 12 months?: Yes Did you have a dental problem in the last 6 months where you did not have access to dental care?: No Was dental information given to patient?: Patient has dentist HPI HPI Comments History of Present Illness Details This is a 53-year-old female with morbid obesity and moderate recurrent major depression that comes accompanied by for her physical exam. She is morbidly obese with a BMI of 44.1 and would like to go back to weight management next month. She will call them. Depression is in remission. Last mammogram was October 2022 and was normal. Had Cologuard negative in May 2022. No chest pain or shortness of breath. No need for Pap smear due to hysterectomy. [facility] Medical History Morbid obesity with BMI of 40.0-44.9, adult JAYLENE (generalized anxiety disorder) Moderate recurrent major depression Lump of skin Vitamin D deficiency Hyperparathyroidism Common cold Hot flash not due to menopause HTN (hypertension) Amenorrhea Obesity Hypothyroidism Obstructive sleep apnea Surgical History History of thyroidectomy Hx of gastric bypass Hx of hemorrhoidectomy Hx of hysterectomy Hx of tubal ligation Hx of multiple trauma Family History (Updated 05/02/23 @ 09:38 by Sammi Beal MD) Father Diabetes Hypertension Mother Diabetes Alzheimer's disease Brother Substance use disorder Family/Other Mental health disorder Maternal Aunt Cancer Social History (Updated 05/02/23 @ 09:39 by Sammi Beal MD) Housing: Apartment Alcohol intake: current Alcohol intake frequency: holidays/special occasions only Alcohol type: wine Patient Tobacco Use Status: Former Tobacco user Tobacco use type: Cigarette Cigarettes Per Day: 3 Years Smoked: 15 e-Cigarette/Vaping Use: Never Used Second Hand Smoke Exposure: No service: No 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al status: unemployed and disabled 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 Jose Maria Lugo, Felicia Harmon, Yefri Peterson and colleagues, with an educational roger from [employer]. Review of Systems Const All systems reviewed & are unremarkable except as noted in HPI and below Eyes Reports no additional complaints, Denies change in vision and Denies other visual disturbances Card Denies chest pain at rest, Denies chest pain with activity, Denies edema, Denies irregular heart rhythm, Denies claudication, Denies dyspnea, Denies dyspnea on exertion, Denies orthopnea, Denies paroxysmal nocturnal dyspnea and Denies slow heart rate Resp Denies cough, Denies dyspnea and Denies dyspnea on exertion GI Denies abdominal pain, Denies change in bowel habits, Denies excessive flatus, Denies nausea and Denies vomiting Denies urinary incontinence, Denies urinary hesitancy and Denies urinary urgency Musc Denies abnormal gait, Denies atrophy, Denies deformity and Denies limited range of motion Skin/Breast Denies bleeding lesions, Denies changing lesions and Denies rash Neuro Denies abnormal gait, Denies behavioral changes, Denies confusion and Denies lack of coordination Psych Denies behavioral changes and Denies confusion Physical exam (Primary Care) Vital Signs: Last Vital Signs BP 136/80 05/02/23 09:25 BMI result Body Mass Index 44.1 Tobacco/Smoking Status: Tobacco use Status Tobacco use date assessed 05/02/23 05/02/23 09:42 Patient Tobacco Use Status Former Tobacco user 05/02/23 09:42 Tobacco use type Cigarette 05/02/23 09:39 e-Cigarette/Vaping Use Never Used 05/02/23 09:39 Thrive Assessment: Date of Thrive Assessment Date Thrive assessed 10/27/22 05/02/23 09:19 Const General: No confusion Orientation/consciousness: patient oriented x3 and No confusion HENMT Head: Yes normal to inspection, Yes normocephalic and Yes atraumatic Ears: external ears normal Eyes General: appearance normal, both eyes and all related structures Eyelids: Yes eyelids normal Conjunctivae: conjunctivae normal Neck Neck: Yes normal visual inspection and Yes supple Resp Effort & Inspection: normal respiratory effort Auscultation: clear to auscultation bilaterally Cardio Jugular venous distension: no JVD Rate: regular rate Rhythm: regular rhythm Heart sounds: S1 normal heart sound present and S2 normal heart sound present GI Inspection: Yes normal to inspection Palpation (GI): Soft to palpation and nontender Auscultation: normal bowel sounds Skin General skin exam: no rashes or lesions noted Neuro General: patient oriented x3, no focal motor deficits and No confusion Extrem General: Yes full ROM Psych Appearance: grossly normal Office Procedures Flu Questionnaire Does the patient have a severe egg allergy?: No Does the patient have severe life threatening allergies?: No Does the patient have a fever or illness today?: No Has the patient ever had Guillain-[place] Syndrome?: No Has the patient ever had any past reaction to a flu shot?: No Immunizations flu vacc [id number] 6mos up(PF) 60 mcg(15 mcgx4)/0.5 mL IM syringe Performing Provider: Sammi Beal MD Performing Location: [facility] Administered by: CATHERINE Pennington on 05/02/23 09:49 Dose Route Admin Location Dispensed Lot Number Expiration Date NDC Beet Flumer 0.5 mL IM Left Deltoid 0.5 mL [id number] 11/13/23 [id number] sambaash VIS Given Date VIS Provided VIS Publication Date 05/02/23 Single Vaccine 20 Eligibility Eligibility Date Funding Source Not [facility] Eligible 05/02/23 Private Assessment and Plan Assessment & Plan (1) Physical exam: Code(s): Z00.00 - Encounter for general adult medical examination without abnormal findings Plan: Repeat in a year. (2) Morbid obesity with BMI of 40.0-44.9, adult: Code(s): E66.01 - Morbid (severe) obesity due to excess calories; Z68.41 - Body mass index [BMI] 40.0-44.9, adult Plan: Contact weight management. BMI goal is less than 30. Start diet and exercise. (3) Moderate recurrent major depression: Code(s): F33.1 - Major depressive disorder, recurrent, moderate Plan: In remission. Orders: Orders Lipid Panel Today E78.5 - Hyperlipidemia, unspecified Thyroid Stimulating Hormone Today E89.0 - Postprocedural hypothyroidism Calcium, Ionized Today E21.3 - Hyperparathyroidism, unspecified Phosphorus Today E21.3 - Hyperparathyroidism, unspecified Influenza [id number] Immunization Today Z23 - Encounter for immunization Vitamin D 25-OH Total Today E55.9 - Vitamin D deficiency, unspecified Comprehensive [place]. Panel Fast Today I10 - Essential (primary) hypertension Parathyroid Hormone Intact Today E21.3 - Hyperparathyroidism, unspecified Coding Level of Care Code Est Pt Prev Care 40-64y(50288) Diagnoses Physical exam Z00.00 Morbid obesity with BMI of 40.0-44.9, adult E66.01; Z68.41 Moderate recurrent major depression F33.1 Time Spent (min) 32
[2023-05-02 09:25] VITALS: BP 136/80; BMI 44.1
== END 2023-05-02 09:54 | disposition home or self-care (01) ==
LOC: HO.HMGH 09:05
PROVIDERS: PCP Internal Medicine; Visit Provider Internal Medicine
DX: Z00.00 Encounter for general adult medical examination without abnormal findings (principal); E66.01 Morbid (severe) obesity due to excess calories; Z68.41 Body mass index [BMI] 40.0-44.9, adult; Z23 Encounter for immunization; F33.1 Major depressive disorder, recurrent, moderate
CPT/HCPCS: 90471; 90686; 99396

== ENCOUNTER 2023-05-02 09:59 | Outpatient (REF) | payer OTHER, SELFPAY ==
[2023-05-02 10:56] LABS: Alanine Aminotransferase 58 U/L (0-31); Albumin Level 4.1 g/dL (3.5-5.0); Alkaline Phosphatase 67 U/L (39-117); Anion Gap 12 (12-20); Aspartate Amino Transferase 29 U/L (5-31); Bilirubin Total 0.3 mg/dL (0.0-1.0); Blood Urea Nitrogen 10 mg/dL (9-16); Calcium 8.9 mg/dL (8.4-10.2); Carbon Dioxide 27 mmol/L (22-29); Chloride 106 mmol/L (96-108); Cholesterol 191 mg/dL (<200); Estimated Glomerular Filt Rate > 60; Glucose Fasting 95 mg/dL (60-99); HDL Cholesterol 73 mg/dL (>40); LDL Cholesterol Calculated 105 mg/dL (<100); Potassium 3.8 mmol/L (3.3-5.1); Sodium 141 mmol/L (135-145); Total Protein 7.2 g/dL (6.5-8.0); Triglycerides 69 mg/dL (<150)
[2023-05-02 10:59] LABS: Parathyroid Hormone Intact 141.7 pg/mL (8.7-77.1)
[2023-05-02 11:13] LABS: Thyroid Stimulating Hormone 0.72 uIU/mL (0.32-4.0); Vitamin D 25-OH Total 26.9 ng/mL (>30)
== END 2023-05-02 10:00 | disposition home or self-care (01) ==
LOC: HO.LAB 09:59
PROVIDERS: PCP Internal Medicine; Visit Provider Internal Medicine
DX: E21.3 Hyperparathyroidism, unspecified (principal); E89.0 Postprocedural hypothyroidism; I10 Essential (primary) hypertension; E78.5 Hyperlipidemia, unspecified; E55.9 Vitamin D deficiency, unspecified
CPT/HCPCS: 36415; 80053; 80061; 82306; 82330; 83970; 84100; 84443

== ENCOUNTER 2023-05-03 13:26 | Outpatient (AMB) | payer OTHER, SELFPAY ==
[2023-05-03 13:28] VITALS: BP 130/90; PULSE 78; BMI 44.4
--- NOTE | 2023-05-03 13:28 | MHC.OFFVIS ---
Intake Vital Signs 05/03/23 13:28 Height 5 ft 3 in Weight 250 lb 7.122 oz BMI 44.4 BP 130/90 H Blood Pressure Location Lt brachial Position Sitting Pulse 78 Pulse Source Pulse Oximeter Intake Visit Reasons: elevated thyriod levels Intake Note: Patient present today for elevated thyroid levels office visit. Real Estate Branch Manager Required: Yes Real Estate Branch Manager Language: Molder Name: [id number] Maria Esther Information Interpreted: non-clinical & clinical Accompanied by: Spouse Allergies aspirin Allergy (Severe, Verified 05/03/23 13:34) Swelling topiramate Adverse Reaction (Intermediate, Verified 05/03/23 13:34) cough Medication List - Last Reconciled 05/03/23 by Jose Maria Kang MD qwjjgjoxhl-todxgnihgftnr-tejh 50-325-40 mg 1 tab PO Q6H PRN 15 days cholecalciferol (vitamin D3) 50 mcg PO DAILY cyclobenzaprine 10 mg PO BEDTIME PRN estradiol (Vagifem) 10 mcg vaginal 2XW levothyroxine 137 mcg PO DAILY lorazepam 2 mg PO DAILY mirabegron ER (Myrbetriq) 50 mg PO DAILY omeprazole 40 mg PO DAILY PRN tramadol 50 mg PO Q8H PRN 30 days HPI HPI Comments History of Present Illness Details 53 YO Female with PMHx Obesity s/p gastric bypass, HTN who is seen in F/U for 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 1) Nontoxic MNG: She had a thyroid US completed in late November which revealed multiple bilateral thyroid nodules meeting indication for FNA biposy. She underwent FNA biopsy 02/08/19 of 3 nodules with results listed below: 1) L mid pole 1.7 cm nodule - Benign ([place] Category II) 2) L mid-lower pole 3.5 cm nodule - nondiagnostic 3) R mid pole 3.6 cm nodule - Benign ([place] Category II) She did have a significant amount of bleeding from the bipsy of the L mid-lower pole nodule, thus biopsy of this nodule was aborted prematurely. She had an additional L mid pole 1.9 cm nodule meeting indication for FNA biopsy, but due to the bleeding from the 3.5 cm nodule, this 1.9 cm nodule was not biopsied. She did complain of compressive symptoms with dysphagia as well as hoarseness of voice, and requested surgical thyroidectomy. This was completed 07/11/2019. Official path report revealed follicular nodular hyperplasia, and was benign. She has recovered well from the surgery. Postoperatively she was started on Levothyroxine 137 mcg PO daily, which she takes every morning. She waits 1 hour to eat, and takes the remainder of her medications after eating breakfast. She denies any symptoms of hypothyroidism. Except for recent weight gain of 30 lb recently She does have a family history of multinodular thyroid in her Daughter, but no known family history of thyroid cancer. She does take Biotin daily. 2) PCOS with Hirsutism: She initially complained of hirsutism which was very bothersome to her. She had a full biochemical workup for hyperandrogenism, which was WNL. She was started on Spironolactone 50 mg PO daily, but developed skin discoloration around her mouth, chin and forehead. Spironolactone was stopped, and skin discoloration resolved. She has remained off Spironolactone since. After her last visit her androgen levels were repeated and were WNL. She denies any violaceous striae. She denies frequent vaginal infections. Menarche was age 14. Menses were always irregular. She had a hysterectomy 12-13 years ago due to fibroid uterus. She has 2 children and did have issues with infertility. She used Clomid to help with Ovulation. She had imaging of the ovaries in 2016 which revealed only 1 ovary identified with multiple cysts. She is currently experiencing menopause symptoms and is following with [facility] for this. She does report galactorrhea which has persisted for many years from the R breast. Prolactin was WNL. 3) Hyperparathyroidism: Labs revealed elevated PTH. She states she rarely consumes dairy. She does remain on Vitamin D 2000 IU daily. She takes a Calcium supplement 650 mg PO daily. Labs: Laboratory Tests 11/13/21 11/13/21 11/17/21 10:44 10:44 15:55 Albumin 4.3 25-OH Vitamin D To benjie 32.8 TSH 0.69 Free T4 1.33 PTH Intact 110 H Calcium (PTH Intac t) 9.2 Ur 24 Hour Volume 2300 Ur Creatinine 24 H our 1.9 [facility] Medical History Morbid obesity with BMI of 40.0-44.9, adult JAYLENE (generalized anxiety disorder) Moderate recurrent major depression Lump of skin Vitamin D deficiency Hyperparathyroidism Common cold Hot flash not due to menopause HTN (hypertension) Amenorrhea Obesity Hypothyroidism Obstructive sleep apnea Surgical History History of thyroidectomy Hx of gastric bypass Hx of hemorrhoidectomy Hx of hysterectomy Hx of tubal ligation Hx of multiple trauma Family History Father Diabetes Hypertension Mother Diabetes Alzheimer's disease Brother Substance use disorder Family/Other Mental health disorder Maternal Aunt Cancer Social History Housing: Apartment Alcohol intake: current Alcohol intake frequency: holidays/special occasions only Alcohol type: wine Patient Tobacco Use Status: Former Tobacco user Tobacco use type: Cigarette Cigarettes Per Day: 3 Years Smoked: 15 e-Cigarette/Vaping Use: Never Used Second Hand Smoke Exposure: No service: No 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al status: unemployed and disabled 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 Assessment & Plan Assessment & Plan (1) Hypothyroidism: Code(s): E03.9 - Hypothyroidism, unspecified Qualifiers: Hypothyroidism type: postoperative Qualified Code(s): E89.0 - Postprocedural hypothyroidism Plan: This is a 53-year-old female with a history of post-operative hypothyroidism currently being treated with levothyroxine 137 mcg. Appears to be clinically and biochemically euthyroid. Plan is to c continue current therapy. At this point, patient returned to the care of her primary care provider regarding hypothyroidism and back to endocrinology as needed (2) Vitamin D deficiency: Code(s): E55.9 - Vitamin D deficiency, unspecified Plan: Slightly low 25- vitamin-D level with PTH increasing. Differential includes secondary hyperparathyroidism versus normocalcium it primary hyperparathyroidism Plan is to increase the vitamin-D to 5000 I-units per day and recheck 25 hydroxy vitamin-D and PTH and calcium in 3 months Orders: Orders Creatinine, 24 Hr Group 3 Months E55.9 - Vitamin D deficiency, unspecified Calcium, 24 Hr Ur 3 Months E55.9 - Vitamin D deficiency, unspecified Vitamin D 25-OH Total 3 Months E55.9 - Vitamin D deficiency, unspecified Medications: New cholecalciferol (vitamin D3) 125 mcg PO DAILY 30 caps 5RF Discontinued cholecalciferol (vitamin D3) take with 1000 IU for total of 3000 IU/day Discontinued Reason: Doctor's Order 50 mcg PO DAILY 30 caps 6RF Coding Level of Care Code Est Pt Level 3 (16570) Diagnoses Postoperative hypothyroidism E89.0 Hypothyroidism type: postoperative Vitamin D deficiency E55.9
== END 2023-05-03 13:57 | disposition home or self-care (01) ==
PROVIDERS: PCP Internal Medicine; Visit Provider Internal Medicine Endocrinology, Diabetes & Metabolism
DX: E89.0 Postprocedural hypothyroidism (principal); E55.9 Vitamin D deficiency, unspecified
CPT/HCPCS: 99213

== ENCOUNTER → 2023-05-03 13:26 | Outpatient (BNVA) | payer OTHER, SELFPAY | PROVIDERS: PCP Internal Medicine; Visit Provider Internal Medicine Endocrinology, Diabetes & Metabolism | DX: E89.0 Postprocedural hypothyroidism (principal); E55.9 Vitamin D deficiency, unspecified | CPT/HCPCS: 99212 ==

== ENCOUNTER 2023-05-20 09:41 | Outpatient (REF) | payer OTHER, SELFPAY | END 2023-05-20 09:42 | disposition home or self-care (01) | LOC: HO.LAB 09:41 | PROVIDERS: Absent Provider Urology; PCP Internal Medicine; Visit Provider Internal Medicine Endocrinology, Diabetes & Metabolism | DX: N39.0 Urinary tract infection, site not specified (principal) | CPT/HCPCS: 81001; 87086 ==

== ENCOUNTER 2023-06-01 13:37 | Outpatient (AMB) | payer OTHER, SELFPAY ==
--- NOTE | 2023-06-01 13:38 | A.OFFVIS_ITS ---
Intake Intake Visit Reasons: Urodynamics Intake Note: Patient presents today for a URODYNAMIC Procedure: Meds: Myrbetriq & Estradiol Allergies to Antibiotic: No Known Allergies Blood Thinner: None Motion Picture Scene Builder Required: No Accompanied by: Self / Same As Patient Allergies aspirin Allergy (Severe, Verified 06/01/23 15:49) Swelling topiramate Adverse Reaction (Intermediate, Verified 06/01/23 15:49) cough Medication List - Last Reconciled 06/01/23 by Taj Sanabria MD wczlkitjbq-hxglykxsayvll-uqal 50-325-40 mg 1 tab PO Q6H PRN 15 days cholecalciferol (vitamin D3) 125 mcg PO DAILY cyclobenzaprine 10 mg PO BEDTIME PRN estradiol (Vagifem) 10 mcg vaginal 2XW levothyroxine 137 mcg PO DAILY lorazepam 2 mg PO DAILY mirabegron ER (Myrbetriq) 50 mg PO DAILY omeprazole 40 mg PO DAILY PRN tramadol 50 mg PO Q8H PRN 30 days HPI HPI Comments History of Present Illness Details Caro is a 53-year-old female who presents today to the office for a urodynamics. She has been on Myrbetriq and oxybutynin in the past without improvement in her symptoms CMG parameters detailed below. Interpretation: During the filling phase there was sensory urgency was noted, strong urge was noted at 224 mL with a detrusor contraction and associated leakage; bladder capacity was less than average, the patient felt that she was at capacity at 227 mL Leakage was not observe with valsalva, leakage was observed with cough and it was not clear if there may have been an associated cough induced detrusor contraction Findings consistent with less than average functional bladder capacity, and de trusor overactivity. EMG- Appropriate changes in the waveforms were noted through out the study. There was a decrease in the EMG activity during the voiding c/w normal function of the pelvic floor. Plan: Pt has failed, PO anticholinergic therapy, Myrbetriq and oxybutynin. Discussed Botox bladder injection 200 units [facility] Medical History Morbid obesity with BMI of 40.0-44.9, adult JAYLENE (generalized anxiety disorder) Moderate recurrent major depression Lump of skin Vitamin D deficiency Hyperparathyroidism Common cold Hot flash not due to menopause HTN (hypertension) Amenorrhea Obesity Hypothyroidism Obstructive sleep apnea Surgical History History of thyroidectomy Hx of gastric bypass Hx of hemorrhoidectomy Hx of hysterectomy Hx of tubal ligation Hx of multiple trauma Family History Father Diabetes Hypertension Mother Diabetes Alzheimer's disease Brother Substance use disorder Family/Other Mental health disorder Maternal Aunt Cancer Social History Housing: Apartment Alcohol intake: current Alcohol intake frequency: holidays/special occasions only Alcohol type: wine Patient Tobacco Use Status: Former Tobacco user Tobacco use type: Cigarette Cigarettes Per Day: 3 Years Smoked: 15 e-Cigarette/Vaping Use: Never Used Second Hand Smoke Exposure: No service: No 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al status: unemployed and disabled 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 Cognitive needs: No Hearing needs: No Vision needs: Yes (Glasses) Review of Systems Const All systems reviewed & are unremarkable except as noted in HPI and below Reports no additional complaints Eyes Reports no additional complaints ENT Reports no additional complaints Card Denies dyspnea Resp Denies cough and Denies dyspnea GI Reports no additional complaints Reports no additional complaints Musc Reports no additional complaints Skin/Breast Denies rash and Denies unusual bruising Neuro Reports no additional complaints Psych Reports no additional complaints Endo Reports no additional complaints Jeanmarie/Lymph Reports no additional complaints Aller/Immun Reports no additional complaints Office Procedures Urodynamic Studies Consent Discussed risk and benefit or proposed procedure with the patient. Information consent for procedure given to the patient. Discussed technical aspects, risks, benefits and alternatives in full. Addressed all of the patient's questions and concerns regarding the procedure. The patient demonstrated knowledge and understanding. They wish to proceed with this procedure. Preparation The patient was prepped in the usual manner. A castables worker was present and in the room. Genitalia was prepped with betadine solution in a sterile manner. Prep: The patient was prepped in the usual manner. A castables worker was present and in the room. Genitalia was prepped with betadine solution in a sterile manner. Complex Uroflow Complex uroflow performed by: Taj Sanabria Maximum urinary flow rate (mL/second): 6 mL Voiding time (seconds): 83 s Voided volume (mL): 121 mL Residual urine (mL): 40 mL Cystometrogram Void Pressure Vaginal/rectal catheter type: rectal First sensation at (mL): 32 mL First desire at (mL): 33 mL Strong desire to void occured at (mL): 224 mL Strong desire detrussor pressure (cm H2O): 7.1 Maximum fill (mL): 227 mL Voided with max detrussor pressure of (cm H2O): 28 Maximum flow rate (mL/second): 8.7 mL/s 70578-Uadggztlaievdx w/ COMPLIANCE INVESTIGATOR 28376-Orvgblp-Iwtsqlkwocus First 18628-Lrhl/Urinary Muscle Study 56925-Bbazz-Smoldadkg Pressure Test Procedure code (CPT) selection complete Office Meds nitrofurantoin monohydrate/macrocrystals 100 mg capsule Performing Provider: Taj Sanabria MD Performing Location[facility] [place] [facility] Documented (not given) by: Taj Sanabria MD on 06/24/23 13:17 Dose Route Admin Location Dispensed Lot Number Expiration Date NDC First Aid Trainer 100 mg PO cap Assessment & Plan Assessment & Plan (1) Sensation of pressure in bladder area: Code(s): R39.89 - Other symptoms and signs involving the genitourinary system (2) OAB (overactive bladder): Code(s): N32.81 - Overactive bladder (3) Detrusor overactivity: Code(s): N32.81 - Overactive bladder Plan Plan: Bladder Botox injection 200 units Orders: Orders AMB Urodynamics Studies 06/01/23 R33.9 - Retention of urine, unspecified Medications: New nitrofurantoin monohyd/m-cryst 100 mg 100 mg PO ONCE 1 cap 0RF R33.9 - Retention of urine, unspecified Coding Level of Care Code Procedure Only Diagnoses Sensation of pressure in bladder area R39.89 OAB (overactive bladder) N32.81 Detrusor overactivity N32.81 CPT Codes Urodynamic Studies - CPT: 99534-Sxgpmfvmospfkk w/ COMPLIANCE INVESTIGATOR ([id number]) Urodynamic Studies - CPT: 22865-Jdebfdl-Dmjbozfwxmdc First ([id number]) Urodynamic Studies - CPT: 82193-Jouw/Urinary Muscle Study ([id number]) Urodynamic Studies - CPT: 41376-Famrn-Qvutrambo Pressure Test ([id number])
== END 2023-06-01 15:25 | disposition home or self-care (01) ==
PROVIDERS: PCP Internal Medicine; Visit Provider Urology
DX: N32.81 Overactive bladder (principal); R39.89 Other symptoms and signs involving the genitourinary system
CPT/HCPCS: 51728; 51741; 51784; 51797

== ENCOUNTER → 2023-06-01 13:37 | Outpatient (BNVA) | payer OTHER, SELFPAY | PROVIDERS: PCP Internal Medicine; Visit Provider Urology | DX: N32.81 Overactive bladder (principal); R39.89 Other symptoms and signs involving the genitourinary system | CPT/HCPCS: 51728; 51741; 51784; 51797 ==

== ENCOUNTER 2023-07-21 07:53 | Outpatient (REF) | payer OTHER, SELFPAY ==
[2023-07-21 09:57] LABS: Vitamin D 25-OH Total 30.9 ng/mL (>30)
== END 2023-07-21 07:54 | disposition home or self-care (01) ==
LOC: HO.LAB 07:53
PROVIDERS: PCP Internal Medicine; Visit Provider Internal Medicine Endocrinology, Diabetes & Metabolism
DX: E55.9 Vitamin D deficiency, unspecified (principal)
CPT/HCPCS: 36415; 82306

== ENCOUNTER 2023-07-22 15:45 | Outpatient (REF) | payer OTHER, SELFPAY ==
[2023-07-22 17:44] LABS: Creatinine, mg/dL 173.56
[2023-07-22 19:39] LABS: Total Volume 24 Hour Urine 600 mL
[2023-07-23 20:58] LABS: Calcium, 24 Hr Urine 82 mg/24 h; Calcium/Creatinine Ratio 81 mg/g creat (30-275); Creatinine 24Hr Urine 1.02 g/24 h (0.50-2.15)
== END 2023-07-22 15:46 | disposition home or self-care (01) ==
LOC: HO.LNP 15:45
PROVIDERS: Visit Provider Internal Medicine Endocrinology, Diabetes & Metabolism
DX: E55.9 Vitamin D deficiency, unspecified (principal)
CPT/HCPCS: 82340; 82570

== ENCOUNTER 2023-07-27 14:07 | Outpatient (AMB) | payer OTHER, SELFPAY ==
--- NOTE | 2023-07-27 14:12 | A.OFFVIS_ITS ---
Intake Vital Signs 07/27/23 14:13 Height 5 ft 3 in Weight 259 lb 0.69 oz BMI 45.9 BP 122/80 Blood Pressure Location Lt brachial Position Sitting Intake Visit Reasons: f/u secondary hyperparathyroidism-confirmed Intake Note: Patient present today for secondary hyperparathyroidism follow up visit. 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 1) Nontoxic MNG: She had a thyroid US completed in late November which revealed multiple bilateral thyroid nodules meeting indication for FNA biposy. She underwent FNA biopsy 02/08/19 of 3 nodules with results listed below: 1) L mid pole 1.7 cm nodule - Benign (Mystic Category II) 2) L mid-lower pole 3.5 cm nodule - nondiagnostic 3) R mid pole 3.6 cm nodule - Benign (Mystic Category II) She did have a significant amount of bleeding from the bipsy of the L mid-lower pole nodule, thus biopsy of this nodule was aborted prematurely. She had an additional L mid pole 1.9 cm nodule meeting indication for FNA biopsy, but due to the bleeding from the 3.5 cm nodule, this 1.9 cm nodule was not biopsied. She did complain of compressive symptoms with dysphagia as well as hoarseness of voice, and requested surgical thyroidectomy. This was completed 07/11/2019. Official path report revealed follicular nodular hyperplasia, and was benign. She has recovered well from the surgery. Postoperatively she was started on Levothyroxine 137 mcg PO daily, which she takes every morning. She waits 1 hour to eat, and takes the remainder of her medications after eating breakfast. She denies any symptoms of hypothyroidism. Except for recent weight gain of 30 lb recently She does have a family history of multinodular thyroid in her Daughter, but no known family history of thyroid cancer. She does take Biotin daily. 2) PCOS with Hirsutism: She initially complained of hirsutism which was very bothersome to her. She had a full biochemical workup for hyperandrogenism, which was WNL. She was started on Spironolactone 50 mg PO daily, but developed skin discoloration around her mouth, chin and forehead. Spironolactone was stopped, and skin discoloration resolved. She has remained off Spironolactone since. After her last visit her androgen levels were repeated and were WNL. She denies any violaceous striae. She denies frequent vaginal infections. Menarche was age 14. Menses were always irregular. She had a hysterectomy 12-13 years ago due to fibroid uterus. She has 2 children and did have issues with infertility. She used Clomid to help with Ovulation. She had imaging of the ovaries in 2016 which revealed only 1 ovary identified with multiple cysts. She is currently experiencing menopause symptoms and is following with [facility] for this. She does report galactorrhea which has persisted for many years from the R breast. Prolactin was WNL. 3) Hyperparathyroidism: Labs revealed elevated PTH. She states she rarely consumes dairy. She does not take Vitamin D 5000 IU daily as prescribed She takes a Calcium supplement 650 mg PO daily. Labs: Laboratory Tests 11/13/21 11/13/21 11/17/21 10:44 10:44 15:55 Albumin 4.3 25-OH Vitamin D To benjie 32.8 TSH 0.69 Free T4 1.33 PTH Intact 110 H Calcium (PTH Intac t) 9.2 Ur 24 Hour Volume 2300 Ur Creatinine 24 H our 1.9 PFSH Medical History Morbid obesity with BMI of 40.0-44.9, adult JAYLENE (generalized anxiety disorder) Moderate recurrent major depression Lump of skin Vitamin D deficiency Hyperparathyroidism Common cold Hot flash not due to menopause HTN (hypertension) Amenorrhea Obesity Hypothyroidism Obstructive sleep apnea Surgical History History of thyroidectomy Hx of gastric bypass Hx of hemorrhoidectomy Hx of hysterectomy Hx of tubal ligation Hx of multiple trauma Family History Father Diabetes Hypertension Mother Diabetes Alzheimer's disease Brother Substance use disorder Family/Other Mental health disorder Maternal Aunt Cancer Social History Housing: Apartment Alcohol intake: current Alcohol intake frequency: holidays/special occasions only Alcohol type: wine Patient Tobacco Use Status: Former Tobacco user Tobacco use type: Cigarette Cigarettes Per Day: 3 Years Smoked: 15 e-Cigarette/Vaping Use: Never Used Second Hand Smoke Exposure: No service: No 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al status: unemployed and disabled 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 Differential includes secondary hyperparathyroidism versus normocalcium vs primary hyperparathyroidism. 25-D levels are borderline but patient was only taking 600 IU Plan is to increase the vitamin-D to 2000 I-units per day and recheck 25 hydroxy vitamin-D and PTH and calcium in 3 months Medications: New cholecalciferol (vitamin D3) 50 mcg PO DAILY 30 caps 4RF Coding Level of Care Code Est Pt Level 3 (52753) Diagnoses Vitamin D deficiency E55.9
[2023-07-27 14:13] VITALS: BP 122/80; BMI 45.9
== END 2023-07-27 14:47 | disposition home or self-care (01) ==
PROVIDERS: PCP Internal Medicine; Visit Provider Internal Medicine Endocrinology, Diabetes & Metabolism
DX: E55.9 Vitamin D deficiency, unspecified (principal)
CPT/HCPCS: 99213

== ENCOUNTER → 2023-07-27 14:07 | Outpatient (BNVA) | payer OTHER, SELFPAY | PROVIDERS: PCP Internal Medicine; Visit Provider Internal Medicine Endocrinology, Diabetes & Metabolism | DX: E55.9 Vitamin D deficiency, unspecified (principal) | CPT/HCPCS: 99212 ==

== ENCOUNTER 2023-08-09 10:34 | Outpatient (AMB) | payer OTHER, SELFPAY ==
[2023-08-09 10:36] VITALS: BP 148/96; PULSE 79; TEMP 36.7; O2SAT 97; BMI 45.9
--- NOTE | 2023-08-09 10:36 | MHC.OFFWIV ---
Intake Vital Signs 08/09/23 10:36 Height 5 ft 3 in Weight 259 lb BMI 45.9 BP 148/96 H Blood Pressure Location Lt brachial Position Sitting Pulse 79 Pulse Source Pulse Oximeter Temp 98.0 F Temp Source Oral Pulse Oximetry (%) 97 Oxygen Delivery Method Room Air Intake Visit Reasons: EP Back/Knee pain Intake Note: Pt presents to the office today for complaints of back pain and knee pain. Pt states the pain has been going on for 3 days now. Pt denies any injury to the back or knee. Patient Tobacco Use Status: Former Tobacco user Allergies aspirin Allergy (Severe, Verified 08/09/23 11:47) Swelling topiramate Adverse Reaction (Intermediate, Verified 08/09/23 11:47) cough Medication List - Last Reconciled 08/09/23 by BRODY Blas hrzemkxkkn-teqwrhtvndyqk-fwgn 50-325-40 mg 1 tab PO Q6H PRN 15 days capsaicin 0.1% (Arthritis Pain Relief (capsaicin)) 1 appl topical BID cholecalciferol (vitamin D3) 50 mcg PO DAILY cyclobenzaprine 10 mg PO BEDTIME PRN estradiol (Vagifem) 10 mcg vaginal 2XW hydrochlorothiazide 12.5 mg PO DAILY 90 days levothyroxine 137 mcg PO DAILY lorazepam 2 mg PO DAILY mirabegron ER (Myrbetriq) 50 mg PO DAILY omeprazole 40 mg PO DAILY PRN prednisone 50 mg PO DAILY tramadol 50 mg PO Q8H PRN 30 days HPI HPI Comments History of Present Illness Details Patient is a 53-year-old female in today for a sick visit. Patient has a past medical history significant for lower back pain with radiculopathy, left knee pain, obesity, hypertension, migraine, h hyperlipidemia. Patient is here for acute on chronic left knee pain that has gotten significantly worse over the past 3 days. Patient denies any trauma to the area. States she has had injections in the past for relief. Patient is also offering lower back pain, left SI joint with a burning sensation down her left leg. Patient has been utilizing a left knee brace for support on the left knee. Denies tingling, numbness, nausea, vomiting, diarrhea. Patient denies chest pain shortness a breath, dizziness. [facility], [facility] Medical History Morbid obesity with BMI of 40.0-44.9, adult JAYLENE (generalized anxiety disorder) Moderate recurrent major depression Lump of skin Vitamin D deficiency Hyperparathyroidism Common cold Hot flash not due to menopause HTN (hypertension) Amenorrhea Obesity Hypothyroidism Obstructive sleep apnea Surgical History History of thyroidectomy Hx of gastric bypass Hx of hemorrhoidectomy Hx of hysterectomy Hx of tubal ligation Hx of multiple trauma Family History Father Diabetes Hypertension Mother Diabetes Alzheimer's disease Brother Substance use disorder Family/Other Mental health disorder Maternal Aunt Cancer Social History Housing: Apartment Alcohol intake: current Alcohol intake frequency: holidays/special occasions only Alcohol type: wine Patient Tobacco Use Status: Former Tobacco user Tobacco use type: Cigarette Cigarettes Per Day: 3 Years Smoked: 15 e-Cigarette/Vaping Use: Never Used Second Hand Smoke Exposure: No service: No 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al status: unemployed and disabled 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 Cognitive needs: No Hearing needs: No Vision needs: Yes (Glasses) Review of Systems Const Details: Constitutional : No Weight loss, No Fever, No Chills, No Fatigue, No Malaise ENT/Mouth : No sore throat, No Rhinorrhea Eyes: No Eye Pain, No Swelling, No Redness Cardiovascular : No Chest Pain, No SOB, No Dyspnea on Exertion, No Orthopnea, No Edema, No Palpitations Respiratory : No Cough, No Sputum, No Wheezing Gastrointestinal : No Nausea, No Vomiting, No Diarrhea, No Constipation, No abdominal Pain, No Hematochezia, No Melena Genitourinary : No Dysuria, No Urinary Frequency, No Hematuria, Musculoskeletal :Admits left knee pain and lower back back with a burning sensation. Skin : No Skin Lesions, No rash Neuro : No Weakness, No Numbness, No Dizziness, No Headache Psych : No Anxiety/Panic, No Depression Heme/Lymph: No Bruising, No Bleeding,No Lymphadenopathy Endocrine : No Polyuria, No Polydipsia All other systems reviewed and are negative Physical Exam Vital Signs: Last Vital Signs Temp 98.0 F 08/09/23 10:36 Pulse 79 08/09/23 10:36 BP 148/96 H 08/09/23 10:36 Pulse Ox 97 08/09/23 10:36 Oxygen Delivery Method Room Air 08/09/23 10:36 BMI result Body Mass Index 45.9 Vital signs reviewed stable Const Other: Appearance: Alert.? Oriented X3.? No acute distress.? Head: Normocephalic, atraumatic, no step-offs or deformities Eyes: Pupils equal, round and reactive to light.? CVS: Normal heart rate and rhythm.? Pulses normal.? Respiratory: No respiratory distress.? Breath sounds normal.? Skin: Skin warm and dry.? Normal skin color.? Normal skin turgor.? Extremities: Point tenderness to left patella. Patient able to bear weight on affected limb with limp. Limited range of motion. Back: SI tenderness to left SI joint. no CVA tenderness bilaterally. Limited range of motion to flexion and extension. Neuro: Oriented X 3.? No motor deficit.? No sensory deficit. CN 2-12 intact Results Reviewed Results Reviewed: Preliminary x-ray results reviewed. No apparent fracture. Assessment & Plan Assessment & Plan (1) Left knee pain: Comment: Acute on chronic left knee pain. Will obtain x-ray. Patient has allergy to aspirin, also has history of stomach surgery not able to take NSAIDs. Will prescribe left capsaicin cream Code(s): M25.562 - Pain in left knee Qualifiers: Chronicity: unspecified Qualified Code(s): M25.562 - Pain in left knee Plan: Take your medications as prescribed. If you were prescribed antibiotics today, it is important that you take your medication to their entirety, do not skip any doses, do not finish them early. Follow-up with your primary care provider this week. Return to the emergency department with new or worsening symptoms. Such as fevers, chills, chest pain, shortness of breath, nausea, vomiting, dizziness, headache, vision changes, lethargy In case of emergency call 911 (2) Lumbar back pain with radiculopathy affecting left lower extremity: Comment: Will obtain lumbar x-ray. Will give prednisone for radiculopathy. Will prescribe prednisone to be taken as directed. Code(s): M54.16 - Radiculopathy, lumbar region Plan Follow-up with PCP Orders: Orders XR lumbar spine 2-3V Today M54.16 - Radiculopathy, lumbar region Medications: New prednisone 50 mg PO DAILY 5 tabs 0RF capsaicin 0.1% (Arthritis Pain Relief (capsaicin)) do not wash area for at least 30 min after application 1 appl topical BID 42.5 grams 0RF Coding Level of Care Code Est Pt Level 4 (77794) Diagnoses Left knee pain, unspecified chronicity M25.562 Chronicity: unspecified Lumbar back pain with radiculopathy affecting left lower extremity M54.16 Time Spent (min) 45
== END 2023-08-09 12:07 | disposition home or self-care (01) ==
PROVIDERS: PCP Internal Medicine; Visit Provider Nurse Practitioner Primary Care
DX: M25.562 Pain in left knee (principal); M54.16 Radiculopathy, lumbar region
CPT/HCPCS: 99214

== ENCOUNTER 2023-08-09 11:04 | Outpatient (REF) | payer OTHER, SELFPAY ==
--- NOTE | ~2023-08-09 | XR_ITS ---
EXAMINATION: XR LUMBOSACRAL SPINE CLINICAL INFORMATION: Lumbar radiculopathy. COMPARISON: Most recent lumbar spine radiographs dated 10/31/2020. TECHNIQUE: Three views of the lumbosacral spine. FINDINGS: The lumbar lordosis is maintained. Minimal grade 1 anterolisthesis of L5 on S1 is redemonstrated. No acute fracture or subluxation. No loss of vertebral body height. Loss of intervertebral disc height with degenerative endplate changes at L5-S1, progressed when compared to the prior examination. Minimal degenerative disc disease at L3-L4 and L4-L5, slightly progressed. No concerning lytic or blastic osseous lesion. No abnormal soft tissue calcification. XR/XR lumbar spine 2-3V IMPRESSION: 1. Minimal grade 1 anterolisthesis of L5 on S1, unchanged. 2. Degenerative disc disease at L3-L4, L4-L5 and L5-S1, progressed when compared to the prior examination.
--- NOTE | ~2023-08-09 | XR_ITS ---
EXAMINATION: XR KNEE, LEFT CLINICAL INFORMATION: Left knee pain. COMPARISON: Left knee radiographs dated 03/29/2023. TECHNIQUE: Four views of the left knee. FINDINGS: Mild medial compartment joint space narrowing. Tricompartmental marginal osteophytes. No acute fracture or dislocation. No concerning lytic or blastic osseous lesion. Small to moderate joint effusion. XR/XR knee LT 4V IMPRESSION: Mild to moderate tricompartmental osteoarthritis, minimally progressed. Small to moderate joint effusion.
== END 2023-08-09 11:05 | disposition home or self-care (01) ==
LOC: HO.HMGCX 11:04
PROVIDERS: PCP Internal Medicine; Visit Provider Nurse Practitioner Primary Care
DX: M54.16 Radiculopathy, lumbar region (principal); M25.562 Pain in left knee
CPT/HCPCS: 72100; 73564

== ENCOUNTER 2023-08-16 07:59 | Day surgery (SDC) | payer OTHER, SELFPAY ==
[2023-06-24 14:37] VITALS: BMI 44.3
--- NOTE | 2023-06-27 10:46 | P.CONAN_ITS ---
HPI - Anesthesia Eval Consult details Narrative: 53yo F for Cystoscopy Botox Injection, 07/19/23 [facility] Active Problems Active Problems: All Active Problems (Updated 06/24/23 @ 13:23 by Taj Sanabria MD) Detrusor overactivity (Acute) OAB (overactive bladder) (Acute) Urinary retention (Acute) Hypophosphatemia (Acute) Hypokalemia (Acute) Sensation of pressure in bladder area (Acute) Mixed incontinence urge and stress (Acute) Recurrent UTI (Acute) Patellofemoral arthritis of left knee (Acute) HTN (hypertension) (Acute) Costovertebral angle tenderness (Acute) Left knee pain (Acute) Immunization due (Acute) Acute parotitis (Acute) Physical exam (Acute) Migraine with aura (Acute) Excessive daytime sleepiness (Acute) Snoring (Acute) Migraine (Acute) Benzodiazepine withdrawal (Acute) Migraines (Acute) Leg edema (Acute) Obesity (Acute) Lipoma (Acute) Hyperlipidemia (Acute) Elevated LFTs (Acute) Adult general medical exam (Acute) Elevated blood pressure reading (Acute) Screening for colon cancer (Acute) Screening for hyperlipidemia (Acute) Screening for diabetes mellitus (Acute) Morbid obesity with BMI of 40.0-44.9, adult (Acute) JAYLENE (generalized anxiety disorder) (Acute) Moderate recurrent major depression (Acute) Lump of skin (Acute) Low back pain (Acute) Lumbar back pain with radiculopathy affecting left lower extremity (Acute) Vitamin D deficiency (Acute) Hyperparathyroidism (Acute) Knee pain (Acute) Common cold (Acute) Hot flash not due to menopause (Acute) Amenorrhea (Acute) Hypothyroidism (Acute) Past Medical History Medical History Morbid obesity with BMI of 40.0-44.9, adult JAYLENE (generalized anxiety disorder) Moderate recurrent major depression Lump of skin Vitamin D deficiency Hyperparathyroidism Common cold Hot flash not due to menopause HTN (hypertension) Amenorrhea Obesity Hypothyroidism Obstructive sleep apnea Family History Family History Father Diabetes Hypertension Mother Diabetes Alzheimer's disease Brother Substance use disorder Family/Other Mental health disorder Maternal Aunt Cancer Surgical History Surgical History History of thyroidectomy Hx of gastric bypass Hx of hemorrhoidectomy Hx of hysterectomy Hx of tubal ligation Hx of multiple trauma Social History Social History Housing: Apartment Alcohol intake: current Alcohol intake frequency: holidays/special occasions only Alcohol type: wine Patient Tobacco Use Status: Former Tobacco user Tobacco use type: Cigarette Cigarettes Per Day: 3 Years Smoked: 15 e-Cigarette/Vaping Use: Never Used Second Hand Smoke Exposure: No service: No 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al status: unemployed and disabled 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 Cognitive needs: No Hearing needs: No Vision needs: Yes (Glasses) Meds Allergies Allergy/AdvReac Type Severity Reaction Status Date / Time aspirin Allergy Severe Swelling Verified 06/01/23 15:49 topiramate AdvReac Intermediate cough Verified 06/01/23 15:49 Home Medications Medication Instructions Recorded Confirmed Last Taken Type cyclobenzaprine 10 mg tablet 10 mg PO BEDTIME PRN muscle spasm 09/27/22 06/01/23 Unknown History omeprazole 40 mg capsule,delayed 40 mg PO DAILY PRN 09/27/22 06/01/23 Unknown History release Exam Height,Weight and Vital Signs: Height 5 ft 3 in Weight 113.398 kg Pertinent Lab Results Pertinent Lab Results: Laboratory Tests 11/21/22 05/02/23 20:21 10:11 WBC 5.9 Hgb 13.8 Hct 41.5 Plt Count 211 Sodium 141 Potassium 3.8 Chloride 106 Carbon Dioxide 27 BUN 10 Creatinine 0.63 Assessment and Plan Assessment Anesthesia Assessment: Chart Reviewed
--- NOTE | 2023-08-12 14:07 | HO.ANESPROP2 ---
HPI - Anesthesia Eval Consult details Narrative: 53yo F for Cystoscopy Botox Injection PMFSH Active Problems Active Problems: All Active Problems (Updated 08/09/23 @ 11:48 by BRODY Blas) Urinary incontinence (Acute) Detrusor overactivity (Acute) OAB (overactive bladder) (Acute) Urinary retention (Acute) Hypophosphatemia (Acute) Hypokalemia (Acute) Sensation of pressure in bladder area (Acute) Mixed incontinence urge and stress (Acute) Recurrent UTI (Acute) Patellofemoral arthritis of left knee (Acute) HTN (hypertension) (Acute) Costovertebral angle tenderness (Acute) Left knee pain (Acute) Immunization due (Acute) Acute parotitis (Acute) Physical exam (Acute) Migraine with aura (Acute) Excessive daytime sleepiness (Acute) Snoring (Acute) Migraine (Acute) Benzodiazepine withdrawal (Acute) Migraines (Acute) Leg edema (Acute) Obesity (Acute) Lipoma (Acute) Hyperlipidemia (Acute) Elevated LFTs (Acute) Adult general medical exam (Acute) Elevated blood pressure reading (Acute) Screening for colon cancer (Acute) Screening for hyperlipidemia (Acute) Screening for diabetes mellitus (Acute) Morbid obesity with BMI of 40.0-44.9, adult (Acute) JAYLENE (generalized anxiety disorder) (Acute) Moderate recurrent major depression (Acute) Lump of skin (Acute) Low back pain (Acute) Lumbar back pain with radiculopathy affecting left lower extremity (Acute) Vitamin D deficiency (Acute) Hyperparathyroidism (Acute) Knee pain (Acute) Common cold (Acute) Hot flash not due to menopause (Acute) Amenorrhea (Acute) Hypothyroidism (Acute) Past Medical History Medical History Morbid obesity with BMI of 40.0-44.9, adult JAYLENE (generalized anxiety disorder) Moderate recurrent major depression Lump of skin Vitamin D deficiency Hyperparathyroidism Common cold Hot flash not due to menopause HTN (hypertension) Amenorrhea Obesity Hypothyroidism Obstructive sleep apnea Family History Family History Father Diabetes Hypertension Mother Diabetes Alzheimer's disease Brother Substance use disorder Family/Other Mental health disorder Maternal Aunt Cancer Surgical History Surgical History History of thyroidectomy Hx of gastric bypass Hx of hemorrhoidectomy Hx of hysterectomy Hx of tubal ligation Hx of multiple trauma Social History Social History Housing: Apartment Alcohol intake: current Alcohol intake frequency: holidays/special occasions only Alcohol type: wine Patient Tobacco Use Status: Former Tobacco user Tobacco use type: Cigarette Cigarettes Per Day: 3 Years Smoked: 15 e-Cigarette/Vaping Use: Never Used Second Hand Smoke Exposure: No service: No 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al status: unemployed and disabled 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 Cognitive needs: No Hearing needs: No Vision needs: Yes (Glasses) Meds Allergies Allergy/AdvReac Type Severity Reaction Status Date / Time aspirin Allergy Severe Swelling Verified 08/09/23 11:47 topiramate AdvReac Intermediate cough Verified 08/09/23 11:47 Home Medications ?Medication ?Instructions ?Recorded ?Confirmed ?Last Taken ?Type cyclobenzaprine 10 mg tablet 10 mg PO BEDTIME PRN muscle spasm 09/27/22 08/09/23 Unknown History omeprazole 40 mg capsule,delayed 40 mg PO DAILY PRN 09/27/22 08/09/23 Unknown History release Exam Height,Weight and Vital Signs: Height 5 ft 3 in Weight 113.398 kg Assessment and Plan Assessment Anesthesia Assessment: Chart Reviewed
[2023-08-16] VITALS (7 sets, daily range): BP systolic 142–162; BP diastolic 64–99; PULSE 71–84; RESP 16–22; TEMP 36.4–36.6; O2SAT 94–99; BMI 46.2
[2023-08-16] MEDS: Lactated Ringers 1,000 ML 100 ML IVCONT (10:06)
--- NOTE | 2023-08-16 10:09 | MHC.SHP ---
Pre-Procedural Eval Section A - 24 Hr Update-Section A only Date of Service: 08/16/23 The patient is an INPATIENT: No The patient has been examined within 24 hours of the surgical procedure. The History & Physical has been completed within 30 days and I have reviewed it.: Yes Section B - Complete if H&P > 30 days Chief Complaint: Mixed incontinence Relevant Family History (Specify if Yes): No Allergies: Allergies Allergy/AdvReac Type Severity Reaction Status Date / Time aspirin Allergy Severe Swelling Verified 08/09/23 11:47 topiramate AdvReac Intermediate cough Verified 08/09/23 11:47 Review of Systems Sugical H&P ROS: Negative: Cardiovascular, Respiratory, Neurological, Psychiatric, Hem-Onc, Gastrointestinal, Integumentary and Eyes/Ears/Nose/Throat Exam Surgical H&P Exam: Normal: HEENT, Normal: Heart, Normal: Lungs and Normal: Skin Plan Diagnosis/Plan: Unchanged I have reviewed the history and physical and performed a pertinent physical examination on my patient. No changes have occurred unless specified. Cystoscopy Bladder Botox injection. Time Spent With Patient Time: Total time managing care of this patient today ____ minutes.
--- NOTE | 2023-08-16 10:38 | W.PM.OPN ---
Operative Note Operative Note Date of Service: 08/16/23 Narrative: PREOP DIAGNOSIS: OAB POSTOP DIAGNOSIS: OAB PROCEDURE: CYSTOSCOPY, BLADDER BOTOX INJECTION 100 UNITS SURGEON: Taj Sanabria MD ANESTHESIA: General Indications: Caro has failed multiple anticholinergics for LUTS. Details of procedure: The patient was brought into the operating room placed on the OR table in supine position. Antibiotics confirmed. General anesthesia was administered. The patient was repositioned into lithotomy position, prepped and draped in the usual sterile fashion. Time-out was done per protocol. A 22 fr cystoscope was placed transurethrally into the bladder. Urine was sent for culture. The right and left ureteral orifices were visualized. There were no suspicious bladder lesions seen. The Botox 100 units was mixed with 10 cc of normal saline and injected transurethrally 1/2 cc per injection into the posterior bladder wall in template pattern. The cystoscope was removed. 2% lidocaine urojet was passed transurethrally into the bladder. The patient was brought out of anesthesia and taken to recovery in stable condition. Complications: None Drains: none
[2023-08-16] MEDS: Phenazopyridine HCL 200 MG TABLET PO (10:53)
[2023-08-16 12:46] LABS: Glucose, Whole Blood 106 mg/dL (60-115)
[2023-08-16] MEDS: Ondansetron ODT 4 MG TAB.RAPDIS 8 MG TRANSLINGU (12:48)
[2023-08-16] MEDS: Scopolamine 1.5 MG PATCH.TD.3 EAR-BEHIND (12:50)
--- NOTE | 2023-08-16 13:00 | HO.INF ---
PATIENT WAS FEELING NAUSEOUS AND DIZZY IN DC AREA. BP 147/92, R 18, O2 100%, P 73. BS [address] BENTLEY ACCESSED. PATIENT GIVEN ZOFRAN SL AND A SCOPOLAMINE PATCH BEHIND LEFT EAR.
--- NOTE | 2023-08-16 13:35 | HO.INF ---
PATIENT STATED FEELING BETTER AT 1310 AND WAS DISCHARGED HOME.
== END 2023-08-16 13:10 | disposition home or self-care (01) ==
PROVIDERS: PCP Internal Medicine; Visit Provider Urology
PROC: 3E0K8GC Introduction of Other Therapeutic Substance into Genitourinary Tract, Via Natural or Artificial Opening Endoscopic (ICD-10-PCS; CPT 52287; principal; 2023-08-16 13:10)
DX: N32.81 Overactive bladder (principal); N39.46 Mixed incontinence; I10 Essential (primary) hypertension
CPT/HCPCS: 52287; 82947; J0585; J0690; J2704; J3010

== ENCOUNTER → 2023-08-16 07:59 | Outpatient (BNV) | payer OTHER, SELFPAY | PROVIDERS: PCP Internal Medicine; Visit Provider Urology | DX: N39.46 Mixed incontinence (principal) | CPT/HCPCS: 52287 ==

== ENCOUNTER → 2023-08-31 10:06 | Outpatient (BNVA) | payer OTHER, SELFPAY | PROVIDERS: PCP Internal Medicine; Visit Provider Urology | DX: N32.81 Overactive bladder (principal) | CPT/HCPCS: 51798 ==

== ENCOUNTER 2023-09-12 10:14 | Outpatient (AMB) | payer OTHER, SELFPAY ==
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
[2023-09-12 10:27] VITALS: BP 124/74; PULSE 81; RESP 18; O2SAT 95; BMI 45.1
== END 2023-09-12 10:52 | disposition home or self-care (01) ==
PROVIDERS: PCP Internal Medicine; Visit Provider Anesthesiology
DX: M17.12 Unilateral primary osteoarthritis, left knee (principal); M47.816 Spondylosis without myelopathy or radiculopathy, lumbar region; G89.4 Chronic pain syndrome; M25.562 Pain in left knee
CPT/HCPCS: 99213

== ENCOUNTER → 2023-09-12 10:14 | Outpatient (BNVA) | payer OTHER, SELFPAY | PROVIDERS: PCP Internal Medicine; Visit Provider Anesthesiology | DX: M17.12 Unilateral primary osteoarthritis, left knee (principal); M79.602 Pain in left arm; M47.816 Spondylosis without myelopathy or radiculopathy, lumbar region; E66.9 Obesity, unspecified; G89.4 Chronic pain syndrome | CPT/HCPCS: 99212 ==

== ENCOUNTER 2023-09-19 12:06 | Outpatient (AMB) | payer OTHER, SELFPAY ==
--- NOTE | 2023-09-19 13:04 | A.OFFPC_ITS ---
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: No Accompanied by: Self / Same As Patient Allergies aspirin Allergy (Severe, Verified 09/19/23 13:18) Swelling topiramate Adverse Reaction (Intermediate, Verified 09/19/23 13:18) cough Medication List - Last Reconciled 09/19/23 by Sammi Beal MD [id number] 50-325-40 mg 1 tab PO Q6H PRN 15 days capsaicin 0.1% (Arthritis Pain Relief (capsaicin)) 1 appl topical BID cholecalciferol (vitamin D3) 50 mcg PO DAILY cyclobenzaprine 10 mg PO BEDTIME PRN estradiol (Vagifem) 10 mcg vaginal 2XW hydrochlorothiazide 12.5 mg PO DAILY 90 days levothyroxine 137 mcg PO DAILY lorazepam 2 mg PO DAILY mirabegron ER (Myrbetriq) 50 mg PO DAILY omeprazole 40 mg PO DAILY PRN tramadol 50 mg PO Q8H PRN 30 days Tobacco use date assessed: 09/19/23 Dental Screening Dental Screen Date: 09/19/23 Did you have a dental visit in the last 12 months?: No Did you have a dental problem in the last 6 months where you did not have access to dental care?: No Was dental information given to patient?: Patient has dentist HPI HPI Comments 2 History of Present Illness Details This is a 53-year-old female with moderate recurrent major depression, hypertension, morbid obesity, cervical radiculopathy and lumbar radiculopathy that complains of bilateral knee pain aggravated by activity that started few months ago. X-ray shows mild to moderate knee osteoarthritis. Will be referred to ortho at [facility] for a 2nd opinion. Also has low back pain radiating to both legs more prominent in the left with bilateral straight leg test positive. Complains of left toe numbness and left 1st and 2nd finger numbness. Also has neck pain radiating to the left arm. Blood pressure elevated and will be recheck in 3 weeks by nurse navigator. Has no suicidal thoughts but declines tr eatment at the moment. She is morbidly obese with a BMI of 44.8 and was advised to diet and exercise as tolerated to reach BMI goal less than 30. [facility] Medical History (Updated 09/19/23 @ 13:30 by Sammi Beal MD) Morbid obesity with BMI of 40.0-44.9, adult JAYLENE (generalized anxiety disorder) Moderate recurrent major depression Lump of skin Vitamin D deficiency Hyperparathyroidism Common cold Hot flash not due to menopause HTN (hypertension) Amenorrhea Obesity Hypothyroidism Obstructive sleep apnea Surgical History History of thyroidectomy Hx of gastric bypass Hx of hemorrhoidectomy Hx of hysterectomy Hx of tubal ligation Hx of multiple trauma Family History Father Diabetes Hypertension Mother Diabetes Alzheimer's disease Brother Substance use disorder Family/Other Mental health disorder Maternal Aunt Cancer Social History Housing: Apartment Alcohol intake: current Alcohol intake frequency: holidays/special occasions only Alcohol type: wine Patient Tobacco Use Status: Former Tobacco user Tobacco use type: Cigarette Cigarettes Per Day: 3 Years Smoked: 15 e-Cigarette/Vaping Use: Never Used Second Hand Smoke Exposure: No service: No 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al status: unemployed and disabled 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 1. Little interest or pleasure in doing things: more than half the days 2. Feeling down, depressed, or hopeless: more than half the days 3. Trouble falling or staying asleep, or sleeping too much: more than half the days 4. Feeling tired or having little energy: nearly every day 5. Poor appetite or overeating: several days 6. Feeling bad about yourself - or that you are a failure or have let yourself or your family down: nearly every day 7. Trouble concentrating on things, such as reading the newspaper or watching television: several days 8. Moving or speaking so slowly that other people could have noticed. Or the opposite - being so fidgety or restless that you have been moving around a lot more than usual: several days 9. Thoughts that you would be better off or of hurting yourself in some way: not at all Total score: 15 Depression Screening Interpretation: Positive (no suicidal thoughts) Depression Screening Follow-up: Existing condition and Declines treatment Depression Screening Done: Yes 01005 - PHQ-9 Billing: Yes Source: Developed by Drs. Jose Maria Lugo, Felicia Harmon, Yefri Peterson and colleagues, with an educational roger from [employer]. Thrive Questionnaire Date Thrive assessed: 09/19/23 I am a: Patient What is your living situation today?: I have a steady place to live Within the past 12 months, did the food you bought not last and you didn't have the money to get more?: Never true Within the past 12 months, did you worry whether your food would run out before you got money to buy more?: Never true Do you have trouble paying for medicines?: No Do you have trouble getting transportation to medical appointments?: No Do you have trouble paying your heating and electricity bill?: No Do you have trouble taking care of your child, family member or friend?: No Do you have trouble with day-to-day activities such as bathing, preparing meals, shopping, managing finances, etc.?: No Are you currently unemployed and looking for a job?: No Are you interested in more education?: No Please select the resources that you would like help with: None Currently or been in a relationship where the following occur: no concerns reported THRIVE Score: 0 AUDIT C Alcohol Use Questionnaire (AUDIT-C) 1. How often do you have a drink containing alcohol?: Monthly or less 2. How many drinks containing alcohol do you have on a typical day when you are drinking?: 1 or 2 3. How often do you have six or more drinks on one occasion?: Never Total Score: 1 Score Reviewed/Action Taken: No JAYLENE-7 AMB Questionnaire JAYLENE-7 Date JAYLENE - 7 assessed: 09/19/23 Feeling nervous, anxious, or on edge: 2 = More than half the days Not being able to stop or control worryin = Several days Worrying too much about different things: 3 = Nearly every day Trouble relaxin = Several days Being so restless that it is hard to sit still: 0 = Not at all Becoming easily annoyed or irritable: 1 = Several days Feeling afraid as if something awful might happen: 0 = Not at all Total JAYLENE-7 score (0-4 normal; 5-9 mild; 10-14 moderate; 15-21 severe): 8 Source: Developed by Drs. Jose Maria Lugo, Felicia Harmon, Yefri Peterson and colleagues, with an educational roger from [employer]. JAYLENE-7 Assessment Billing JAYLENE-7 Assessment Tool: JAYLENE-7 Assessment 22097 Review of Systems Const All systems reviewed & are unremarkable except as noted in HPI and below Eyes Reports no additional complaints, Denies change in vision and Denies other visual disturbances Card Denies chest pain at rest, Denies chest pain with activity, Denies edema, Denies irregular heart rhythm, Denies claudication, Denies dyspnea, Denies dyspnea on exertion, Denies orthopnea, Denies paroxysmal nocturnal dyspnea and Denies slow heart rate Resp Denies cough, Denies dyspnea and Denies dyspnea on exertion Physical exam (Primary Care) Vital Signs: Last Vital Signs BP 146/100 H 09/19/23 13:05 BMI result Body Mass Index 44.8 Tobacco/Smoking Status: Tobacco use Status Tobacco use date assessed 09/19/23 09/19/23 13:11 Patient Tobacco Use Status Former Tobacco user 09/19/23 13:11 Tobacco use type Cigarette 09/19/23 13:11 e-Cigarette/Vaping Use Never Used 09/19/23 13:11 PHQ-9: PHQ-9 Score PHQ-9: Total score 15 09/19/23 13:19 Depression Screening Interpretation: Positive (no suicidal thoughts) Depression Screening Follow-up: Existing condition and Declines treatment Thrive Assessment: Date of Thrive Assessment Date Thrive assessed 09/19/23 09/19/23 13:11 Currently or been in a relationship where the following occur: no concerns reported Resp Effort & Inspection: normal respiratory effort Auscultation: clear to auscultation bilaterally Cardio Jugular venous distension: no JVD Rate: regular rate Rhythm: regular rhythm Heart sounds: S1 normal heart sound present and S2 normal heart sound present Back/Spine/Pelvis Thoracic/Lumbar Spine: straight leg raise positive bilateral at 60 degrees Extrem General: Yes full ROM Assessment and Plan Assessment & Plan (1) Cervical radiculopathy: Code(s): M54.12 - Radiculopathy, cervical region Plan: Referred to Ortho. (2) Lumbar radiculopathy: Code(s): M54.16 - Radiculopathy, lumbar region Plan: Referred to Ortho. (3) Knee osteoarthritis: Code(s): M17.9 - Osteoarthritis of knee, unspecified Plan: Referred to Ortho. (4) HTN (hypertension): Code(s): I10 - Essential (primary) hypertension Plan: Continue hydrochlorothiazide. Blood pressure goal is equal or less than 130/80. Recheck blood pressure with nurse navigator in 3 weeks. (5) Moderate recurrent major depression: Code(s): F33.1 - Major depressive disorder, recurrent, moderate Plan: She will let us know if she wants treatment. (6) Morbid obesity with BMI of 40.0-44.9, adult: Code(s): E66.01 - Morbid (severe) obesity due to excess calories; Z68.41 - Body mass index [BMI] 40.0-44.9, adult Plan: Start diet and exercise as tolerated to reach BMI goal less than 30. Orders: Referrals Orthopedics Referral M17.9 - Osteoarthritis of knee, unspecified, M54.12 - Radiculopathy, cervical region, M54.16 - Radiculopathy, lumbar region Coding Level of Care Code Est Pt Level 4 (52220) Diagnoses Cervical radiculopathy M54.12 Lumbar radiculopathy M54.16 Knee osteoarthritis M17.9 HTN (hypertension) I10 Moderate recurrent major depression F33.1 Morbid obesity with BMI of 40.0-44.9, adult E66.01; Z68.41 Additional Codes JAYLENE-7 Assessment Billing - JAYLENE-7 Assessment Tool: JAYLENE-7 Assessment 47577 ([id number]) Time Spent (min) 23
[2023-09-19 13:05] VITALS: BP 146/100; BMI 44.8
== END 2023-09-19 13:34 | disposition home or self-care (01) ==
PROVIDERS: PCP Internal Medicine; Visit Provider Internal Medicine
DX: M54.12 Radiculopathy, cervical region (principal); E66.01 Morbid (severe) obesity due to excess calories; Z68.41 Body mass index [BMI] 40.0-44.9, adult; F33.1 Major depressive disorder, recurrent, moderate; I10 Essential (primary) hypertension; M54.16 Radiculopathy, lumbar region; M17.9 Osteoarthritis of knee, unspecified
CPT/HCPCS: 99214

== ENCOUNTER 2023-10-11 06:17 | Outpatient (REF) | payer OTHER, SELFPAY ==
--- NOTE | ~2023-10-11 | FL_ITS ---
EXAMINATION: XR FLUOROSCOPY WITH IMAGES CLINICAL INFORMATION: Arthritis. Unilateral primary osteoarthritis left knee. COMPARISON: None available. TECHNIQUE: Fluoroscopy Supervised By: Dr. Vizcarra. Fluoroscopy Time: 0.3 min. Cumulative Dose: 2.61 mGy. DAP: 0.0453 Gycm2. Images: 3. FINDINGS: Intraoperative fluoroscopy and spot films were performed during a procedure in the OR. 3 needles are seen around the left knee with 2 placed superiorly near the proximal distal femoral metaphysis and another medially adjacent to the tibial metaphysis Please see Dr. Vizcarra's report for complete details. FL/FL guidance in treatment room IMPRESSION: Intraoperative fluoroscopy and spot films were obtained. Please see Dr. Vizcarra's report for complete details.
== END 2023-10-11 06:18 | disposition home or self-care (01) ==
LOC: CF 06:17
PROVIDERS: Visit Provider Anesthesiology
DX: M17.12 Unilateral primary osteoarthritis, left knee (principal); M47.816 Spondylosis without myelopathy or radiculopathy, lumbar region; M25.562 Pain in left knee; G89.4 Chronic pain syndrome
CPT/HCPCS: 64454; J2795

== ENCOUNTER 2023-10-11 13:23 | Outpatient (AMB) | payer OTHER, SELFPAY ==
--- NOTE | 2023-10-11 13:24 | A.OFFVIS_ITS ---
Vital Signs 10/11/23 14:32 10/11/23 14:33 Height 5 ft 3 in Weight 253 lb BMI 44.8 BP 140/82 H 152/84 H Blood Pressure Location Lt brachial Lt brachial Position Sitting Sitting Respiration 18 20 Pulse 81 99 Pulse Source Pulse Oximeter Pulse Oximeter Pulse Oximetry (%) 97 94 Oxygen Delivery Method Room Air Room Air Comment Pre-Op Post-Op Intake Visit Reasons: LEFT GENICULAR NERVE BLOCK Allergies aspirin Allergy (Severe, Verified 09/19/23 13:18) Swelling topiramate Adverse Reaction (Intermediate, Verified 09/19/23 13:18) cough PFSH Medical History Morbid obesity with BMI of 40.0-44.9, adult JAYLENE (generalized anxiety disorder) Moderate recurrent major depression Lump of skin Vitamin D deficiency Hyperparathyroidism Common cold Hot flash not due to menopause HTN (hypertension) Amenorrhea Obesity Hypothyroidism Obstructive sleep apnea Surgical History History of thyroidectomy Hx of gastric bypass Hx of hemorrhoidectomy Hx of hysterectomy Hx of tubal ligation Hx of multiple trauma Family History Father Diabetes Hypertension Mother Diabetes Alzheimer's disease Brother Substance use disorder Family/Other Mental health disorder Maternal Aunt Cancer Social History Housing: Apartment Alcohol intake: current Alcohol intake frequency: holidays/special occasions only Alcohol type: wine Patient Tobacco Use Status: Former Tobacco user Tobacco use type: Cigarette Cigarettes Per Day: 3 Years Smoked: 15 e-Cigarette/Vaping Use: Never Used Second Hand Smoke Exposure: No service: No 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al status: unemployed and disabled 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 Informed consent was explained to the patient. All questions were explained and answered. The patient was taken inside the operating room. The patient was positioned supine on operating table with her right leg elevated on a gel bin. Time-out was performed delineating correct site, side, the nature of the procedure, patient's allergy, preoperative antibiotic if needed. All operating room staff was participating in OR time-out procedure. C-arm was brought over the operating field and picture of the right knee was demonstrated on the screen. Anterolateral and anteromedial surfaces of the knee as well as lower leg and the lower thigh were prepped with chloroprep and draped with utility towels. The point of interest were delineated for: FOR: superior lateral genicular nerve (branch of lateral femoral cutaneous nerve) as the connection of the metaphysis of the left femur with corresponding diaphysis on the lateral silhouette of the femur distal bone, For superior medial genicular nerve (suprapatellar saphenous nerve) the point of interest was delineated is the connection of metaphysis of left femur with corresponding diaphysis on the medial silhouette on the femoral distal bone. For inferior medial genicular nerve (infrapatellar saphenous nerve) the point of interest was delineated as connection of metaphysis of the proximal left tibia on the medial side with corresponding diaphysis of the same bone. The projections of the points of interest on anterior surface of the left knee was injected with small amount of lidocaine 2% 1-to 2 ml. After that to needles 22 gauge 3-1/2 inch long were driven to were the point of interest in tunnel vision fashion. When the needle gently contacted the bones the C arm view was turned lateral , care was taken to superimpose condyles of the knee. With condyles superimpsed the needles were adjusted the way the tips of the needle positioned at the middle of the shaft of the bone. After that injection of ro pivacaine o.5% 1 to 1.5 mls was performed at each needle location. the needles were removed and bandaids were applied. the patient tolerated the procedure very well. (2) Spondylosis without myelopathy or radiculopathy, lumbar region: Code(s): M47.816 - Spondylosis without myelopathy or radiculopathy, lumbar region Category: Medical (3) Chronic pain syndrome: Code(s): G89.4 - Chronic pain syndrome Category: Medical (4) Left knee pain: Comment: Acute on chronic left knee pain. Will obtain x-ray. Patient has allergy to aspirin, also has history of stomach surgery not able to take NSAIDs. Will prescribe left capsaicin cream Code(s): M25.562 - Pain in left knee Category: Medical Qualifiers: Chronicity: unspecified Qualified Code(s): M25.562 - Pain in left knee Plan This patient is suffering from advanced left knee osteoarthritis, moderate nature of the arthritis results in significant pain syndrome. I offered her to go for physical therapy to treat the pain in the knee. I also will schedule her for diagnostic genicular nerve block in preparation of peripheral nerve stimulation versus radiofrequency ablation of the genicular nerves. As of her lumbar condition she has significant spondylotic and spondylolisthesis changes in the lumbar spine. If the knee pain will be successfully treated we will address the pain in the lumbar spine on separate occasion. Orders: Orders FL guidance in treatment room Today M17.12 - Unilateral primary osteoarthritis, left knee Coding Level of Care Code Procedure Only Diagnoses Arthritis of left knee M17.12 Spondylosis without myelopathy or radiculopathy, lumbar region M47.816 Chronic pain syndrome G89.4 Left knee pain, unspecified chronicity M25.562 Chronicity: unspecified
[2023-10-11 14:32] VITALS: BP 140/82; PULSE 81; RESP 18; O2SAT 97; BMI 44.8
[2023-10-11 14:33] VITALS: BP 152/84; PULSE 99; RESP 20; O2SAT 94
== END 2023-10-11 14:26 | disposition home or self-care (01) ==
LOC: HO.PMCPRC 13:23
PROVIDERS: PCP Internal Medicine; Visit Provider Anesthesiology
DX: M25.562 Pain in left knee (principal); M17.12 Unilateral primary osteoarthritis, left knee; M47.816 Spondylosis without myelopathy or radiculopathy, lumbar region; G89.4 Chronic pain syndrome
CPT/HCPCS: 64454

== ENCOUNTER 2023-10-31 11:00 | Outpatient (RCR) | payer OTHER, SELFPAY ==
--- NOTE | 2023-10-05 10:50 | MHC.PT.EP ---
[facility] [place] Office [place] Office [place] Office [address] Nallely Avina [address] [phone] F: [phone] F: [phone] F: [phone] F: [phone] Physical Therapy Plan of Care Date of Evaluation: 10/04/23 Date of Surgery: Diagnosis: chronic pain syndrome, lumbar spondylosis without myeolopahy or radiculopathy, LEFT unilateral primary OA of knee (MD Dx) LEFT lumbar radiculopathy (PT Dx) (RS) Assessment: Patient is a pleasant Mongolian speaking 53 y.o. female who is referred to PT by Dr. José Vizcarra MD with Dx of chronic pain syndrome, lumbar spondylosis without myeolopahy or radiculopathy LEFT unilateral primary OA of knee. PT diagnosis is LEFT lumbar radiculopathy. Patient impairments include pain, poor posture, limited ROM in lumbar spine, L knee, weakness in LEs, radicular sxs in L LE, antalgic gait, hx of recent falls. Patient current functional limitations are prolonged standing, walking, bending, sitting, stair use. Patient will benefit from skilled PT to address aforementioned impairments and functional limitations to meet established goals. Fair prognosis due to severity and chronicity of pain. Frequency and Duration: The patient will be seen 2x/week for 4 weeks Short Term Goals: 2 weeks Patient demonstrates consistency and independence with HEP to self manage symptoms. Patient is able to centralize L LE symptoms to lumbar spine to reduce pain level 5/10. Alf Goals: 4 weeks Patient presents with increased lumbar spine flexion 80 degrees to restore mobility with bend/squat for ADLs. Patient presents with increased LEFT knee quad strength 4+/5 to be able to ambulate up 1 flight of stairs with railing. Treatment Plan: Modalities to reduce pain, spasms and effusion. Manual therapy to restore motion and function. Therapeutic exercise to improve strength and flexibility. Neuromuscular re-education for posture and balance. Therapeutic activities to return to functional activities of daily living. Electronically signed by: Casper Kwong, PT, DPT Please sign and return to therapist. Thank you for your referral.
--- NOTE | 2023-12-14 14:53 | MHC.PT.DC ---
[facility] [place] Office [place] [facility] [place] [facility] [address] [place] [address] [phone] F: [phone] F: [phone] F: [phone] F: [phone] Physical Therapy Discharge Report Diagnosis: chronic pain syndrome, lumbar spondylosis without myeolopahy or radiculopathy, LEFT unilateral primary OA of knee (MD Dx) LEFT lumbar radiculopathy (PT Dx) (RS) Date of Surgery: Date of Evaluation: 10/04/23 Date of Discharge: 12/14/23 Treatments to Date: 5 Cancellations to Date: 1 No Shows to Date: 0 Discharge Status: Independent with HEP Patient Elected to Stop Discharge Summary: Caro ceased attending PT after her session on 10/31/23. The assessment during that session reads, Pt tolerated session well, treatment was focused on hip strengthening to improve pt's knee/back pain. Pt was able to complete lateral band walks, step ups/step downs well, but PT needed to verbally remind pt to not let knees cave inward and keep toes pointed forward. Pt also did STS w/ slightly elevated chair w/o complaint, this will eventually be progressed to squats w/o chair. Pt did still experience pain attempting bridge, so exer was regressed to glute set which pt completed. She has an independent HEP. She is discharged from PT at this time as she did not schedule any appointments after this visit. Electronically signed by: Casper Kwong, PT, DPT Please sign and return to therapist. Thank you for your referral.
== END 2023-12-14 14:54 | disposition home or self-care (01) ==
LOC: HO.PT 11:00
PROVIDERS: PCP Internal Medicine; Visit Provider Anesthesiology
DX: M47.816 Spondylosis without myelopathy or radiculopathy, lumbar region (principal); M17.12 Unilateral primary osteoarthritis, left knee; G89.4 Chronic pain syndrome
CPT/HCPCS: 97110; 97140; 97162; 97530

== ENCOUNTER 2023-11-07 13:12 | Outpatient (AMB) | payer OTHER, SELFPAY ==
--- NOTE | 2023-11-07 13:13 | A.OFFVIS_ITS ---
Vital Signs 11/07/23 13:41 Height 5 ft 3 in Weight 247 lb BMI 43.7 BP 138/78 Blood Pressure Location Lt brachial Position Sitting Respiration 16 Pulse 100 Pulse Source Pulse Oximeter Pulse Oximetry (%) 98 Oxygen Delivery Method Room Air Intake Visit Reasons: LEFT GENICULAR NERVE BLOCK Intake Note: Patient comes in for post-op appointment. Reports pain 8/10. Allergies aspirin Allergy (Severe, Verified 11/07/23 13:43) Swelling topiramate Adverse Reaction (Intermediate, Verified 11/07/23 13:43) cough HPI Comments Details: Caro is back in my office after diagnostic left knee genicular nerve block. Although she had this procedure 1 month on 10/11/2023 ago she reported no pain improvement after the procedure. She reported only pain aggravation after the procedure. She is currently under care of [facility], THERE she was told that she needs to lose 10 lb of weight and then to come back. She is working on her diet to lose 10 lb of weight. I offered her today to perform diagnostic left femoral nerve block in the order to perform neuromodulation procedures helping her knee pain. She insists on having this procedure under deep sedation. I will schedule her in the operating room. [facility], [facility] Medical History Morbid obesity with BMI of 40.0-44.9, adult JAYLENE (generalized anxiety disorder) Moderate recurrent major depression Lump of skin Vitamin D deficiency Hyperparathyroidism Common cold Hot flash not due to menopause HTN (hypertension) Amenorrhea Obesity Hypothyroidism Obstructive sleep apnea Surgical History History of thyroidectomy Hx of gastric bypass Hx of hemorrhoidectomy Hx of hysterectomy Hx of tubal ligation Hx of multiple trauma Family History Father Diabetes Hypertension Mother Diabetes Alzheimer's disease Brother Substance use disorder Family/Other Mental health disorder Maternal Aunt Cancer Social History Housing: Apartment Alcohol intake: current Alcohol intake frequency: holidays/special occasions only Alcohol type: wine Patient Tobacco Use Status: Former Tobacco user Tobacco use type: Cigarette Cigarettes Per Day: 3 Years Smoked: 15 e-Cigarette/Vaping Use: Never Used Second Hand Smoke Exposure: No service: No 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al status: unemployed and disabled 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 Cognitive needs: No Hearing needs: No Vision needs: Yes (Glasses) Review of Systems Const All systems reviewed & are unremarkable except as noted in HPI and below Physical Exam Vital Signs: Last Vital Signs Pulse 100 11/07/23 13:41 Resp 16 11/07/23 13:41 BP 138/78 11/07/23 13:41 Pulse Ox 98 11/07/23 13:41 Oxygen Delivery Method Room Air 11/07/23 13:41 BMI result Body Mass Index 43.7 Const General: cooperative, healthy appearing, comfortable, no acute distress, well developed and alert Orientation/consciousness: patient oriented x3 HEENT Head: Yes normal to inspection, Yes normocephalic and Yes atraumatic Eyes General: appearance normal, both eyes and all related structures Resp Effort & Inspection: normal respiratory effort and able to speak in complete sentences Cardio Rate: regular rate Peripheral pulses: Peripheral pulses 2+ throughout GI Palpation (GI): Soft to palpation Skin Lesions: no lesions Rashes: no rashes Neuro General: patient oriented x3 Extrem Other: Left knee: Skin intact, no erythema or joint effusion. Lateral retropatellar tenderness present. Full ROM with crepitus. Negative Tyrell?s. No ligamentous laxity. NVI. Right knee: Skin intact, no erythema or joint effusion. Tenderness along the medial and lateral joint line. Full ROM with crepitus. Negative Tyrell?s. No ligamentous laxity. NVI. Assessment & Plan Assessment & Plan (1) Arthritis of left knee: Code(s): M17.12 - Unilateral primary osteoarthritis, left knee Category: Medical (2) Spondylosis without myelopathy or radiculopathy, lumbar region: Code(s): M47.816 - Spondylosis without myelopathy or radiculopathy, lumbar region Category: Medical (3) Chronic pain syndrome: Code(s): G89.4 - Chronic pain syndrome Category: Medical (4) Left knee pain: Code(s): M25.562 - Pain in left knee Category: Medical Qualifiers: Chronicity: unspecified Qualified Code(s): M25.562 - Pain in left knee Plan This patient is suffering from advanced left knee osteoarthritis, moderate nature of the arthritis results in significant pain syndrome. Diagnostic genicular nerve block did not result in improvement. She reported no pain relief. I offered her today femoral nerve block on the left, she insisted to have this procedure under deep sedation. I will schedule her accordingly. The procedure follow-up please schedule within 1 week after the injection. Patient Instructions: I here by testify that I spent 30 minutes in conversation with this patient as well as planning her care and organizing this note. The steeler from [employer] #[id number] helped us to maintain this conversation in Romanian. Coding Level of Care Code Est Pt Level 4 (97980) Diagnoses Arthritis of left knee M17.12 Spondylosis without myelopathy or radiculopathy, lumbar region M47.816 Chronic pain syndrome G89.4 Left knee pain, unspecified chronicity M25.562 Chronicity: unspecified
[2023-11-07 13:41] VITALS: BP 138/78; PULSE 100; RESP 16; O2SAT 98; BMI 43.7
== END 2023-11-07 13:33 | disposition home or self-care (01) ==
PROVIDERS: PCP Internal Medicine; Visit Provider Anesthesiology
DX: M17.12 Unilateral primary osteoarthritis, left knee (principal); M47.816 Spondylosis without myelopathy or radiculopathy, lumbar region; G89.4 Chronic pain syndrome; M25.562 Pain in left knee
CPT/HCPCS: 99214

== ENCOUNTER → 2023-11-07 13:12 | Outpatient (BNVA) | payer OTHER, SELFPAY | PROVIDERS: PCP Internal Medicine; Visit Provider Anesthesiology | DX: M17.12 Unilateral primary osteoarthritis, left knee (principal); M47.816 Spondylosis without myelopathy or radiculopathy, lumbar region; G89.4 Chronic pain syndrome | CPT/HCPCS: 99212 ==

== ENCOUNTER 2023-11-29 13:40 | Outpatient (REF) | payer OTHER, SELFPAY ==
[2023-11-29 15:13] LABS: Albumin Level 4.3 g/dL (3.5-5.0); Calcium 9.6 mg/dL (8.4-10.2)
[2023-11-29 15:23] LABS: Parathyroid Hormone Intact 106.9 pg/mL (8.7-77.1)
[2023-11-29 15:38] LABS: Vitamin D 25-OH Total 31.4 ng/mL (>30)
== END 2023-11-29 13:41 | disposition home or self-care (01) ==
LOC: HO.LAB 13:40
PROVIDERS: PCP Internal Medicine; Visit Provider Internal Medicine Endocrinology, Diabetes & Metabolism
DX: E21.3 Hyperparathyroidism, unspecified (principal); E55.9 Vitamin D deficiency, unspecified
CPT/HCPCS: 36415; 82040; 82306; 82310; 83970; 99212

== ENCOUNTER 2023-11-29 13:40 | Outpatient (AMB) | payer OTHER, SELFPAY ==
[2023-11-29 13:44] VITALS: BP 134/68; PULSE 105; BMI 44.0
--- NOTE | 2023-11-29 13:44 | A.OFFVIS_ITS ---
Vital Signs 11/29/23 13:44 Height 5 ft 3 in Weight 248 lb 10.903 oz BMI 44.0 BP 134/68 Blood Pressure Location Lt brachial Position Sitting Pulse 105 H Pulse Source Pulse Oximeter Intake Visit Reasons: f/u secondary hyperparathyroidism-confirmed Intake Note: Patient present today for secondary hyperparathyroidism follow up visit. Building Insulation Supervisor Required: Yes Building Insulation Supervisor Language: Entertainment Reporter Services: Building Insulation Supervisor Present Building Insulation Supervisor Name: Slava Information Interpreted: non-clinical & clinical Accompanied by: Self / Same As Patient Allergies aspirin Allergy (Severe, Verified 11/29/23 13:49) Swelling topiramate Adverse Reaction (Intermediate, Verified 11/29/23 13:49) cough HPI Comments Details: 53 YO Female with PMHx Obesity s/p gastric bypass, HTN who is seen in F/U for secondary hyperparathyroidism 3) Hyperparathyroidism: Labs revealed elevated PTH. She states she rarely consumes dairy. She does not take Vitamin D 2000 IU daily as prescribed She takes a Calcium supplement 650 mg PO daily. . She did not have recent labs performed Labs: Laboratory Tests 11/13/21 11/13/21 11/17/21 10:44 10:44 15:55 Albumin 4.3 25-OH Vitamin D Total 32.8 TSH 0.69 Free T4 1.33 PTH Intact 110 H Calcium (PTH Intact) 9.2 Ur 24 Hour Volume 2300 Ur Creatinine 24 Hour 1.9 PFSH Medical History Morbid obesity with BMI of 40.0-44.9, adult JAYLENE (generalized anxiety disorder) Moderate recurrent major depression Lump of skin Vitamin D deficiency Hyperparathyroidism Common cold Hot flash not due to menopause HTN (hypertension) Amenorrhea Obesity Hypothyroidism Obstructive sleep apnea Surgical History History of thyroidectomy Hx of gastric bypass Hx of hemorrhoidectomy Hx of hysterectomy Hx of tubal ligation Hx of multiple trauma Family History Father Diabetes Hypertension Mother Diabetes Alzheimer's disease Brother Substance use disorder Family/Other Mental health disorder Maternal Aunt Cancer Social History Housing: Apartment Alcohol intake: current Alcohol intake frequency: holidays/special occasions only Alcohol type: wine Patient Tobacco Use Status: Former Tobacco user Tobacco use type: Cigarette Cigarettes Per Day: 3 Years Smoked: 15 e-Cigarette/Vaping Use: Never Used Second Hand Smoke Exposure: No service: No 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al status: unemployed and disabled 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 Currently on calcium and vitamin-D supplementation as well as hydrochlorothiazide started by PCP for hypertension Plan is to recheck calcium, albumin, PTH, 25 hydroxy vitamin-D, 24 hour urine for calcium and creatinine. Further management based on the above Plan See above plan Orders: Orders Calcium Today E21.3 - Hyperparathyroidism, unspecified Calcium, 24 Hr Ur Today E21.3 - Hyperparathyroidism, unspecified Creatinine, 24 Hr Group Today E21.3 - Hyperparathyroidism, unspecified Albumin Level Today E21.3 - Hyperparathyroidism, unspecified Coding Level of Care Code Est Pt Level 3 (05022) Diagnoses Hyperparathyroidism E21.3 Vitamin D deficiency E55.9
== END 2023-11-29 13:56 | disposition home or self-care (01) ==
PROVIDERS: PCP Internal Medicine; Visit Provider Internal Medicine Endocrinology, Diabetes & Metabolism
DX: E21.3 Hyperparathyroidism, unspecified (principal); E55.9 Vitamin D deficiency, unspecified
CPT/HCPCS: 99213

== ENCOUNTER 2024-01-20 14:03 | Outpatient (REF) | payer OTHER, SELFPAY ==
--- NOTE | ~2024-01-20 | MM_ITS ---
EXAMINATION: MM SCREENING DIGITAL BREAST TOMOSYNTHESIS, BILATERAL CLINICAL INFORMATION: Screening. Asymptomatic. COMPARISON: Mammography: Comparison is made with available priors TECHNIQUE: Digital breast mammography with tomosynthesis is performed in both the craniocaudal and mediolateral oblique views along with computer-aided detection (CAD). FINDINGS: There are scattered areas of fibroglandular density (ACR BI-RADS breast composition Category b). Stable appearance of left breast metallic foreign body previously noted as shrapnel. Metallic densities in the lower inner right breast decreased from prior's and also previously noted to be shrapnel. There are no significant masses, abnormal calcifications, or other abnormalities. MM/MM tomosynthesis screening BI IMPRESSION: No mammographic evidence of malignancy. ASSESSMENT: BI-RADS BI-RADS 2 - Benign Findings RECOMMENDATION: Routine annual mammography screening. 1 year F/U This examination should not preclude the clinical evaluation of a suspicious palpable abnormality. This patient's information was entered into a reminder system with a target due date for their next mammogram. Electronically signed by: Francine Ferris DO 02/05/2024 06:49 PM EDT
== END 2024-01-20 14:04 | disposition home or self-care (01) ==
LOC: HO.MAMMO 14:03
PROVIDERS: PCP Internal Medicine; Visit Provider Internal Medicine
DX: Z12.31 Encounter for screening mammogram for malignant neoplasm of breast (principal)
CPT/HCPCS: 77063; 77067

== ENCOUNTER → 2024-01-20 14:30 | Outpatient (BNV) | payer OTHER, SELFPAY | PROVIDERS: PCP Internal Medicine; Visit Provider Internal Medicine | DX: Z12.31 Encounter for screening mammogram for malignant neoplasm of breast (principal) | CPT/HCPCS: 77063; 77067 ==

== ENCOUNTER 2024-01-24 14:12 | Outpatient (REF) | payer OTHER, SELFPAY ==
[2024-01-25 15:43] LABS: Creatinine, mg/dL 142.23
[2024-01-25 18:31] LABS: Creatinine, 24Hr Urine 2.3 G/Day (1.0-2.0); Total Volume 24 Hour Urine 1600 mL
[2024-01-27 20:44] LABS: Calcium, 24 Hr Urine 275 mg/24 h; Calcium/Creatinine Ratio 130 mg/g creat (30-275); Creatinine 24Hr Urine 2.11 g/24 h (0.50-2.15)
== END 2024-01-24 14:13 | disposition home or self-care (01) ==
LOC: HO.LNP 14:12
PROVIDERS: Visit Provider Internal Medicine Endocrinology, Diabetes & Metabolism
DX: E21.3 Hyperparathyroidism, unspecified (principal)
CPT/HCPCS: 82340; 82570

== ENCOUNTER 2024-01-25 14:01 | Outpatient (AMB) | payer OTHER, SELFPAY ==
--- NOTE | 2024-01-25 14:03 | A.OFFPC_ITS ---
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 Required: No Accompanied by: Self / Same As Patient Allergies aspirin Allergy (Severe, Verified 01/25/24 14:17) Swelling topiramate Adverse Reaction (Intermediate, Verified 01/25/24 14:17) cough Medication List - Last Reconciled 01/25/24 by Sammi Beal MD [id number] 50-325-40 mg 1 tab PO Q6H PRN 15 days capsaicin 0.1% (Arthritis Pain Relief (capsaicin)) 1 appl topical BID cholecalciferol (vitamin D3) 50 mcg PO DAILY cyclobenzaprine 10 mg PO BEDTIME PRN 30 days estradiol (Vagifem) 10 mcg vaginal 2XW hydrochlorothiazide 12.5 mg PO DAILY 90 days levothyroxine 137 mcg PO DAILY lorazepam 2 mg PO DAILY mirabegron ER (Myrbetriq) 50 mg PO DAILY omeprazole 40 mg PO DAILY PRN tramadol 50 mg PO Q8H PRN 30 days Tobacco use date assessed: 09/19/23 Dental Screening Dental Screen Date: 09/19/23 HPI HPI Comments History of Present Illness Details This is a 54-year-old female with hypertension, moderate recurrent major depression, morbid obesity, hypothyroidism and hyperparathyroidism that comes today complaining of left knee pain that has been present for few months. Saw ortho for it in the past and would like to see them again. Blood pressure elevated today and she did took her hydrochlorothiazide. Blood pressure will be recheck in 3 weeks by nurse navigator. Depression in remission. She is morbidly obese with a BMI of 42.2 and is trying to do diet and exercise. Has an appointment with weight management with Dr. Barry. TSH will be ordered. Has hyperparathyroidism follow by Endocrinology which will see her this month. [facility] Medical History (Updated 01/25/24 @ 15:48 by Sammi Beal MD) Benzodiazepine withdrawal Morbid obesity with BMI of 40.0-44.9, adult JAYLENE (generalized anxiety disorder) Moderate recurrent major depression Lump of skin Vitamin D deficiency Hyperparathyroidism Common cold Hot flash not due to menopause HTN (hypertension) Amenorrhea Obesity Hypothyroidism Obstructive sleep apnea Surgical History History of thyroidectomy Hx of gastric bypass Hx of hemorrhoidectomy Hx of hysterectomy Hx of tubal ligation Hx of multiple trauma Family History Father Diabetes Hypertension Mother Diabetes Alzheimer's disease Brother Substance use disorder Family/Other Mental health disorder Maternal Aunt Cancer Social History Housing: Apartment Alcohol intake: current Alcohol intake frequency: holidays/special occasions only Alcohol type: wine Patient Tobacco Use Status: Former Tobacco user Tobacco use type: Cigarette Cigarettes Per Day: 3 Years Smoked: 15 e-Cigarette/Vaping Use: Never Used Second Hand Smoke Exposure: No service: No 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al status: unemployed and disabled 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 Jose Maria Lugo, Felicia Harmon, Yefri Peterson and colleagues, with an educational roger from [employer]. Review of Systems Const All systems reviewed & are unremarkable except as noted in HPI and below Card Denies chest pain at rest, Denies chest pain with activity, Denies edema, Denies irregular heart rhythm, Denies claudication, Denies dyspnea, Denies dyspnea on exertion, Denies orthopnea, Denies paroxysmal nocturnal dyspnea and Denies slow heart rate Resp Denies cough, Denies dyspnea and Denies dyspnea on exertion GI Denies abdominal pain, Denies change in bowel habits, Denies excessive flatus, Denies nausea and Denies vomiting Denies urinary incontinence, Denies urinary hesitancy and Denies urinary urgency Musc Denies atrophy, Denies deformity and Denies limited range of motion Skin/Breast Denies bleeding lesions, Denies changing lesions and Denies rash Physical exam (Primary Care) Vital Signs: Last Vital Signs BP 140/90 H 01/25/24 15:35 BMI result Body Mass Index 42.2 BMI Assessment/Plan discussion: High BMI High, discussed plan: lifestyle, weight reduction, dietary and physical activity Tobacco/Smoking Status: Tobacco use Status Tobacco use date assessed 09/19/23 01/25/24 14:04 Patient Tobacco Use Status Former Tobacco user 01/25/24 14:04 Tobacco use type Cigarette 01/25/24 14:04 e-Cigarette/Vaping Use Never Used 01/25/24 14:04 Thrive Assessment: Date of Thrive Assessment Date Thrive assessed 09/19/23 01/25/24 14:04 Neck Neck: Yes normal visual inspection and Yes supple Resp Effort & Inspection: normal respiratory effort Auscultation: clear to auscultation bilaterally Cardio Jugular venous distension: no JVD Rate: regular rate Rhythm: regular rhythm Heart sounds: S1 normal heart sound present and S2 normal heart sound present Extrem General: Yes full ROM Assessment and Plan Assessment & Plan (1) Arthritis of left knee: Code(s): M17.12 - Unilateral primary osteoarthritis, left knee Plan: Referred to Ortho. (2) HTN (hypertension): Code(s): I10 - Essential (primary) hypertension Qualifiers: Hypertension type: primary hypertension Qualified Code(s): I10 - Essential (primary) hypertension Plan: Continue hydrochlorothiazide. Blood pressure goal is equal or less than 130/80. Recheck blood pressure with nurse navigator in 3 weeks. (3) Morbid obesity with BMI of 40.0-44.9, adult: Code(s): E66.01 - Morbid (severe) obesity due to excess calories; Z68.41 - Body mass index [BMI] 40.0-44.9, adult Plan: Continue diet and exercise. Follow-up with weight management. BMI goal is less than 30. (4) Moderate recurrent major depression: Code(s): F33.1 - Major depressive disorder, recurrent, moderate Plan: In remission. (5) Hyperparathyroidism: Code(s): E21.3 - Hyperparathyroidism, unspecified Plan: Continue vitamin-D supplements. Follow-up with endocrinology. (6) Hypothyroidism: Code(s): E03.9 - Hypothyroidism, unspecified Qualifiers: Hypothyroidism type: postoperative Qualified Code(s): E89.0 - Postprocedural hypothyroidism Plan: Continue levothyroxine. Repeat TSH. Orders: Orders Thyroid Stimulating Hormone Today E89.0 - Postprocedural hypothyroidism Comprehensive [place]. Panel Fast Today E66.01 - Morbid (severe) obesity due to excess calories, Z68.41 - Body mass index [BMI] 40.0-44.9, adult Referrals Orthopedics Referral M17.12 - Unilateral primary osteoarthritis, left knee Coding Level of Care Code Est Pt Level 4 (97551) Complex EM visit Add On G2211 Diagnoses Arthritis of left knee M17.12 Primary hypertension I10 Hypertension type: primary hypertension Morbid obesity with BMI of 40.0-44.9, adult E66.01; Z68.41 Moderate recurrent major depression F33.1 Hyperparathyroidism E21.3 Postoperative hypothyroidism E89.0 Hypothyroidism type: postoperative Time Spent (min) 22
[2024-01-25 14:06] VITALS: BP 142/100; BMI 42.2
[2024-01-25 15:35] VITALS: BP 140/90
== END 2024-01-25 14:29 | disposition home or self-care (01) ==
PROVIDERS: PCP Internal Medicine; Visit Provider Internal Medicine
DX: M17.12 Unilateral primary osteoarthritis, left knee (principal); I10 Essential (primary) hypertension; F33.1 Major depressive disorder, recurrent, moderate; E21.3 Hyperparathyroidism, unspecified; E89.0 Postprocedural hypothyroidism
CPT/HCPCS: 99214; G2211

== ENCOUNTER 2024-01-25 14:38 | Outpatient (REF) | payer OTHER, SELFPAY ==
[2024-01-25 15:49] LABS: Alanine Aminotransferase 27 U/L (0-31); Albumin Level 4.2 g/dL (3.5-5.0); Alkaline Phosphatase 66 U/L (39-117); Anion Gap 9 (12-20); Aspartate Amino Transferase 25 U/L (5-31); Bilirubin Total 0.4 mg/dL (0.0-1.0); Blood Urea Nitrogen 15 mg/dL (9-16); Calcium 9.6 mg/dL (8.4-10.2); Carbon Dioxide 34 mmol/L (22-29); Chloride 104 mmol/L (96-108); Estimated Glomerular Filt Rate > 60; Glucose Fasting 96 mg/dL (60-99); Potassium 3.7 mmol/L (3.3-5.1); Sodium 143 mmol/L (135-145); Total Protein 7.3 g/dL (6.5-8.0)
[2024-01-25 15:50] LABS: Parathyroid Hormone Intact 105.2 pg/mL (8.7-77.1)
[2024-01-25 16:05] LABS: Thyroid Stimulating Hormone 1.05 uIU/mL (0.32-4.0); Vitamin D 25-OH Total 34.8 ng/mL (>30)
== END 2024-01-25 14:39 | disposition home or self-care (01) ==
LOC: HO.LAB 14:38
PROVIDERS: PCP Internal Medicine; Visit Provider Internal Medicine Endocrinology, Diabetes & Metabolism
DX: E21.3 Hyperparathyroidism, unspecified (principal); E89.0 Postprocedural hypothyroidism; E66.01 Morbid (severe) obesity due to excess calories; Z68.41 Body mass index [BMI] 40.0-44.9, adult
CPT/HCPCS: 36415; 80053; 82306; 83970; 84443

== ENCOUNTER 2024-02-02 12:40 | Outpatient (AMB) | payer OTHER, SELFPAY ==
[2024-02-02 12:44] VITALS: BP 130/100; BMI 42.4
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
== END 2024-02-02 13:21 | disposition home or self-care (01) ==
PROVIDERS: PCP Internal Medicine; Visit Provider Student in an Organized Health Care Education/Training Program
DX: E21.3 Hyperparathyroidism, unspecified (principal); E89.0 Postprocedural hypothyroidism
CPT/HCPCS: 99214

== ENCOUNTER 2024-02-02 12:40 | Outpatient (REF) | payer OTHER, SELFPAY ==
[2024-02-02 14:13] LABS: Alanine Aminotransferase 26 U/L (0-31); Albumin Level 4.3 g/dL (3.5-5.0); Alkaline Phosphatase 69 U/L (39-117); Anion Gap 9 (12-20); Aspartate Amino Transferase 22 U/L (5-31); Bilirubin Total 0.5 mg/dL (0.0-1.0); Blood Urea Nitrogen 12 mg/dL (9-16); Calcium 9.9 mg/dL (8.4-10.2); Carbon Dioxide 32 mmol/L (22-29); Chloride 104 mmol/L (96-108); Cholesterol 194 mg/dL (<200); Estimated Glomerular Filt Rate > 60; Glucose Fasting 97 mg/dL (60-99); HDL Cholesterol 63 mg/dL (>40); LDL Cholesterol Calculated 120 mg/dL (<100); Sodium 141 mmol/L (135-145); Total Protein 7.8 g/dL (6.5-8.0); Triglycerides 55 mg/dL (<150)
== END 2024-02-02 12:41 | disposition home or self-care (01) ==
LOC: HO.LAB 12:40
PROVIDERS: Absent Provider Internal Medicine; PCP Internal Medicine; Visit Provider Student in an Organized Health Care Education/Training Program
DX: M54.16 Radiculopathy, lumbar region (principal); E78.5 Hyperlipidemia, unspecified
CPT/HCPCS: 36415; 80053; 80061

== ENCOUNTER 2024-02-22 09:44 | Outpatient (AMB) | payer OTHER, SELFPAY ==
--- NOTE | 2024-02-22 09:46 | A.OFFVIS_ITS ---
Vital Signs 02/22/24 09:50 Height 5 ft 3 in Weight 239 lb BMI 42.3 Intake Visit Reasons: OV- Left Knee OA Intake Note: Caro a 53 year old female presents today for a follow up of left knee pain, last injection 03/30/23. Patient reports last injection provided her with relief for pain. Today she would like to discuss other treatment options. She is not sure if she wants to repeat injections today. Commercial Estimator Required: Yes Commercial Estimator Language: Family Practitioner Name: [phone] Allergies aspirin Allergy (Severe, Verified 02/22/24 09:52) Swelling topiramate Adverse Reaction (Intermediate, Verified 02/22/24 09:52) cough Medication List - Last Reconciled 02/22/24 by Danielle Wheatley PA-C [id number]-peosaccdklbpw-[id number] 50-325-40 mg 1 tab PO Q6H PRN 15 days capsaicin 0.1% (Arthritis Pain Relief (capsaicin)) 1 appl topical BID cholecalciferol (vitamin D3) 50 mcg PO DAILY cholecalciferol (vitamin D3) 25 mcg PO DAILY cyclobenzaprine 10 mg PO BEDTIME PRN 30 days estradiol (Vagifem) 10 mcg vaginal 2XW hydrochlorothiazide 12.5 mg PO DAILY 90 days levothyroxine 137 mcg PO DAILY lorazepam 2 mg PO DAILY mirabegron ER (Myrbetriq) 50 mg PO DAILY omeprazole 40 mg PO DAILY PRN tramadol 50 mg PO Q8H PRN 30 days HPI HPI OV- Left Knee OA: Details: 54-year-old female who returns to the office today with an marine equipment test engineer for a follow-up of left knee pain. She states she has pain in her left knee that is aggravated with stair use and walking long distances. She rates the pain as 9 on the scale of 0-10. She has tried physical therapy in the past and takes tramadol for her pain without relief. She had her last left knee injection on 03/30/23 th at did not provide her any relief. She would like to discuss other treatment options today. She does not have a history of diabetes. [facility] Medical History (Updated 02/22/24 @ 10:51 by Danielle Wheatley PA-C) Benzodiazepine withdrawal Morbid obesity with BMI of 40.0-44.9, adult JAYLENE (generalized anxiety disorder) Moderate recurrent major depression Lump of skin Vitamin D deficiency Hyperparathyroidism Common cold Hot flash not due to menopause HTN (hypertension) Amenorrhea Obesity Hypothyroidism Obstructive sleep apnea Surgical History History of thyroidectomy Hx of gastric bypass Hx of hemorrhoidectomy Hx of hysterectomy Hx of tubal ligation Hx of multiple trauma Family History Father Diabetes Hypertension Mother Diabetes Alzheimer's disease Brother Substance use disorder Family/Other Mental health disorder Maternal Aunt Cancer Social History Housing: Apartment Alcohol intake: current Alcohol intake frequency: holidays/special occasions only Alcohol type: wine Patient Tobacco Use Status: Former Tobacco user Tobacco use type: Cigarette Cigarettes Per Day: 3 Years Smoked: 15 e-Cigarette/Vaping Use: Never Used Second Hand Smoke Exposure: No service: No 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al status: unemployed and disabled 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 Cognitive needs: No Hearing needs: No Vision needs: Yes (Glasses) Review of Systems Const All systems reviewed & are unremarkable except as noted in HPI and below Physical Exam Vital Signs: BMI result Body Mass Index 42.3 Const General: cooperative, healthy appearing, comfortable, no acute distress, well developed and alert Orientation/consciousness: patient oriented x3 HEENT Head: Yes normal to inspection, Yes normocephalic and Yes atraumatic Eyes General: appearance normal, both eyes and all related structures Resp Effort & Inspection: normal respiratory effort and able to speak in complete sentences Cardio Rate: regular rate Peripheral pulses: Peripheral pulses 2+ throughout GI Palpation (GI): Soft to palpation Skin Lesions: no lesions Rashes: no rashes Neuro General: patient oriented x3 Extrem Other: Left knee: Skin intact, no erythema or joint effusion. Lateral retropatellar tenderness present. Full ROM with crepitus. Negative Tyrell?s. No ligamentous laxity. NVI. Office Procedures Joint Injection/Aspiration Joint Injection/Aspiration Primary Site: left knee Prep: site was prepped using aseptic technique, ethochloride spray was applied and injection warnings given Injected: 80 mg of, DepoMedrol, with 8 mL of, 1% plain lidocaine and in the joint Approach Used: anterolateral Procedure: The patient tolerated the procedure well and there was some relief with the local anesthesia Coding 44503 - Glenohumeral/Tronchanteric Bursa/Intraarticular Procedure code (CPT) selection complete Assessment & Plan Assessment & Plan (1) Osteoarthritis of left knee: Code(s): M17.12 - Unilateral primary osteoarthritis, left knee Category: Medical Plan We discussed options today, which include steroid injection. The patient did consent to move forward with the left knee injection, which was tolerated well. I recommended rest, ice, and elevation and OTC anti-inflammatories as needed for discomfort. We did have a talk about referral to Dr. Vizcarra and their suggestion for a nerve block injection which she is in agreement with. An MRI of the left knee was ordered in the office today. If symptoms persist or worsen over the next 6-8 weeks, patient will contact the office, otherwise follow-up as needed. Orders: Orders MR knee LT wo con Today M17.12 - Unilateral primary osteoarthritis, left knee Patient Instructions: Scribed for Danielle Wheatley PA-C, by Abraham Kennedy medical claims processor, on 02/22/2024 at 9:30 AM EST.? I, Danielle Wheatley PA-C, have personally reviewed and agree with the information entered by the scribe. Coding Level of Care Code Est Pt Level 3 (14585) Complex EM visit Add On G2211 Diagnoses Osteoarthritis of left knee M17.12 CPT Codes Coding - Joint 7: 63089 - Glenohumeral/Tronchanteric Bursa/Intraarticular ([id number])
[2024-02-22 09:50] VITALS: BMI 42.3
== END 2024-02-22 10:30 | disposition home or self-care (01) ==
PROVIDERS: PCP Internal Medicine; Visit Provider Physician Assistant
DX: M17.12 Unilateral primary osteoarthritis, left knee (principal)
CPT/HCPCS: 20610; 99213

== ENCOUNTER → 2024-02-22 09:44 | Outpatient (BNVA) | payer OTHER, SELFPAY | PROVIDERS: PCP Internal Medicine; Visit Provider Physician Assistant | DX: M17.12 Unilateral primary osteoarthritis, left knee (principal) | CPT/HCPCS: 20610; 99212; J1010; J2003 ==

== ENCOUNTER 2024-04-30 12:23 | Outpatient (AMB) | payer OTHER, SELFPAY ==
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
[2024-04-30 13:02] VITALS: BP 140/100; BMI 42.6
== END 2024-04-30 13:20 | disposition home or self-care (01) ==
PROVIDERS: PCP Internal Medicine; Visit Provider Student in an Organized Health Care Education/Training Program
DX: E21.3 Hyperparathyroidism, unspecified (principal); E89.0 Postprocedural hypothyroidism; E55.9 Vitamin D deficiency, unspecified
CPT/HCPCS: 99213

== ENCOUNTER → 2024-04-30 12:23 | Outpatient (BNVA) | payer OTHER, SELFPAY | PROVIDERS: PCP Internal Medicine; Visit Provider Student in an Organized Health Care Education/Training Program | DX: E21.1 Secondary hyperparathyroidism, not elsewhere classified (principal); E89.0 Postprocedural hypothyroidism; E55.9 Vitamin D deficiency, unspecified | CPT/HCPCS: 99212 ==

== ENCOUNTER 2024-05-02 11:12 | Outpatient (REF) | payer OTHER, SELFPAY ==
[2024-05-02 12:53] LABS: Albumin Level 4.5 g/dL (3.5-5.0); Anion Gap 12 (12-20); Blood Urea Nitrogen 13 mg/dL (9-16); Calcium 9.6 mg/dL (8.4-10.2); Carbon Dioxide 31 mmol/L (22-29); Chloride 101 mmol/L (96-108); Estimated Glomerular Filt Rate > 60; Glucose Random 77 mg/dL (60-115); Parathyroid Hormone Intact 128.1 pg/mL (8.7-77.1); Phosphorus 2.3 mg/dL (2.7-4.5); Potassium 3.5 mmol/L (3.3-5.1); Sodium 140 mmol/L (135-145)
[2024-05-02 12:58] LABS: Total Volume 24 Hour Urine 600 mL
[2024-05-02 13:09] LABS: Vitamin D 25-OH Total 40.6 ng/mL (>30)
[2024-05-02 13:18] LABS: Creatinine, 24Hr Urine 1.1 G/Day (1.0-2.0); Creatinine, mg/dL 188.49; Creatinine, mg/dL 190.26; Sodium 24 Hr Urine 97.2 mmol/Day (40-220)
[2024-05-04 11:13] LABS: Calcium, Ionized 5.1 mg/dL (4.7-5.5)
[2024-05-04 19:59] LABS: Calcium, 24 Hr Urine 78 mg/24 h; Calcium/Creatinine Ratio 75 mg/g creat (30-275); Creatinine 24Hr Urine 1.04 g/24 h (0.50-2.15)
== END 2024-05-02 11:13 | disposition home or self-care (01) ==
LOC: HO.LAB 11:12
PROVIDERS: PCP Internal Medicine; Visit Provider Student in an Organized Health Care Education/Training Program
DX: E21.3 Hyperparathyroidism, unspecified (principal); E55.9 Vitamin D deficiency, unspecified
CPT/HCPCS: 36415; 80048; 82040; 82306; 82330; 82340; 82570; 83735; 83970; 84100; 84300

== ENCOUNTER 2024-05-14 14:23 | Outpatient (AMB) | payer OTHER, SELFPAY ==
[2024-05-14 14:23] VITALS: BP 146/90; BMI 42.7
--- NOTE | 2024-05-14 14:23 | MHC.OFFVIS ---
Vital Signs 05/14/24 14:23 Height 5 ft 3 in Weight 241 lb 2.971 oz BMI 42.7 BP 146/90 H Blood Pressure Location Lt brachial Intake Visit Reasons: Secondary Hyperparathyroidism Intake Note: Patient present today for Secondary Hyperparathyroidism office visit. [employer] Required: Yes [employer] Language: [employer]: [employer] Present [employer] Developer Name: Devyn [id number] Information Interpreted: non-clinical & clinical Accompanied by: Self / Same As Patient Allergies aspirin Allergy (Severe, Verified 05/14/24 14:28) Swelling topiramate Adverse Reaction (Intermediate, Verified 05/14/24 14:28) cough Medication List - Last Reconciled 05/14/24 by Angelica Bull MD [id number] 50-325-40 mg 1 tab PO Q6H PRN 15 days capsaicin 0.1% (Arthritis Pain Relief (capsaicin)) 1 appl topical BID cholecalciferol (vitamin D3) 50 mcg PO DAILY cholecalciferol (vitamin D3) 25 mcg PO DAILY cyclobenzaprine 10 mg PO BEDTIME PRN 30 days estradiol (Vagifem) 10 mcg vaginal 2XW hydrochlorothiazide 12.5 mg PO DAILY 90 days levothyroxine 137 mcg PO DAILY lorazepam 2 mg PO DAILY omeprazole 40 mg PO DAILY HPI Comments Details: 54 YO Female with PMHx Obesity s/p gastric bypass 2015, HTN who is seen in F/U for hyperparathyroidism and 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 She underwent FNA biopsy 02/08/19 of 3 nodules with results listed below: 1) L mid pole 1.7 cm nodule - Benign (Thorp Category II) 2) L mid-lower pole 3.5 cm nodule - nondiagnostic 3) R mid pole 3.6 cm nodule - Benign (Thorp Category II) She did have a significant amount of bleeding from the bipsy of the L mid-lower pole nodule, thus biopsy of this nodule was aborted prematurely. She had an additional L mid pole 1.9 cm nodule meeting indication for FNA biopsy, but due to the bleeding from the 3.5 cm nodule, this 1.9 cm nodule was not biopsied. She did complain of compressive symptoms with dysphagia as well as hoarseness of voice, and requested surgical thyroidectomy. This was completed 07/11/2019. Official path report revealed follicular nodular hyperplasia, and was benign. Postoperatively she was started on Levothyroxine 137 mcg PO daily, which she takes every morning. She waits 1 hour to eat, and takes the remainder of her medications after eating breakfast. She denies any symptoms of hypothyroidism. she has lost 12 lbs over this summer though she is complaining about weight gain She does have a family history of multinodular thyroid in her sister, mother, Daughter, but daughter and sister have thyroid cancer. She does take Biotin daily. TSH 1.05 01/25/2024. 3) Hyperparathyroidism: Labs revealed elevated PTH.= since 2019. She has always had normal calcium levels.. normal Kidney function . Vitamin-D levels used to low previously, most recently have come up above 30. Most recent labs from 01/25/2024 show PTH is somewhat improved from 140s to 105 most recently. . Ca remains normal. underwent gastric bypass in 2015. no Calcium supplement Milk every AM one glass, yogurt two a day, no cheese. Vitamin 2000 units daily On HCTZ 12.5 mg tablet daily for at least 2 years No kidney stones No hematuria right Humerus fracture 2007 shot nine times, no other fractures No calcium problems or kidney stones in family Interval history Vitamin-D: 3000 units daily since Feb 06 Calcium: Milk every AM one glass, yogurt two a day, no cheese. Fractures: no fractures Labs 05/02/2024 showed vitamin-D improved to 40.6, PTH even further elevated at 128.1, no phosphorus of 2.3, normal kidney function/GFR, normal ionized calcium of 5.1, normal calcium of 9.6 with albumin of 4.5, corrected calcium would be lower at 9. 24 hour urine calcium low at 78 mg per 24 hour, fractional excretion of calcium would be 0.01, however volume is only 600 cc and this is low urine volume that is likely accounting for the low urine calcium. Review of systems Constitutional: no fevers, chills HEENT: no changes in vision Cardiac: No chest pain, discomfort or palpitations. Pulmonary: No SOB GI:No abdominal pain, no nausea or vomiting, no anorexia, no blood in stool : no burning micturition, dysuria or increase in urinary frequency Physical exam General: sitting comfortably in no acute distress HEENT: normocephalic/atraumatic, , moist oral mucosa Neck: supple, symmetrical , no dorsocervical or supraclavicular fat pads Cardiac: normal heart sounds Pulm: normal breath sounds B/L, no added breath sounds Abd: not distended, no tenderness Extremities: no edema, no signs of myxedema Laboratory Tests 06/21/19 10/07/20 04/01/21 10:27 13:52 09:26 Creatinine Estimated GFR Calcium Ionized Calcium Phosphorus Magnesium Albumin 25-OH Vitamin D Total 23.7 TSH PTH Intact 92 H 129 H Ur 24 Hour Volume Ur Creatinine mg/dL Ur Creatinine 24 Hour Ur Sodium 24 Hour Ur Calcium 24 Hr Calcium/Creat 24 Hr 11/13/21 11/17/21 01/13/22 10:44 15:55 22:16 Creatinine Estimated GFR Calcium 9.0 9.4 Ionized Calcium Phosphorus Magnesium Albumin 25-OH Vitamin D Total TSH PTH Intact Ur 24 Hour Volume 2300 Ur Creatinine mg/dL 82.34 Ur Creatinine 24 Hour 1.9 Ur Sodium 24 Hour Ur Calcium 24 Hr 251 H Calcium/Creat 24 Hr 131 04/12/22 05/02/22 09/27/22 12:18 09:00 12:28 Creatinine Estimated GFR Calcium 9.7 9.2 Ionized Calcium Phosphorus Magnesium Albumin 25-OH Vitamin D Total 24.9 TSH PTH Intact 147 H Ur 24 Hour Volume 2025 Ur Creatinine mg/dL 96.67 Ur Creatinine 24 Hour 2.0 Ur Sodium 24 Hour Ur Calcium 24 Hr 192 Calcium/Creat 24 Hr 102 11/14/22 11/21/22 03/24/23 10:20 20:21 12:00 Creatinine Estimated GFR Calcium 9.4 9.9 8.9 D Ionized Calcium Phosphorus Magnesium Albumin 4.2 4.3 25-OH Vitamin D Total 26.0 L TSH PTH Intact 92 H Ur 24 Hour Volume Ur Creatinine mg/dL Ur Creatinine 24 Hour Ur Sodium 24 Hour Ur Calcium 24 Hr Calcium/Creat 24 Hr 03/28/23 05/02/23 07/21/23 16:25 10:11 08:08 Creatinine Estimated GFR Calcium 9.5 D 8.9 D Ionized Calcium Phosphorus Magnesium Albumin 4.2 4.1 25-OH Vitamin D Total 26.9 L 30.9 L TSH PTH Intact 141.7 H Ur 24 Hour Volume Ur Creatinine mg/dL Ur Creatinine 24 Hour Ur Sodium 24 Hour Ur Calcium 24 Hr Calcium/Creat 24 Hr 07/22/23 11/29/23 01/24/24 09:00 14:24 06:00 Creatinine Estimated GFR Calcium 9.6 D Ionized Calcium Phosphorus Magnesium Albumin 4.3 25-OH Vitamin D Total 31.4 TSH PTH Intact 106.9 H Ur 24 Hour Volume 600 1600 Ur Creatinine mg/dL 173.56 142.23 Ur Creatinine 24 Hour 1.0 2.3 H Ur Sodium 24 Hour Ur Calcium 24 Hr 82 275 H Calcium/Creat 24 Hr 81 130 01/25/24 05/02/24 05/02/24 14:59 11:00 11:38 Creatinine 0.75 0.75 Estimated GFR > 60 > 60 Calcium 9.6 9.6 Ionized Calcium 5.1 Phosphorus 2.3 L Magnesium 2.0 Albumin 4.2 4.5 25-OH Vitamin D Total 34.8 40.6 TSH 1.05 PTH Intact 105.2 H 128.1 H Ur 24 Hour Volume 600 Ur Creatinine mg/dL 190.26 Ur Creatinine 24 Hour 1.1 Ur Sodium 24 Hour 97.2 Ur Calcium 24 Hr 78 Calcium/Creat 24 Hr 75 US RETROPERITONEAL COMPLETE (RENAL) 02/05 CLINICAL INFORMATION: Urinary tract infection, site not specified. COMPARISON: Ultrasound abdomen complete 10/28/2015. TECHNIQUE: Real-time imaging of the kidneys and bladder. FINDINGS: RIGHT KIDNEY: 12.3 x 5.2 x 4.7 cm (SAG x AP x TRV). The kidney is normal in size, contour, and echogenicity. Renal cortical thickness is normal. No calculi or focal parenchymal lesions. No hydronephrosis. LEFT KIDNEY: 12.6 x 7.3 x 5.2 cm (SAG x AP x TRV). The kidney is normal in size, contour, and echogenicity. Renal cortical thickness is normal. No renal calculi or hydronephrosis. Multiple benign parapelvic Bosniak class I renal cysts are noted which require no additional imaging or follow-up. No solid renal masses are seen. BLADDER: Partially distended. Bilateral ureteral jets are demonstrated. Prevoid bladder volume is 128 mL. There is no postvoid residual. US/US retroperitoneal comp IMPRESSION: Negative exam. [facility] Medical History (Updated 10/31/24 @ 08:38 by Elaine Phillips RN) Hyperlipidemia OAB (overactive bladder) Arthritis Lumbar radiculopathy Cervical radiculopathy Migraine Benzodiazepine withdrawal Morbid obesity with BMI of 40.0-44.9, adult JAYLENE (generalized anxiety disorder) Moderate recurrent major depression Lump of skin Vitamin D deficiency Hyperparathyroidism Common cold Hot flash not due to menopause HTN (hypertension) Amenorrhea Obesity Hypothyroidism Obstructive sleep apnea Surgical History Hx of excision of mass Hx of cystoscopy History of thyroidectomy Hx of gastric bypass Hx of hemorrhoidectomy Hx of hysterectomy Hx of tubal ligation Hx of multiple trauma Family History Father Diabetes Hypertension Mother Diabetes Alzheimer's disease Brother Substance use disorder Family/Other Mental health disorder Maternal Aunt Cancer Social History Housing: Apartment Alcohol intake: current Alcohol intake frequency: holidays/special occasions only Alcohol type: wine Patient Tobacco Use Status: Former Tobacco user Tobacco use type: Cigarette Cigarettes Per Day: 3 Years Smoked: 15 e-Cigarette/Vaping Use: Never Used Second Hand Smoke Exposure: No service: No 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al status: unemployed and disabled 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 since 2019. She has always had normal calcium levels.. normal Kidney function . Vitamin-D levels used to low previously, most recently have come up above 30. Most recent labs from 01/25/2024 show PTH is somewhat improved from 140s to 105 most recently as her vitamin-D levels have improved. . Ca remains normal. underwent gastric bypass in 2015. Since I suspected this could possibly be secondary hyperparathyroidism in the setting of suboptimal calcium absorption due to history of gastric bypass. I had asked her to increase her vitamin-D from 2000 units daily to 3000 units daily Labs 05/02/2024 showed vitamin-D improved to 40.6, PTH even further elevated at 128.1, no phosphorus of 2.3, normal kidney function/GFR, normal ionized calcium of 5.1, normal calcium of 9.6 with albumin of 4.5, corrected calcium would be lower at 9. 24 hour urine calcium low at 78 mg per 24 hour, fractional excretion of calcium would be 0.01, however volume is only 600 cc and this is low urine volume that is likely accounting for the low urine calcium. Given PTH remains elevated despite normal vitamin-D levels this is most likely normocalcemic hyperparathyroidism however she does not have any history of kidney stones, no fractures, her kidney function is normal, At this time she does not meet any surgical indication even if this is normocalcemic hyperPTH. We will obtain a bone density as well including the forearm. We would plan to repeat her labs in 3 months. I have asked her to continue taking the increased amount of vitamin-D and calcium in her diet. Plan: - continue vitamin-D to 3000 units daily -continue calcium intake of 3 calcium rich foods daily -ordered repeat blood work in 3 months prior to next follow up -DEXA appendicular and axial ordered - (2) Hypothyroidism: Code(s): E03.9 - Hypothyroidism, unspecified Category: Medical Qualifiers: Hypothyroidism type: postoperative Qualified Code(s): E89.0 - Postprocedural hypothyroidism Plan: Patient with history of total thyroidectomy in 2019 due to multinodular goiter. Now on levothyroxine 137 mcg daily. Most recent labs January 2024 showed TSH is normal. Plan: -continue levothyroxine 137 mcg daily -ordered TSH the reflex T4 to be completed prior to next visit (3) Vitamin D deficiency: Code(s): E55.9 - Vitamin D deficiency, unspecified Category: Medical Plan I spent 30 minutes in reviewing the record, seeing the patient and documenting in the medical record. Orders: Orders Albumin Level 3 Months E21.3 - Hyperparathyroidism, unspecified, E55.9 - Vitamin D deficiency, unspecified Calcium 3 Months E21.3 - Hyperparathyroidism, unspecified, E55.9 - Vitamin D deficiency, unspecified Parathyroid Hormone Intact 3 Months E21.3 - Hyperparathyroidism, unspecified, E55.9 - Vitamin D deficiency, unspecified Phosphorus 3 Months E21.3 - Hyperparathyroidism, unspecified, E55.9 - Vitamin D deficiency, unspecified Calcium, Ionized 3 Months E21.3 - Hyperparathyroidism, unspecified, E55.9 - Vitamin D deficiency, unspecified Vitamin D 25-OH Total 3 Months E21.3 - Hyperparathyroidism, unspecified, E55.9 - Vitamin D deficiency, unspecified XR DEXA appendicular skeleton Today E21.3 - Hyperparathyroidism, unspecified XR DEXA axial skeleton Today E21.3 - Hyperparathyroidism, unspecified TSH reflex Free T4 3 Months E21.3 - Hyperparathyroidism, unspecified, E55.9 - Vitamin D deficiency, unspecified Patient Instructions: Continue 3000 units of vitamin D daily Continue taking 1000 mg of calcium in your diet (3 servings of calcium rich foods daily such as milk, cheese, yogurt) Do bone density scan , someone will call you to schedule this Do blood work 4 days prior to your next follow up with me in 3 months Continuar con 3000 unidades de vitamina D al d?a. Contin?e tomando 1000 mg de calcio en gonzales dieta (3 porciones diarias de alimentos ricos en calcio stacie leche, queso, yogur) Realice rachel exploraci?n de densidad ?sea, alguien lo llamar? para programar esta H?gase un an?lisis de saad 4 d?as antes de gonzales pr?ximo seguimiento conmigo dentro de 3 meses. Coding Level of Care Code Est Pt Level 4 (44015) Diagnoses Hyperparathyroidism E21.3 Postoperative hypothyroidism E89.0 Hypothyroidism type: postoperative Vitamin D deficiency E55.9 Time Spent (min) 30
== END 2024-05-14 14:56 | disposition home or self-care (01) ==
PROVIDERS: PCP Internal Medicine; Visit Provider Student in an Organized Health Care Education/Training Program
DX: E21.3 Hyperparathyroidism, unspecified (principal); E89.0 Postprocedural hypothyroidism; E55.9 Vitamin D deficiency, unspecified
CPT/HCPCS: 99214

== ENCOUNTER → 2024-05-14 14:23 | Outpatient (BNVA) | payer OTHER, SELFPAY | PROVIDERS: PCP Internal Medicine; Visit Provider Student in an Organized Health Care Education/Training Program | DX: E21.3 Hyperparathyroidism, unspecified (principal); E89.0 Postprocedural hypothyroidism; E55.9 Vitamin D deficiency, unspecified | CPT/HCPCS: 99212 ==

== ENCOUNTER 2024-05-18 13:06 | Outpatient (AMB) | payer OTHER, SELFPAY ==
[2024-05-18 13:12] VITALS: BP 146/104; BMI 42.0
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
== END 2024-05-18 13:40 | disposition home or self-care (01) ==
PROVIDERS: PCP Internal Medicine; Visit Provider Internal Medicine
DX: Z23 Encounter for immunization (principal); Z00.00 Encounter for general adult medical examination without abnormal findings

== ENCOUNTER → 2024-05-18 13:06 | Outpatient (BNVA) | payer OTHER, SELFPAY | PROVIDERS: PCP Internal Medicine; Visit Provider Internal Medicine | DX: Z00.00 Encounter for general adult medical examination without abnormal findings (principal); E55.9 Vitamin D deficiency, unspecified; E78.5 Hyperlipidemia, unspecified; Z23 Encounter for immunization | CPT/HCPCS: 90471; 90656; 96127; 99396 ==

== ENCOUNTER 2024-06-11 15:44 | Outpatient (AMB) | payer OTHER, SELFPAY ==
--- NOTE | 2024-06-11 14:26 | MHC.OFFVIS ---
Intake Visit Reasons: regular follow up Intake Note: Patient is Present for Follow Up Urology Medication: Estradiol Antibiotic Allergies:None Blood Thinners: None PVR:0ml Event Host Required: Yes Event Host Language: Claims Vice President Name: [id number] jesús Accompanied by: Self / Same As Patient Allergies aspirin Allergy (Severe, Verified 06/11/24 16:10) Swelling topiramate Adverse Reaction (Intermediate, Verified 06/11/24 16:10) cough HPI Comments Details: 06/11/24--Caro is a 54 year old Setswana-speaking female who is status post cystoscopy bladder Botox injection 100 units 09/03/2023. She states she has done very well since the procedure. She denies urinary leakage. Urinary frequency and urgency has decreased. Plan to repeat bladder Botox injection. 06/01/23--Caro is a 53-year-old female who presents today to the office for a urodynamics. She has been on Myrbetriq and oxybutynin in the past without improvement in her symptoms. Leakage was not observe with valsalva, leakage was observed with cough and it was not clear if there may have been an associated cough induced detrusor contraction. Findings consistent with less than average functional bladder capacity, and detrusor overactivity. Discussed Botox bladder injection 200 units ON LICENSE OF [facility] Medical History Hyperlipidemia OAB (overactive bladder) Arthritis Lumbar radiculopathy Cervical radiculopathy Migraine Benzodiazepine withdrawal Morbid obesity with BMI of 40.0-44.9, adult JAYLENE (generalized anxiety disorder) Moderate recurrent major depression Lump of skin Vitamin D deficiency Hyperparathyroidism Common cold Hot flash not due to menopause HTN (hypertension) Amenorrhea Obesity Hypothyroidism Obstructive sleep apnea Surgical History Hx of excision of mass Hx of cystoscopy History of thyroidectomy Hx of gastric bypass Hx of hemorrhoidectomy Hx of hysterectomy Hx of tubal ligation Hx of multiple trauma Family History Father Diabetes Hypertension Mother Diabetes Alzheimer's disease Brother Substance use disorder Family/Other Mental health disorder Maternal Aunt Cancer Social History Housing: Apartment Alcohol intake: current Alcohol intake frequency: holidays/special occasions only Alcohol type: wine Patient Tobacco Use Status: Former Tobacco user Tobacco use type: Cigarette Cigarettes Per Day: 3 Years Smoked: 15 e-Cigarette/Vaping Use: Never Used Second Hand Smoke Exposure: No service: No 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al status: unemployed and disabled 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 Cognitive needs: No Hearing needs: No Vision needs: Yes (Glasses) Review of Systems Const All systems reviewed & are unremarkable except as noted in HPI and below Reports no additional complaints Eyes Reports no additional complaints ENT Reports no additional complaints Card Reports no additional complaints Resp Reports no additional complaints GI Reports no additional complaints Reports as per HPI Musc Reports no additional complaints Skin/Breast Reports system reviewed and no additional complaints, except as documented Neuro Reports no additional complaints Psych Reports no additional complaints Endo Reports no additional complaints Jeanmarie/Lymph Reports no additional complaints Aller/Immun Reports no additional complaints Office Procedures Post Void Residual Post Residual Void Post Void Residual (PVR): 0 [id number] Void Residual by ultrasound Results AMB Urinalysis, Automated UA Leukoctes 0 Preet/uL Last Edit by [facility] on 06/11/24 16:24 UA Nitrite Negative Last Edit by [facility] on 06/11/24 16:24 UA Urobilinogen 1 mg/dL Last Edit by [facility] on 06/11/24 16:24 UA Protein 15 mg/dL Last Edit by [facility] on 06/11/24 16:24 UA pH 7.0 Last Edit by [facility] on 06/11/24 16:24 UA Blood 0 Ishmael/uL Last Edit by [facility] on 06/11/24 16:24 UA Specific Ovid 1.015 Last Edit by [facility] on 06/11/24 16:24 UA Ketone Negative Last Edit by [facility] on 06/11/24 16:24 UA Bilirubin 0 mg/dL Last Edit by [facility] on 06/11/24 16:24 UA Glucose 0 mg/dL Last Edit by [facility] on 01/27/25 16:24 Results Reviewed Results Reviewed: Laboratory Last Values Urine pH (Auto) 7.0 06/11/24 16:21 Specific Ovid (Auto) 1.015 06/11/24 16:21 Urine Protein (Auto) 15 mg/dL 06/11/24 16:21 Glucose (UA)(Auto) 0 mg/dL 06/11/24 16:21 Urine Ketones (Auto) Negative 06/11/24 16:21 Urine Blood (Auto) 0 Ishmael/uL 06/11/24 16:21 Urine Nitrite (Auto) Negative 06/11/24 16:21 Urine Bilirubin (Auto) 0 mg/dL 06/11/24 16:21 Urine Urobilinogen (Auto) 1 mg/dL 06/11/24 16:21 Leukocyte Esterase (Auto) 0 Preet/uL 06/11/24 16:21 Assessment & Plan Assessment & Plan (1) OAB (overactive bladder): Code(s): N32.81 - Overactive bladder Category: Medical Plan Sched repeat Bladder botox injection, 100 units Orders: Orders AMB Urinalysis Automated Today Z13.9 - Encounter for screening, unspecified AMB Post Void Residual by ultrasound Today R33.9 - Retention of urine, unspecified Patient Instructions: The patient had an opportunity to ask questions regarding treatment plan. The patient expressed understanding and agreement with the above treatment plan. The patient is aware they should contact our office by phone for worsening of their current condition or the appearance of new symptoms. Compliance is encouraged with any medications and followup testing that is ordered. It is a privilege to be allowed the opportunity to participate in the urologic care of your patient. If you have any questions or concerns regarding treatment for the above conditions please do not hesitate to contact me. The office telephone contact is [phone]. This note is constructed in part using voice recognition software. While every effort has been made to ensure accuracy lead javascript developer errors may have been included. Yours sincerely, Taj Sanabria MD Coding Level of Care Code Est Pt Level 3 (17854) Complex EM visit Add On G2211 Diagnoses OAB (overactive bladder) N32.81 CPT Codes Post Residual Void - PVR CPT Code: 53140-[id number] Void Residual by ultrasound ([id number])
--- OUTSIDE RECORDS SUMMARY | 2024-06-11 19:37 | XMS_ITS | Clinical Summary ---
Author Organization [address] [facility] Address [address] [place] [address] Phone Care Team Providers Care Cooling Machine Operator Name Role Phone Sammi Beal MD Primary Care Provider [phone] Active Problems Problem Noted Date Diagnosed Date HTN (hypertension) 05/15/2024 Obstructive sleep apnea 05/15/2024 History of gastric bypass 05/15/2024 History of hysterectomy 05/15/2024 History of thyroidectomy 05/15/2024 Hypothyroidism 05/15/2024 Social History Tobacco Use Types Packs/Day Years Used Date Smoking Tobacco: Never Assessed Sex and Gender Information Value Date Recorded Sex Assigned at Not on file Gender Identity Not on file Sexual Orientation Not on file Job Start Date Occupation Industry Not on file Not on file Not on file Plan of Treatment Upcoming Encounters Date Type Department Care Team ([facility] Contact Info) Description 10/16/2024 3:30 PM EDT Office Visit Bariatric Surgery [address] [address] Tamra Barry MD [address] [address] Health Maintenance Due Date Last Done Comments Breast Cancer Screening 1971 DTaP,Tdap,and Td Vaccines (1 - Tdap) 1990 Hepatitis B Vaccines (1 of 3 - 19+ 3-dose series) 1990 Cervical Cancer Screening: P ap Smear 01/03/1992 Zoster Vaccines (1 of 2) 2021 COVID-19 Vaccine (1 - 2023-2 5 season) 2024 Influenza Vaccine (#1) 2024 Cholesterol Screening (Lipid Panel) 02/21/2024 Colorectal Cancer Screening: Colonoscopy 02/21/2024 Depression Screening 02/21/2024 HIV Screening 02/21/2024 Hepatitis C Screening 02/21/2024 Social Influencers of Health Screening 02/21/2024 Hypertension/CHF/CAD Annual BMP Blood Test 05/15/2024 HIB Vaccines Aged Out No longer eligi ble based on patient's age to complete this topic HPV Vaccines Aged Out No longer eligi ble based on patient's age to complete this topic Hepatitis A Vaccines Aged Out No long er eligible based on patient's age to complete this topic IPV Vaccines Aged Out No longer eligi ble based on patient's age to complete this topic MMR Vaccines Aged Out No longer eligi ble based on patient's age to complete this topic Meningococcal ACWY Vaccine Aged Out N o longer eligible based on patient's age to complete this topic Pneumococcal Vaccine: Pediat rics (0 to 5 Years) and At-Risk Patients (6 to 64 Years) Aged Out No longer eligible b ased on patient's age to complete this topic RSV Immunization Patients Un fausto 20 months Aged Out No longer eligible b ased on patient's age to complete this topic Varicella Vaccines Aged Out No longer eligible based on patient's age to complete this topic Care Teams Cooling Machine Operator Relationship Specialty Start Date End Date Sammi Beal MD [address] [facility] , [address] [facility] D[facility]A: [facility] JAVI Mistry PCP - General Internal Medicine 04/30/24
--- OUTSIDE RECORDS SUMMARY | 2024-06-11 19:37 | XMS_ITS | Encounter Summary ---
Author Organization [facility] Address [address] [place] [address] Care Team Providers Care Desktop Support Consultant Name Role Phone Unavailable Primary Care Provider Unavailabl e Encounter Details Date Type Department Care Team (Latest Contact Info) Description 02/18/2022 Abstract C CONVERSIONS Dental, Provider, DDS Social History Tobacco Use Types Packs/Day Years Used Date Smoking Tobacco: Never Assessed Comments Unknown Sex and Gender Information Value Date Recorded Sex Assigned at Female 03/15/2022 10:29 AM EDT Legal Sex Female 10:29 AM EDT Gender Identity Female 03/15/2022 10:29 AM EDT Sexual Orientation Straight 03/15/2022 10 :29 AM EDT documented as of this encounter Plan of Treatment Not on file documented as of this encounter Visit Diagnoses Not on filedocumented in this encounter
--- OUTSIDE RECORDS SUMMARY | 2024-06-11 19:37 | XMS_ITS | Encounter Summary ---
Author Organization [facility] Address [address] [facility] [address] [place] [address] Care Team Providers Care Electrician'S Helper Name Role Phone Unavailable Primary Care Provider Unavailabl e Encounter Details Date Type Department Care Team (Latest Contact Info) Description 10/03/2018 Abstract C CONVERSIONS Dental, Provider, DDS Social [...]
--- OUTSIDE RECORDS SUMMARY | 2024-06-11 19:37 | XMS_ITS | Clinical Summary ---
Author Organization [employer] Address [address] [place] [address] 7 [place] [address] Care Team Providers Care Oil Dispatcher Name Role Phone Unavailable Primary Care Provider Unavailabl e Allergies Active Allergy Reactions Criticality Noted Date Comments Aspirin 07/08/2022 Latex 10/03/2018 Medications LORazepam (Ativan) 2 MG tablet TOME CHRISTI TABLETA TODOS LOS D AL ACOSTARSE 3 Active hydroCHLOROthia zide (HYDRODiuril) 12.5 MG tablet TOME CHRISTI TABLETA POR V A ORAL TODOS LOS D 3 Active furosemide (Lasix) 20 MG tablet TOME CHRISTI TABLETA POR V A ORAL TODOS LOS D FOR 90 DAYS 3 Active fluconazole (Diflucan) 150 MG tablet TOME CHRISTI TABLETA POR V A ORAL TODAY AND REPEAT DOSE IN 3 DAYS 3 Active levothyroxine (Synthroid, Levoxyl) 137 MCG tablet TOME CHRISTI TABLETA POR V A ORAL TODOS LOS D FOR 30 DAYS 3 Active omeprazole (PriLOSEC) [address] capsule TOME CHRISTI C PSULA TODOS LOS D 3 Active traZODone (Desyrel) 100 MG tablet TOME CHRISTI TABLETA TODOS LOS D AL ACOSTARSE 3 Active traMADol (Ultram) 50 MG tablet TOME CHRISTI TABLETA POR V A ORAL CADA OCHO HORAS CUANDO SEA NECESARIO PARA EL DOLOR X30 DAYS 3 Active Social History Tobacco Use Types Packs/Day Years Used Date Smoking Tobacco: Never Passive Smoke Exposure: Never Smokeless Tobacco: Never Tobacco Cessation:Counseling Given: Not Answered Alcohol Use Standard Drinks/Week Comments Never 0 (1 standard drink = 0.6 oz pur e alcohol) Comments Unknown Sex and Gender Information Value Date Recorded Sex Assigned at Female 03/15/2022 10:29 AM EDT Legal Sex Female 10:29 AM EDT Gender Identity Female 03/15/2022 10:29 AM EDT Sexual Orientation Straight 03/15/2022 10 :29 AM EDT Last Filed Vital Signs Vital Sign Reading Time Taken Comments Blood Pressure 128/88 08/10/2022 1:07 PM EDT Pulse 82 08/10/2022 1:07 PM EDT Temperature - - Respiratory Rate - - Oxygen Saturation - - Inhaled Oxygen Concentration - - Weight - - Height - - Body Mass Index - - Plan of Treatment Health Maintenance Due Date Last Done Comments CT Colonography 1971 Colonoscopy 1971 Colorectal Cancer Screening 1971 Dental Oral Exam 1971 Dental X-Ray: Bitewings 1971 Dental X-Ray: Full Mouth 1971 Depression Screening 1971 FIT DNA/Cologuard 1971 FIT 1971 FOBT 1971 HIV Screening 1971 SDOH Screening 1971 Sigmoidoscopy 1971 Alcohol/Substance Use Screening 1983 Hepatitis C Screening 1989 Hepatitis B Vaccines (1 of 3 - 19+ 3-dose series) 1990 Pap Smear 01/03/1992 Cervical Cancer Screening 2001 HPV/Cotest 2001 Mammogram 2011 Zoster Vaccines (1 of 2) 2021 Dental Prophylaxis 02/11/2023 08/10/2022 Tobacco Screening 08/11/2023 08/10/2022 COVID-19 Vaccine (3 - 2023- season) 2024 09/06/2020, 08/14/2020 Influenza Vaccine (#1) 2024 , 03/24/2021, 03/17/2019, Additional history exists DTaP/Tdap/Td Vaccines (2 - Td or Tdap) 03/24/2031 03/24/2021 RSV Patients and Patients Aged 60 years or older (1 - 1-dose 75+ series) 2046 HIB Vaccines Aged Out No longer eligi [...] patient's age to complete this topic Meningococcal Vaccine Aged Out No stew anitha eligible based on patient's age to complete this topic Pneumococcal Vaccine: Pediatrics (0 to 5 Years) and At-Risk Patients (6 to 64 Years) Aged Out No longer eligible based on patient's age to complete this topic RSV under 20 months Aged Out No longe r eligible based on patient's age to complete this topic Rotavirus Vaccines Aged Out No longer eligible based on patient's age to complete this topic Procedures Procedure Name Priority Date/Time Associated Diagnosis Comments PROPHYLAXIS - ADULT Routine 08/10/2022 1:00 PM EDT from Last 3 Months or Most Recently Relevant to Health Maintenance Insurance [facility] MEDICAID STAND ADULT
== END 2024-06-11 16:36 | disposition home or self-care (01) ==
PROVIDERS: PCP Internal Medicine; Visit Provider Urology
DX: N32.81 Overactive bladder (principal); Z13.9 Encounter for screening, unspecified
CPT/HCPCS: 99213; G2211

== ENCOUNTER → 2024-06-11 15:44 | Outpatient (BNVA) | payer OTHER, SELFPAY | PROVIDERS: PCP Internal Medicine; Visit Provider Urology | DX: N32.81 Overactive bladder (principal); R33.9 Retention of urine, unspecified | CPT/HCPCS: 51798; 81003; 99212 ==

== ENCOUNTER 2024-06-22 13:42 | Outpatient (REF) | payer OTHER, SELFPAY ==
--- NOTE | ~2024-06-22 | MM_ITS ---
EXAMINATION: DXA BONE DENSITY EXTREMITY HISTORY: Estrogen deficiency TECHNIQUE: Veysoft Dual energy absorptiometry (DEXA) of the lumbar spine, distal radius, total left hip, and femoral neck was performed. COMPARISON: There are no prior studies for comparison. FINDINGS: The bone mineral density of the lumbar spine is 1.001 with a T-score of -1.4, and a Z-score of -0.9. The bone mineral density of the left total hip is 0.998 with a T-score of -0.1, and a Z-score of -0.3. The bone mineral density of the left femoral neck is 0.788 with a T-score of -1.8, and a Z-score of -1.6. The bone mineral density of the distal forearm is 0.831 with a T-score of -0.5, and a Z-score of -0.2. FRACTURE RISK: The FRAX index suggests a risk of major osteoporotic fracture of 4.1%, and of hip fracture 0.4%. MM/XR DEXA appendicular skeleton IMPRESSION: Based on bone mineral density, and according to World Health Organization (WHO) criteria, the diagnosis is consistent with osteopenia. All bone density values are in grams per centimeter squared (g/cm2). Statistically, 68% of repeat scans fall within 1 SD (+/- 0.010 g/cm2 for AP spine L1-L4) and 1 SD (+/- 0.012 g/cm2 for femur total) FRAX is a trademark of the [employer]'s [employer] for Metabolic Bone Disease, a World Health Organization (WHO) Collaborating Center. Electronically signed by: Jose Maria Esparza MD 06/26/2024 03:33 PM [facility]
--- OUTSIDE RECORDS SUMMARY | 2024-06-22 14:06 | XMS_ITS | Encounter Summary ---
Author Organization [facility] Address [address] [facility] [address] [place] [address] Care Team Providers Care Nurse Chemical Dependency Name Role Phone Unavailable Primary Care Provider [...]
--- OUTSIDE RECORDS SUMMARY | 2024-06-22 14:06 | XMS_ITS | Clinical Summary ---
Author Organization [address] [facility] Address [address] [place] [address] Phone Care Team Providers Care Application Programmer Analyst Name Role Phone Sammi Beal MD Primary Care Provider [phone] Active Problems Problem Noted Date Diagnosed Date [...] Upcoming Encounters Date Type Department Care Team ([facility] Contact Info) Description 10/16/2024 3:30 PM EDT Office Visit Bariatric Surgery [address] [address] Tamra Barry MD [address] [address] Health Maintenance Due Date Last Done Comments [...] age to complete this topic Care Teams Application Programmer Analyst Relationship Specialty Start Date End Date Sammi Beal MD [address] [facility] [address] [facility] D/B[facility]A: [facility] Internal Medicine JAVI Mistry PCP - General Internal Medicine 04/30/24
--- OUTSIDE RECORDS SUMMARY | 2024-06-22 14:06 | XMS_ITS | Clinical Summary ---
Author Organization [employer] Address [address] [place] [address] [address] [place] [address] Care Team Providers Care Surgical Territory Manager Name Role Phone Unavailable Primary Care Provider [...] Cancer Screening 2001 HPV/Cotest 2001 Mammogram 2011 Pneumococcal Vaccine: 50+ Years (1 of 1 - PCV) 2021 Zoster Vaccines (1 of 2) 2021 Dental Prophylaxis 02/11/2023 08/10/2022 Tobacco Screening 08/11/2023 08/10/2022 COVID-19 Vaccine (3 - 2023- season) 2024 09/06/2020, 08/14/2020 Influenza Vaccine (#1) 2024 2, 03/24/2021, 03/17/2019, Additional history exists DTaP/Tdap/Td Vaccines [...] Most Recently Relevant to Health Maintenance Insurance [facility] MEDICAID STAND ADULT
--- OUTSIDE RECORDS SUMMARY | 2024-06-22 14:06 | XMS_ITS | Encounter Summary ---
Author Organization [facility] Address [address] [facility] [address] [place] [address] Care Team Providers Care Craft Coordinator Name Role Phone Unavailable Primary Care Provider [...]
== END 2024-06-22 13:43 | disposition home or self-care (01) ==
LOC: HO.MAMMO 13:42
PROVIDERS: PCP Internal Medicine; Visit Provider Student in an Organized Health Care Education/Training Program
DX: E21.3 Hyperparathyroidism, unspecified (principal)
CPT/HCPCS: 77081

== ENCOUNTER → 2024-06-22 14:00 | Outpatient (BNV) | payer OTHER, SELFPAY | PROVIDERS: PCP Internal Medicine; Visit Provider Radiology Diagnostic Radiology | DX: E28.39 Other primary ovarian failure (principal) | CPT/HCPCS: 77081 ==

== ENCOUNTER 2024-08-06 09:07 | Outpatient (AMB) | payer OTHER, SELFPAY ==
--- NOTE | 2024-08-06 09:11 | MHC.OFFVIS ---
Vital Signs 08/06/24 09:12 Height 5 ft 3 in Weight 237 lb BMI 42.0 Intake Visit Reasons: OV- B/L knee pain/OA, last inj 02/22/24 Intake Note: Caro a 53 year old female presents today for a follow up of bilateral knee OA. Patient was last seen on 02/22/24 and a left knee injection was given. Patient reports last injection helped for a few months. She is requesting to repeat injections in both of her knees today. Aviation Project Manager Required: Yes Aviation Project Manager Services: Aviation Project Manager Present Aviation Project Manager Name: Octaviano Novak ID#[id number] Allergies aspirin Allergy (Severe, Verified 08/06/24 09:12) Swelling topiramate Adverse Reaction (Intermediate, Verified 08/06/24 09:12) cough Medication List - Last Reconciled 08/06/24 by Danielle Wheatley PA-C nnfvhtjpqu-tdmtxascxryzw-gxhf 50-325-40 mg 1 tab PO Q6H PRN 15 days capsaicin 0.1% (Arthritis Pain Relief (capsaicin)) 1 appl topical BID cholecalciferol (vitamin D3) 25 mcg PO DAILY cyclobenzaprine 10 mg PO BEDTIME PRN 30 days estradiol (Vagifem) 10 mcg vaginal 2XW hydrochlorothiazide 25 mg PO DAILY 90 days levothyroxine 137 mcg PO DAILY lorazepam 0.5 mg PO DAILY PRN omeprazole 40 mg PO DAILY tramadol 50 mg PO DAILY 30 days HPI HPI OV- B/L knee pain/OA, last inj 02/22/24: Details: 54-year-old female returns to the office today for bilateral knee pain. Her last injection in February she received in the left knee which was successful for quite some time. She was able to increase activities with minimal discomfort. Over the last several weeks she has had worsening pain with activities such as stairs and prolonged walking. [facility] Medical History Hyperlipidemia OAB (overactive bladder) Arthritis Lumbar radiculopathy Cervical radiculopathy Migraine Benzodiazepine withdrawal Morbid obesity with BMI of 40.0-44.9, adult JAYLENE (generalized anxiety disorder) Moderate recurrent major depression Lump of skin Vitamin D deficiency Hyperparathyroidism Common cold Hot flash not due to menopause HTN (hypertension) Amenorrhea Obesity Hypothyroidism Obstructive sleep apnea Surgical History Hx of excision of mass Hx of cystoscopy History of thyroidectomy Hx of gastric bypass Hx of hemorrhoidectomy Hx of hysterectomy Hx of tubal ligation Hx of multiple trauma Family History Father Diabetes Hypertension Mother Diabetes Alzheimer's disease Brother Substance use disorder Family/Other Mental health disorder Maternal Aunt Cancer Social History Housing: Apartment Alcohol intake: current Alcohol intake frequency: holidays/special occasions only Alcohol type: wine Patient Tobacco Use Status: Former Tobacco user Tobacco use type: Cigarette Cigarettes Per Day: 3 Years Smoked: 15 e-Cigarette/Vaping Use: Never Used Second Hand Smoke Exposure: No service: No 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al status: unemployed and disabled 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 Cognitive needs: No Hearing needs: No Vision needs: Yes (Glasses) Review of Systems Const All systems reviewed & are unremarkable except as noted in HPI and below Physical Exam Vital Signs: BMI result Body Mass Index 42.0 Const General: cooperative, healthy appearing, comfortable, no acute distress, well developed and alert Orientation/consciousness: patient oriented x3 HEENT Head: Yes normal to inspection, Yes normocephalic and Yes atraumatic Eyes General: appearance normal, both eyes and all related structures Resp Effort & Inspection: normal respiratory effort and able to speak in complete sentences Cardio Rate: regular rate Peripheral pulses: Peripheral pulses 2+ throughout GI Palpation (GI): Soft to palpation Skin Lesions: no lesions Rashes: no rashes Neuro General: patient oriented x3 Extrem Other: Left knee: Skin intact, no erythema or joint effusion. Lateral retropatellar tenderness present. Full ROM with crepitus. Negative Tyrell?s. No ligamentous laxity. NVI. Right knee: Skin intact, no erythema or joint effusion. Tenderness along the medial and lateral joint line. Full ROM with crepitus. Negative Tyrell?s. No ligamentous laxity. NVI. Office Procedures AMB Joint Injection/Aspiration Joint Injection/Aspiration Primary Site: right knee Secondary Site: left knee Prep: site was prepped using aseptic technique, ethochloride spray was applied and injection warnings given Injected: 80 mg of, DepoMedrol, with 8 mL of, 1% plain lidocaine and in the joint Approach Used: anterolateral Procedure: The patient tolerated the procedure well and there was some relief with the local anesthesia Coding 16118 - Glenohumeral/Tronchanteric Bursa/Intraarticular Procedure code (CPT) selection complete Assessment & Plan Assessment & Plan (1) Bilateral post-traumatic osteoarthritis of knee: Code(s): M17.2 - Bilateral post-traumatic osteoarthritis of knee Category: Medical Plan We discussed options today which include repeat injection. She did consent to proceed with bilateral knee injection which she tolerated well. She will increase activities as tolerated. She was fit for bilateral knee brace in the office today. She will see me back as needed. Coding Level of Care Code Est Pt Level 3 (18870) Complex EM visit Add On G2211 Diagnoses Bilateral post-traumatic osteoarthritis of knee M17.2 CPT Codes Coding - Joint 7: 43868 - Glenohumeral/Tronchanteric Bursa/Intraarticular ([id number])
[2024-08-06 09:12] VITALS: BMI 42.0
== END 2024-08-06 09:53 | disposition home or self-care (01) ==
LOC: HO.HOS 09:08
PROVIDERS: PCP Internal Medicine; Visit Provider Physician Assistant
DX: M17.2 Bilateral post-traumatic osteoarthritis of knee (principal)
CPT/HCPCS: 20610; 99213

== ENCOUNTER → 2024-08-06 09:07 | Outpatient (BNVA) | payer OTHER, SELFPAY | PROVIDERS: PCP Internal Medicine; Visit Provider Physician Assistant | DX: M17.2 Bilateral post-traumatic osteoarthritis of knee (principal) | CPT/HCPCS: 20610; 99212; J1010; J2003 ==

== ENCOUNTER 2024-08-06 17:50 | Emergency (ER) | payer OTHER, SELFPAY ==
[2024-08-06 18:15] VITALS: BP 143/100; PULSE 104; RESP 18; TEMP 36.8; O2SAT 94; BMI 41.1
--- NOTE | 2024-08-06 18:22 | ED_ITS ---
HPI - General Adult General Chief complaint: General Medical Stated complaint: increased BP Time Seen by Provider: 08/07/24 01:51 Source: patient, old records reviewed and interpreter for the deaf Mode of arrival: ambulatory Limitations: no limitations History of Present Illness ED Provider: KATHY BLACKWOOD narrative: 54 yo female not on blood thinners who has PMH of chronic pain, migraines, HLD, hypothyroidism who presents with worsening headache throughout the day with nausea and photophobia after having to deal with issues related to her mom and her mom being seen and cared for due to SI. She denies any trauma, numbness, weakness. States she has been waiting all day and her headache is much worse. Migraine occurred at rest after a very long and stressful day. No fevers reported. MD complaint: headache Onset (ago): hour(s) (several) Location: head Radiation: non-radiation Severity: severe Quality: other (throbbing) Pain Consistency: constant Relieving factors: none Exacerbating factors: other (light, noise) Associated symptoms: nausea/vomiting Treatments prior to arrival: none Related Data Home Medications ?Medication ?Instructions ?Recorded ?Confirmed omeprazole 40 mg capsule,delayed 40 mg PO DAILY 09/27/22 08/06/24 release Previous Rx's ?Medication ?Instructions ?Recorded gtatwckyuj-zalwnyppgikkh-chapupma 1 tab PO Q6H PRN pain headache 15 03/11/21 50 mg-325 mg-40 mg tablet days #60 tabs capsaicin 0.1 % topical cream 1 appl topical BID #42.5 grams 08/09/23 (Arthritis Pain Relief (capsaicin)) estradiol 10 mcg vaginal tablet 10 mcg vaginal 2XW #24 tabs 09/03/23 (Vagifem) levothyroxine 137 mcg tablet 137 mcg PO DAILY #90 tabs 01/18/24 cholecalciferol (vitamin D3) 25 25 mcg PO DAILY #30 caps 02/02/24 mcg (1,000 unit) capsule hydrochlorothiazide 25 mg tablet 25 mg PO DAILY 90 days #90 tabs 05/16/24 lorazepam 0.5 mg tablet 0.5 mg PO DAILY PRN anxiety #2 tabs 05/21/24 cyclobenzaprine 10 mg tablet 10 mg PO BEDTIME PRN muscle spasm 07/27/24 30 days #30 tabs tramadol 50 mg tablet 50 mg PO DAILY 30 days #30 tabs 07/27/24 Allergies Allergy/AdvReac Type Severity Reaction Status Date / Time aspirin Allergy Severe Swelling Verified 08/06/24 18:18 topiramate AdvReac Intermediate cough Verified 08/06/24 18:18 Review of Systems 2 Review of Systems: Constitutional : No Fever, No Chills, No Fatigue ENT/Mouth : No sore throat, No Rhinorrhea Eyes: No Eye Pain, No Swelling, No Redness Cardiovascular : No Chest Pain, No SOB, No Dyspnea on Exertion Respiratory : No Cough, No Sputum Gastrointestinal : pos Nausea, No Vomiting, No Diarrhea, No abdominal Pain Genitourinary : No Dysuria, No Urinary Frequency, No Hematuria, Musculoskeletal : No joint pain, No Myalgias, No Joint Swelling Skin : No Skin Lesions, No rash Neuro : No Weakness, No Numbness, No Dizziness, positive Headache Psych : No Anxiety/Panic, No Depression All other systems reviewed and are negative [facility] Past Medical History Attestation statement: The following information was validated with the patient. Source: old records reviewed Medical History Hyperlipidemia OAB (overactive bladder) Arthritis Lumbar radiculopathy Cervical radiculopathy Migraine Benzodiazepine withdrawal Morbid obesity with BMI of 40.0-44.9, adult JAYLENE (generalized anxiety disorder) Moderate recurrent major depression Lump of skin Vitamin D deficiency Hyperparathyroidism Common cold Hot flash not due to menopause HTN (hypertension) Amenorrhea Obesity Hypothyroidism Obstructive sleep apnea Surgical History Hx of excision of mass Hx of cystoscopy History of thyroidectomy Hx of gastric bypass Hx of hemorrhoidectomy Hx of hysterectomy Hx of tubal ligation Hx of multiple trauma Family History Family History Father Diabetes Hypertension Mother Diabetes Alzheimer's disease Brother Substance use disorder Family/Other Mental health disorder Maternal Aunt Cancer Social History Social History Housing: Apartment Alcohol intake: current Alcohol intake frequency: holidays/special occasions only Alcohol type: wine Patient Tobacco Use Status: Former Tobacco user Tobacco use type: Cigarette Cigarettes Per Day: 3 Years Smoked: 15 e-Cigarette/Vaping Use: Never Used Second Hand Smoke Exposure: No Advance Directives: No Advance Directives Information Provided: Yes service: No 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al status: unemployed and disabled 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 Oriented X3. No acute distress. Eyes: Pupils equal, round and reactive to light. ENT: Pharynx normal. atraumatic Neck: Normal inspection. Neck supple. CVS: Normal heart rate and rhythm. Pulses normal. Respiratory: No respiratory distress. Breath sounds normal. Abdomen: Soft and nontender. Skin: Skin warm and dry. Normal skin color. Normal skin turgor. Extremities: No lower extremity edema. No calf ttp Neuro: Oriented X 3. No motor deficit. No sensory deficit. CN2-12 intact. steady gait Course Course Course Narrative: This is a rapid medical exam performed by Nicole Gutierrez PA-C. The patient is a 54-year-old female with a history of hypothyroidism, hypertension, depression and anxiety, migraine, chronic pain, who presents with migraine. Headache is generalized, with the associated phonophobia, photophobia, nausea vomiting. Patient states she is feeling ?stressed out over her mother?; her mother is currently being assessed by the care team for SI. We will screen basic labs. The patient is stable and can return to the waiting room pending her full medical assessment. Medications Administered Discontinued Medications Generic Name Dose Route Start Last Admin Trade Name Freq PRN Reason Stop Dose Admin Acetaminophen/Butalbital/Caffeine 1 tab 08/07/24 02:00 08/07/24 02:20 Butalb/Acetamin/Caff 50/325/40 Tablet PO 08/07/24 02:01 1 tab ONCE ONE Administration Metoclopramide HCl 10 mg 08/07/24 02:00 08/07/24 02:20 Metoclopramide Hcl 10 Mg/2 Ml Vial IM 08/07/24 02:01 10 mg ONCE ONE Administration Medical Decision Making Medical Decision Making MDM Narrative: 54 yo female not on blood thinners who has PMH of chronic pain, migraines, HLD, hypothyroidism here wtih c/o headache all day with nausea and sensitivity to noise after the patient dealt with a very long and stressful day. She is neuro intact no fevers and headache has worsened at this time I do not suspect ICH or PHOTOENGRAVING RETOUCHER infection will treat with migraine medications and DC home. She has medications at home. Differential Diagnosis Differential Diagnoses: The differential diagnosis associated with the presentation includes tension headache, migraine, stress reaction Admission/Observation Consideration of admission/observation: Escalation of care including admission/observation considered feels better stable for DC Lab Data MDM Lab Attestation statement: I reviewed the patient's lab results. 08/06/24 18:31 08/06/24 18:31 Labs: Lab Results 08/06/24 Range/Units 18:31 WBC 5.4 (4.8-10.8) X10*3/uL RBC 5.07 (4.20-5.50) X10*6/uL Hgb 15.0 (12.0-16.0) g/dl Hct 43.0 (37.0-47.0) % MCV 84.8 (80.0-98.0) fL MCH 29.6 (27.0-33.0) pg MCHC 34.9 (31.0-35.0) g/dl RDW 12.7 (11.0-16.0) % Plt Count 235 (160-400) X10*3/uL MPV 9.6 (9.4-12.3) fL Immature Gran % (Auto) 0.4 (0.0-0.4) % Neut % (Auto) 90.2 H (45-73) % Lymph % (Auto) 8.3 L (20-40) % [place] % (Auto) 0.9 L (2-11) % Eos % (Auto) 0.0 (0-4) % Baso % (Auto) 0.2 (0-2) % Lymph # (Auto) 0.5 L (1.2-4.9) X10*3/uL [place] # (Auto) 0.1 (0.1-1.2) X10*3/uL Eos # (Auto) 0.0 (0.0-0.4) X10*3/uL Baso # (Auto) 0.0 (0.0-0.2) X10*3/uL Abs Immat Gran (auto) 0.02 (0.00-0.03) X10*3/uL Absolute Neuts (auto) 4.9 (2.0-8.3) x10*3/uL Absolute Nucleated RBC 0.000 (0.0-0.012) X10*3/uL Nucleated RBC % (auto) 0.0 (0.0-0.2) /100WBC Smear Tech's Comments VERIFIED Sodium 139 (135-145) mmol/L Potassium 3.7 (3.3-5.1) mmol/L Chloride 101 (96-108) mmol/L Carbon Dioxide 27 (22-29) mmol/L Anion Gap 15 (12-20) BUN 15 (9-16) mg/dL Creatinine 0.70 (0.5-1.4) mg/dL Estim Creat Clear Calc 107.9 Estimated GFR > 60 Random Glucose 160 H (60-115) mg/dL Calcium 9.7 (8.4-10.2) mg/dL Magnesium 1.9 (1.6-2.6) mg/dL Total Bilirubin 0.4 (0.0-1.0) mg/dL AST 32 H (5-31) U/L ALT 41 H (0-31) U/L Alkaline Phosphatase 66 (39-117) U/L Total Protein 8.4 H (6.5-8.0) g/dL Albumin 4.7 (3.5-5.0) g/dL Beta HCG, Quant < 2 mIU/mL Independent Historian Clinical information obtained from an independent historian. History obtained from or confirmed by: Spouse External Record Review External record reviewed: Outpatient record Prescription Management I considered prescription management with: Other Discharge Plan Discharge Clinical Impression: Headache, migraine Patient Disposition: Home, Self-Care Instructions: Migraine Headache (ED) Additional Instructions: return for fevers, confusion, numbness, weakness, change in pain or any other concerns rest and stay hydrated today Prescriptions: No Action estradiol [Vagifem] 10 mcg tablet 10 mcg vaginal 2XW Qty: 24 1RF Rx Instructions: Use at bedtime 2 times a week, Mon/Thurs levothyroxine 137 mcg tablet 137 mcg PO DAILY Qty: 90 3RF hydrochlorothiazide 25 mg tablet 25 mg PO DAILY 90 Days Qty: 90 1RF lorazepam 0.5 mg tablet 0.5 mg PO DAILY PRN (Reason: anxiety) Qty: 2 0RF Rx Instructions: 1 tab 30 mins prior to MRI 2nd tab prn Do not drive while taking this medication tramadol 50 mg tablet 50 mg PO DAILY 30 Days Qty: 30 0RF cyclobenzaprine 10 mg tablet 10 mg PO BEDTIME PRN (Reason: muscle spasm) 30 Days Qty: 30 1RF capsaicin [Arthritis Pain Relief(capsaic)] 0.1 % cream 1 appl topical BID Qty: 42.5 0RF Rx Instructions: do not wash area for at least 30 min after application kaxvotfylg-wvxiqwpdjobab-wllj 50-325-40 mg tablet 1 tab PO Q6H PRN (Reason: pain headache) 15 Days Qty: 60 5RF omeprazole 40 mg capsule,delayed release(DR/EC) 40 mg PO DAILY cholecalciferol (vitamin D3) 25 mcg (1,000 unit) capsule 25 mcg PO DAILY Qty: 30 6RF Rx Instructions: Take one tablet daily in addition to the 2000 mcg of vitamin D prescribed daily for a total of 3000 mcg daily Stand Alone Forms: Work/School Release Print Language: Bahraini
[2024-08-06 18:36] LABS: Basophils Percent Auto 0.2 % (0-2); Imm Gran Abs Auto 0.02 X10*3/uL (0.00-0.03); Imm Gran Pct Auto 0.4 % (0.0-0.4); Lymphocytes Absolute Auto 0.5 X10*3/uL (1.2-4.9); Lymphocytes Percent Auto 8.3 % (20-40); MANUAL DIFF FLAG SCAN; Mean Corpuscular HGB Conc 34.9 g/dl (31.0-35.0); Mean Corpuscular Hemoglobin 29.6 pg (27.0-33.0); Mean Corpuscular Volume 84.8 fL (80.0-98.0); Mean Platelet Volume 9.6 fL (9.4-12.3); Monocytes Absolute Auto 0.1 X10*3/uL (0.1-1.2); Monocytes Percent Auto 0.9 % (2-11); Neutrophils Absolute Auto 4.9 x10*3/uL (2.0-8.3); Neutrophils Percent Auto 90.2 % (45-73); Platelet Count 235 X10*3/uL (160-400); Red Blood Count 5.07 X10*6/uL (4.20-5.50); Red Cell Distribution Width 12.7 % (11.0-16.0); SCAN SMEAR FLAG 1; White Blood Count 5.4 X10*3/uL (4.8-10.8)
[2024-08-06 18:53] LABS: SLIDE REVIEW VERIFIED
[2024-08-06 19:04] LABS: Alanine Aminotransferase 41 U/L (0-31); Albumin Level 4.7 g/dL (3.5-5.0); Alkaline Phosphatase 66 U/L (39-117); Anion Gap 15 (12-20); Aspartate Amino Transferase 32 U/L (5-31); Bilirubin Total 0.4 mg/dL (0.0-1.0); Blood Urea Nitrogen 15 mg/dL (9-16); Calcium 9.7 mg/dL (8.4-10.2); Carbon Dioxide 27 mmol/L (22-29); Chloride 101 mmol/L (96-108); Creatinine Clr Calc Pharmacy 107.9; Estimated Glomerular Filt Rate > 60; Glucose Random 160 mg/dL (60-115); HCG Quantitative < 2 mIU/mL; Magnesium 1.9 mg/dL (1.6-2.6); Potassium 3.7 mmol/L (3.3-5.1); Sodium 139 mmol/L (135-145); Total Protein 8.4 g/dL (6.5-8.0)
[2024-08-07 00:11] VITALS: BP 136/93; PULSE 107; RESP 18; TEMP 37.1; O2SAT 95
[2024-08-07] MEDS: Metoclopramide HCl 10 MG/2 ML VIAL IM (02:20)
[2024-08-07] MEDS: Butalb/Acetamin/Caff 50/325/40 TABLET 1 TAB PO (02:20)
[2024-08-07 03:55] VITALS: BP 139/86; PULSE 95; RESP 16; TEMP 36.4; O2SAT 99
== END 2024-08-07 03:57 | disposition home or self-care (01) ==
PROVIDERS: Physician Assistant Medical; Emergency Provider Emergency Medicine; PCP Student in an Organized Health Care Education/Training Program
DX: G43.909 Migraine, unspecified, not intractable, without status migrainosus (principal); H53.143 Visual discomfort, bilateral; R11.2 Nausea with vomiting, unspecified; Z79.899 Other long term (current) drug therapy
CPT/HCPCS: 36415; 80053; 83735; 84702; 85025; 96372; 99283; 99284; J2765

== ENCOUNTER 2024-08-13 14:03 | Outpatient (AMB) | payer OTHER, SELFPAY ==
[2024-08-13 14:05] VITALS: BP 120/88; PULSE 103; O2SAT 97; BMI 41.0
--- NOTE | 2024-08-13 14:05 | A.OFFVIS_ITS ---
Vital Signs 08/13/24 14:05 Height 5 ft 3 in Weight 231 lb 7.766 oz BMI 41.0 BP 120/88 Blood Pressure Location Rt brachial Position Sitting Pulse 103 H Pulse Source Pulse Oximeter Pulse Oximetry (%) 97 Oxygen Delivery Method Room Air Intake Visit Reasons: Secondary Hyperparathyroidism Intake Note: Patient present today for Secondary Hyperparathyroidism office visit. Transmission Maintenance Supervisor Required: Yes Transmission Maintenance Supervisor Language: Bricklayer Supervisor Services: Transmission Maintenance Supervisor Present Transmission Maintenance Supervisor Name: Jessica Love#[id number] Information Interpreted: non-clinical & clinical Accompanied by: Significant Other Allergies aspirin Allergy (Severe, Verified 08/13/24 14:07) Swelling topiramate Adverse Reaction (Intermediate, Verified 08/13/24 14:07) cough Medication List - Last Reconciled 08/13/24 by Angelica Bull MD [id number] 50-325-40 mg 1 tab PO Q6H PRN 15 days capsaicin 0.1% (Arthritis Pain Relief (capsaicin)) 1 appl topical BID cholecalciferol (vitamin D3) 25 mcg PO DAILY cyclobenzaprine 10 mg PO BEDTIME PRN 30 days estradiol (Vagifem) 10 mcg vaginal 2XW hydrochlorothiazide 25 mg PO DAILY 90 days levothyroxine 137 mcg PO DAILY lorazepam 0.5 mg PO DAILY PRN omeprazole 40 mg PO DAILY tramadol 50 mg PO DAILY 30 days HPI Comments Details: 54 YO Female with PMHx Obesity s/p gastric bypass 2016, HTN who is seen in F/U for hyperparathyroidism and 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 She underwent FNA biopsy 02/08/19 of 3 nodules with results listed below: 1) L mid pole 1.7 cm nodule - Benign (Hunt Category II) 2) L mid-lower pole 3.5 cm nodule - nondiagnostic 3) R mid pole 3.6 cm nodule - Benign (Hunt Category II) She did have a significant amount of bleeding from the bipsy of the L mid-lower pole nodule, thus biopsy of this nodule was aborted prematurely. She had an additional L mid pole 1.9 cm nodule meeting indication for FNA biopsy, but due to the bleeding from the 3.5 cm nodule, this 1.9 cm nodule was not biopsied. She did complain of compressive symptoms with dysphagia as well as hoarseness of voice, and requested surgical thyroidectomy. This was completed 07/11/2019. Official path report revealed follicular nodular hyperplasia, and was benign. Postoperatively she was started on Levothyroxine 137 mcg PO daily, which she takes every morning. She waits 1 hour to eat, and takes the remainder of her medications after eating breakfast. She denies any symptoms of hypothyroidism. she has lost 12 lbs over this summer though she is complaining about weight gain She does have a family history of multinodular thyroid in her sister, mother, Daughter, but daughter and sister have thyroid cancer. She does take Biotin daily. TSH 1.05 01/25/2024. Interval history on levothyroxine 137 mcg daily Did not do thyroid function tests which were ordered last visit 3) Hyperparathyroidism: Labs revealed elevated PTH.= since 2019. She has always had normal calcium levels.. normal Kidney function . Vitamin-D levels used to low previously, most recently have come up above 30. Most recent labs from 01/25/2024 show PTH is somewhat improved from 140s to 105 most recently. . Ca remains normal. underwent gastric bypass in 2016. no Calcium supplement Milk every AM one glass, yogurt two a day, no cheese. Vitamin 2000 units daily On HCTZ 12.5 mg tablet daily for at least 2 years No kidney stones No hematuria right Humerus fracture 2007 shot nine times, no other fractures No calcium problems or kidney stones in family Labs 05/02/2024 showed vitamin-D improved to 40.6, PTH even further elevated at 128.1, no phosphorus of 2.3, normal kidney function/GFR, normal ionized calcium of 5.1, normal calcium of 9.6 with albumin of 4.5, corrected calcium would be lower at 9. 24 hour urine calcium low at 78 mg per 24 hour, fractional excretion of calcium would be 0.01, however volume is only 600 cc and this is low urine volume that is likely accounting for the low urine calcium. Interval history Vitamin-D: 3000 units daily since Feb 06 Calcium: Milk every AM one glass, yogurt two a day, no cheese. Fractures: no fractures Labs 05/02/2024 showed vitamin-D improved to 40.6, PTH even further elevated at 128.1, no phosphorus of 2.3, normal kidney function/GFR, normal ionized calcium of 5.1, normal calcium of 9.6 with albumin of 4.5, corrected calcium would be lower at 9. 24 hour urine calcium low at 78 mg per 24 hour, fractional excretion of calcium would be 0.005, however volume is only 600 cc and this is low urine volume that is likely accounting for the low urine calcium. DEXA scan June 2024 did not osteopenia, of the left femoral neck and lumbar spine , normal density at the forearm FRAX not meeting criteria for treatment. Physical exam General: sitting comfortably in no acute distress HEENT: normocephalic/atraumatic, , moist oral mucosa Neck: supple, symmetrical , no dorsocervical or supraclavicular fat pads Cardiac: normal heart sounds Pulm: normal breath sounds B/L, no added breath sounds Abd: not distended, no tenderness Extremities: no edema, no signs of myxedema Laboratory Tests 06/21/19 10/07/20 04/01/21 10:27 13:52 09:26 Creatinine Estimated GFR Calcium Ionized Calcium Phosphorus Magnesium Albumin 25-OH Vitamin D Total 23.7 TSH PTH Intact 92 H 129 H Ur 24 Hour Volume Ur Creatinine mg/dL Ur Creatinine 24 Hour Ur Sodium 24 Hour Ur Calcium 24 Hr Calcium/Creat 24 Hr 11/13/21 11/17/21 01/13/22 10:44 15:55 22:16 Creatinine Estimated GFR Calcium 9.0 9.4 Ionized Calcium Phosphorus Magnesium Albumin 25-OH Vitamin D Total TSH PTH Intact Ur 24 Hour Volume 2300 Ur Creatinine mg/dL 82.34 Ur Creatinine 24 Hour 1.9 Ur Sodium 24 Hour Ur Calcium 24 Hr 251 H Calcium/Creat 24 Hr 131 04/12/22 05/02/22 09/27/22 12:18 09:00 12:28 Creatinine Estimated GFR Calcium 9.7 9.2 Ionized Calcium Phosphorus Magnesium Albumin 25-OH Vitamin D Total 24.9 TSH PTH Intact 147 H Ur 24 Hour Volume 2025 Ur Creatinine mg/dL 96.67 Ur Creatinine 24 Hour 2.0 Ur Sodium 24 Hour Ur Calcium 24 Hr 192 Calcium/Creat 24 Hr 102 11/14/22 11/21/22 03/24/23 10:20 20:21 12:00 Creatinine Estimated GFR Calcium 9.4 9.9 8.9 D Ionized Calcium Phosphorus Magnesium Albumin 4.2 4.3 25-OH Vitamin D Total 26.0 L TSH PTH Intact 92 H Ur 24 Hour Volume Ur Creatinine mg/dL Ur Creatinine 24 Hour Ur Sodium 24 Hour Ur Calcium 24 Hr Calcium/Creat 24 Hr 03/28/23 05/02/23 07/21/23 16:25 10:11 08:08 Creatinine Estimated GFR Calcium 9.5 D 8.9 D Ionized Calcium Phosphorus Magnesium Albumin 4.2 4.1 25-OH Vitamin D Total 26.9 L 30.9 L TSH PTH Intact 141.7 H Ur 24 Hour Volume Ur Creatinine mg/dL Ur Creatinine 24 Hour Ur Sodium 24 Hour Ur Calcium 24 Hr Calcium/Creat 24 Hr 07/22/23 11/29/23 01/24/24 09:00 14:24 06:00 Creatinine Estimated GFR Calcium 9.6 D Ionized Calcium Phosphorus Magnesium Albumin 4.3 25-OH Vitamin D Total 31.4 TSH PTH Intact 106.9 H Ur 24 Hour Volume 600 1600 Ur Creatinine mg/dL 173.56 142.23 Ur Creatinine 24 Hour 1.0 2.3 H Ur Sodium 24 Hour Ur Calcium 24 Hr 82 275 H Calcium/Creat 24 Hr 81 130 01/25/24 05/02/24 05/02/24 14:59 11:00 11:38 Creatinine 0.75 0.75 Estimated GFR > 60 > 60 Calcium 9.6 9.6 Ionized Calcium 5.1 Phosphorus 2.3 L Magnesium 2.0 Albumin 4.2 4.5 25-OH Vitamin D Total 34.8 40.6 TSH 1.05 PTH Intact 105.2 H 128.1 H Ur 24 Hour Volume 600 Ur Creatinine mg/dL 190.26 Ur Creatinine 24 Hour 1.1 Ur Sodium 24 Hour 97.2 Ur Calcium 24 Hr 78 Calcium/Creat 24 Hr 75 US RETROPERITONEAL COMPLETE (RENAL) 02/05 CLINICAL INFORMATION: Urinary tract infection, site not specified. COMPARISON: Ultrasound abdomen complete 10/28/2015. TECHNIQUE: Real-time imaging of the kidneys and bladder. FINDINGS: RIGHT KIDNEY: 12.3 x 5.2 x 4.7 cm (SAG x AP x TRV). The kidney is normal in size, contour, and echogenicity. Renal cortical thickness is normal. No calculi or focal parenchymal lesions. No hydronephrosis. LEFT KIDNEY: 12.6 x 7.3 x 5.2 cm (SAG x AP x TRV). The kidney is normal in size, contour, and echogenicity. Renal cortical thickness is normal. No renal calculi or hydronephrosis. Multiple benign parapelvic Bosniak class I renal cysts are noted which require no additional imaging or follow-up. No solid renal masses are seen. BLADDER: Partially distended. Bilateral ureteral jets are demonstrated. Prevoid bladder volume is 128 mL. There is no postvoid residual. US/US retroperitoneal comp IMPRESSION: Negative exam. EXAMINATION: DXA BONE DENSITY EXTREMITY 06/22/24 HISTORY: Estrogen deficiency TECHNIQUE: Veeip Dual energy absorptiometry (DEXA) of the lumbar spine, distal radius, total left hip, and femoral neck was performed. COMPARISON: There are no prior studies for comparison. FINDINGS: The bone mineral density of the lumbar spine is 1.001 with a T-score of -1.4, and a Z-score of -0.9. The bone mineral density of the left total hip is 0.998 with a T-score of -0.1, and a Z-score of -0.3. The bone mineral density of the left femoral neck is 0.788 with a T-score of -1.8, and a Z-score of -1.6. The bone mineral density of the distal forearm is 0.831 with a T-score of -0.5, and a Z-score of -0.2. FRACTURE RISK: The FRAX index suggests a risk of major osteoporotic fracture of 4.1%, and of hip fracture 0.4%. MM/XR DEXA appendicular skeleton IMPRESSION: Based on bone mineral density, and according to World Health Organization (WHO) criteria, the diagnosis is consistent with osteopenia. All bone density values are in grams per centimeter squared (g/cm2). Statistically, 68% of repeat scans fall within 1 SD (+/- 0.010 g/cm2 for AP spine L1-L4) and 1 SD (+/- 0.012 g/cm2 for femur total) FRAX is a trademark of the [employer]'s [place] for Metabolic Bone Disease, a World Health Organization (WHO) Collaborating Center. Electronically signed by: Jose Maria Esparza MD 06/26/2024 03:33 PM [facility] Medical History Hyperlipidemia OAB (overactive bladder) Arthritis Lumbar radiculopathy Cervical radiculopathy Migraine Benzodiazepine withdrawal Morbid obesity with BMI of 40.0-44.9, adult JAYLENE (generalized anxiety disorder) Moderate recurrent major depression Lump of skin Vitamin D deficiency Hyperparathyroidism Common cold Hot flash not due to menopause HTN (hypertension) Amenorrhea Obesity Hypothyroidism Obstructive sleep apnea Surgical History Hx of excision of mass Hx of cystoscopy History of thyroidectomy Hx of gastric bypass Hx of hemorrhoidectomy Hx of hysterectomy Hx of tubal ligation Hx of multiple trauma Family History Father Diabetes Hypertension Mother Diabetes Alzheimer's disease Brother Substance use disorder Family/Other Mental health disorder Maternal Aunt Cancer Social History Housing: Apartment Alcohol intake: current Alcohol intake frequency: holidays/special occasions only Alcohol type: wine Patient Tobacco Use Status: Former Tobacco user Tobacco use type: Cigarette Cigarettes Per Day: 3 Years Smoked: 15 e-Cigarette/Vaping Use: Never Used Second Hand Smoke Exposure: No service: No 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al status: unemployed and disabled 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 since 2019. She has always had normal calcium levels.. normal Kidney function . underwent gastric bypass in 2016. Since I suspected this could possibly be secondary hyperparathyroidism in the setting of suboptimal calcium absorption due to history of gastric bypass. I had asked her to increase her vitamin-D from 2000 units daily to 3000 units daily Labs 05/02/2024 showed vitamin-D improved to 40.6, PTH even further elevated at 128.1, no phosphorus of 2.3, normal kidney function/GFR, normal ionized calcium of 5.1, normal calcium of 9.6 with albumin of 4.5, corrected calcium would be lower at 9. 24 hour urine calcium low at 78 mg per 24 hour, fractional excretion of calcium would be 0.005, however volume is only 600 cc and this is low urine volume that is likely accounting for the low urine calcium. Given PTH remains elevated despite normal vitamin-D levels this is most likely normocalcemic hyperparathyroidism however she does not have any history of kidney stones, no fractures, her kidney function is normal, bone density scan done June 2024 showed osteopenia of the lumbar spine and left femoral neck FRAX not meeting criteria for treatment. At this time she does not meet any surgical indication even if this is normocalcemic hyperPTH. She is due for repeat labs now. However most recent calcium done in July 2024 was normal. Plan: - continue vitamin-D to 3000 units daily -continue calcium intake of 3 calcium rich foods daily -ordered repeat blood work to be done now -follow up in 6 months with another set of labs prior to appointment (2) Hypothyroidism: Code(s): E03.9 - Hypothyroidism, unspecified Category: Medical Qualifiers: Hypothyroidism type: postoperative Qualified Code(s): E89.0 - Postprocedural hypothyroidism Plan: Patient with history of total thyroidectomy in 2019 due to multinodular goiter. Now on levothyroxine 137 mcg daily. Most recent labs January 2024 showed TSH is normal. Plan: -continue levothyroxine 137 mcg daily -ordered TSH the reflex T4 to be completed now (3) Vitamin D deficiency: Code(s): E55.9 - Vitamin D deficiency, unspecified Category: Medical Plan: See above Plan See above Orders: Orders Parathyroid Hormone Intact Today E21.3 - Hyperparathyroidism, unspecified, E55.9 - Vitamin D deficiency, unspecified, E89.0 - Postprocedural hypothyroidism Free T4 (Free Thyroxine) Today E21.3 - Hyperparathyroidism, unspecified, E55.9 - Vitamin D deficiency, unspecified, E89.0 - Postprocedural hypothyroidism Basic Metabolic Panel Today E21.3 - Hyperparathyroidism, unspecified, E55.9 - Vitamin D deficiency, unspecified, E89.0 - Postprocedural hypothyroidism Albumin Level Today E21.3 - Hyperparathyroidism, unspecified, E55.9 - Vitamin D deficiency, unspecified, E89.0 - Postprocedural hypothyroidism Calcium Today E21.3 - Hyperparathyroidism, unspecified, E55.9 - Vitamin D deficiency, unspecified, E89.0 - Postprocedural hypothyroidism Calcium, Ionized Today E21.3 - Hyperparathyroidism, unspecified, E55.9 - Vitamin D deficiency, unspecified, E89.0 - Postprocedural hypothyroidism Phosphorus Today E21.3 - Hyperparathyroidism, unspecified, E55.9 - Vitamin D deficiency, unspecified, E89.0 - Postprocedural hypothyroidism Vitamin D 25-OH Total Today E21.3 - Hyperparathyroidism, unspecified, E55.9 - Vitamin D deficiency, unspecified, E89.0 - Postprocedural hypothyroidism Thyroid Stimulating Hormone Today E21.3 - Hyperparathyroidism, unspecified, E55.9 - Vitamin D deficiency, unspecified, E89.0 - Postprocedural hypothyroidism Patient Instructions: Do blood work today Talk to your primary care about switching you to another BP med other than hydrochlorothiazide Continue vitamin D 3000 units daily Continue eating calcium rich foods such as yogurt and milk and cheese You will need to do blood work again prior to your 6 months appointment Continue levothyroxine 137 mcg daily Stay well hydrated Realice un an?lisis de saad hoy. Hable con gonzales m?dico de cabecera sobre la posibilidad de cambiarle a otro medicamento para la presi?n arterial que no sea hidroclorotiazida. Contin?e con la vitamina D 3000 unidades diarias. Contin?e consumiendo alimentos ricos en calcio, stacie yogur, leche y queso. Deber? hacerse un nuevo an?lisis de saad antes de gonzales pamela de los 6 meses. Contin?e con levotiroxina 137 mcg al d?a. Mant?ngase bella hidratado. Coding Level of Care Code Est Pt Level 3 (53839) Diagnoses Hyperparathyroidism E21.3 Postoperative hypothyroidism E89.0 Hypothyroidism type: postoperative Vitamin D deficiency E55.9
--- OUTSIDE RECORDS SUMMARY | 2024-08-13 15:56 | XMS_ITS | Encounter Summary ---
Author Organization [facility] Address [address] [facility] 7 [place] [address] Care Team Providers Care Clinical Laboratory Science Professor Name Role Phone Unavailable Primary Care Provider Unavailabl e Encounter Details Date Type Department Care Team (Latest Contact Info) Description 02/18/2022 Abstract [facility] CONVERSIONS Dental, Provider, DDS Social History Tobacco Use Types Packs/Day Years Used Date Smoking Tobacco: Never Assessed Comments Unknown Sex and Gender Information Value Date Recorded Sex Assigned at Female 03/15/2022 10:29 AM EDT Legal Sex Female 10:29 AM EDT Gender Identity Female 03/15/2022 10:29 AM EDT Sexual Orientation Straight 03/15/2022 10 :29 AM EDT documented as of this encounter Plan of Treatment Upcoming Encounters Date Type Department Care Team (Late st Contact Info) Description 08/24/2024 1:30 PM EDT Office Visit [facility] ADULT DENTAL [address] [place] [address] Almaguer-Verena Steven, DDS [address] [place] [address] documented as of this encounter Visit Diagnoses Not on filedocumented in this encounter
--- OUTSIDE RECORDS SUMMARY | 2024-08-13 15:56 | XMS_ITS | Encounter Summary ---
Author Organization [facility] Address [address] [facility] [address] [place] [address] Care Team Providers Care Tray Casting Machine Operator Name Role Phone Unavailable Primary Care Provider Unavailabl e Encounter Details Date Type Department Care Team (Latest Contact Info) Description 10/03/2018 Abstract [facility] CONVERSIONS Dental, Provider, DDS Social History Tobacco [...] Description 08/24/2024 1:30 PM EDT Office Visit [facility] ADULT DENTAL [address] [place] [address] Verena Hobson, DDS [address] [place] [address] documented as of this encounter Visit Diagnoses Not on filedocumented in this encounter
--- OUTSIDE RECORDS SUMMARY | 2024-08-13 15:56 | XMS_ITS | Clinical Summary ---
Author Organization [address] [facility] Address [address] [place] [address] Phone Care Team Providers Care Bartender Server Name Role Phone Sammi Beal MD Primary Care Provider [phone] Active Problems Problem Noted Date Diagnosed Date HTN (hypertension) 05/15/2024 Obstructive sleep apnea 05/15/2024 History of gastric bypass 05/15/2024 History of hysterectomy 05/15/2024 History of thyroidectomy 05/15/2024 Hypothyroidism 05/15/2024 Social History Tobacco Use Types Packs/Day Years Used Date Smoking Tobacco: Never Assessed Comments Unknown Sex and Gender Information Value Date Recorded Sex Assigned at Not on file Legal Sex Female 3:57 AM EST Gender Identity Not on file Sexual Orientation Not on file Plan of Treatment Upcoming Encounters Date Type Department Care Team ([facility] Contact Info) Description 10/16/2024 3:30 PM EDT Office Visit Bariatric Surgery [facility] [address] [id number] Tamra Barry MD [address] [address] Health Maintenance Due Date Last Done Comments Breast Cancer Screening 1971 DTaP,Tdap,and Td Vaccines (1 - Tdap) 1990 Hepatitis B Vaccines (1 of 3 - 19+ 3-dose series) 1990 Cervical Cancer Screening: P ap Smear 01/03/1992 Pneumococcal Vaccine: 50+ Ye ars (1 of 1 - PCV) 2021 Zoster Vaccines (1 of 2) 2021 COVID-19 Vaccine ( - 2023-2 5 season) 2024 Influenza Vaccine [...] patient's age to complete this topic Meningococcal B Vacine Aged Out No lo nger eligible based on patient's age to complete [...] on patient's age to complete this topic Insurance [facility] Care Teams Bartender Server Relationship Specialty Start Date End Date Sammi Beal MD [address] [place] [address] , [address] [facility] D/B/A: [facility] In Internal Medicine JAVI Mistry PCP - General Internal Medicine 04/30/24
--- OUTSIDE RECORDS SUMMARY | 2024-08-13 15:56 | XMS_ITS | Clinical Summary ---
Author Organization [facility] Address [address] [facility] [address] [place] [address] Care Team Providers Care Maintenance Director Name Role Phone Unavailable Primary Care Provider [...] PARA EL DOLOR X30 DAYS 3 Active calcitriol (Rocaltrol) 0.5 MCG capsule Take 0.5 mcg by mouth Once per day. Active Sodium Fluoride (PreviDent 5000 Booster Plus) 1.1 % paste Apply 1 Application. to teeth 2 times daily. 112 g 3 5 Active Active Problems No known active problems Encounters Date Type Department Care Team Description 08/01/2024 10:00 AM EDT Office Visit [facility] ADULT DENTAL [address] [place] [address] Kimberley Urbina Dental calculus (Primary Dx); Subgingival dental calculus; Supragingival dental calculus; Dental plaque; Gingivitis from Last 3 Months Social History Tobacco Use Types Packs/Day Years [...] Sign Reading Time Taken Comments Blood Pressure 138/88 08/01/2024 10:19 AM EDT Pulse 82 08/10/2022 1:07 PM EDT Temperature - - Respiratory Rate - - Oxygen Saturation - - Inhaled Oxygen Concentration - - Weight - - Height - - Body Mass Index - - Plan of Treatment Upcoming Encounters Date Type Department Care Team (Late st Contact Info) Description 08/24/2024 1:30 PM EDT Office Visit [facility] ADULT DENTAL [address] [place] [address] Almaguer-StevenMitchel woodsmia, DDS [address] [place] [address] Health Maintenance Due Date Last Done Comments CT Colonography 1971 Colonoscopy 1971 Colorectal Cancer Screening 1971 Depression Screening 1971 FIT DNA/Cologuard 1971 FIT 1971 FOBT 1971 HIV Screening 1971 Lipid Panel 1971 SDOH Screening 1971 Sigmoidoscopy 1971 Alcohol/Substance Use Screening 1983 Hepatitis C Screening 1989 Hepatitis B Vaccines (1 of 3 - 19+ 3-dose series) 1990 Pap Smear 01/03/1992 Cervical Cancer Screening 2001 HPV/Cotest 2001 Mammogram 2011 Pneumococcal Vaccine: 50+ Years (1 of 1 - PCV) 2021 Zoster Vaccines (1 of 2) 2021 Tobacco Screening 08/11/2023 08/10/2022 COVID-19 Vaccine (3 - season) 2024 09/06/2020, 08/14/2020 Dental Oral Exam 02/02/2025 08/01/2024 Dental Prophylaxis 02/02/2025 08/01/2024, 08/10/2022 Dental X-Ray: Bitewings 08/02/2025 08/01/2024 Dental X-Ray: Full Mouth 08/03/2027 08/01/2024 DTaP/Tdap/Td Vaccines (2 - Td or Tdap) 03/24/2031 03/24/2021 RSV Patients and Patients Aged 60 years or older (1 - 1-dose 75+ series) 2046 Influenza Vaccine Completed 05/18/2024, , 04/28/2022, Additional history exists HIB Vaccines Aged Out No longer eligi [...] Procedure Name Priority Date/Time Associated Diagnosis Comments SCALING IN PRESENCE OF MOD-SEVERE GING INFL - FULL MOUTH, AFTER ORAL EVAL Routine 08/01/2024 10:00 AM EDT Dental calculus Subgingival dental calculus Supragingival dental calculus Dental plaque Gingivitis ORAL HYGIENE INSTRUCTIONS Routine 08/01/2024 10:00 AM EDT Dental calculus Subgingival dental calculus Supragingival dental calculus Dental plaque Gingivitis INTRAORAL - COMPLETE SERIES OF RADIOGRAPHIC IMAGES Routine 08/01/2024 10:00 AM EDT PROPHYLAXIS - ADULT Routine 08/01/2024 1 0:00 AM EDT Dental calculus Subgingival dental calculus Supragingival dental calculus Dental plaque Gingivitis CASE PRESENTATION, DETAILED AND EXTENSIVE TREATMENT PLANNING Routine 08/01/2024 10:00 AM EDT PERIODIC ORAL EVALUATION - ESTABLISHED PATIENT Routine 08/01/2024 10:00 AM EDT 2 LO AMALGAM FILLING Routine 08/01/2024 12:00 AM EDT from Last 3 Months Insurance [facility] STAND ADULT
== END 2024-08-13 14:33 | disposition home or self-care (01) ==
LOC: HO.ENCR 14:04
PROVIDERS: PCP Internal Medicine; Visit Provider Student in an Organized Health Care Education/Training Program
DX: E21.3 Hyperparathyroidism, unspecified (principal); E89.0 Postprocedural hypothyroidism; E55.9 Vitamin D deficiency, unspecified
CPT/HCPCS: 99213

== ENCOUNTER 2024-08-13 14:03 | Outpatient (REF) | payer OTHER, SELFPAY ==
[2024-08-13 16:38] LABS: Albumin Level 4.2 g/dL (3.5-5.0); Anion Gap 10 (12-20); Blood Urea Nitrogen 19 mg/dL (9-16); Calcium 9.2 mg/dL (8.4-10.2); Carbon Dioxide 32 mmol/L (22-29); Chloride 105 mmol/L (96-108); Estimated Glomerular Filt Rate > 60; Glucose Random 68 mg/dL (60-115); Magnesium 2.5 mg/dL (1.6-2.6); Phosphorus 2.9 mg/dL (2.7-4.5); Potassium 4.4 mmol/L (3.3-5.1); Sodium 143 mmol/L (135-145)
--- OUTSIDE RECORDS SUMMARY | 2024-08-13 16:40 | XMS_ITS | Encounter Summary ---
Author Organization [facility] Address [address] [facility] 7 [place] [address] Care Team Providers Care Control Clerk Food And Beverage Name Role Phone Unavailable Primary Care Provider Unavailabl e Encounter Details Date Type Department Care Team (Latest Contact Info) Description 02/18/2022 Abstract [facility] CONVERSIONS Dental, Provider, DDS Social History [...] Description 08/24/2024 1:30 PM EDT Office Visit [facility] ADULT DENTAL [address] [place] [address] Almaguer-Verena Steven, DDS [address] [place] [address] documented as of this encounter Visit Diagnoses Not on filedocumented in this encounter
--- OUTSIDE RECORDS SUMMARY | 2024-08-13 16:40 | XMS_ITS | Encounter Summary ---
Author Organization [facility] Address [address] [facility] 7t [place] [address] Care Team Providers Care Cloth Roll Winder Name Role Phone Unavailable Primary Care Provider Unavailabl e Encounter Details Date Type Department Care Team (Latest Contact Info) Description 10/03/2018 Abstract [facility] CONVERSIONS Dental, Provider, DDS Social History [...] Description 08/24/2024 1:30 PM EDT Office Visit [facility] ADULT DENTAL [address] [place] [address] Verena Hobson, DDS [address] [place] [address] documented as of this encounter Visit Diagnoses Not on filedocumented in this encounter
--- OUTSIDE RECORDS SUMMARY | 2024-08-13 16:40 | XMS_ITS | Clinical Summary ---
Author Organization 175 [facility] Address [address] [place] [address] Phone Care Team Providers Care State Director Name Role Phone Sammi Beal MD Primary Care Provider [phone] Active Problems Problem Noted Date Diagnosed Date [...] Upcoming Encounters Date Type Department Care Team ([facility] Contact Info) Description 10/16/2024 3:30 PM EDT Office Visit Bariatric Surgery [facility] [address] [address] Tamra Barry MD [address] [address] Health Maintenance Due Date Last Done Comments [...] patient's age to complete this topic Insurance [facility] Care Teams State Director Relationship Specialty Start Date End Date Sammi Beal MD [address] [place] [address] , [address] [facility] Physician Associ D/B/A: [facility] JAVI Mistry PCP - General Internal Medicine 04/30/24
--- OUTSIDE RECORDS SUMMARY | 2024-08-13 16:40 | XMS_ITS | Clinical Summary ---
Author Organization [facility] Address [address] [facility] 7t [place] [address] Care Team Providers Care Can Repairer Name Role Phone Unavailable Primary Care Provider [...] Description 08/01/2024 10:00 AM EDT Office Visit [facility] ADULT DENTAL [address] [place] [address] Kimberley Urbina Dental calculus (Primary Dx); Subgingival [...] Description 08/24/2024 1:30 PM EDT Office Visit [facility] ADULT DENTAL [address] [place] [address] Almaguer-StevenMitchel woodsmia, DDS [address] [place] [address] Health Maintenance Due Date Last Done Comments [...] AM EDT from Last 3 Months Insurance [facility] MEDICAID STAND ADULT
[2024-08-13 16:54] LABS: Free T4 (Free Thyroxine) 1.21 ng/dL (0.71-1.85); TSH reflex Free T4 6.51 uIU/mL (0.32-4.0); Thyroid Stimulating Hormone 6.51 uIU/mL (0.32-4.0); Vitamin D 25-OH Total 37.7 ng/mL (>30)
== END 2024-08-13 14:04 | disposition home or self-care (01) ==
LOC: HO.LAB 14:03
PROVIDERS: PCP Internal Medicine; Visit Provider Student in an Organized Health Care Education/Training Program
DX: E21.3 Hyperparathyroidism, unspecified (principal); E55.9 Vitamin D deficiency, unspecified; E89.0 Postprocedural hypothyroidism
CPT/HCPCS: 36415; 80048; 82040; 82306; 82330; 83735; 83970; 84100; 84439; 84443; 99212

== ENCOUNTER → 2024-08-16 12:41 | Outpatient (BNVA) | payer OTHER, SELFPAY | PROVIDERS: PCP Student in an Organized Health Care Education/Training Program ==

== ENCOUNTER 2024-09-11 06:49 | Day surgery (SDC) | payer OTHER, SELFPAY ==
--- OUTSIDE RECORDS SUMMARY | 2024-08-23 14:32 | XMS_ITS | Clinical Summary ---
Author Organization [facility] Address [address] [facility] 7t [place] [address] Care Team Providers Care Stripping Cutter And Winder Name Role Phone Unavailable Primary Care [...] Description 08/01/2024 10:00 AM EDT Office Visit [facility] ADULT DENTAL [address] [place] [address] Kimberley Urbina Dental calculus (Primary Dx); Subgingival [...] 08/24/2024 1:30 PM EDT Office Visit [facility] ADULT DENTAL [address] [place] [address] Almaguer-StevenMitchel woodsmia, DDS [address] [place] [address] Health Maintenance Due Date Last Done Comments [...] AM EDT from Last 3 Months Insurance DENTAL-[facility] MEDICAID STAND ADULT
--- OUTSIDE RECORDS SUMMARY | 2024-08-23 14:32 | XMS_ITS | Clinical Summary ---
Author Organization 175 [facility] Address 175 [place] [address] Phone Care Team Providers Care Airline Ticket Agent Name Role Phone Sammi Beal MD Primary Care Provider [phone] Active Problems Problem Noted Date Diagnosed Date [...] Upcoming Encounters Date Type Department Care Team ([facility] Contact Info) Description 10/16/2024 3:30 PM EDT Office Visit Bariatric Surgery [facility] [address] [address] Tamra Barry MD [address] [address] Health Maintenance Due Date Last Done Comments Breast Cancer Screening 1971 DTaP,Tdap,and Td Vaccines (1 - Tdap) 1990 Hepatitis B Vaccines (1 of 3 - 19+ 3-dose series) 1990 Cervical Cancer Screening: P ap Smear 01/03/1992 Pneumococcal Vaccine: 50+ Ye ars (1 of 1 - PCV) 2021 Zoster Vaccines (1 of 2) 2021 COVID-19 Vaccine ( - 2023-2 5 season) 2024 Cholesterol Screening (Lipid Panel) 02/21/2024 Colorectal Cancer Screening: Colonoscopy 02/21/2024 Depression Screening 02/21/2024 HIV Screening 02/21/2024 Hepatitis C Screening 02/21/2024 Social Influencers of Health Screening 02/21/2024 Hypertension/CHF/CAD Annual BMP Blood Test 05/15/2024 Influenza Vaccine (Season Ended) 2025 HIB Vaccines Aged Out No longer eligi [...] age to complete this topic Meningococcal B Vaccine Aged Out No l onger eligible based on patient's age to complete [...] patient's age to complete this topic Insurance [facility] Care Teams Airline Ticket Agent Relationship Specialty Start Date End Date Sammi Beal MD [address] [place] [address] , [address] [facility] Physician Associ D/B/A: [facility] In Internal Medicine JAVI Mistry PCP - General Internal Medicine 04/30/24
--- OUTSIDE RECORDS SUMMARY | 2024-08-23 14:32 | XMS_ITS | Encounter Summary ---
Author Organization [facility] Address [address] [facility] 7t [place] [address] Care Team Providers Care Water Conservation Specialist Name Role Phone Unavailable Primary Care Provider Unavailabl e Encounter Details Date Type Department Care Team (Latest Contact Info) Description 10/03/2018 Abstract [facility] CONVERSIONS Dental, Provider, DDS Social [...] Description 08/24/2024 1:30 PM EDT Office Visit [facility] ADULT DENTAL [address] [place] [address] Verena Hobson, DDS [address] [place] [address] documented as of this encounter Visit Diagnoses Not on filedocumented in this encounter
--- OUTSIDE RECORDS SUMMARY | 2024-08-23 14:32 | XMS_ITS | Encounter Summary ---
Author Organization [facility] Address [address] [facility] 7 [place] [address] Care Team Providers Care General Road Supervisor Name Role Phone Unavailable Primary Care Provider Unavailabl e Encounter Details Date Type Department Care Team (Latest Contact Info) Description 02/18/2022 Abstract [facility] CONVERSIONS Dental, Provider, DDS Social History [...] Description 08/24/2024 1:30 PM EDT Office Visit [facility] ADULT DENTAL [address] [place] [address] Almaguer-Verena Steven, DDS [address] [place] [address] documented as of this encounter Visit Diagnoses Not on filedocumented in this encounter
[2024-09-07 11:31] VITALS: BMI 42.0
--- NOTE | 2024-09-10 11:55 | HO.ANESPROP2 ---
HPI - Anesthesia Eval Consult details Narrative: 54yo F for Cystoscopy with bladder Botox Injection PMFSH Active Problems Active Problems: All Active Problems Bilateral post-traumatic osteoarthritis of knee (Acute) Physical exam (Acute) Osteoarthritis of left knee (Acute) Knee osteoarthritis (Acute) Lumbar radiculopathy (Acute) Cervical radiculopathy (Acute) Chronic pain syndrome (Acute) Spondylosis without myelopathy or radiculopathy, lumbar region (Acute) Arthritis of left knee (Acute) Urinary incontinence (Acute) Detrusor overactivity (Acute) OAB (overactive bladder) (Acute) Urinary retention (Acute) Hypophosphatemia (Acute) Hypokalemia (Acute) Sensation of pressure in bladder area (Acute) Mixed incontinence urge and stress (Acute) Recurrent UTI (Acute) Patellofemoral arthritis of left knee (Acute) Costovertebral angle tenderness (Acute) Left knee pain (Acute) Immunization due (Acute) Acute parotitis (Acute) Physical exam (Acute) Migraine with aura (Acute) Excessive daytime sleepiness (Acute) Snoring (Acute) Migraine (Acute) Migraines (Acute) Leg edema (Acute) Lipoma (Acute) Hyperlipidemia (Acute) Elevated LFTs (Acute) Adult general medical exam (Acute) Elevated blood pressure reading (Acute) Screening for colon cancer (Acute) Screening for hyperlipidemia (Acute) Screening for diabetes mellitus (Acute) Low back pain (Acute) Lumbar back pain with radiculopathy affecting left lower extremity (Acute) Knee pain (Acute) HTN (hypertension) (Acute) Obesity (Acute) Morbid obesity with BMI of 40.0-44.9, adult (Acute) JAYLENE (generalized anxiety disorder) (Acute) Moderate recurrent major depression (Acute) Lump of skin (Acute) Vitamin D deficiency (Acute) Hyperparathyroidism (Acute) Common cold (Acute) Hot flash not due to menopause (Acute) Amenorrhea (Acute) Hypothyroidism (Acute) Past Medical History Medical History Hyperlipidemia OAB (overactive bladder) Arthritis Lumbar radiculopathy Cervical radiculopathy Migraine Benzodiazepine withdrawal Morbid obesity with BMI of 40.0-44.9, adult JAYLENE (generalized anxiety disorder) Moderate recurrent major depression Lump of skin Vitamin D deficiency Hyperparathyroidism Common cold Hot flash not due to menopause HTN (hypertension) Amenorrhea Obesity Hypothyroidism Obstructive sleep apnea Family History Family History Father Diabetes Hypertension Mother Diabetes Alzheimer's disease Brother Substance use disorder Family/Other Mental health disorder Maternal Aunt Cancer Surgical History Surgical History Hx of excision of mass Hx of cystoscopy History of thyroidectomy Hx of gastric bypass Hx of hemorrhoidectomy Hx of hysterectomy Hx of tubal ligation Hx of multiple trauma Social History Social History Housing: Apartment Alcohol intake: current Alcohol intake frequency: holidays/special occasions only Alcohol type: wine Patient Tobacco Use Status: Former Tobacco user Tobacco use type: Cigarette Cigarettes Per Day: 3 Years Smoked: 15 e-Cigarette/Vaping Use: Never Used Second Hand Smoke Exposure: No service: No 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al status: unemployed and disabled 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
[2024-09-11] VITALS (10 sets, daily range): BP systolic 133–157; BP diastolic 82–97; PULSE 57–77; RESP 14–16; TEMP 36.2–36.5; O2SAT 96–99; BMI 41.4
[2024-09-11] MEDS: Lactated Ringers 1,000 ML 100 ML IVCONT (07:46)
--- NOTE | 2024-09-11 08:10 | W.PM.OPN ---
Operative Note Operative Note Date of Service: 09/11/24 Narrative: PREOP DIAGNOSIS: OAB POSTOP DIAGNOSIS: OAB PROCEDURE: CYSTOSCOPY, BLADDER BOTOX INJECTION 100 UNITS SURGEON: Taj Sanabria MD ANESTHESIA: General Details of procedure: The patient was brought into the operating room placed on the OR table in supine position. Antibiotics confirmed. General anesthesia was administered. The patient was repositioned into lithotomy position, prepped and draped in the usual sterile fashion. Time-out was done per protocol. A 22 fr cystoscope was placed transurethrally into the bladder. Urine was sent for culture. Visualization of the bladder noted the trigone in a dependent position, due to mild cystocele. The right and left ureteral orifices were visualized. There were moderate trabeculations noted. There were no suspicious bladder lesions seen. The Botox 100 units was mixed with 10 cc of normal saline and transurethral injections were placed into the posterior wall of the bladder. 0.5cc placed at each injection site. Injections were placed in a grid 5 across and 4 longitudinally. Injections were placed from the inferior to superior position. 2% lidocaine urojet was passed transurethrally into the bladder. The patient was brought out of anesthesia and taken to recovery in stable condition. Complications: None EBL: minimal (<5 mL) Drains: none
--- NOTE | 2024-09-11 08:10 | MHC.SHP ---
Pre-Procedural Eval Section A - 24 Hr Update-Section A only Date of Service: 09/11/24 The patient is an INPATIENT: No The patient has been examined within 24 hours of the surgical procedure. The History & Physical has been completed within 30 days and I have reviewed it.: Yes Section B - Complete if H&P > 30 days Chief Complaint: Overactive bladder Allergies: Allergies Allergy/AdvReac Type Severity Reaction Status Date / Time aspirin Allergy Severe Swelling Verified 09/11/24 07:07 topiramate AdvReac Intermediate cough Verified 08/13/24 14:07 Plan Diagnosis/Plan: Unchanged I have reviewed the history and physical and performed a pertinent physical examination on my patient. No changes have occurred unless specified. Cystoscopy, bladder botox injection 100 units. I have discussed risks to include hematuria, UTI, urinary retention, need to repeat procedure for sustained efficacy. Time Spent With Patient Time: Total time managing care of this patient today ____ minutes.
[2024-09-11] MEDS: Phenazopyridine HCL 200 MG TABLET PO (09:15)
== END 2024-09-11 11:45 | disposition home or self-care (01) ==
PROVIDERS: PCP Internal Medicine; Visit Provider Urology
PROC: 3E0K8GC Introduction of Other Therapeutic Substance into Genitourinary Tract, Via Natural or Artificial Opening Endoscopic (ICD-10-PCS; CPT 52287; principal; 2024-09-11 08:30)
DX: N32.81 Overactive bladder (principal); I10 Essential (primary) hypertension; E78.5 Hyperlipidemia, unspecified; E55.9 Vitamin D deficiency, unspecified; E03.9 Hypothyroidism, unspecified; E66.01 Morbid (severe) obesity due to excess calories; Z68.41 Body mass index [BMI] 40.0-44.9, adult; G47.33 Obstructive sleep apnea (adult) (pediatric); F33.1 Major depressive disorder, recurrent, moderate; F41.1 Generalized anxiety disorder; Z79.899 Other long term (current) drug therapy; Z88.8 Allergy status to other drugs, medicaments and biological substances; Z88.6 Allergy status to analgesic agent; Z98.84 Bariatric surgery status; Z98.890 Other specified postprocedural states; Z87.891 Personal history of nicotine dependence; Z56.0 Unemployment, unspecified
CPT/HCPCS: 52287; 87086; J0585; J0690; J2003; J2405; J2704; J3010

== ENCOUNTER → 2024-09-11 06:49 | Outpatient (BNV) | payer OTHER, SELFPAY | PROVIDERS: PCP Internal Medicine; Visit Provider Urology | DX: N32.81 Overactive bladder (principal) | CPT/HCPCS: 52287 ==

== ENCOUNTER → 2024-09-24 13:39 | Outpatient (BNVA) | payer OTHER, SELFPAY | PROVIDERS: PCP Student in an Organized Health Care Education/Training Program; Visit Provider Urology | DX: N39.0 Urinary tract infection, site not specified (principal); R39.89 Other symptoms and signs involving the genitourinary system | CPT/HCPCS: 51798 ==

== ENCOUNTER 2024-12-06 11:20 | Outpatient (REF) | payer OTHER, SELFPAY ==
--- OUTSIDE RECORDS SUMMARY | 2024-12-06 12:19 | XMS_ITS | Encounter Summary ---
Author Organization [facility] Address [address] [facility] 7t [place] [address] Care Team Providers Care Customer Project Manager Name Role Phone Unavailable Primary Care Provider Unavailabl e Encounter Details Date Type Department Care Team (Latest Contact Info) Description 10/03/2018 Abstract [facility] CONVERSIONS Dental, Provider, DDS Social History Tobacco [...] Care Team (Late st Contact Info) Description 12/21/2024 10:00 AM EDT Office Visit [facility] ADULT DENTAL [address] [place] [address] Celestino Perez DDS [address] [place] [address] documented as of this encounter Visit Diagnoses Not on filedocumented in this encounter
--- OUTSIDE RECORDS SUMMARY | 2024-12-06 12:19 | XMS_ITS | Clinical Summary ---
Author Organization 175 [facility] Address [address] [place] [address] Phone Care Team Providers Care Supervisor Paper Products Name Role Phone Sammi Beal MD Primary Care Provider [phone] Allergies Active Allergy Reactions Criticality Noted Date Comments Aspirin 07/08/2022 Latex 10/03/2018 Medications Vitamin D3 25 mcg (1,000 unit) capsule Take 1 capsule (1,000 Units total) by mouth 1 (one) time each day. 09/04/2024 Active cholecalciferol (VITAMIN D-3) 50 mcg (2,000 unit) capsule Take 1 capsule (2,000 Units total) by mouth 1 (one) time each day. 09/22/2024 Active citalopram (CeleXA) 20 mg tablet Take 1 tablet (20 mg total) by mouth 1 (one) time each day. Active cyanocobalamin (VITAMIN B-12) 500 mcg tablet Take 1 tablet (500 mcg total) by mouth 1 (one) time each day. 03/23/2019 Active cyclobenzaprine (FLEXERIL) 10 mg tablet Take 1 tablet (10 mg total) by mouth 2 (two) times a day if needed. 09/20/2024 Active fluconazole (DIFLUCAN) 150 mg tablet Take 1 tablet (150 mg total) by mouth every 3 (three) days. 06/23/2022 Active hydroCHLOROthia zide 12.5 mg tablet Take 1 tablet (12.5 mg total) by mouth 1 (one) time each day. Active levothyroxine (SYNTHROID, LEVOTHROID) 137 mcg tablet Take 1 tablet (137 mcg total) by mouth 1 (one) time each day before breakfast. Active LORazepam (ATIVAN) 2 mg tablet Take 1 tablet (2 mg total) by mouth every 6 (six) hours if needed. Max Daily Amount: 8 mg 06/23/2022 Active losartan (COZAAR) 25 mg tablet Take 1 tablet (25 mg total) by mouth 1 (one) time each day. 08/13/2024 Active mirtazapine (REMERON) 7.5 mg tablet Take 1 tablet (7.5 mg total) by mouth at bedtime. 09/23/2024 Active traMADoL (ULTRAM) 50 mg tablet Take 1 tablet (50 mg total) by mouth every 4 (four) hours if needed. Max Daily Amount: 300 mg Active Active Problems Problem Noted Date Diagnosed Date HTN (hypertension) 05/15/2024 Obstructive sleep apnea 05/15/2024 History of gastric bypass 05/15/2024 History of hysterectomy 05/15/2024 History of thyroidectomy 05/15/2024 Hypothyroidism 05/15/2024 Encounters Date Type Department Care Team Description 10/16/2024 3:30 PM EDT Office Visit Bariatric Surgery [address] [address] Tamra Barry MD Class 3 severe obesity due to excess calories with body mass index (BMI) of 40.0 to 44.9 in adult, unspecified whether serious comorbidity present (CMS/HCC V24, CMS/HCC V28) (Primary Dx) from Last 3 Months Social History Tobacco Use Types Packs/Day Years Used Date Smoking Tobacco: Never Assessed Comments Unknown Sex and Gender Information Value Date Recorded Sex Assigned at Not on file Legal Sex Female 3:57 AM EST Gender Identity Not on file Sexual Orientation Not on file Last Filed Vital Signs Vital Sign Reading Time Taken Comments Blood Pressure 137/82 10/16/2024 3:17 PM EDT Pulse 76 10/16/2024 3:17 PM EDT Temperature 36.6 C (97.8 F) 10/16/2024 3:17 PM EDT Respiratory Rate - - Oxygen Saturation - - Inhaled Oxygen Concentration - - Weight 104 kg (230 lb) 10/16/2024 3:17 PM EDT Height 160 cm (5' 3 ) 10/16/2024 3:17 PM EDT Body Mass Index 40.74 10/16/2024 3:17 PM EDT Plan of Treatment Upcoming Encounters Date Type Department Care Team (Late st Contact Info) Description 12/20/2024 2:00 PM EDT Office Visit Bariatric Surgery - [place] [address] [facility] [address] [place] [address] Tamra Barry MD 175 [facility] [address] [place] [address] Health Maintenance Due Date Last Done Comments Breast Cancer Screening 1971 Hepatitis B Vaccines (1 of 3 - 19+ 3-dose series) 1990 Cervical Cancer Screening: Pap Smear 01/03/1992 Pneumococcal Vaccine: 50+ Years (1 of 1 - PCV) 2021 Zoster Vaccines (1 of 2) 2021 COVID-19 Vaccine (3 - 2023- season) 2024 09/06/2020, 08/14/2020 Cholesterol Screening (Lipid Panel) 02/21/2024 Colorectal Cancer Screening: Colonoscopy 02/21/2024 HIV Screening 02/21/2024 Hepatitis C Screening 02/21/2024 Social Influencers of Health Screening 02/21/2024 Hypertension/CHF/CAD Annual BMP Blood Test 05/15/2024 Depression Screening 05/16/2024 Influenza Vaccine (#1) 2025 5, 05/02/2023, 04/28/2022, Additional history exists DTaP,Tdap,and Td Vaccines (2 - Td or Tdap) 03/24/2031 03/24/2021 MMR Vaccines Aged Out 06/23/2022 No longer eligi ble based on patient's age to complete this topic HIB Vaccines Aged Out No longer eligi [...] to complete this topic RSV Immunization Patients Under 20 months Aged Out No longer eligible based on patient's age to complete this topic Varicella Vaccines Aged Out No longer eligible based on patient's age to complete this topic Insurance [facility] [employer] Care Teams Supervisor Paper Products Relationship Specialty Start Date End Date Sammi Beal MD [address] [place] [address] , [address] [facility] Physician Associ D/B/A: [facility]e [facility] In Internal Medicine JAVI Mistry PCP - General Internal Medicine 04/30/24
[2024-12-06 12:28] LABS: Free T4 (Free Thyroxine) 1.19 ng/dL (0.71-1.85); Thyroid Stimulating Hormone 0.86 uIU/mL (0.32-4.0)
== END 2024-12-06 11:21 | disposition home or self-care (01) ==
LOC: HO.LAB 11:20
PROVIDERS: PCP Internal Medicine; Visit Provider Student in an Organized Health Care Education/Training Program
DX: E89.0 Postprocedural hypothyroidism (principal)
CPT/HCPCS: 36415; 84439; 84443

== ENCOUNTER 2024-12-10 13:49 | Outpatient (AMB) | payer OTHER, SELFPAY ==
--- NOTE | 2024-12-10 13:58 | MHC.OFFVIS ---
Intake Visit Reasons: Botox- follow up Intake Note: Patient is present for Botox-Follow Up Urology Medication: Estradiol Antibiotic Allergies:None Blood Thinners: None PVR:0ml Prior Authorization Nurse Required: Yes Prior Authorization Nurse Language: Cutting Inspector Name: Reggie Information Interpreted: non-clinical & clinical Accompanied by: Self / Same As Patient Allergies aspirin Allergy (Severe, Verified 12/10/24 14:00) Swelling topiramate Adverse Reaction (Intermediate, Verified 12/10/24 14:00) cough Medication List - Last Reconciled 12/10/24 by Taj Sanabria MD [id number] 50-325-40 mg 1 tab PO Q6H PRN 15 days capsaicin 0.1% (Arthritis Pain Relief (capsaicin)) 1 appl topical BID cholecalciferol (vitamin D3) 25 mcg PO DAILY cyclobenzaprine 10 mg PO BEDTIME PRN 30 days levothyroxine 150 mcg PO DAILY losartan 25 mg PO DAILY 90 days omeprazole 40 mg PO DAILY tramadol 50 mg PO DAILY 30 days HPI Comments Details: 12/10/24-- History of Present Illness - The patient is a 54-year-old female presenting for follow-up management of overactive bladder. - The patient underwent a Botox injection procedure on September 11, 2024 for the management of overactive bladder. - The procedure was performed previously in August 2023.. - The patient reports satisfactory results from the procedure, with no significant issues noted since the last injection. - A follow-up phone call is planned in three to four months to reassess urinary symptoms. Plan - Continue Botox injections for overactive bladder management, - Schedule a follow-up phone call in three to four months to reevaluate the patient's symptoms and schedule next botox intervention. 06/11/24--Caro is a 54 year old Portuguese-speaking female who is status post cystoscopy bladder Botox injection 100 units 09/03/2023. She states she has done very well since the procedure. She denies urinary leakage. Urinary frequency and urgency has decreased. Plan to repeat bladder Botox injection. 06/01/23--Caro is a 53-year-old female who presents today to the office for a urodynamics. She has been on Myrbetriq and oxybutynin in the past without improvement in her symptoms. Leakage was not observe with valsalva, leakage was observed with cough and it was not clear if there may have been an associated cough induced detrusor contraction. Findings consistent with less than average functional bladder capacity, and detrusor overactivity. Discussed Botox bladder injection 200 units [facility] Medical History Hyperlipidemia OAB (overactive bladder) Arthritis Lumbar radiculopathy Cervical radiculopathy Migraine Benzodiazepine withdrawal Morbid obesity with BMI of 40.0-44.9, adult JAYLENE (generalized anxiety disorder) Moderate recurrent major depression Lump of skin Vitamin D deficiency Hyperparathyroidism Common cold Hot flash not due to menopause HTN (hypertension) Amenorrhea Obesity Hypothyroidism Obstructive sleep apnea Surgical History Hx of excision of mass Hx of cystoscopy History of thyroidectomy Hx of gastric bypass Hx of hemorrhoidectomy Hx of hysterectomy Hx of tubal ligation Hx of multiple trauma Family History Father Diabetes Hypertension Mother Diabetes Alzheimer's disease Brother Substance use disorder Family/Other Mental health disorder Maternal Aunt Cancer Social History Housing: Apartment Are you a primary team primary care physician to a significant other at home: No Do you presently have visiting nurse or other home services: No Alcohol intake: current Alcohol intake frequency: does not drink Alcohol type: wine Patient Tobacco Use Status: Former Tobacco user Tobacco use type: Cigarette Cigarettes Per Day: 3 Years Smoked: 15 e-Cigarette/Vaping Use: Never Used Second Hand Smoke Exposure: No service: No 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al status: unemployed and disabled 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 Cognitive needs: No Hearing needs: No Vision needs: Yes (Glasses) Review of Systems Const All systems reviewed & are unremarkable except as noted in HPI and below Reports no additional complaints Eyes Reports no additional complaints ENT Reports no additional complaints Card Reports no additional complaints Resp Reports no additional complaints GI Reports no additional complaints Reports as per HPI Musc Reports no additional complaints Skin/Breast Reports system reviewed and no additional complaints, except as documented Neuro Reports no additional complaints Psych Reports no additional complaints Endo Reports no additional complaints Jeanmarie/Lymph Reports no additional complaints Aller/Immun Reports no additional complaints Assessment & Plan Assessment & Plan (1) OAB (overactive bladder): Code(s): N32.81 - Overactive bladder Category: Medical Plan Plan - Continue Botox injections for overactive bladder management, - Schedule a follow-up phone call in three to four months to reevaluate the patient's symptoms and schedule next botox intervention. Patient Instructions: The patient had an opportunity to ask questions regarding treatment plan. The patient expressed understanding and agreement with the above treatment plan. The patient is aware they should contact our office by phone for worsening of their current condition or the appearance of new symptoms. Compliance is encouraged with any medications and followup testing that is ordered. It is a privilege to be allowed the opportunity to participate in the urologic care of your patient. If you have any questions or concerns regarding treatment for the above conditions please do not hesitate to contact me. The office telephone contact is [phone]. This note is constructed in part using voice recognition software. While every effort has been made to ensure accuracy global human resources director errors may have been included. Yours sincerely, Taj Sanabria MD Scribe Plan - Not visible on output: Patient was informed and verbally consented to the use of an ambient scribe for clinic note documentation during this visit. Coding Level of Care Code Est Pt Level 3 (33852) Diagnoses OAB (overactive bladder) N32.81
--- OUTSIDE RECORDS SUMMARY | 2024-12-10 14:29 | XMS_ITS | Clinical Summary ---
Author Organization 175 [facility] Address 175 [place] [address] Phone Care Team Providers Care Base Filler Name Role Phone Sammi Beal MD Primary Care Provider [phone] Allergies Active Allergy Reactions Criticality Noted Date [...] 3:30 PM EDT Office Visit Bariatric Surgery [address] [address] Tamra Barry MD Class 3 [...] PM EDT Office Visit Bariatric Surgery - [place] [address] [facility] [address] [place] [address] Tamra Barry MD [address] [facility] [address] [place] [address] Health Maintenance Due Date Last Done Comments [...] patient's age to complete this topic Insurance [facility] [employer] Care Teams Base Filler Relationship Specialty Start Date End Date Sammi Beal MD [address] [place] [address] , [address] [facility] D/B/A: [facility] JAVI Mistry PCP - General Internal Medicine 04/30/24
== END 2024-12-10 14:40 | disposition home or self-care (01) ==
LOC: HO.HUSH 13:50
PROVIDERS: PCP Student in an Organized Health Care Education/Training Program; Visit Provider Urology
DX: N32.81 Overactive bladder (principal); Z13.9 Encounter for screening, unspecified
CPT/HCPCS: 99213

== ENCOUNTER → 2024-12-10 13:49 | Outpatient (BNVA) | payer OTHER, SELFPAY | PROVIDERS: PCP Student in an Organized Health Care Education/Training Program; Visit Provider Urology | DX: N32.81 Overactive bladder (principal) | CPT/HCPCS: 81003; 99212 ==

== ENCOUNTER 2024-12-28 09:21 | Outpatient (AMB) | payer OTHER, SELFPAY ==
--- OUTSIDE RECORDS SUMMARY | 2024-12-28 09:36 | XMS_ITS | Encounter Summary ---
Author Organization [facility] Address [address] [facility] 7[address] [place] [address] Care Team Providers Care Maitre D Name Role Phone Unavailable Primary Care Provider Unavailabl e Encounter Details Date Type Department Care Team (Latest Contact Info) Description 10/03/2018 Abstract [facility] CONVERSIONS Dental, Provider, DDS Social History [...] Care Team (Late st Contact Info) Description 01/09/2025 10:00 AM EDT Office Visit [facility] ADULT DENTAL [address] [place] [address] Almaguer-StevenVerena woods, DDS [address] [place] [address] documented as of this encounter Visit Diagnoses Not on filedocumented in this encounter
--- NOTE | 2024-12-28 09:37 | MHC.OFFVIS ---
Intake Visit Reasons: OV - B/L knee pain, left side worse Intake Note: Caro a 54 year old female who presents today for a follow up of bilateral knee OA, last injections on 08/06/24. Patient reports injections provided injection did not provide her iwth any relief. She continues to have pain with her left being the worse. She continues to wear knee bracing for both knees. Finds no relief with Tylenol or Motrin. Shoe Reconditioner Required: Yes Shoe Reconditioner Services: Shoe Reconditioner Present Shoe Reconditioner Name: [id number], Patric/LM Allergies aspirin Allergy (Severe, Verified 12/28/24 09:38) Swelling topiramate Adverse Reaction (Intermediate, Verified 12/28/24 09:38) cough Medication List - Last Reconciled 12/28/24 by Danielle Wheatley PA-C [id number]-[id number]-[id number] 50-325-40 mg 1 tab PO Q6H PRN 15 days capsaicin 0.1% (Arthritis Pain Relief (capsaicin)) 1 appl topical BID celecoxib (Celebrex) 200 mg PO BID 30 days cholecalciferol (vitamin D3) 25 mcg PO DAILY cyclobenzaprine 10 mg PO BEDTIME PRN 30 days levothyroxine 150 mcg PO DAILY losartan 25 mg PO DAILY 90 days omeprazole 40 mg PO DAILY tramadol 50 mg PO DAILY 30 days HPI HPI OV - B/L knee pain, left side worse: Details: 54-year-old female returns to the office today for bilateral knee pain. I have not seen her for quite some time for bilateral knee pain and she has had injections and done physical therapy with minimal relief. Her primary complaint is anterior knee pain which is worse with daily activity especially stairs. She has also seen pain management and had geniculate nerve blocks with minimal relief. She recently saw them in October of 2023 where they recommended another treatment which she has not followed up with since. [facility] Medical History Hyperlipidemia OAB (overactive bladder) Arthritis Lumbar radiculopathy Cervical radiculopathy Migraine Benzodiazepine withdrawal Morbid obesity with BMI of 40.0-44.9, adult JAYLENE (generalized anxiety disorder) Moderate recurrent major depression Lump of skin Vitamin D deficiency Hyperparathyroidism Common cold Hot flash not due to menopause HTN (hypertension) Amenorrhea Obesity Hypothyroidism Obstructive sleep apnea Surgical History Hx of excision of mass Hx of cystoscopy History of thyroidectomy Hx of gastric bypass Hx of hemorrhoidectomy Hx of hysterectomy Hx of tubal ligation Hx of multiple trauma Family History Father Diabetes Hypertension Mother Diabetes Alzheimer's disease Brother Substance use disorder Family/Other Mental health disorder Maternal Aunt Cancer Social History Housing: Apartment Are you a primary child care cook to a significant other at home: No Do you presently have visiting nurse or other home services: No Alcohol intake: current Alcohol intake frequency: does not drink Alcohol type: wine Patient Tobacco Use Status: Former Tobacco user Tobacco use type: Cigarette Cigarettes Per Day: 3 Years Smoked: 15 e-Cigarette/Vaping Use: Never Used Second Hand Smoke Exposure: No service: No 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al status: unemployed and disabled 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 Cognitive needs: No Hearing needs: No Vision needs: Yes (Glasses) Review of Systems Const All systems reviewed & are unremarkable except as noted in HPI and below Physical Exam Const General: cooperative, healthy appearing, comfortable, no acute distress, well developed and alert Orientation/consciousness: patient oriented x3 HEENT Head: Yes normal to inspection, Yes normocephalic and Yes atraumatic Eyes General: appearance normal, both eyes and all related structures Resp Effort & Inspection: normal respiratory effort and able to speak in complete sentences Cardio Rate: regular rate Peripheral pulses: Peripheral pulses 2+ throughout GI Palpation (GI): Soft to palpation Skin Lesions: no lesions Rashes: no rashes Neuro General: patient oriented x3 Extrem Other: Left knee: Skin intact, no erythema or joint effusion. Lateral retropatellar tenderness present. Full ROM with crepitus. Negative Tyrell?s. No ligamentous laxity. NVI. Right knee: Skin intact, no erythema or joint effusion. Tenderness along the medial and lateral joint line. Full ROM with crepitus. Negative Tyrell?s. No ligamentous laxity. NVI. Office Procedures AMB Joint Injection/Aspiration Joint Injection/Aspiration Primary Site: right knee Secondary Site: left knee Prep: site was prepped using aseptic technique, ethochloride spray was applied and injection warnings given Injected: 80 mg of, DepoMedrol, with 8 mL of, 1% plain lidocaine and in the joint Approach Used: anterolateral Procedure: The patient tolerated the procedure well and there was some relief with the local anesthesia Coding 22887 - Glenohumeral/Tronchanteric Bursa/Intraarticular Procedure code (CPT) selection complete Assessment & Plan Assessment & Plan (1) Patellofemoral arthritis of left knee: Code(s): M17.12 - Unilateral primary osteoarthritis, left knee Category: Medical (2) Patellofemoral arthritis of right knee: Code(s): M17.11 - Unilateral primary osteoarthritis, right knee Category: Medical Plan We discussed options which includes repeat steroid injections which she did consent to. Bilateral knees injected today which she tolerated well. I also stressed the importance of physical therapy and strengthening conditioning work to help offset the load through the patella. She is hesitant as this does cause increased discomfort especially in her back but I did reassure her if we can get the pain under control she can have success with physical therapy. I also encouraged her follow up with pain management as they recommended some new treatment options. I did place a workload message to their office to follow up with her as well. We will also get prior authorization for bilateral gel injections as she continues to have steroid and receives limited effect. A prescription for Celebrex has also been sent to the pharmacy she will take this twice a day for 2 weeks to help with acute flare-ups. I will see her back once the gel is approved. Orders: Orders PT Evaluation and Treatment Today M17.11 - Unilateral primary osteoarthritis, right knee, M17.12 - Unilateral primary osteoarthritis, left knee Medications: New celecoxib (Celebrex) 200 mg PO BID 60 caps 3RF 30 days Coding Level of Care Code Est Pt Level 3 (55954) Complex EM visit Add On G2211 Diagnoses Patellofemoral arthritis of left knee M17.12 Patellofemoral arthritis of right knee M17.11 CPT Codes Coding - Joint 7: 31835 - Glenohumeral/Tronchanteric Bursa/Intraarticular ([id number])
== END 2024-12-28 10:28 | disposition home or self-care (01) ==
LOC: HO.HOS 09:22
PROVIDERS: PCP Student in an Organized Health Care Education/Training Program; Visit Provider Physician Assistant
DX: M17.0 Bilateral primary osteoarthritis of knee (principal)
CPT/HCPCS: 20610; 99213

== ENCOUNTER → 2024-12-28 09:21 | Outpatient (BNVA) | payer OTHER, SELFPAY | PROVIDERS: PCP Student in an Organized Health Care Education/Training Program; Visit Provider Physician Assistant | DX: M17.11 Unilateral primary osteoarthritis, right knee (principal); M17.12 Unilateral primary osteoarthritis, left knee | CPT/HCPCS: 20610; 99212; J1010; J2003 ==

== ENCOUNTER 2025-01-17 15:04 | Outpatient (AMB) | payer OTHER, SELFPAY ==
--- NOTE | 2025-01-17 15:09 | MHC.OFFVIS ---
Vital Signs 01/17/25 15:10 Height 5 ft 3 in Weight 231 lb BMI 40.9 BP 132/75 Blood Pressure Location Lt brachial Position Sitting Pulse 91 Pulse Source Pulse Oximeter Pulse Oximetry (%) 96 Oxygen Delivery Method Room Air Intake Visit Reasons: KNEE PAIN Jig Fitter Required: Yes Jig Fitter Name: [id number] Allergies aspirin Allergy (Severe, Verified 01/17/25 15:09) Swelling topiramate Adverse Reaction (Intermediate, Verified 01/17/25 15:09) cough HPI Comments Details: Caro is back in my office after more than a year of absence. She received at that time diagnostic left knee genicular nerve block. Although she had this procedure 1 month on 10/11/2023 ago she reported no pain improvement after the procedure. She reported only pain aggravation after the procedure. I schedule her for diagnostic left femoral nerve block however patient did not have this procedure. It is not clear whether she no showed or she did not received invitation for the procedure. I told her if she wants me to schedule this procedure for her. She agreed to go for diagnostic left knee genicular nerve block. I explained to her that treating her knee pain with sprint PNS or cure on X PNS is a possibility if femoral nerve block will help her pain. Brochures of sprint and cure on X were given to the patient. [facility] Medical History Hyperlipidemia OAB (overactive bladder) Arthritis Lumbar radiculopathy Cervical radiculopathy Migraine Benzodiazepine withdrawal Morbid obesity with BMI of 40.0-44.9, adult JAYLENE (generalized anxiety disorder) Moderate recurrent major depression Lump of skin Vitamin D deficiency Hyperparathyroidism Common cold Hot flash not due to menopause HTN (hypertension) Amenorrhea Obesity Hypothyroidism Obstructive sleep apnea Surgical History Hx of excision of mass Hx of cystoscopy History of thyroidectomy Hx of gastric bypass Hx of hemorrhoidectomy Hx of hysterectomy Hx of tubal ligation Hx of multiple trauma Family History Father Diabetes Hypertension Mother Diabetes Alzheimer's disease Brother Substance use disorder Family/Other Mental health disorder Maternal Aunt Cancer Social History Housing: Apartment Are you a primary critical care technician to a significant other at home: No Do you presently have visiting nurse or other home services: No Alcohol intake: current Alcohol intake frequency: does not drink Alcohol type: wine Patient Tobacco Use Status: Former Tobacco user Tobacco use type: Cigarette Cigarettes Per Day: 3 Years Smoked: 15 e-Cigarette/Vaping Use: Never Used Second Hand Smoke Exposure: No service: No 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al status: unemployed and disabled 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 Cognitive needs: No Hearing needs: No Vision needs: Yes (Glasses) Review of Systems Const All systems reviewed & are unremarkable except as noted in HPI and below Physical Exam Vital Signs: Last Vital Signs Pulse 91 01/17/25 15:10 BP 132/75 01/17/25 15:10 Pulse Ox 96 01/17/25 15:10 Oxygen Delivery Method Room Air 01/17/25 15:10 BMI result Body Mass Index 40.9 Const General: cooperative, healthy appearing, comfortable, no acute distress, well developed and alert Orientation/consciousness: patient oriented x3 HEENT Head: Yes normal to inspection, Yes normocephalic and Yes atraumatic Eyes General: appearance normal, both eyes and all related structures Resp Effort & Inspection: normal respiratory effort and able to speak in complete sentences Cardio Rate: regular rate Peripheral pulses: Peripheral pulses 2+ throughout GI Palpation (GI): Soft to palpation Skin Lesions: no lesions Rashes: no rashes Neuro General: patient oriented x3 Extrem Other: Left knee: Skin intact, no erythema or joint effusion. Lateral retropatellar tenderness present. Full ROM with crepitus. Negative Tyrell?s. No ligamentous laxity. NVI. Right knee: Skin intact, no erythema or joint effusion. Tenderness along the medial and lateral joint line. Full ROM with crepitus. Negative Tyrell?s. No ligamentous laxity. NVI. Assessment & Plan Assessment & Plan (1) Arthritis of left knee: Code(s): M17.12 - Unilateral primary osteoarthritis, left knee Category: Medical (2) Chronic pain syndrome: Code(s): G89.4 - Chronic pain syndrome Category: Medical (3) Left knee pain: Code(s): M25.562 - Pain in left knee Category: Medical Qualifiers: Chronicity: unspecified Qualified Code(s): M25.562 - Pain in left knee Plan This patient is suffering from advanced left knee osteoarthritis, moderate nature of the arthritis results in significant pain syndrome. Diagnostic genicular nerve block did not result in improvement. She reported no pain relief. I offered her femoral nerve block on the left, she insisted to have this procedure under deep sedation. However her procedure was not scheduled probably on patient not showing up. I will make sure this time that we have correct telephone number of this patient. I will schedule her for diagnostic left femoral nerve block under sedation. Coding Level of Care Code Est Pt Level 3 (86260) Diagnoses Arthritis of left knee M17.12 Chronic pain syndrome G89.4 Left knee pain, unspecified chronicity M25.562 Chronicity: unspecified
[2025-01-17 15:10] VITALS: BP 132/75; PULSE 91; O2SAT 96; BMI 40.9
--- OUTSIDE RECORDS SUMMARY | 2025-01-17 16:05 | XMS_ITS | Encounter Summary ---
Author Organization [facility] Address [address] [facility] [address] [place] [address] Care Team Providers Care Jacquard Loom Card Changer Name Role Phone Unavailable Primary Care Provider Unavailabl e Encounter Details Date Type Department Care Team (Latest Contact Info) Description 10/03/2018 Abstract [facility] CONVERSIONS Dental, Provider, DDS Social History [...] Care Team (Late st Contact Info) Description 01/24/2025 10:30 AM EDT Office Visit [facility] ADULT DENTAL [address] [place] [address] Almaguer-Verena Steven, DDS [address] [place] [address] documented as of this encounter Visit Diagnoses Not on filedocumented in this encounter
--- OUTSIDE RECORDS SUMMARY | 2025-01-17 16:05 | XMS_ITS | Encounter Summary ---
Author Organization [facility] Address [address] [facility] [address] [place] [address] Care Team Providers Care Equal Employment Opportunity Officer Name Role Phone Unavailable Primary Care Provider Unavailabl e Encounter Details Date Type Department Care Team (Latest Contact Info) Description 02/18/2022 Abstract [facility] CONVERSIONS Dental, Provider, DDS Social [...] 01/24/2025 10:30 AM EDT Office Visit [facility] ADULT DENTAL [address] [place] [address] Almaguer-Verena Steven, DDS [address] [place] [address] documented as of this encounter Visit Diagnoses Not on filedocumented in this encounter
--- OUTSIDE RECORDS SUMMARY | 2025-01-17 16:05 | XMS_ITS | Clinical Summary ---
Author Organization 175 [facility] Address [address] [place] [address] Phone Care Team Providers Care Die Baker Name Role Phone Sammi Beal MD Primary Care Provider [phone] Allergies Active Allergy Reactions Criticality Noted Date [...] Encounters Date Type Department Care Team Description 12/20/2024 2:00 PM EDT Office Visit Bariatric Surgery [address] [address] Tamra Barry MD Class 3 [...] Sign Reading Time Taken Comments Blood Pressure 149/82 12/20/2024 2:30 PM EDT Pulse 89 12/20/2024 2:30 PM EDT Temperature 36.8 C (98.2 F) 12/20/2024 2:30 PM EDT Respiratory Rate - - Oxygen Saturation - - Inhaled Oxygen Concentration - - Weight 107 kg (235 lb) 12/20/2024 2:30 PM EDT Height 160 cm (5' 3 ) 12/20/2024 2:30 PM EDT Body Mass Index 41.63 12/20/2024 2:30 PM EDT Plan of Treatment Upcoming Encounters Date Type Department Care Team (Late st Contact Info) Description 03/25/2025 1:00 PM EST Nutrition Bariatric Surgery - [place] [address] [address] Jud Swartz, RD [address] [address] 06/27/2025 1:00 PM EST Office Visit Bariatric Surgery - [place] [address] [address] Tamra Barry MD [address] [place] [address] Health Maintenance Due Date Last Done Comments Breast Cancer Screening 1971 Hepatitis B Vaccines (1 of 3 - 19+ 3-dose series) 1990 Cervical Cancer Screening: Pap Smear 01/03/1992 Pneumococcal Vaccine: 50+ Years (1 of 1 - PCV) 2021 Zoster Vaccines (1 of 2) 2021 Cholesterol Screening (Lipid Panel) 02/21/2024 Colorectal Cancer Screening: Colonoscopy 02/21/2024 HIV Screening 02/21/2024 Hepatitis C Screening 02/21/2024 Social Influencers of Health Screening 02/21/2024 Hypertension/CHF/CAD Annual BMP Blood Test 05/15/2024 Depression Screening 05/16/2024 COVID-19 Vaccine ( season) 2025 09/06/2020, 08/14/2020 Influenza Vaccine (#1) 2025 , 05/02/2023, 04/28/2022, Additional history exists DTaP,Tdap,and Td [...] patient's age to complete this topic Insurance [facility] PLAN Care Teams Die Baker Relationship Specialty Start Date End Date Sammi Beal MD [address] [place] [address] , [address] Physician Associ D/B/A: [facility] JAVI Mistry PCP - General Internal Medicine 04/30/24
--- OUTSIDE RECORDS SUMMARY | 2025-01-17 16:05 | XMS_ITS | Clinical Summary ---
Author Organization [employer] Address [address] [facility] [address] [place] [address] Care Team Providers Care Cardiac Cath Lab Radiology Technologist Name Role Phone Unavailable Primary Care Provider [...] times daily. 112 g 3 5 Active amoxicillin (Amoxil) 500 MG capsule Take 1 capsule (500 mg) by mouth every 8 (eight) hours for 7 days. 21 capsule 5 12/29/19 25 acetaminophen (Tylenol) 500 MG tablet Take 1 tablet (500 mg) by mouth every 8 (eight) hours if needed for mild pain for up to 7 days. 21 tablet 5 12/29/19 25 Active Problems Problem Noted Date Diagnosed Date Urinary incontinence 08/24/2024 History of hysterectomy 05/15/2024 History of gastric bypass 05/15/2024 HTN (hypertension) 05/15/2024 Hypothyroidism 05/15/2024 Obstructive sleep apnea 05/15/2024 History of thyroidectomy 05/15/2024 Status post total thyroidectomy 08/01/2019 Encounters Date Type Department Care Team Description 01/09/2025 10:00 AM EDT Office Visit [facility] [address] [place] [address] Almaguer-Steven, Verena, DDS Dental caries (Primary Dx); Full coverage crown needed for root canal-treated tooth 12/21/2024 10:00 AM EDT Office Visit [facility] [address] [place] [address] Celestino Perez, DDS 11/06/2024 11:00 AM EDT Office Visit [facility] [address] [place] [address] Almaguer-Steven, Verena, DDS Full coverage crown needed for root canal-treated tooth (Primary Dx) 10/25/2024 2:30 PM EDT Office Visit [facility] [address] [place] [address] Almaguer-Steven, Verena, DDS Full coverage crown needed for root canal-treated tooth (Primary Dx); Full coverage crown needed for tooth at risk for fracture from Last 3 Months Social History Tobacco [...] Sign Reading Time Taken Comments Blood Pressure 140/80 01/09/2025 9:51 AM EDT Pulse 77 12/21/2024 9:52 AM EDT Temperature - - Respiratory Rate - - Oxygen Saturation - - Inhaled Oxygen Concentration - - Weight - - Height - - Body Mass Index - - Plan of Treatment Upcoming Encounters Date Type Department Care Team (Late st Contact Info) Description 01/24/2025 10:30 AM EDT Office Visit [facility] [address] [place], [place] [phone] Verena Hobson, DDS [address] [place] [address] Health Maintenance Due Date Last Done Comments CT Colonography 1971 Colonoscopy 1971 Colorectal Cancer Screening 1971 Depression Screening 1971 FIT DNA/Cologuard 1971 FIT 1971 FOBT 1971 HIV Screening 1971 Lipid Panel 1971 SDOH Screening 1971 Sigmoidoscopy 1971 Disability Screening 1971 Alcohol/Substance Use Screening 1983 Hepatitis C Screening 1989 Hepatitis B Vaccines (1 of 3 - 19+ 3-dose series) 1990 Pap Smear 01/03/1992 Cervical Cancer Screening 2001 HPV/Cotest 2001 Mammogram 2011 Pneumococcal Vaccine: 50+ Years (1 of 1 - PCV) 2021 Zoster Vaccines (1 of 2) 2021 COVID-19 Vaccine (3 - 2024- season) 2025 09/06/2020, 08/14/2020 Influenza Vaccine (#1) 2025 , 05/02/2023, 04/28/2022, Additional history exists Dental Oral Exam 02/02/2025 08/01/2024 Dental Prophylaxis 02/02/2025 08/01/2024, 08/10/2022 Dental X-Ray: Bitewings 08/02/2025 08/01/2024 Tobacco Screening 01/09/2026 01/09/2025 Dental X-Ray: Full Mouth 08/03/2027 08/01/2024 DTaP/Tdap/Td [...] Procedure Name Priority Date/Time Associated Diagnosis Comments CASE PRESENTATION, DETAILED AND EXTENSIVE TREATMENT PLANNING Routine 01/09/2025 10:00 AM EDT Dental caries Full coverage crown needed for root canal-treated tooth INTRAORAL - PERIAPICAL FIRST RADIOGRAPHIC IMAGE Routine 01/09/2025 10:00 AM EDT Dental caries Full coverage crown needed for root canal-treated tooth CROWN PREP Routine 01/09/2025 10:00 AM EDT Dental caries Full coverage crown needed for root canal-treated tooth 27 PREFABRICATED POST AND CORE IN ADDITION TO CROWN Routine 01/09/2025 10:00 AM EDT Dental caries Full coverage crown needed for root canal-treated tooth CASE PRESENTATION, DETAILED AND EXTENSIVE TREATMENT PLANNING Routine 12/21/2024 10:00 AM EDT 27 ENDODONTIC THERAPY, ANTERIOR TOOTH Routine 12/21/2024 10:00 AM EDT CASE PRESENTATION, DETAILED AND EXTENSIVE TREATMENT PLANNING Routine 11/06/2024 11:00 AM EDT Full coverage crown needed for root canal-treated tooth INTRAORAL - PERIAPICAL FIRST RADIOGRAPHIC IMAGE Routine 11/06/2024 11:00 AM EDT Full coverage crown needed for root canal-treated tooth 21 CROWN - PORCELAIN/CERAMIC Routine 11/06/2024 11:00 AM EDT Full coverage crown needed for root canal-treated tooth CASE PRESENTATION, DETAILED AND EXTENSIVE TREATMENT PLANNING Routine 10/25/2024 2:30 PM EDT INTRAORAL - PERIAPICAL FIRST RADIOGRAPHIC IMAGE Routine 10/25/2024 2:30 PM EDT CROWN PREP Routine 10/25/2024 2:30 PM EDT 21 PREFABRICATED POST AND CORE IN ADDITION TO CROWN Routine 10/25/2024 2:30 PM EDT PROPHYLAXIS - ADULT Routine 08/01/2024 1 0:00 AM EDT Dental calculus Subgingival dental calculus Supragingival dental calculus Dental plaque Gingivitis INTRAORAL - COMPLETE SERIES OF RADIOGRAPHIC IMAGES Routine 08/01/2024 10:00 AM EDT PERIODIC ORAL EVALUATION - ESTABLISHED PATIENT Routine 08/01/2024 10:00 AM EDT from Last 3 Months or Most Recently Relevant to Health Maintenance Insurance [facility] [id number] [place] [phone]
== END 2025-01-17 15:24 | disposition home or self-care (01) ==
LOC: HO.PMC 15:05
PROVIDERS: PCP Student in an Organized Health Care Education/Training Program; Visit Provider Anesthesiology
DX: M17.12 Unilateral primary osteoarthritis, left knee (principal); G89.4 Chronic pain syndrome; M25.562 Pain in left knee
CPT/HCPCS: 99213

== ENCOUNTER → 2025-01-17 15:04 | Outpatient (BNVA) | payer OTHER, SELFPAY | PROVIDERS: PCP Student in an Organized Health Care Education/Training Program; Visit Provider Anesthesiology | DX: M17.12 Unilateral primary osteoarthritis, left knee (principal); M25.562 Pain in left knee; G89.4 Chronic pain syndrome | CPT/HCPCS: 99212 ==

== ENCOUNTER 2025-02-04 15:49 | Outpatient (REF) | payer OTHER, SELFPAY ==
[2025-02-04 17:42] LABS: Albumin Level 4.5 g/dL (3.5-5.0); Calcium 9.4 mg/dL (8.4-10.2); Estimated Glomerular Filt Rate > 60
[2025-02-04 17:48] LABS: Parathyroid Hormone Intact 90.1 pg/mL (8.7-77.1)
[2025-02-04 17:59] LABS: Free T4 (Free Thyroxine) 1.10 ng/dL (0.71-1.85); Thyroid Stimulating Hormone 4.23 uIU/mL (0.32-4.0)
--- OUTSIDE RECORDS SUMMARY | 2025-02-04 18:01 | XMS_ITS | Encounter Summary ---
Author Organization [employer] Address [address] [place] [address] [address] [place] [address] Care Team Providers Care Air Tester Name Role Phone e
[2025-02-05 14:48] LABS: Calcium, Ionized 5.1 mg/dL (4.7-5.5)
== END 2025-02-04 15:50 | disposition home or self-care (01) ==
LOC: HO.LAB 15:49
PROVIDERS: PCP Internal Medicine; Visit Provider Student in an Organized Health Care Education/Training Program
DX: E89.0 Postprocedural hypothyroidism (principal); E55.9 Vitamin D deficiency, unspecified; E21.3 Hyperparathyroidism, unspecified
CPT/HCPCS: 36415; 82040; 82306; 82310; 82330; 82565; 83970; 84100; 84439; 84443

== ENCOUNTER 2025-02-12 10:43 | Outpatient (AMB) | payer OTHER, SELFPAY ==
[2025-02-12 10:45] VITALS: BP 146/102; BMI 42.4
--- NOTE | 2025-02-12 10:45 | MHC.OFFVIS ---
Vital Signs 02/12/25 10:45 Height 5 ft 3 in Weight 239 lb 10.279 oz BMI 42.4 BP 146/102 H Blood Pressure Location Lt brachial Position Sitting Intake Visit Reasons: Secondary Hyperthyroidism Intake Note: Patient present today for Secondary Hyperthyroidism office visit. Visiting Housekeeper Required: Yes Visiting Housekeeper Language: Breeding Technician Services: Visiting Housekeeper Present Visiting Housekeeper Name: Higinio [id number] Information Interpreted: non-clinical & clinical Accompanied by: Mother Allergies aspirin Allergy (Severe, Verified 02/12/25 10:49) Swelling topiramate Adverse Reaction (Intermediate, Verified 02/12/25 10:49) cough Medication List - Last Reconciled 02/12/25 by Angelica Bull MD [id number] 50-325-40 mg 1 tab PO Q6H PRN 15 days capsaicin 0.1% (Arthritis Pain Relief (capsaicin)) 1 appl topical BID celecoxib (Celebrex) 200 mg PO BID 30 days cholecalciferol (vitamin D3) 25 mcg PO DAILY cyclobenzaprine 10 mg PO BEDTIME PRN 30 days levothyroxine 150 mcg PO DAILY losartan 25 mg PO DAILY 90 days omeprazole 40 mg PO DAILY tramadol 50 mg PO DAILY 30 days HPI Comments Details: 55 YO Female with PMHx Obesity s/p gastric bypass 2015, HTN who is seen in F/U for hyperparathyroidism and 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 She underwent FNA biopsy 02/08/19 of 3 nodules with results listed below: 1) L mid pole 1.7 cm nodule - Benign ([facility] Category II) 2) L mid-lower pole 3.5 cm nodule - nondiagnostic 3) R mid pole 3.6 cm nodule - Benign ([facility] Category II) She did have a significant amount of bleeding from the bipsy of the L mid-lower pole nodule, thus biopsy of this nodule was aborted prematurely. She had an additional L mid pole 1.9 cm nodule meeting indication for FNA biopsy, but due to the bleeding from the 3.5 cm nodule, this 1.9 cm nodule was not biopsied. She did complain of compressive symptoms with dysphagia as well as hoarseness of voice, and requested surgical thyroidectomy. This was completed 07/11/2019. Official path report revealed follicular nodular hyperplasia, and was benign. Postoperatively she was started on Levothyroxine 137 mcg PO daily, which she takes every morning. She waits 1 hour to eat, and takes the remainder of her medications after eating breakfast. She denies any symptoms of hypothyroidism. she has lost 12 lbs over this summer though she is complaining about weight gain She does have a family history of multinodular thyroid in her sister, mother, Daughter, but daughter and sister have thyroid cancer. She does take Biotin daily. TSH 1.05 01/25/2024. Interval history 08/13/24 : TSH 6.51, free t4 1.03 September 2024 : dose increased to 150 mcg daily 12/06/24: TSH 0.86, free 1.19 02/04/2025 TSH 4.23, free T4 1.10 3) Hyperparathyroidism: Labs revealed elevated PTH.= since 2019. She has always had normal calcium levels.. normal Kidney function . Vitamin-D levels used to low previously, most recently have come up above 30. Most recent labs from 01/25/2024 show PTH is somewhat improved from 140s to 105 most recently. . Ca remains normal. underwent gastric bypass in 2016. no Calcium supplement Milk every AM one glass, yogurt two a day, no cheese. Vitamin 2000 units daily On HCTZ 12.5 mg tablet daily for at least 2 years No kidney stones No hematuria right Humerus fracture 2007 shot nine times, no other fractures No calcium problems or kidney stones in family Labs 05/02/2024 showed vitamin-D improved to 40.6, PTH even further elevated at 128.1, no phosphorus of 2.3, normal kidney function/GFR, normal ionized calcium of 5.1, normal calcium of 9.6 with albumin of 4.5, corrected calcium would be lower at 9. 24 hour urine calcium low at 78 mg per 24 hour, fractional excretion of calcium would be 0.01, however volume is only 600 cc and this is low urine volume that is likely accounting for the low urine calcium. Labs 05/02/2024 showed vitamin-D improved to 40.6, PTH even further elevated at 128.1, no phosphorus of 2.3, normal kidney function/GFR, normal ionized calcium of 5.1, normal calcium of 9.6 with albumin of 4.5, corrected calcium would be lower at 9. 24 hour urine calcium low at 78 mg per 24 hour, fractional excretion of calcium would be 0.005, however volume is only 600 cc and this is low urine volume that is likely accounting for the low urine calcium. DEXA scan June 2024 did not osteopenia, of the left femoral neck and lumbar spine , normal density at the forearm FRAX not meeting criteria for treatment. Interval history 02/04/2025: EGFR greater than 60, calcium 9.4, albumin 4.5, corrected calcium would be 8.9, ionized calcium normal at 5.1, normal phosphorus 3.4, vitamin-D 35, PTH 90.1 Vitamin-D: 3000 units daily since Feb 06 Calcium: Milk every AM one glass, yogurt two a day, no cheese. Fractures: no fractures Physical exam General: sitting comfortably in no acute distress HEENT: normocephalic/atraumatic, , moist oral mucosa Neck: supple, symmetrical , no dorsocervical or supraclavicular fat pads Cardiac: normal heart sounds Pulm: normal breath sounds B/L, no added breath sounds Abd: not distended, no tenderness Extremities: no edema, no signs of myxedema Laboratory Tests 06/21/19 10/07/20 04/01/21 10:27 13:52 09:26 Creatinine Estimated GFR Calcium Ionized Calcium Phosphorus Magnesium Albumin 25-OH Vitamin D Total 23.7 TSH PTH Intact 92 H 129 H Ur 24 Hour Volume Ur Creatinine mg/dL Ur Creatinine 24 Hour Ur Sodium 24 Hour Ur Calcium 24 Hr Calcium/Creat 24 Hr 11/13/21 11/17/21 01/13/22 10:44 15:55 22:16 Creatinine Estimated GFR Calcium 9.0 9.4 Ionized Calcium Phosphorus Magnesium Albumin 25-OH Vitamin D Total TSH PTH Intact Ur 24 Hour Volume 2300 Ur Creatinine mg/dL 82.34 Ur Creatinine 24 Hour 1.9 Ur Sodium 24 Hour Ur Calcium 24 Hr 251 H Calcium/Creat 24 Hr 131 04/12/22 05/02/22 09/27/22 12:18 09:00 12:28 Creatinine Estimated GFR Calcium 9.7 9.2 Ionized Calcium Phosphorus Magnesium Albumin 25-OH Vitamin D Total 24.9 TSH PTH Intact 147 H Ur 24 Hour Volume 2024 Ur Creatinine mg/dL 96.67 Ur Creatinine 24 Hour 2.0 Ur Sodium 24 Hour Ur Calcium 24 Hr 192 Calcium/Creat 24 Hr 102 11/14/22 11/21/22 03/24/23 10:20 20:21 12:00 Creatinine Estimated GFR Calcium 9.4 9.9 8.9 D Ionized Calcium Phosphorus Magnesium Albumin 4.2 4.3 25-OH Vitamin D Total 26.0 L TSH PTH Intact 92 H Ur 24 Hour Volume Ur Creatinine mg/dL Ur Creatinine 24 Hour Ur Sodium 24 Hour Ur Calcium 24 Hr Calcium/Creat 24 Hr 03/28/23 05/02/23 07/21/23 16:25 10:11 08:08 Creatinine Estimated GFR Calcium 9.5 D 8.9 D Ionized Calcium Phosphorus Magnesium Albumin 4.2 4.1 25-OH Vitamin D Total 26.9 L 30.9 L TSH PTH Intact 141.7 H Ur 24 Hour Volume Ur Creatinine mg/dL Ur Creatinine 24 Hour Ur Sodium 24 Hour Ur Calcium 24 Hr Calcium/Creat 24 Hr 07/22/23 11/29/23 01/24/24 09:00 14:24 06:00 Creatinine Estimated GFR Calcium 9.6 D Ionized Calcium Phosphorus Magnesium Albumin 4.3 25-OH Vitamin D Total 31.4 TSH PTH Intact 106.9 H Ur 24 Hour Volume 600 1600 Ur Creatinine mg/dL 173.56 142.23 Ur Creatinine 24 Hour 1.0 2.3 H Ur Sodium 24 Hour Ur Calcium 24 Hr 82 275 H Calcium/Creat 24 Hr 81 130 01/25/24 05/02/24 05/02/24 14:59 11:00 11:38 Creatinine 0.75 0.75 Estimated GFR > 60 > 60 Calcium 9.6 9.6 Ionized Calcium 5.1 Phosphorus 2.3 L Magnesium 2.0 Albumin 4.2 4.5 25-OH Vitamin D Total 34.8 40.6 TSH 1.05 PTH Intact 105.2 H 128.1 H Ur 24 Hour Volume 600 Ur Creatinine mg/dL 190.26 Ur Creatinine 24 Hour 1.1 Ur Sodium 24 Hour 97.2 Ur Calcium 24 Hr 78 Calcium/Creat 24 Hr 75 Laboratory Tests 01/25/24 05/02/24 02/04/25 14:59 11:38 16:08 Creatinine 0.67 Estimated GFR > 60 Calcium 9.4 Ionized Calcium 5.1 Phosphorus 3.4 Albumin 4.5 25-OH Vitamin D Total 35.0 TSH 1.05 4.23 H Free T4 1.10 PTH Intact 128.1 H 90.1 H US RETROPERITONEAL COMPLETE (RENAL) 02/05 CLINICAL INFORMATION: Urinary tract infection, site not specified. COMPARISON: Ultrasound abdomen complete 10/28/2015. TECHNIQUE: Real-time imaging of the kidneys and bladder. FINDINGS: RIGHT KIDNEY: 12.3 x 5.2 x 4.7 cm (SAG x AP x TRV). The kidney is normal in size, contour, and echogenicity. Renal cortical thickness is normal. No calculi or focal parenchymal lesions. No hydronephrosis. LEFT KIDNEY: 12.6 x 7.3 x 5.2 cm (SAG x AP x TRV). The kidney is normal in size, contour, and echogenicity. Renal cortical thickness is normal. No renal calculi or hydronephrosis. Multiple benign parapelvic Bosniak class I renal cysts are noted which require no additional imaging or follow-up. No solid renal masses are seen. BLADDER: Partially distended. Bilateral ureteral jets are demonstrated. Prevoid bladder volume is 128 mL. There is no postvoid residual. US/US retroperitoneal comp IMPRESSION: Negative exam. EXAMINATION: DXA BONE DENSITY EXTREMITY 06/22/24 HISTORY: Estrogen deficiency TECHNIQUE: [employer] Dual energy absorptiometry (DEXA) of the lumbar spine, distal radius, total left hip, and femoral neck was performed. COMPARISON: There are no prior studies for comparison. FINDINGS: The bone mineral density of the lumbar spine is 1.001 with a T-score of -1.4, and a Z-score of -0.9. The bone mineral density of the left total hip is 0.998 with a T-score of -0.1, and a Z-score of -0.3. The bone mineral density of the left femoral neck is 0.788 with a T-score of -1.8, and a Z-score of -1.6. The bone mineral density of the distal forearm is 0.831 with a T-score of -0.5, and a Z-score of -0.2. FRACTURE RISK: The FRAX index suggests a risk of major osteoporotic fracture of 4.1%, and of hip fracture 0.4%. MM/XR DEXA appendicular skeleton IMPRESSION: Based on bone mineral density, and according to World Health Organization (WHO) criteria, the diagnosis is consistent with osteopenia. All bone density values are in grams per centimeter squared (g/cm2). Statistically, 68% of repeat scans fall within 1 SD (+/- 0.010 g/cm2 for AP spine L1-L4) and 1 SD (+/- 0.012 g/cm2 for femur total) FRAX is a trademark of the [employer]'s [place] [facility] Metabolic Bone Disease, a World Health Organization (WHO) Collaborating Center. Electronically signed by: Jose Maria Esparza MD 06/26/2024 03:33 PM [facility] Medical History Hyperlipidemia OAB (overactive bladder) Arthritis Lumbar radiculopathy Cervical radiculopathy Migraine Benzodiazepine withdrawal Morbid obesity with BMI of 40.0-44.9, adult JAYLENE (generalized anxiety disorder) Moderate recurrent major depression Lump of skin Vitamin D deficiency Hyperparathyroidism Common cold Hot flash not due to menopause HTN (hypertension) Amenorrhea Obesity Hypothyroidism Obstructive sleep apnea Surgical History Hx of excision of mass Hx of cystoscopy History of thyroidectomy Hx of gastric bypass Hx of hemorrhoidectomy Hx of hysterectomy Hx of tubal ligation Hx of multiple trauma Family History Father Diabetes Hypertension Mother Diabetes Alzheimer's disease Brother Substance use disorder Family/Other Mental health disorder Maternal Aunt Cancer Social History Housing: Apartment Are you a primary insurance healthcare representative to a significant other at home: No Do you presently have visiting nurse or other home services: No Alcohol intake: current Alcohol intake frequency: does not drink Alcohol type: wine Patient Tobacco Use Status: Former Tobacco user Tobacco use type: Cigarette Cigarettes Per Day: 3 Years Smoked: 15 e-Cigarette/Vaping Use: Never Used Second Hand Smoke Exposure: No service: No 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al status: unemployed and disabled 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 since 2019. She has always had normal calcium levels.. normal Kidney function . underwent gastric bypass in 2015. Since I suspected this could possibly be secondary hyperparathyroidism in the setting of suboptimal calcium absorption due to history of gastric bypass. I had asked her to increase her vitamin-D from 2000 units daily to 3000 units daily Labs 05/02/2024 showed vitamin-D improved to 40.6, PTH even further elevated at 128.1, no phosphorus of 2.3, normal kidney function/GFR, normal ionized calcium of 5.1, normal calcium of 9.6 with albumin of 4.5, corrected calcium would be lower at 9. 24 hour urine calcium low at 78 mg per 24 hour, fractional excretion of calcium would be 0.005, however volume is only 600 cc and this is low urine volume that is likely accounting for the low urine calcium. Given PTH remains elevated despite normal vitamin-D levels this is most likely normocalcemic hyperparathyroidism however she does not have any history of kidney stones, no fractures, her kidney function is normal, bone density scan done June 2024 showed osteopenia of the lumbar spine and left femoral neck FRAX not meeting criteria for treatment. At this time she does not meet any surgical indication even if this is normocalcemic hyperPTH. We will continue to monitor. Recently have also noted some spuriously elevated levels of PTH at our lab, we will ask her to do next set of labs at [facility] to verify. 02/04/2025: EGFR greater than 60, calcium 9.4, albumin 4.5, corrected calcium would be 8.9, ionized calcium normal at 5.1, normal phosphorus 3.4, vitamin-D 35, PTH 90.1 Plan: - continue vitamin-D to 3000 units daily -continue calcium intake of 3 calcium rich foods daily -ordered repeat blood work to be done prior to follow up in 1 year in January 2026, ordered at [facility], patient given papers -follow up in 1 year (2) Hypothyroidism: Code(s): E03.9 - Hypothyroidism, unspecified Category: Medical Qualifiers: Hypothyroidism type: postoperative Qualified Code(s): E89.0 - Postprocedural hypothyroidism Plan: Patient with history of total thyroidectomy in 2019 due to multinodular goiter. Now on levothyroxine 150 mcg daily. Her labs were normal from November 2024, most recently blood work from January 2025 shows TSH was mildly elevated at 4.23 but just above the upper limit of normal. We will continue on current dose. Plan: -continue levothyroxine 150 mcg daily -ordered TSH the reflex T4 to be done prior to next follow up in 1 year (3) Vitamin D deficiency: Code(s): E55.9 - Vitamin D deficiency, unspecified Category: Medical Plan: See above Plan See above Orders: Orders Calcium, Ionized 12/30/25 E21.3 - Hyperparathyroidism, unspecified, E55.9 - Vitamin D deficiency, unspecified, E89.0 - Postprocedural hypothyroidism Phosphorus 12/30/25 E21.3 - Hyperparathyroidism, unspecified, E55.9 - Vitamin D deficiency, unspecified, E89.0 - Postprocedural hypothyroidism Parathyroid Hormone Intact 12/30/25 E21.3 - Hyperparathyroidism, unspecified, E55.9 - Vitamin D deficiency, unspecified, E89.0 - Postprocedural hypothyroidism Creatinine 12/30/25 E21.3 - Hyperparathyroidism, unspecified, E55.9 - Vitamin D deficiency, unspecified, E89.0 - Postprocedural hypothyroidism Thyroid Stimulating Hormone 12/30/25 E21.3 - Hyperparathyroidism, unspecified, E55.9 - Vitamin D deficiency, unspecified, E89.0 - Postprocedural hypothyroidism Free T4 (Free Thyroxine) 12/30/25 E21.3 - Hyperparathyroidism, unspecified, E55.9 - Vitamin D deficiency, unspecified, E89.0 - Postprocedural hypothyroidism Albumin Level 12/30/25 E21.3 - Hyperparathyroidism, unspecified, E55.9 - Vitamin D deficiency, unspecified, E89.0 - Postprocedural hypothyroidism Calcium 12/30/25 E21.3 - Hyperparathyroidism, unspecified, E55.9 - Vitamin D deficiency, unspecified, E89.0 - Postprocedural hypothyroidism Vitamin D 25-OH Total 12/30/25 E21.3 - Hyperparathyroidism, unspecified, E55.9 - Vitamin D deficiency, unspecified, E89.0 - Postprocedural hypothyroidism Medications: New cholecalciferol (vitamin D3) Take 2000 units plus 1000 units for a total of 3000 units daily 50 mcg PO DAILY 90 caps 4RF 3 months Refilled cholecalciferol (vitamin D3) Take one tablet daily in addition to the 2000 mcg of vitamin D prescribed daily for a total of 3000 mcg daily 25 mcg PO DAILY 90 caps 4RF levothyroxine 150 mcg PO DAILY 30 tabs 11RF Patient Instructions: Do blood work 2 weeks prior to your next follow up with me in January 2026 Please do this blood work at [email or web address] , [address] [place] [address], please have them fax results to me Continue levothyroxine 150 mcg daily Continue vitamin D 1000 units plus 2000 units daily Realice un an?lisis de saad dos semanas antes de gonzales pr?xima pamela de seguimiento conmigo en 2025. Por favor, h?gase willow an?lisis de saad en [email or web address], [address] [place] [address]. Solicite que me env?en los resultados por fax. Contin?e con levotiroxina 150 mcg al d?a. Contin?e con vitamina D 1000 unidades m?s 2000 unidades al d?a. Coding Level of Care Code Est Pt Level 3 (46759) Diagnoses Hyperparathyroidism E21.3 Postoperative hypothyroidism E89.0 Hypothyroidism type: postoperative Vitamin D deficiency E55.9
--- OUTSIDE RECORDS SUMMARY | 2025-02-12 12:02 | XMS_ITS | Clinical Summary ---
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 Name Role Phone Unavailable Primary Care Provider Unavailabl e Allergies Active Allergy Reactions Criticality Noted Date Comments Aspirin 07/08/2022 Latex 10/03/2018 Medications LORazepam (Ativan) 2 MG tablet TOME CHRISTI TABLETA TODOS LOS D AL ACOSTARSE 06/23/19 23 Active hydroCHLOROthi azide (HYDRODiuril) 12.5 MG tablet TOME CHRISTI TABLETA POR V A ORAL TODOS LOS D 05/28/19 23 Active furosemide (Lasix) 20 MG tablet TOME CHRISTI TABLETA POR V A ORAL TODOS LOS D FOR 90 DAYS 06/05/19 23 Active fluconazole (Diflucan) 150 MG tablet TOME CHRISTI TABLETA POR V A ORAL TODAY AND REPEAT DOSE IN 3 DAYS 06/23/19 23 Active levothyroxine (Synthroid, Levoxyl) 137 MCG tablet TOME CHRISTI TABLETA POR V A ORAL TODOS LOS D FOR 30 DAYS 07/01/19 23 Active omeprazole (PriLOSEC) [address] capsule TOME CHRISTI C PSULA TODOS LOS D 06/28/19 23 Active traZODone (Desyrel) 100 MG tablet TOME CHRISTI TABLETA TODOS LOS D AL ACOSTARSE 06/18/19 23 Active traMADol (Ultram) 50 MG tablet TOME CHRISTI TABLETA POR V A ORAL CADA OCHO HORAS CUANDO SEA NECESARIO PARA EL DOLOR X30 DAYS 06/18/19 23 Active calcitriol (Rocaltrol) 0.5 MCG capsule Take 0.5 mcg by mouth Once per day. Active Sodium Fluoride 5000 PPM 1.1 % paste APPLY 1 APPLICATION. TO TEETH 2 TIMES DAILY. 100 g 02/02/20 25 Active Sodium Fluoride (PreviDent 5000 Booster Plus) 1.1 % paste Apply 1 Application. to teeth 2 times daily. 112 g 3 08/02/19 25 025 Discontinued Active Problems Problem Noted Date Diagnosed Date Urinary incontinence 08/24/2024 History of hysterectomy 05/15/2024 History of gastric bypass 05/15/2024 HTN (hypertension) 05/15/2024 Hypothyroidism 05/15/2024 Obstructive sleep apnea 05/15/2024 History of thyroidectomy 05/15/2024 Status post total thyroidectomy 08/01/2019 Encounters Date Type Department Care Team Description 02/01/2025 Refill [facility] ADULT DENTAL [address] [place] [address] Feroz Sterling DMD 01/24/2025 10:30 AM EDT Office Visit [facility] ADULT [facility] [address] [place] [address] Almaguer-StevenVerena, DDAllison Full coverage crown needed for root canal-treated tooth (Primary Dx); Dental caries 01/09/2025 10:00 AM EDT Office Visit [facility] ADULT D[facility] [address] [place] [address] Almaguer-StevenVerena woods, DDS Dental caries (Primary Dx); Full coverage crown needed for root canal-treated tooth 12/21/2024 10:00 AM EDT Office Visit [facility] ADULT D[facility] [address] [place] [address] Celestino Perez DDS from Last 3 Months Social History Tobacco [...] Sign Reading Time Taken Comments Blood Pressure 140/96 01/24/2025 11:18 AM EDT Pulse 77 12/21/2024 9:52 AM EDT Temperature - - Respiratory Rate - - Oxygen Saturation - - Inhaled Oxygen Concentration - - Weight - - Height - - Body Mass Index - - Plan of Treatment Upcoming Encounters Date Type Department Care Team (Late st Contact Info) Description 02/19/2025 10:30 AM EDT Office Visit [facility] ADULT D[facility] [address] [place] [address] Almaguer-Steven, Verena, DDS [address] [place] [address] Health Maintenance Due Date Last Done Comments [...] Dental X-Ray: Bitewings 08/02/2025 08/01/2024 Tobacco Screening 01/24/2026 01/24/2025 Dental X-Ray: Full Mouth 08/03/2027 08/01/2024 DTaP/Tdap/Td [...] PRESENTATION, DETAILED AND EXTENSIVE TREATMENT PLANNING Routine 01/24/2025 10:30 AM EDT Full coverage crown needed for root canal-treated tooth Dental caries INTRAORAL - PERIAPICAL FIRST RADIOGRAPHIC IMAGE Routine 01/24/2025 10:30 AM EDT Full coverage crown needed for root canal-treated tooth Dental caries 27 CROWN - PORCELAIN/CERAMIC Routine 01/24/2025 10:30 AM EDT Full coverage crown needed for root canal-treated tooth Dental caries CASE PRESENTATION, DETAILED AND EXTENSIVE TREATMENT PLANNING [...] ANTERIOR TOOTH Routine 12/21/2024 10:00 AM EDT PROPHYLAXIS - ADULT Routine 08/01/2024 1 0:00 AM EDT Dental calculus Subgingival dental calculus Supragingival dental calculus Dental plaque Gingivitis INTRAORAL - COMPLETE SERIES OF RADIOGRAPHIC IMAGES Routine 08/01/2024 10:00 AM EDT PERIODIC ORAL EVALUATION - ESTABLISHED PATIENT Routine 08/01/2024 10:00 AM EDT from Last 3 Months or Most Recently Relevant to Health Maintenance Insurance [facility] [place] [id number] [place] [id number] [place] [id number]
--- OUTSIDE RECORDS SUMMARY | 2025-02-12 12:02 | XMS_ITS | Encounter Summary ---
Author Organization [facility] Address [address] [facility] 7t [place] [address] Care Team Providers Care Wrong Address Clerk Name Role Phone Unavailable Primary Care Provider Unavailabl e Reason for Visit * Reason Comments Med Refill Encounter Details Date Type Department Care Team (Late st Contact Info) Description 02/01/2025 Refill [facility] ADULT DENTAL [address] [place] [address] Feroz Sterling DMD [address] [place] [address] Social History Tobacco Use Types Packs/Day Years Used Date Smoking Tobacco: Never Passive Smoke Exposure: Never Smokeless Tobacco: Never Alcohol Use Standard Drinks/Week Comments Never 0 (1 standard drink = 0.6 oz pur e alcohol) Comments Unknown Sex and Gender Information Value Date Recorded Sex Assigned at Female 03/15/2022 10:29 AM EDT Legal Sex Female 10:29 AM EDT Gender Identity Female 03/15/2022 10:29 AM EDT Sexual Orientation Straight 03/15/2022 10 :29 AM EDT documented as of this encounter Miscellaneous Notes * Telephone Encounter - Feroz Sterling DMD - 02/01/2025 8:20 AM EDT Approving, but needs appt for additional refills. documented in this encounter Plan of Treatment Upcoming Encounters Date Type Department Care Team (Late Contact Info) Description 02/19/2025 10:30 AM EDT Office Visit [facility] ADULT DENTAL [address] [place] [address] Almaguer-Steven, Verena, DDS [address] [place] [address] documented as of this encounter Visit Diagnoses Not on filedocumented in this encounter
--- OUTSIDE RECORDS SUMMARY | 2025-02-12 12:02 | XMS_ITS | Encounter Summary ---
Author Organization [facility] Address [address] [facility] 7t [place] [address] Care Team Providers Care Tunnel Man Name Role Phone Unavailable Primary Care Provider Unavailabl e Encounter Details Date Type Department Care Team (Latest Contact Info) Description 10/03/2018 Abstract [facility] CONVERSIONS Dental, Provider, DDS Social History [...] Description 02/19/2025 10:30 AM EDT Office Visit [facility] ADULT DENTAL [address] [place] [address] Almaguer-Verena Steven, DDS [address] [place] [address] documented as of this encounter Visit Diagnoses Not on filedocumented in this encounter
--- OUTSIDE RECORDS SUMMARY | 2025-02-12 12:02 | XMS_ITS | Clinical Summary ---
Author Organization [facility] Address [address] [place] [address] Phone Care Team Providers Care Sharepoint Net Developer Name Role Phone Sammi Beal MD Primary Care Provider [phone] Allergies Active Allergy Reactions Criticality Noted Date [...] 2:00 PM EDT Office Visit Bariatric Surgery [address] [address] Tamra Barry MD Class 3 [...] 1:00 PM EST Nutrition [facility] Surgery - [place] [address] [address] Jud Swartz, RD [address] [address] 06/27/2025 1:00 PM EST Office Visit [facility] - [place] [address] [address] Tamra Barry MD [address] [place] [address] Health Maintenance Due Date Last [...] patient's age to complete this topic Insurance [facility] [address] PLAN Care Teams Sharepoint Net Developer Relationship Specialty Start Date End Date Sammi Beal MD [address] [place] [address] , [address] Physician Associ D/B/A: [facility] JAVI Mistry PCP - General Internal Medicine 04/30/24
--- OUTSIDE RECORDS SUMMARY | 2025-02-12 12:02 | XMS_ITS | Encounter Summary ---
Author Organization [facility] Address [address] [facility] 7t [place] [address] Care Team Providers Care Console Attendant Name Role Phone Unavailable Primary Care Provider Unavailabl e Encounter Details Date Type Department Care Team (Latest Contact Info) Description 02/18/2022 Abstract [facility] CONVERSIONS Dental, Provider, DDS Social [...] Description 02/19/2025 10:30 AM EDT Office Visit [facility] ADULT DENTAL [address] [place] [address] Verena Hobson, DDS [address] [place] [address] documented as of this encounter Visit Diagnoses Not on filedocumented in this encounter
== END 2025-02-12 11:21 | disposition home or self-care (01) ==
LOC: HO.ENCR 10:44
PROVIDERS: PCP Internal Medicine; Visit Provider Student in an Organized Health Care Education/Training Program
DX: E21.3 Hyperparathyroidism, unspecified (principal); E89.0 Postprocedural hypothyroidism; E55.9 Vitamin D deficiency, unspecified
CPT/HCPCS: 99213

== ENCOUNTER → 2025-02-12 10:43 | Outpatient (BNVA) | payer OTHER, SELFPAY | PROVIDERS: PCP Internal Medicine; Visit Provider Student in an Organized Health Care Education/Training Program | DX: E89.0 Postprocedural hypothyroidism (principal); E55.9 Vitamin D deficiency, unspecified; E21.3 Hyperparathyroidism, unspecified | CPT/HCPCS: 99212 ==

== ENCOUNTER 2025-02-21 12:56 | Outpatient (AMB) | payer OTHER, SELFPAY ==
--- NOTE | 2025-02-21 13:07 | A.OFFVIS_ITS ---
Vital Signs 02/21/25 13:08 Height 5 ft 3 in Weight 239 lb BMI 42.3 Intake Visit Reasons: INJ- B/L knee Euflexxa injection #1 Intake Note: Caro is a 55 year old female who presents today for bilateral knee Euflexxa injections #1. Allergies aspirin Allergy (Severe, Verified 02/21/25 13:08) Swelling topiramate Adverse Reaction (Intermediate, Verified 02/21/25 13:08) cough Medication List - Last Reconciled 02/21/25 by Danielle Wheatley PA-C [id number] 50-325-40 mg 1 tab PO Q6H PRN 15 days capsaicin 0.1% (Arthritis Pain Relief (capsaicin)) 1 appl topical BID celecoxib (Celebrex) 200 mg PO BID 30 days cholecalciferol (vitamin D3) 25 mcg PO DAILY cholecalciferol (vitamin D3) 50 mcg PO DAILY 3 months cyclobenzaprine 10 mg PO BEDTIME PRN 30 days levothyroxine 150 mcg PO DAILY losartan 25 mg PO DAILY 90 days omeprazole 40 mg PO DAILY tramadol 50 mg PO DAILY 30 days HPI HPI INJ- B/L knee Euflexxa injection #1: Details: 55-year-old female presents today for 1. Euflexxa bilateral knee PFSH Medical History Hyperlipidemia OAB (overactive bladder) Arthritis Lumbar radiculopathy Cervical radiculopathy Migraine Benzodiazepine withdrawal Morbid obesity with BMI of 40.0-44.9, adult JAYLENE (generalized anxiety disorder) Moderate recurrent major depression Lump of skin Vitamin D deficiency Hyperparathyroidism Common cold Hot flash not due to menopause HTN (hypertension) Amenorrhea Obesity Hypothyroidism Obstructive sleep apnea Surgical History Hx of excision of mass Hx of cystoscopy History of thyroidectomy Hx of gastric bypass Hx of hemorrhoidectomy Hx of hysterectomy Hx of tubal ligation Hx of multiple trauma Family History Father Diabetes Hypertension Mother Diabetes Alzheimer's disease Brother Substance use disorder Family/Other Mental health disorder Maternal Aunt Cancer Social History Housing: Apartment Are you a primary home care and home health aides teacher to a significant other at home: No Do you presently have visiting nurse or other home services: No Alcohol intake: current Alcohol intake frequency: does not drink Alcohol type: wine Patient Tobacco Use Status: Former Tobacco user Tobacco use type: Cigarette Cigarettes Per Day: 3 Years Smoked: 15 e-Cigarette/Vaping Use: Never Used Second Hand Smoke Exposure: No service: No 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al status: unemployed and disabled 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 Cognitive needs: No Hearing needs: No Vision needs: Yes (Glasses) Review of Systems Const All systems reviewed & are unremarkable except as noted in HPI and below Physical Exam Vital Signs: BMI result Body Mass Index 42.3 Const General: cooperative, healthy appearing, comfortable, no acute distress, well developed and alert Orientation/consciousness: patient oriented x3 HEENT Head: Yes normal to inspection, Yes normocephalic and Yes atraumatic Eyes General: appearance normal, both eyes and all related structures Resp Effort & Inspection: normal respiratory effort and able to speak in complete sentences Cardio Rate: regular rate Peripheral pulses: Peripheral pulses 2+ throughout GI Palpation (GI): Soft to palpation Skin Lesions: no lesions Rashes: no rashes Neuro General: patient oriented x3 Extrem Other: Left knee: Skin intact, no erythema or joint effusion. Lateral retropatellar tenderness present. Full ROM with crepitus. Negative Tyrell?s. No ligamentous laxity. NVI. Right knee: Skin intact, no erythema or joint effusion. Tenderness along the medial and lateral joint line. Full ROM with crepitus. Negative Tyrell?s. No ligamentous laxity. NVI. Office Procedures AMB Joint Injection/Aspiration Joint Injection/Aspiration Details: #1 euflexxa Primary Site: right knee Secondary Site: left knee Prep: site was prepped using aseptic technique, ethochloride spray was applied and injection warnings given Injected: in the joint Approach Used: anterolateral Procedure: The patient tolerated the procedure well Coding 97504 - Glenohumeral/Tronchanteric Bursa/Intraarticular Procedure code (CPT) selection complete Assessment & Plan Assessment & Plan (1) Patellofemoral arthritis of left knee: Code(s): M17.12 - Unilateral primary osteoarthritis, left knee Category: Medical (2) Patellofemoral arthritis of right knee: Code(s): M17.11 - Unilateral primary osteoarthritis, right knee Category: Medical Plan Plan was to proceed with gel injection today. #1 bilat euflexxa Injection performed today which the patient tolerated well. She will rest ice and use anti-inflammatories as needed for the next several days. I will see her back in 1 week for injection number2 Coding Level of Care Code Procedure Only Diagnoses Patellofemoral arthritis of left knee M17.12 Patellofemoral arthritis of right knee M17.11 CPT Codes Coding - Joint 7: 05919 - Glenohumeral/Tronchanteric Bursa/Intraarticular ([id number])
[2025-02-21 13:08] VITALS: BMI 42.3
== END 2025-02-21 13:40 | disposition home or self-care (01) ==
LOC: HO.HOS 12:57
PROVIDERS: PCP Internal Medicine; Visit Provider Physician Assistant
DX: M17.0 Bilateral primary osteoarthritis of knee (principal)
CPT/HCPCS: 20610

== ENCOUNTER → 2025-02-21 12:56 | Outpatient (BNVA) | payer OTHER, SELFPAY | PROVIDERS: PCP Internal Medicine; Visit Provider Physician Assistant | DX: M17.12 Unilateral primary osteoarthritis, left knee (principal); M17.11 Unilateral primary osteoarthritis, right knee | CPT/HCPCS: 20610; J7323 ==

== ENCOUNTER 2025-02-28 | Outpatient (REF) | payer OTHER, SELFPAY ==
--- OUTSIDE RECORDS SUMMARY | 2025-06-25 12:10 | XMS_ITS | Clinical Summary ---
Author Organization [employer] Address [address] [facility] 7t [place] [address] Care Team Providers Care Customer Experience Leader Name Role Phone Unavailable Primary Care Provider [...] Fluoride 5000 PPM 1.1 % paste APPLY ONE APPLICATION TO TEETH TWICE DAILY 100 g 06/05/19 26 Active Sodium Fluoride 5000 PPM 1.1 % paste APPLY 1 APPLICATION. TO TEETH 2 TIMES DAILY. 100 g 04/16/20 25 026 Discontinued Active Problems Problem Noted Date Diagnosed Date Urinary incontinence 08/24/2024 History of hysterectomy 05/15/2024 History of gastric bypass 05/15/2024 HTN (hypertension) 05/15/2024 Hypothyroidism 05/15/2024 Obstructive sleep apnea 05/15/2024 History of thyroidectomy 05/15/2024 Status post total thyroidectomy 08/01/2019 Encounters Date Type Department Care Team Description 06/04/2025 Refill [facility] ADULT DENTAL [address] [place] [address] Almaguer-Steven Verena, DDS 05/14/2025 Refill [facility] ADULT DENTAL [address] [place] [address] ChrisDinaCelestino, DDS 04/16/2025 Refill [facility] ADULT DENTAL [address] [place] [address] Feroz Sterling DMD from Last 3 Months [...] Care Team (Late st Contact Info) Description 07/11/2025 2:30 PM EST Office Visit [facility] ADULT DENTAL [address] [place] [address] Feroz Sterling, DMD [address] [place] [address] Health Maintenance Due Date Last Done Comments [...] Most Recently Relevant to Health Maintenance Insurance [facility] [facility] [facility] MEDICAID STAND ADULT * Guarantor: Caro Maxwell Account Type Relation to Patient Date of Phone Billing Address Personal/Family Self [facility] [place] [address]
--- OUTSIDE RECORDS SUMMARY | 2025-06-25 12:11 | XMS_ITS | Clinical Summary ---
Author Organization [facility] Address 175 [place] [address] Phone Care Team Providers Care Box Spring Maker Name Role Phone Sammi Beal MD Primary Care Provider [phone] Allergies Active Allergy Reactions Criticality Noted Date [...] Encounters Date Type Department Care Team Description 06/17/2025 1:30 PM EST Nutrition Bariatric Surgery - [address] [address] Class 3 severe obesity with serious comorbidity and body mass index (BMI) of 40.0 to 44.9 in adult, unspecified obesity type (CMS/HCC V24, CMS/HCC V28) (Primary Dx) 03/25/2025 1:00 PM EST Consult Bariatric Surgery - [address] [address] Class 3 severe obesity with serious comorbidity and body mass index (BMI) of 40.0 to 44.9 in adult, unspecified obesity type (CMS/HCC V24, CMS/HCC V28) (Primary Dx) from Last 3 Months Social History Tobacco Use Types Packs/Day Years Used Date Smoking Tobacco: Never Assessed Comments Unknown Sex and Gender Information Value Date Recorded Sex Assigned at Female 06/10/2025 10:27 AM EST Legal Sex Female 3:57 AM EST Gender Identity Female 06/10/2025 10:27 AM EST Sexual Orientation Not on file Last Filed Vital Signs Vital Sign Reading Time Taken Comments Blood Pressure 149/82 12/20/2024 2:30 PM EDT Pulse 89 12/20/2024 2:30 PM EDT Temperature 36.8 C (98.2 F) 12/20/2024 2:30 PM EDT Respiratory Rate - - Oxygen Saturation - - Inhaled Oxygen Concentration - - Weight 115 kg (253 lb) 06/17/2025 1:43 PM EST Height 160 cm (5' 3 ) 12/20/2024 2:30 PM EDT Body Mass Index 44.82 12/20/2024 2:30 PM EDT Plan of Treatment Upcoming Encounters Date Type Department Care Team (Late st Contact Info) Description 06/27/2025 1:00 PM EST Office Visit Bariatric Surgery [address] [address] Tamra Barry MD [address] [place] [phone] 09/16/2025 12:30 PM EDT Nutrition Bariatric Surgery - [place] [address] [address] Jud Swartz, RD [address] [address] Health Maintenance Due Date Last Done Comments [...] 02/21/2024 Hypertension/CHF/CAD Annual BMP Blood Test 05/15/2024 COVID-19 Vaccine (3 - season) 2025 09/06/2020, 08/14/2020 Influenza Vaccine (#1) 2025 , 05/02/2023, 04/28/2022, Additional history exists Depression Screening 05/16/2025 DTaP,Tdap,and Td Vaccines (2 - Td or Tdap) 03/24/2031 03/24/2021 MMR Vaccines Aged Out 06/23/2022 No longer eligi ble based on patient's age to complete this topic HIB Vaccines Aged Out No longer eligi ble based on patient's age to complete this topic HPV Vaccines (No Doses Required) Completed Hepatitis A Vaccines Aged Out No long [...] patient[place] [id number] [facility] [place] [address] Care Teams Box Spring Maker Relationship Specialty Start Date End Date Sammi Beal MD [address] [place] [address] , [address] [facility] D/B/A: [facility] [place], [place] PCP - General Internal Medicine 04/30/24
--- OUTSIDE RECORDS SUMMARY | 2025-06-25 12:11 | XMS_ITS | Encounter Summary ---
Author Organization [facility] Address [address] [facility] 7t [place] [address] Care Team Providers Care Shield Operator Name Role Phone Unavailable Primary Care Provider Unavailabl e Reason for Visit * Reason Comments Med Refill Encounter Details Date Type Department Care Team (Late st Contact Info) Description 04/16/2025 Refill [facility] ADULT DENTAL [address] [place] [address] Feroz Sterling DMD [address] [place] [address] Social History Tobacco Use Types Packs/Day Years [...] Description 07/11/2025 2:30 PM EST Office Visit [facility] ADULT D[facility] [address] [place] [address] Feroz Sterling DMD [address] [place] [address] documented as of this encounter Visit Diagnoses Not on filedocumented in this encounter
--- OUTSIDE RECORDS SUMMARY | 2025-06-25 12:11 | XMS_ITS | Encounter Summary ---
Author Organization [employer] [facility] Address [address] [facility] 7t [place] [address] Care Team Providers Care Sterile Instrument Technician Name Role Phone Unavailable Primary Care Provider Unavailabl e Reason for Visit * Reason Comments Med Refill Encounter Details Date Type Department Care Team (Late st Contact Info) Description 03/11/2025 Refill [facility] ADULT DENTAL [address] [place] [address] Feroz Sterling DMD [address] [place] [address] Social History Tobacco Use Types Packs/Day Years [...] Department Care Team (Late Contact Info) Description 07/11/2025 2:30 PM EST Office Visit [facility] ADULT DENTAL [address] [place] [address] Feroz Sterling DMD [address] [place] [address] documented as of this encounter Visit Diagnoses Not on filedocumented in this encounter
--- OUTSIDE RECORDS SUMMARY | 2025-06-25 12:11 | XMS_ITS | Encounter Summary ---
Author Organization [facility] [employer] [facility] Address [address] [facility] 7t [place] [address] Care Team Providers Care Cylinder Dyer Name Role Phone Unavailable Primary Care Provider Unavailabl e Encounter Details Date Type Department Care Team (Latest Contact Info) Description 10/03/2018 Abstract [facility] CONVERSIONS Dental, Provider, DDS Social History Tobacco [...] Description 07/11/2025 2:30 PM EST Office Visit [facility] ADULT DENTAL [address] [place] [address] Feroz Sterling, GALLO [address] [place] [address] documented as of this encounter Visit Diagnoses Not on filedocumented in this encounter
--- OUTSIDE RECORDS SUMMARY | 2025-06-25 12:11 | XMS_ITS | Encounter Summary ---
Author Organization [facility] Address [address] [facility] 7t [place] [address] Care Team Providers Care Colors Custodian Name Role Phone Unavailable Primary Care Provider Unavailabl e Reason for Visit * Reason Comments Med Refill Encounter Details Date Type Department Care Team (Late st Contact Info) Description 02/01/2025 Refill [facility] ADULT DENTAL [address] [place] [address] Feroz Sterling DMD [address] [place] [address] Social History Tobacco Use Types Packs/Day Years [...] Description 07/11/2025 2:30 PM EST Office Visit [facility] ADULT DENTAL [address] [place] [address] Feroz Sterling DMD [address] [place] [address] documented as of this encounter Visit Diagnoses Not on filedocumented in this encounter
--- OUTSIDE RECORDS SUMMARY | 2025-06-25 12:11 | XMS_ITS | Encounter Summary ---
Author Organization [facility] Address [address] [facility] 7t [place] [address] Care Team Providers Care Bag Filler Name Role Phone Unavailable Primary Care Provider Unavailabl e Encounter Details Date Type Department Care Team (Latest Contact Info) Description 02/18/2022 Abstract [facility] CONVERSIONS Dental, Provider, DDS Social History Tobacco [...] Description 07/11/2025 2:30 PM EST Office Visit [facility] ADULT DENTAL [address] [place] [address] Feroz Sterling, GALLO [address] [place] [address] documented as of this encounter Visit Diagnoses Not on filedocumented in this encounter
--- OUTSIDE RECORDS SUMMARY | 2025-06-25 12:11 | XMS_ITS | Encounter Summary ---
Author Organization [employer] [facility] Address [address] [facility] 7t [place] [address] Care Team Providers Care Business Planning Director Name Role Phone Unavailable Primary Care Provider Unavailabl e Reason for Visit * Reason Comments Med Refill Encounter Details Date Type Department Care Team (Late st Contact Info) Description 06/04/2025 Refill [facility] ADULT DENTAL [address] [place] [address] Verena Hobson DDS [address] [place] [address] Social History Tobacco Use Types Packs/Day Years [...] Telephone Encounter - Verena Hobson DDS - 06/05/2025 8:08 AM EST Approving, but needs appt for additional refills. documented in this encounter Plan of Treatment Upcoming Encounters Date Type Department Care Team (Late st Contact Info) Description 07/11/2025 2:30 PM EST Office Visit [facility] ADULT DENTAL [address] [place] [address] Feroz Sterling DMD [address] [place] [address] documented as of this encounter Visit Diagnoses Not on filedocumented in this encounter
== END 2025-02-28 00:01 | disposition home or self-care (01) ==
LOC: HO.MAMMO
PROVIDERS: PCP Internal Medicine; Visit Provider Internal Medicine
DX: M17.0 Bilateral primary osteoarthritis of knee (principal)
CPT/HCPCS: 20610; J7323

== ENCOUNTER 2025-02-28 13:02 | Outpatient (AMB) | payer OTHER, SELFPAY ==
--- NOTE | 2025-02-28 13:16 | MHC.OFFVIS ---
Intake Visit Reasons: INJ- B/L knee Euflexxa injection #2 Intake Note: Caro a 55 year old female who presents today for bilateral knee Euflexxa injection #2. Allergies aspirin Allergy (Severe, Verified 02/28/25 13:23) Swelling topiramate Adverse Reaction (Intermediate, Verified 02/28/25 13:23) cough HPI HPI INJ- B/L knee Euflexxa injection #2: Details: 55-year-old female presents today for 2. Euflexxa bilateral knee PFSH Medical History Hyperlipidemia OAB (overactive bladder) Arthritis Lumbar radiculopathy Cervical radiculopathy Migraine Benzodiazepine withdrawal Morbid obesity with BMI of 40.0-44.9, adult JAYLENE (generalized anxiety disorder) Moderate recurrent major depression Lump of skin Vitamin D deficiency Hyperparathyroidism Common cold Hot flash not due to menopause HTN (hypertension) Amenorrhea Obesity Hypothyroidism Obstructive sleep apnea Surgical History Hx of excision of mass Hx of cystoscopy History of thyroidectomy Hx of gastric bypass Hx of hemorrhoidectomy Hx of hysterectomy Hx of tubal ligation Hx of multiple trauma Family History Father Diabetes Hypertension Mother Diabetes Alzheimer's disease Brother Substance use disorder Family/Other Mental health disorder Maternal Aunt Cancer Social History Housing: Apartment Are you a primary healthcare network pricing consultant to a significant other at home: No Do you presently have visiting nurse or other home services: No Alcohol intake: current Alcohol intake frequency: does not drink Alcohol type: wine Patient Tobacco Use Status: Former Tobacco user Tobacco use type: Cigarette Cigarettes Per Day: 3 Years Smoked: 15 e-Cigarette/Vaping Use: Never Used Second Hand Smoke Exposure: No service: No 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al status: unemployed and disabled 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 Cognitive needs: No Hearing needs: No Vision needs: Yes (Glasses) Review of Systems Const All systems reviewed & are unremarkable except as noted in HPI and below Physical Exam Const General: cooperative, healthy appearing, comfortable, no acute distress, well developed and alert Orientation/consciousness: patient oriented x3 HEENT Head: Yes normal to inspection, Yes normocephalic and Yes atraumatic Eyes General: appearance normal, both eyes and all related structures Resp Effort & Inspection: normal respiratory effort and able to speak in complete sentences Cardio Rate: regular rate Peripheral pulses: Peripheral pulses 2+ throughout GI Palpation (GI): Soft to palpation Skin Lesions: no lesions Rashes: no rashes Neuro General: patient oriented x3 Extrem Other: Left knee: Skin intact, no erythema or joint effusion. Lateral retropatellar tenderness present. Full ROM with crepitus. Negative Tyrell?s. No ligamentous laxity. NVI. Right knee: Skin intact, no erythema or joint effusion. Tenderness along the medial and lateral joint line. Full ROM with crepitus. Negative Tyrell?s. No ligamentous laxity. NVI. Office Procedures AMB Joint Injection/Aspiration Joint Injection/Aspiration Details: 2. Bilateral Euflexxa Primary Site: left knee Secondary Site: right knee Prep: site was prepped using aseptic technique, ethochloride spray was applied and injection warnings given Injected: in the joint Approach Used: anterolateral Procedure: The patient tolerated the procedure well Coding 89728 - Glenohumeral/Tronchanteric Bursa/Intraarticular Procedure code (CPT) selection complete Assessment & Plan Assessment & Plan (1) Patellofemoral arthritis of left knee: Code(s): M17.12 - Unilateral primary osteoarthritis, left knee Category: Medical (2) Patellofemoral arthritis of right knee: Code(s): M17.11 - Unilateral primary osteoarthritis, right knee Category: Medical Plan Plan was to proceed with gel injection today. #2bilat euflexxa Injection performed today which the patient tolerated well. She will rest ice and use anti-inflammatories as needed for the next several days. I will see her back in 1 week for injection number3 Coding Level of Care Code Procedure Only Diagnoses Patellofemoral arthritis of left knee M17.12 Patellofemoral arthritis of right knee M17.11 CPT Codes Coding - Joint 7: 92443 - Glenohumeral/Tronchanteric Bursa/Intraarticular ([id number])
--- OUTSIDE RECORDS SUMMARY | 2025-02-28 16:18 | XMS_ITS | Clinical Summary ---
Author Organization [facility] Address [address] [place] [address] Phone Care Team Providers Care Farmworker Vegetable Name Role Phone Sammi Beal MD Primary Care Provider [phone] Allergies Active Allergy Reactions Criticality Noted Date [...] 2:00 PM EDT Office Visit Bariatric Surgery [address] [address] Tamra Barry MD Class 3 [...] 1:00 PM EST Nutrition Bariatric Surgery - [place] [address] [address] Jud Swartz, RD [address] [address] 06/27/2025 1:00 PM EST Office Visit Bariatric Surgery - [place] [address] [address] Tamra Barry MD [address] [place] [address] Health Maintenance Due Date Last Done Comments Breast Cancer Screening 1971 Colorectal Cancer Screening: Colonoscopy 1971 Hepatitis B Vaccines (1 of 3 - 19+ 3-dose series) 1990 Cervical Cancer Screening: Pap Smear 01/03/1992 Pneumococcal Vaccine: 50+ Years (1 of 1 - PCV) 2021 RSV Immunization Adult Patients (1 - Risk 50-74 years 1-dose series) 2021 Zoster Vaccines (1 of 2) 2021 Cholesterol Screening (Lipid Panel) 02/21/2024 HIV Screening 02/21/2024 Hepatitis C Screening 02/21/2024 Social Influencers of Health Screening 02/21/2024 Hypertension/CHF/CAD Annual BMP Blood Test 05/15/2024 Depression Screening 05/16/2024 COVID-19 Vaccine (3 - 2024- season) 2025 [...] Insurance [facility] PLAN Care Teams Farmworker Vegetable Relationship Specialty Start Date End Date Sammi Beal MD [address] [place] [address] , [address] [facility] Physician Associ D/B/A: [facility] JAVI Mistry PCP - General Internal Medicine 04/30/24
--- OUTSIDE RECORDS SUMMARY | 2025-02-28 16:18 | XMS_ITS | Clinical Summary ---
Author Organization [employer] Address [address] [facility] 7t [place] [address] Care Team Providers Care Bakery Chef Name Role Phone Unavailable Primary Care Provider [...] Type Department Care Team Description 02/01/2025 Refill [facility] ADULT DENTAL [address] [place] [address] Feroz Sterling DMD 01/24/2025 10:30 AM EDT Office Visit [facility] ADULT DENTAL [address] [place] [address] Almaguer-StevenVerena, DDAllison Full coverage crown needed for root canal-treated tooth (Primary Dx); Dental caries 01/09/2025 10:00 AM EDT Office Visit [facility] ADULT DENTAL [address] [place] [address] Almaguer-StevenVerena woods, DDS Dental caries (Primary Dx); Full coverage crown needed for root canal-treated tooth 12/21/2024 10:00 AM EDT Office Visit [facility] ADULT DENTAL [address] [place] [address] Celestino Perez DDS from Last 3 Months [...] Most Recently Relevant to Health Maintenance Insurance [facility]AL-[facility] MEDICAID STAND ADULT
--- OUTSIDE RECORDS SUMMARY | 2025-02-28 16:18 | XMS_ITS | Encounter Summary ---
Author Organization [email or web address] Address [address] [facility] 7t [place] [address] Care Team Providers Care Heating Engineer Name Role Phone Unavailable Primary Care Provider Unavailabl e Reason for Visit * Reason Comments Med Refill Encounter Details Date Type Department Care Team (Late st Contact Info) Description 02/01/2025 Refill [facility] ADULT DENTAL [address] [place] [address] Feroz Sterling DMD [address] [place] [address] Social History Tobacco Use Types Packs/Day Years [...] documented in this encounter Plan of Treatment Not on file documented as of this encounter Visit Diagnoses Not on filedocumented in this encounter
--- OUTSIDE RECORDS SUMMARY | 2025-02-28 16:18 | XMS_ITS | Encounter Summary ---
Author Organization [employer] [facility] Address [address] [facility] 7t [place] [address] Care Team Providers Care Bond Runner Name Role Phone Unavailable Primary Care Provider Unavailabl e Encounter Details Date Type Department Care Team (Latest Contact Info) Description 02/18/2022 Abstract [facility] CONVERSION[facility] Dental, Provider, DDS Social History Tobacco [...]
--- OUTSIDE RECORDS SUMMARY | 2025-02-28 16:18 | XMS_ITS | Encounter Summary ---
Author Organization [facility] [employer] [facility] Address [address] [facility] 7t [place] [address] Care Team Providers Care Material Reclaimer Name Role Phone Unavailable Primary Care Provider Unavailabl e Encounter Details Date Type Department Care Team (Latest Contact Info) Description 10/03/2018 Abstract [facility] CONVERSION[facility] Dental, Provider, DDS Social [...]
== END 2025-02-28 13:32 | disposition home or self-care (01) ==
LOC: HO.HOS 13:03
PROVIDERS: PCP Internal Medicine; Visit Provider Physician Assistant
DX: M17.0 Bilateral primary osteoarthritis of knee (principal)
CPT/HCPCS: 20610

== ENCOUNTER 2025-03-07 13:02 | Outpatient (AMB) | payer OTHER, SELFPAY ==
--- NOTE | 2025-03-07 13:13 | MHC.OFFVIS ---
Vital Signs 03/07/25 13:20 Height 5 ft 3 in Weight 239 lb BMI 42.3 Intake Visit Reasons: INJ- B/L knee Euflexxa injection #3 Intake Note: Caro a 55 year old female who presents today for bilateral knee Euflexxa injection #3. Senior Hr Business Partner Required: Yes Senior Hr Business Partner Services: Senior Hr Business Partner Present Senior Hr Business Partner Name: Jose Bourgeois ID#[id number] Allergies aspirin Allergy (Severe, Verified 03/07/25 13:17) Swelling topiramate Adverse Reaction (Intermediate, Verified 03/07/25 13:17) cough Medication List - Last Reconciled 03/10/25 by Danielle Wheatley PA-C [id number] 50-325-40 mg 1 tab PO Q6H PRN 15 days capsaicin 0.1% (Arthritis Pain Relief (capsaicin)) 1 appl topical BID celecoxib (Celebrex) 200 mg PO BID 30 days cholecalciferol (vitamin D3) 25 mcg PO DAILY cholecalciferol (vitamin D3) 50 mcg PO DAILY 3 months cyclobenzaprine 10 mg PO BEDTIME PRN 30 days levothyroxine 150 mcg PO DAILY losartan 25 mg PO DAILY 90 days omeprazole 40 mg PO DAILY tramadol 50 mg PO DAILY 30 days HPI HPI INJ- B/L knee Euflexxa injection #3: Details: 55-year-old female presents today for 3. Euflexxa bilateral knee PFSH Medical History Hyperlipidemia OAB (overactive bladder) Arthritis Lumbar radiculopathy Cervical radiculopathy Migraine Benzodiazepine withdrawal Morbid obesity with BMI of 40.0-44.9, adult JAYLENE (generalized anxiety disorder) Moderate recurrent major depression Lump of skin Vitamin D deficiency Hyperparathyroidism Common cold Hot flash not due to menopause HTN (hypertension) Amenorrhea Obesity Hypothyroidism Obstructive sleep apnea Surgical History Hx of excision of mass Hx of cystoscopy History of thyroidectomy Hx of gastric bypass Hx of hemorrhoidectomy Hx of hysterectomy Hx of tubal ligation Hx of multiple trauma Family History Father Diabetes Hypertension Mother Diabetes Alzheimer's disease Brother Substance use disorder Family/Other Mental health disorder Maternal Aunt Cancer Social History Housing: Apartment Are you a primary acute care registered nurse to a significant other at home: No Do you presently have visiting nurse or other home services: No Alcohol intake: current Alcohol intake frequency: does not drink Alcohol type: wine Patient Tobacco Use Status: Former Tobacco user Tobacco use type: Cigarette Cigarettes Per Day: 3 Years Smoked: 15 e-Cigarette/Vaping Use: Never Used Second Hand Smoke Exposure: No service: No 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al status: unemployed and disabled 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 Cognitive needs: No Hearing needs: No Vision needs: Yes (Glasses) Review of Systems Const All systems reviewed & are unremarkable except as noted in HPI and below Physical Exam Vital Signs: BMI result Body Mass Index 42.3 Const General: cooperative, healthy appearing, comfortable, no acute distress, well developed and alert Orientation/consciousness: patient oriented x3 HEENT Head: Yes normal to inspection, Yes normocephalic and Yes atraumatic Eyes General: appearance normal, both eyes and all related structures Resp Effort & Inspection: normal respiratory effort and able to speak in complete sentences Cardio Rate: regular rate Peripheral pulses: Peripheral pulses 2+ throughout GI Palpation (GI): Soft to palpation Skin Lesions: no lesions Rashes: no rashes Neuro General: patient oriented x3 Extrem Other: Left knee: Skin intact, no erythema or joint effusion. Lateral retropatellar tenderness present. Full ROM with crepitus. Negative Tyrell?s. No ligamentous laxity. NVI. Right knee: Skin intact, no erythema or joint effusion. Tenderness along the medial and lateral joint line. Full ROM with crepitus. Negative Tyrell?s. No ligamentous laxity. NVI. Office Procedures AMB Joint Injection/Aspiration Joint Injection/Aspiration Details: #3 euflexca Secondary Site: left knee Prep: site was prepped using aseptic technique, ethochloride spray was applied and injection warnings given Injected: in the joint Approach Used: anterolateral Procedure: The patient tolerated the procedure well and there was some relief with the local anesthesia Coding 27973 - Glenohumeral/Tronchanteric Bursa/Intraarticular Procedure code (CPT) selection complete Assessment & Plan Assessment & Plan (1) Patellofemoral arthritis of left knee: Code(s): M17.12 - Unilateral primary osteoarthritis, left knee Category: Medical (2) Patellofemoral arthritis of right knee: Code(s): M17.11 - Unilateral primary osteoarthritis, right knee Category: Medical Plan Plan was to proceed with gel injection today. #3bilat euflexxa Injection performed today which the patient tolerated well. She will rest ice and use anti-inflammatories as needed for the next several days. If symptoms persist in 3 months she can contact our office otherwise prn. Coding Level of Care Code Procedure Only Diagnoses Patellofemoral arthritis of left knee M17.12 Patellofemoral arthritis of right knee M17.11 CPT Codes Coding - Joint 7: 36569 - Glenohumeral/Tronchanteric Bursa/Intraarticular ([id number])
[2025-03-07 13:20] VITALS: BMI 42.3
--- OUTSIDE RECORDS SUMMARY | 2025-03-07 16:26 | XMS_ITS | Encounter Summary ---
Author Organization [employer] Address [address] [facility] 7t [place] [address] Care Team Providers Care Assembler Fishing Floats Name Role Phone Unavailable Primary Care Provider Unavailabl e Reason for Visit * Reason Comments Med Refill Encounter Details Date Type Department Care Team (Late st Contact Info) Description 02/01/2025 Refill [facility] ADULT DENTAL [address] [place] [address] Feroz Sterling DMD [address] [place] [address] Social History Tobacco Use Types Packs/Day Years [...]
--- OUTSIDE RECORDS SUMMARY | 2025-03-07 16:26 | XMS_ITS | Clinical Summary ---
Author Organization [employer] Address [address] [facility] 7t [place] [address] Care Team Providers Care Credit Investigator Name Role Phone Unavailable Primary Care Provider [...] TO TEETH 2 TIMES DAILY. 100 g 5 Active Active Problems Problem Noted Date Diagnosed Date Urinary incontinence 08/24/2024 History of hysterectomy 05/15/2024 History of gastric bypass 05/15/2024 HTN (hypertension) 05/15/2024 Hypothyroidism 05/15/2024 Obstructive sleep apnea 05/15/2024 History of thyroidectomy 05/15/2024 Status post total thyroidectomy 08/01/2019 Encounters Date Type Department Care Team Description 02/01/2025 Refill [facility] ADULT DENTAL [address] [place] [address] Feroz Sterling DMD 01/24/2025 10:30 AM EDT Office Visit [facility] ADULT DENTAL [address] [place] [address] Verena Hobson DDS Full coverage crown needed for root canal-treated tooth (Primary Dx); Dental caries 01/09/2025 10:00 AM EDT Office Visit [facility] ADULT DENTAL [address] [place] [address] Verena Hobson DDS Dental caries (Primary Dx); Full coverage crown needed for root canal-treated tooth 12/21/2024 10:00 AM EDT Office Visit [facility] ADULT DENTAL [address] [place] [address] Celestino Perez DDS from Last 3 Months [...] Most Recently Relevant to Health Maintenance Insurance [facility] MEDICAID STAND ADULT
--- OUTSIDE RECORDS SUMMARY | 2025-03-07 16:26 | XMS_ITS | Encounter Summary ---
Author Organization [facility] [employer] [facility] Address [address] [facility] 7t [place] [address] Care Team Providers Care Control Systems Engineer Name Role Phone Unavailable Primary Care [...]
--- OUTSIDE RECORDS SUMMARY | 2025-03-07 16:26 | XMS_ITS | Encounter Summary ---
Author Organization [facility] [employer] [facility] Address [address] [facility] 7t [place] [address] Care Team Providers Care Mooner Name Role Phone Unavailable Primary Care Provider [...]
--- OUTSIDE RECORDS SUMMARY | 2025-03-07 16:26 | XMS_ITS | Clinical Summary ---
Author Organization 175 [facility] Address 175 [place] [address] Phone Care Team Providers Care Trawl Net Maker Name Role Phone Sammi Beal MD Primary Care Provider [phone] Allergies Active Allergy Reactions Criticality Noted Date [...] 2:00 PM EDT Office Visit Bariatric Surgery [address] [address] Tamra Barry MD Class 3 [...] 1:00 PM EST Nutrition Bariatric Surgery - [place] [address] [phone] Jud Swartz, RD [address] [address] 06/27/2025 1:00 PM EST Office Visit Bariatric Surgery - [place] [address] [phone] Tamra Barry MD [address] [place] [address] Health Maintenance Due Date Last [...] patient's age to complete this topic Insurance [facility] PLAN Care Teams Trawl Net Maker Relationship Specialty Start Date End Date Sammi Beal MD [address] [place] [address] , [address] [facility] D/B/A: [facility] JAVI Mistry PCP - General Internal Medicine 04/30/24
== END 2025-03-07 13:43 | disposition home or self-care (01) ==
LOC: HO.HOS 13:02
PROVIDERS: PCP Internal Medicine; Visit Provider Physician Assistant
DX: M17.0 Bilateral primary osteoarthritis of knee (principal)
CPT/HCPCS: 20610

== ENCOUNTER → 2025-03-07 13:02 | Outpatient (BNVA) | payer OTHER, SELFPAY | PROVIDERS: PCP Internal Medicine; Visit Provider Physician Assistant | DX: M17.0 Bilateral primary osteoarthritis of knee (principal) | CPT/HCPCS: 20610; J7323 ==

== ENCOUNTER 2025-03-15 10:54 | Outpatient (REF) | payer OTHER, SELFPAY ==
--- OUTSIDE RECORDS SUMMARY | 2025-03-15 12:54 | XMS_ITS | Encounter Summary ---
Author Organization [employer] Address [address] [facility] 7t [place] [address] Care Team Providers Care Fusing Machine Feeder Name Role Phone Unavailable Primary Care Provider Unavailabl e Reason for Visit * Reason Comments Med Refill Encounter Details Date Type Department Care Team (Late st Contact Info) Description 03/11/2025 Refill [facility] [address] [place] [address] Feroz Sterling DMD [address] [place] [address] Social History Tobacco Use Types Packs/Day Years [...] Telephone Encounter - Feroz Sterling DMD - 03/11/2025 8:00 AM EDT Approving, but needs appt for additional refills. documented in this encounter Plan of Treatment Not on file documented as of this encounter Visit Diagnoses Not on filedocumented in this encounter
--- OUTSIDE RECORDS SUMMARY | 2025-03-15 12:54 | XMS_ITS | Clinical Summary ---
Author Organization [employer] Address [address] [facility] 7t [place] [address] Care Team Providers Care Professor Of Genetics Name Role Phone Unavailable Primary Care Provider [...] TO TEETH 2 TIMES DAILY. 100 g 03/11/20 25 Active Sodium Fluoride 5000 PPM 1.1 % paste APPLY 1 APPLICATION. TO TEETH 2 TIMES DAILY. 100 g 02/02/20 25 025 Discontinued Active Problems Problem Noted Date Diagnosed Date Urinary incontinence 08/24/2024 History of hysterectomy 05/15/2024 History of gastric bypass 05/15/2024 HTN (hypertension) 05/15/2024 Hypothyroidism 05/15/2024 Obstructive sleep apnea 05/15/2024 History of thyroidectomy 05/15/2024 Status post total thyroidectomy 08/01/2019 Encounters Date Type Department Care Team Description 03/11/2025 Refill [facility] ADULT DENTAL [address] [place] [address] Feroz Sterling DMD 02/01/2025 Refill [facility] ADULT DENTAL [address] [place] [address] Feroz Sterling DMD 01/24/2025 10:30 AM EDT Office Visit [facility] ADULT DENTAL [address] [place] [address] Verena Hobson DDS Full coverage crown needed for root canal-treated tooth (Primary Dx); Dental caries 01/09/2025 10:00 AM EDT Office Visit [facility] ADULT DENTAL [address] [place] [address] Verena Hobson DDS Dental caries (Primary Dx); Full coverage crown needed for root canal-treated tooth 12/21/2024 10:00 AM EDT Office Visit [facility] ADULT DENTAL [address] [place] [address] Celestino Perez DDS from Last 3 Months [...] Most Recently Relevant to Health Maintenance Insurance [facility] MEDICAID STAND ADULT
--- OUTSIDE RECORDS SUMMARY | 2025-03-15 12:54 | XMS_ITS | Encounter Summary ---
Author Organization [facility] [employer] [facility] Address [address] [facility] 7t [place] [address] Care Team Providers Care Subscription Agent Name Role Phone Unavailable Primary Care Provider [...]
--- OUTSIDE RECORDS SUMMARY | 2025-03-15 12:54 | XMS_ITS | Encounter Summary ---
Author Organization [facility] [employer] [facility] Address [address] [facility] 7t [place] [address] Care Team Providers Care Dietetics Teacher Name Role Phone Unavailable Primary Care Provider [...]
--- OUTSIDE RECORDS SUMMARY | 2025-03-15 12:54 | XMS_ITS | Encounter Summary ---
Author Organization [employer] Address [address] [facility] 7t [place] [address] Care Team Providers Care Cardiac Catheterization Technician Name Role Phone Unavailable Primary Care Provider Unavailabl e Reason for Visit * Reason Comments Med Refill Encounter Details Date Type Department Care Team (Late st Contact Info) Description 02/01/2025 Refill [facility] ADULT DENTAL [address] [place] [address] Feroz Sterling DMD [address] [place] [address] Social History Tobacco Use Types Packs/Day Years [...]
== END 2025-03-15 10:55 | disposition home or self-care (01) ==
LOC: HO.HOSX 10:54
PROVIDERS: PCP Student in an Organized Health Care Education/Training Program; Visit Provider Physical Medicine & Rehabilitation
DX: M54.50 Low back pain, unspecified (principal); G89.29 Other chronic pain; M25.551 Pain in right hip; M25.552 Pain in left hip
CPT/HCPCS: 99202

== ENCOUNTER 2025-03-15 10:54 | Outpatient (AMB) | payer OTHER, SELFPAY ==
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
[2025-03-15 11:13] VITALS: BMI 43.0
--- OUTSIDE RECORDS SUMMARY | 2025-03-15 12:24 | XMS_ITS | Clinical Summary ---
Author Organization 175 [facility] Address 175 [place] [address] Phone Care Team Providers Care Manager Semiconductor Name Role Phone Sammi Beal MD Primary Care Provider [phone] Allergies Active Allergy Reactions Criticality Noted Date [...] 2:00 PM EDT Office Visit Bariatric Surgery [address] [phone] Tamra Barry MD Class 3 [...] 1:00 PM EST Nutrition Bariatric Surgery - [place] [address] [phone] Jud Swartz, RD [address] [phone] 06/27/2025 1:00 PM EST Office Visit Bariatric Surgery - [place] [address] [phone] Tamra Barry MD [address] [place] [address] Health Maintenance Due Date Last [...] patient's age to complete this topic Insurance [facility] PLAN Care Teams Manager Semiconductor Relationship Specialty Start Date End Date Sammi Beal MD [address] [place] [address] , [address] [facility] D/B/A: [facility] JAVI Mistry PCP - General Internal Medicine 04/30/24
== END 2025-03-15 11:47 | disposition home or self-care (01) ==
LOC: HO.HOS 10:54
PROVIDERS: PCP Student in an Organized Health Care Education/Training Program; Visit Provider Physical Medicine & Rehabilitation
DX: G89.4 Chronic pain syndrome (principal); M54.50 Low back pain, unspecified; G89.29 Other chronic pain
CPT/HCPCS: 99204

== ENCOUNTER 2025-03-15 11:35 | Outpatient (REF) | payer OTHER, SELFPAY ==
--- NOTE | ~2025-03-15 | XR_ITS ---
EXAMINATION: XR LUMBOSACRAL SPINE CLINICAL INFORMATION: M54.9 - Dorsalgia, unspecified COMPARISON: Previous x-ray July 2023 TECHNIQUE: Three views of the lumbosacral spine. FINDINGS: Mild 4 mm anterior subluxation of L5 with respect to L4 and S1. Bone alignment is otherwise normal. No fracture or dislocation. Degenerative disc disease at L5-S1. Lower lumbar spine facet arthritis. Surgical clips in the left mid abdomen. XR/XR lumbar spine 2-3V IMPRESSION: Mild anterior subluxation of L5 and degenerative changes of the lower lumbar spine. Electronically signed by: Marisa Perea MD 03/15/2025 01:04 PM EDT
--- NOTE | ~2025-03-15 | XR_ITS ---
EXAMINATION: XR BILATERAL HIPS CLINICAL INFORMATION: M25.559 - Pain in unspecified hip COMPARISON: Previous x-rays of the hips May 2016 TECHNIQUE: 2 views of each hip were obtained. FINDINGS: Bone alignment is normal. No fracture or dislocation. Normal joint space. Normal soft tissues. XR/XR hips MARLENE min 3V IMPRESSION: Normal hips. Electronically signed by: Marisa Perea MD 03/15/2025 01:02 PM EDT
[2025-03-15 13:40] LABS: Folate 11.9 ng/mL (> or = 4.0); Vitamin B12 362 pg/mL (200-900)
== END 2025-03-15 11:36 | disposition home or self-care (01) ==
LOC: HO.XRAY 11:35
PROVIDERS: PCP Internal Medicine; Visit Provider Physical Medicine & Rehabilitation
DX: M25.551 Pain in right hip (principal); M25.552 Pain in left hip; G89.4 Chronic pain syndrome; M54.9 Dorsalgia, unspecified
CPT/HCPCS: 36415; 72100; 73522; 82306; 82607; 82746

== ENCOUNTER → 2025-03-15 11:50 | Outpatient (BNV) | payer OTHER, SELFPAY | PROVIDERS: PCP Internal Medicine; Visit Provider Radiology Diagnostic Radiology | DX: M54.50 Low back pain, unspecified (principal); M51.360 Other intervertebral disc degeneration, lumbar region with discogenic back pain only | CPT/HCPCS: 72100; 73522 ==

== ENCOUNTER 2025-04-02 09:29 | Outpatient (REF) | payer OTHER, SELFPAY ==
--- NOTE | ~2025-04-02 | XR_ITS ---
EXAMINATION: XR CERVICAL SPINE CLINICAL INFORMATION: M54.2 - Cervicalgia COMPARISON: CT dated December 21, 2010 is not available on PACS. TECHNIQUE: AP, lateral, swimmer's projection and atlantoodontoid views. FINDINGS: Craniocervical junction is intact. Marginal osteophyte formation and endplate sclerosis decreased intervertebral disc height, C4-5 and to a lesser extent C6-7. Reverse curvature apex at C4. No acute cortical disruption or malalignment. No lytic or blastic lesions. 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 Electronically signed by: Huey Mejia MD 04/02/2025 11:04 AM CESAR
== END 2025-04-02 09:30 | disposition home or self-care (01) ==
LOC: HO.XRAY 09:29
PROVIDERS: PCP Internal Medicine; Visit Provider Student in an Organized Health Care Education/Training Program
DX: M54.2 Cervicalgia (principal); M54.12 Radiculopathy, cervical region; F17.210 Nicotine dependence, cigarettes, uncomplicated; Z74.2 Need for assistance at home and no other household member able to render care; Z79.890 Hormone replacement therapy; Z79.891 Long term (current) use of opiate analgesic; Z79.899 Other long term (current) drug therapy
CPT/HCPCS: 72040; 99212

== ENCOUNTER → 2025-04-02 10:28 | Outpatient (BNV) | payer OTHER, SELFPAY | PROVIDERS: PCP Internal Medicine; Visit Provider Radiology Diagnostic Radiology | DX: M47.812 Spondylosis without myelopathy or radiculopathy, cervical region (principal); M40.209 Unspecified kyphosis, site unspecified | CPT/HCPCS: 72040 ==

== ENCOUNTER 2025-04-04 14:23 | Outpatient (AMB) | payer OTHER, SELFPAY ==
--- NOTE | 2025-04-04 14:25 | MHC.OFFVIS ---
Vital Signs 04/04/25 14:27 Height 5 ft 3 in Weight 242 lb BMI 42.9 BP 142/80 H Blood Pressure Location Rt brachial Position Sitting Respiration 15 Pulse 92 Pulse Source Pulse Oximeter Pulse Oximetry (%) 95 Oxygen Delivery Method Room Air Intake Visit Reasons: Low back pain Tea Plantation Worker Required: Yes Tea Plantation Worker Language: Accounts Receivable Analyst Name: [email or web address] [id number] Accompanied by: Self / Same As Patient Allergies aspirin Allergy (Severe, Verified 04/04/25 14:29) Swelling topiramate Adverse Reaction (Intermediate, Verified 04/04/25 14:29) cough HPI Comments Details: Jordyn is very pleasant Dominican-speaking 55 years old female who came in my office for the follow-up and discussion of the pain conditions. In the past he received diagnostic genicular nerve block which resulted in no pain improvement. I offered her femoral nerve block however she did not show for the procedure. She stated today that it is possibility that we have a wrong telephone number. However today she came with complains on lower back pain. She reports that standing sitting laying down and walking all aggravate her pain. She states that flexing backwards aggravate her pain. Loading test is positive bilaterally. I will schedule this patient for bilateral diagnostic medial branch block L3, L4, dorsal ramus L5. She is morbidly obese. We would need to consider a longer needle for injections. Prior: Patient is a 55-year-old female with a history of chronic pain of bilateral knees lower back and neck, due to advanced knee osteoarthritis, patellofemoral arthritis, as well as degenerative disc disease and lumbar spine arthritis, with known lumbar radiculopathy and cervical radiculopathy. Patient presenting today complaining of her chronic pains as well as neck pain radiating down her bilateral shoulders and arms. 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 She requires assistance with home chores and bathing. Patient follows with pain management and Orthopedics and on multiple treatments for pain including injections, tramadol, Celebrex, capsaicin topical. She has attended physical therapy in the past and continues to perform stretching exercises at home She was also offered femoral nerve block with pain management, yet to be scheduled. [facility] Medical History Hyperlipidemia OAB (overactive bladder) Arthritis Lumbar radiculopathy Cervical radiculopathy Migraine Benzodiazepine withdrawal Morbid obesity with BMI of 40.0-44.9, adult JAYLENE (generalized anxiety disorder) Moderate recurrent major depression Lump of skin Vitamin D deficiency Hyperparathyroidism Common cold Hot flash not due to menopause HTN (hypertension) Amenorrhea Obesity Hypothyroidism Obstructive sleep apnea Surgical History Hx of excision of mass Hx of cystoscopy History of thyroidectomy Hx of gastric bypass Hx of hemorrhoidectomy Hx of hysterectomy Hx of tubal ligation Hx of multiple trauma Family History Father Diabetes Hypertension Mother Diabetes Alzheimer's disease Brother Substance use disorder Family/Other Mental health disorder Maternal Aunt Cancer Social History Housing: Apartment Are you a primary career services coordinator to a significant other at home: No Do you presently have visiting nurse or other home services: No Alcohol intake: current Alcohol intake frequency: does not drink Alcohol type: wine Patient Tobacco Use Status: Former Tobacco user Tobacco use type: Cigarette Cigarettes Per Day: 3 Years Smoked: 15 e-Cigarette/Vaping Use: Never Used Second Hand Smoke Exposure: Yes service: No 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al status: unemployed and disabled 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 Cognitive needs: Yes (Cane) Hearing needs: No Vision needs: Yes (Glasses) Review of Systems Const All systems reviewed & are unremarkable except as noted in HPI and below Physical Exam Vital Signs: Last Vital Signs Pulse 92 04/04/25 14:27 Resp 15 04/04/25 14:27 BP 142/80 H 04/04/25 14:27 Pulse Ox 95 04/04/25 14:27 Oxygen Delivery Method Room Air 04/04/25 14:27 BMI result Body Mass Index 42.9 Const General: cooperative, healthy appearing, comfortable, no acute distress, well developed and alert Orientation/consciousness: patient oriented x3 HEENT Head: Yes normal to inspection, Yes normocephalic and Yes atraumatic Eyes General: appearance normal, both eyes and all related structures Resp Effort & Inspection: normal respiratory effort and able to speak in complete sentences Cardio Rate: regular rate Peripheral pulses: Peripheral pulses 2+ throughout GI Palpation (GI): Soft to palpation Skin Lesions: no lesions Rashes: no rashes Neuro General: patient oriented x3 Extrem Other: Left knee: Skin intact, no erythema or joint effusion. Lateral retropatellar tenderness present. Full ROM with crepitus. Negative Tyrell?s. No ligamentous laxity. NVI. Right knee: Skin intact, no erythema or joint effusion. Tenderness along the medial and lateral joint line. Full ROM with crepitus. Negative Tyrell?s. No ligamentous laxity. NVI. Results Reviewed Results Reviewed: Ordering Physician: Quintin De La Rosa Date of Service: 08/09/23 Procedure(s): XR lumbar spine 2-3V Accession Number(s): [id number] cc: Quintin De La Rosa; Sammi Kennedy MD~ EXAMINATION: XR LUMBOSACRAL SPINE CLINICAL INFORMATION: Lumbar radiculopathy. COMPARISON: Most recent lumbar spine radiographs dated 10/31/2020. TECHNIQUE: Three views of the lumbosacral spine. FINDINGS: The lumbar lordosis is maintained. Minimal grade 1 anterolisthesis of L5 on S1 is redemonstrated. No acute fracture or subluxation. No loss of vertebral body height. Loss of intervertebral disc height with degenerative endplate changes at L5-S1, progressed when compared to the prior examination. Minimal degenerative disc disease at L3-L4 and L4-L5, slightly progressed. No concerning lytic or blastic osseous lesion. No abnormal soft tissue calcification. XR/XR lumbar spine 2-3V IMPRESSION: 1. Minimal grade 1 anterolisthesis of L5 on S1, unchanged. 2. Degenerative disc disease at L3-L4, L4-L5 and L5-S1, progressed when compared to the prior examination. I reviewed records from the following: Pain management, ortho, PCP Assessment & Plan Assessment & Plan (1) Arthritis of left knee: Code(s): M17.12 - Unilateral primary osteoarthritis, left knee Category: Medical (2) Chronic pain syndrome: Code(s): G89.4 - Chronic pain syndrome Category: Medical (3) Left knee pain: Code(s): M25.562 - Pain in left knee Category: Medical Qualifiers: Chronicity: unspecified Qualified Code(s): M25.562 - Pain in left knee (4) Spondylosis without myelopathy or radiculopathy, lumbar region: Code(s): M47.816 - Spondylosis without myelopathy or radiculopathy, lumbar region Category: Medical Plan This patient is suffering from advanced left knee osteoarthritis, moderate nature of the arthritis results in significant pain syndrome. Diagnostic genicular nerve block did not result in improvement. She reported no pain relief. I offered her femoral nerve block on the left, she insisted to have this procedure under deep sedation. However there were problem scheduling her procedure. Today she did not discuss her left knee pain. Her major concern was lower back pain. See discussion as above. I will schedule her for diagnostic medial branch block L3, L4, dorsal ramus L5 bilateral. Coding Level of Care Code Est Pt Level 3 (83826) Diagnoses Arthritis of left knee M17.12 Chronic pain syndrome G89.4 Left knee pain, unspecified chronicity M25.562 Chronicity: unspecified Spondylosis without myelopathy or radiculopathy, lumbar region M47.816
[2025-04-04 14:27] VITALS: BP 142/80; PULSE 92; RESP 15; O2SAT 95; BMI 42.9
--- OUTSIDE RECORDS SUMMARY | 2025-04-04 19:46 | XMS_ITS | Clinical Summary ---
Author Organization [address] [facility] Address [address] [place] [address] Phone Care Team Providers Care Brand Advisor Name Role Phone Sammi Beal MD Primary Care Provider [phone] Allergies Active Allergy Reactions Criticality Noted Date [...] Active Problems Problem Noted Date Diagnosed Date Class 3 severe obesity with serious comorbidity and body mass index (BMI) of 40.0 to 44.9 in adult ([facility] V24, [facility] V28) 03/25/2025 HTN (hypertension) 05/15/2024 Obstructive sleep apnea 05/15/2024 History of gastric bypass 05/15/2024 History of hysterectomy 05/15/2024 History of thyroidectomy 05/15/2024 Hypothyroidism 05/15/2024 Encounters Date Type Department Care Team Description 03/25/2025 1:00 PM EST Consult Bariatric Surgery - [address] [address] Class 3 severe obesity with serious comorbidity and body mass index (BMI) of 40.0 to 44.9 in adult, unspecified obesity type ([facility] V24, [facility] V28) (Primary Dx) from Last 3 Months [...] - Inhaled Oxygen Concentration - - Weight 111 kg (245 lb) 03/25/2025 1:15 PM EST Height 160 cm (5' 3 ) 12/20/2024 2:30 PM EDT Body Mass Index 43.4 12/20/2024 2:30 PM EDT Plan of Treatment Upcoming Encounters Date Type Department Care Team (Late st Contact Info) Description 06/17/2025 1:30 PM EST Nutrition Bariatric Surgery - [place] 175 [facility] [address] [place] [address] Jud Swartz, RD [address] [address] 06/27/2025 1:00 PM EST Office Visit Bariatric Surgery - [place] [address] [address] Tamra Barry MD [address] [place] [phone] Health Maintenance Due Date Last Done Comments [...] 2025 09/06/2020, 08/14/2020 Influenza Vaccine (#1) 2025 5, 05/02/2023, 04/28/2022, [...] Insurance [facility] Care Teams Brand Advisor Relationship Specialty Start Date End Date Sammi Beal MD [address] [place] [address] , [address] [facility] D/B/A: [facility] [place] PCP - General Internal Medicine 04/30/24
== END 2025-04-04 14:44 | disposition home or self-care (01) ==
LOC: HO.PMC 14:24
PROVIDERS: PCP Internal Medicine; Visit Provider Anesthesiology
DX: M17.12 Unilateral primary osteoarthritis, left knee (principal); G89.4 Chronic pain syndrome; M25.562 Pain in left knee; M47.816 Spondylosis without myelopathy or radiculopathy, lumbar region
CPT/HCPCS: 99213

== ENCOUNTER → 2025-04-04 14:23 | Outpatient (BNVA) | payer OTHER, SELFPAY | PROVIDERS: PCP Internal Medicine; Visit Provider Anesthesiology | DX: M47.816 Spondylosis without myelopathy or radiculopathy, lumbar region (principal); M25.562 Pain in left knee; M17.12 Unilateral primary osteoarthritis, left knee; G89.4 Chronic pain syndrome | CPT/HCPCS: 99212 ==

== ENCOUNTER 2025-04-05 15:55 | Outpatient (AMB) | payer OTHER, SELFPAY ==
--- NOTE | 2025-04-05 15:42 | MHC.OFFVIS ---
Intake Visit Reasons: r/s from 04/04 Intake Note: Patient is present via telehealth for Botox-Follow Up Urology Medication: Estradiol Antibiotic Allergies:None Blood Thinners: None Net Sql Developer Required: Yes Net Sql Developer Language: Career Development Consultant Name: Reggie Information Interpreted: non-clinical & clinical Accompanied by: Self / Same As Patient Allergies aspirin Allergy (Severe, Verified 04/05/25 15:56) Swelling topiramate Adverse Reaction (Intermediate, Verified 04/05/25 15:56) cough HPI Comments Details: 04/05/25--History of Present Illness - The patient is a 55-year-old female presenting for follow-up management of overactive bladder. She is having increased urinary urgency. - The patient underwent last Botox injection procedure on September 11, 2024 for the management of overactive bladder. - The patient reports satisfactory results from the procedure, with no significant issues noted since the last injection. - Plan - Continue Botox injections for overactive bladder management, - Schedule repeat Botox 100 units 12/10/24-- History of Present Illness - The patient is a 54-year-old female presenting for follow-up management of overactive bladder. - The patient underwent a Botox injection procedure on September 11, 2024 for the management of overactive bladder. - The procedure was performed previously in August 2023.. - The patient reports satisfactory results from the procedure, with no significant issues noted since the last injection. - A follow-up phone call is planned in three to four months to reassess urinary symptoms. Plan - Continue Botox injections for overactive bladder management, - Schedule a follow-up phone call in three to four months to reevaluate the patient's symptoms and schedule next botox intervention. 06/11/24--Caro is a 54 year old English-speaking female who is status post cystoscopy bladder Botox injection 100 units 09/03/2023. She states she has done very well since the procedure. She denies urinary leakage. Urinary frequency and urgency has decreased. Plan to repeat bladder Botox injection. 06/01/23--Caro is a 53-year-old female who presents today to the office for a urodynamics. She has been on Myrbetriq and oxybutynin in the past without improvement in her symptoms. Leakage was not observe with valsalva, leakage was observed with cough and it was not clear if there may have been an associated cough induced detrusor contraction. Findings consistent with less than average functional bladder capacity, and detrusor overactivity. Discussed Botox bladder injection 200 units PFSH Medical History Hyperlipidemia OAB (overactive bladder) Arthritis Lumbar radiculopathy Cervical radiculopathy Migraine Benzodiazepine withdrawal Morbid obesity with BMI of 40.0-44.9, adult JAYLENE (generalized anxiety disorder) Moderate recurrent major depression Lump of skin Vitamin D deficiency Hyperparathyroidism Common cold Hot flash not due to menopause HTN (hypertension) Amenorrhea Obesity Hypothyroidism Obstructive sleep apnea Surgical History Hx of excision of mass Hx of cystoscopy History of thyroidectomy Hx of gastric bypass Hx of hemorrhoidectomy Hx of hysterectomy Hx of tubal ligation Hx of multiple trauma Family History Father Diabetes Hypertension Mother Diabetes Alzheimer's disease Brother Substance use disorder Family/Other Mental health disorder Maternal Aunt Cancer Social History Housing: Apartment Are you a primary home care music therapist to a significant other at home: No Do you presently have visiting nurse or other home services: No Alcohol intake: current Alcohol intake frequency: does not drink Alcohol type: wine Patient Tobacco Use Status: Former Tobacco user Tobacco use type: Cigarette Cigarettes Per Day: 3 Years Smoked: 15 e-Cigarette/Vaping Use: Never Used Second Hand Smoke Exposure: Yes service: No 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al status: unemployed and disabled 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 Cognitive needs: Yes (Cane) Hearing needs: No Vision needs: Yes (Glasses) Review of Systems Const All systems reviewed & are unremarkable except as noted in HPI and below Reports no additional complaints Eyes Reports no additional complaints ENT Reports no additional complaints Card Reports no additional complaints Resp Reports no additional complaints GI Reports no additional complaints Reports as per HPI Musc Reports no additional complaints Skin/Breast Reports system reviewed and no additional complaints, except as documented Neuro Reports no additional complaints Psych Reports no additional complaints Endo Reports no additional complaints Jeanmarie/Lymph Reports no additional complaints Aller/Immun Reports no additional complaints Telehealth Telehealth Telehealth Platform: D[employer] Location of provider rendering services: practice address Location of patient: address on file Patient Identification confirmed using: Name, : Yes Telehealth method: video Patient verbally consented to treatment: Yes Patient verbally consented to billing insurance company: Yes Patient informed of any privacy concerns related to visit: Yes Assessment & Plan Assessment & Plan (1) OAB (overactive bladder): Code(s): N32.81 - Overactive bladder Category: Medical Plan Plan - Continue Botox injections for overactive bladder management, - Schedule repeat Botox 100 units Patient Instructions: Patient was informed and verbally consented to the use of an ambient scribe for clinic note documentation during this visit. Scribe Plan - Not visible on output: Patient was informed and verbally consented to the use of an ambient scribe for clinic note documentation during this visit. Coding Level of Care Code Est Pt Level 4 (16371) Diagnoses OAB (overactive bladder) N32.81
--- OUTSIDE RECORDS SUMMARY | 2025-04-05 16:02 | XMS_ITS | Encounter Summary ---
Author Organization [employer] Address [address] [facility] [address]t [place] [address] Care Team Providers Care Crayon Grader Name Role Phone Unavailable Primary Care Provider Unavailabl e Reason for Visit * Reason Comments Med Refill Encounter Details Date Type Department Care Team (Late st Contact Info) Description 02/01/2025 Refill [facility] ADULT DENTAL [address] [place] [address] Feroz Sterling DMD [address] [place] [address] Social History Tobacco Use Types Packs/Day Years [...]
--- OUTSIDE RECORDS SUMMARY | 2025-04-05 16:02 | XMS_ITS | Clinical Summary ---
Author Organization [employer] Address [address] [facility] 7t [place] [address] Care Team Providers Care Spiral Winder Name Role Phone Unavailable Primary Care [...] Type Department Care Team Description 03/11/2025 Refill [facility] ADULT DENTAL [address] [place] [address] Feroz Sterling DMD 02/01/2025 Refill [facility] ADULT DENTAL [address] [place] [address] Feroz Sterling DMD 01/24/2025 10:30 AM EDT Office Visit [facility] ADULT DENTAL [address] [place] [address] Verena Hobson DDS Full coverage crown needed for root canal-treated tooth (Primary Dx); Dental caries 01/09/2025 10:00 AM EDT Office Visit [facility] ADULT DENTAL [address] [place] [address] Verena Hobson DDS Dental caries (Primary Dx); Full coverage crown needed for root canal-treated tooth from Last 3 Months Social History Tobacco [...] of 2) 2021 COVID-19 Vaccine (3 - season) 2025 09/06/2020, 08/14/2020 Influenza Vaccine (#1) [...] coverage crown needed for root canal-treated tooth PROPHYLAXIS - ADULT Routine 08/01/2024 1 0:00 [...]
--- OUTSIDE RECORDS SUMMARY | 2025-04-05 16:02 | XMS_ITS | Encounter Summary ---
Author Organization [facility] Address [address] [facility] [address] [place] [address] Care Team Providers Care Wreath Inspector Name Role Phone Unavailable Primary Care Provider [...]
--- OUTSIDE RECORDS SUMMARY | 2025-04-05 16:02 | XMS_ITS | Encounter Summary ---
Author Organization [employer] Address [address] [facility] [address] [place] [address] Care Team Providers Care Electrical Lineman Name Role Phone Unavailable Primary Care Provider Unavailabl e Reason for Visit * Reason Comments Med Refill Encounter Details Date Type Department Care Team (Late st Contact Info) Description 03/11/2025 Refill [facility] ADULT DENTAL [address] [place] [address] Feroz Sterling DMD [address] [place] [address] Social History Tobacco Use Types Packs/Day Years [...]
--- OUTSIDE RECORDS SUMMARY | 2025-04-05 16:02 | XMS_ITS | Clinical Summary ---
Author Organization [address] [facility] Address [address] [place] [address] Phone Care Team Providers Care Sound Effects Supervisor Name Role Phone Sammi Beal MD Primary Care Provider [phone] Allergies Active Allergy Reactions Criticality Noted Date [...] (BMI) of 40.0 to 44.9 in adult ([facility] V24, [facility] V28) 03/25/2025 HTN (hypertension) 05/15/2024 Obstructive sleep apnea 05/15/2024 History of gastric bypass 05/15/2024 History of hysterectomy 05/15/2024 History of thyroidectomy 05/15/2024 Hypothyroidism 05/15/2024 Encounters Date Type Department Care Team Description 03/25/2025 1:00 PM EST Consult Bariatric Surgery - [address] [address] Class 3 severe obesity with serious comorbidity and body mass index (BMI) of 40.0 to 44.9 in adult, unspecified obesity type ([facility] V24, [facility] V28) (Primary Dx) from Last 3 [...] 1:30 PM EST Nutrition Bariatric Surgery - [place] 175 [facility] [address] [place] [address] Jud Swartz, RD [address] [address] 06/27/2025 1:00 PM EST Office Visit Bariatric Surgery - [place] [address] [address] Tamra Barry MD [address] [place] [phone] Health Maintenance Due Date Last Done Comments [...] patient's age to complete this topic Insurance [facility] Care Teams Sound Effects Supervisor Relationship Specialty Start Date End Date Sammi Beal MD [address] [place] [address] , [address] [facility] D/B/A: [facility] [place] PCP - General Internal Medicine 04/30/24
--- OUTSIDE RECORDS SUMMARY | 2025-04-05 16:02 | XMS_ITS | Encounter Summary ---
Author Organization [facility] Address [address] [facility] 7t [place] [address] Care Team Providers Care Payroll Benefits Clerk Name Role Phone Unavailable Primary Care [...]
== END 2025-04-05 16:19 | disposition home or self-care (01) ==
LOC: HO.HUSH 15:55
PROVIDERS: PCP Internal Medicine; Visit Provider Urology
DX: N32.81 Overactive bladder (principal)
CPT/HCPCS: 99214

== ENCOUNTER → 2025-04-05 15:55 | Outpatient (BNVA) | payer OTHER, SELFPAY | PROVIDERS: PCP Internal Medicine; Visit Provider Urology | DX: N32.81 Overactive bladder (principal) | CPT/HCPCS: 99212 ==

== ENCOUNTER 2025-04-13 12:43 | Emergency (ER) | payer OTHER, SELFPAY ==
--- NOTE | ~2025-04-13 | XR_ITS ---
CLINICAL HISTORY: L sided back pain 2 views thoracic spine Comparison: None Findings: No fractures or dislocations. Normal vertebral body alignment. There is dkak-nr-gbawpbee mid to lower thoracic vertebral body spurring.. Impression: 1. Ktks-il-pcnxxjye mid to lower thoracic degenerative disc disease. This document has been electronically signed by: Roger Reyes MD on 04/13/2025 14:38:26
--- NOTE | ~2025-04-13 | XR_ITS ---
CLINICAL HISTORY: L sided back pain 3 views lumbar spine Comparison: 03/15/2025 Findings: No fractures or dislocations. Stable vertebral body alignment. There is similar disc space narrowing at L5-S1. Remaining intervertebral disc heights appear maintained. There is bilateral facet arthropathy, more significant L4-S1. Impression: 1. Similar-appearing lumbar spine. This document has been electronically signed by: Roger Reyes MD on 04/13/2025 14:38:52
[2025-04-13 12:53] VITALS: BP 161/86; PULSE 73; RESP 20; TEMP 35.9; O2SAT 98; BMI 43.4
--- NOTE | 2025-04-13 12:55 | ED_ITS ---
HPI - General Adult General Chief complaint: Back Pain/Injury Stated complaint: back pain Time Seen by Provider: 04/13/25 15:00 Source: patient, RN notes reviewed, old records reviewed and personal financial counselor Mode of arrival: ambulatory Limitations: language barrier (Telugu-speaking) History of Present Illness ED Provider: HIRA Palencia HPI narrative: 55-year-old female with medical history of patellofemoral syndrome, osteoarthritis, lumbar radiculopathy, cervical radiculopathy, chronic pain syndrome, HTN, anxiety, depression, hyperparathyroidism, presents to the ED due to acute on chronic back pain. Patient states she has been experiencing 3 days of left-sided cervical pain that radiates into the left shoulder, down the lumbar back and down the left leg with numbness and tingling. Patient states she has history of cervical and lumbar pain and has been taking flexeril and tramadol without effect. Patient states she suffers from these symptoms quite frequently and is awaiting insurance approval for f/u with [facility] pain management for trigger point injections. Patient denies injury/fall/trauma, increased physical activity. Denies fevers, weight loss, history of IVDU, saddle paresthesias, bowel/bladder incontinence, chest pain, shortness of breath, abdominal pain, nausea, vomiting, headaches, visual changes, urinary symptoms MD complaint: cervical muscle pain, lumbar pain Related Data Home Medications ?Medication ?Instructions ?Recorded ?Confirmed omeprazole 40 mg capsule,delayed 40 mg PO DAILY 04/02/25 release Previous Rx's ?Medication ?Instructions ?Recorded clgnhnushf-olsqqgdnkgmkj-ulwczdza 1 tab PO Q6H PRN miriam n headache 15 03/11/21 50 mg-325 mg-40 mg tablet days #60 tabs capsaicin 0.1 % topical cream 1 appl topical BID #42.5 grams 08/09/23 (Arthritis Pain Relief (capsaicin)) losartan 25 mg tablet 25 mg PO DAILY 90 days #90 t abs 08/13/24 celecoxib 200 mg capsule (Celebrex) 200 mg PO BID 30 d ays #60 caps 12/28/24 cholecalciferol (vitamin D3) 25 25 mcg PO DAILY #90 ca ps 02/12/25 mcg (1,000 unit) capsule cholecalciferol (vitamin D3) 50 50 mcg PO DAILY 3 shari hs #90 caps 02/12/25 mcg (2,000 unit) capsule levothyroxine 150 mcg tablet 150 mcg PO DAILY #30 tabs 02/12/25 tramadol 50 mg tablet 50 mg PO DAILY 30 days #30 t abs 03/25/25 cyclobenzaprine 10 mg tablet 10 mg PO BEDTIME PRN musc le spasm 03/31/25 30 days #30 tabs prednisone 20 mg tablet 20 mg PO BID 5 days #10 tabs 04/13/25 Allergies Allergy/AdvReac Type Severity Reaction Status Date / Time aspirin Allergy Severe Swelling Verified 04/13/25 12:57 topiramate AdvReac Intermediate cough Verified 04/13/25 12:57 Review of Systems Review of Systems: Yes all other systems are reviewed and are negative PMFSH Past Medical History Attestation statement: The following information was validated with the patient. Source: old records reviewed and nursing notes reviewed Medical History Hyperlipidemia OAB (overactive bladder) Arthritis Lumbar radiculopathy Cervical radiculopathy Migraine Benzodiazepine withdrawal Morbid obesity with BMI of 40.0-44.9, adult JAYLENE (generalized anxiety disorder) Moderate recurrent major depression Lump of skin Vitamin D deficiency Hyperparathyroidism Common cold Hot flash not due to menopause HTN (hypertension) Amenorrhea Obesity Hypothyroidism Obstructive sleep apnea Surgical History Hx of excision of mass Hx of cystoscopy History of thyroidectomy Hx of gastric bypass Hx of hemorrhoidectomy Hx of hysterectomy Hx of tubal ligation Hx of multiple trauma Family History Family History Father Diabetes Hypertension Mother Diabetes Alzheimer's disease Brother Substance use disorder Family/Other Mental health disorder Maternal Aunt Cancer Social History Social History Housing: Apartment Are you a primary adult day care worker to a significant other at home: No Do you presently have visiting nurse or other home services: No Alcohol intake: current Alcohol intake frequency: does not drink Alcohol type: wine Patient Tobacco Use Status: Former Tobacco user Tobacco use type: Cigarette Cigarettes Per Day: 3 Years Smoked: 15 e-Cigarette/Vaping Use: Never Used Second Hand Smoke Exposure: Yes Advance Directives: No Advance Directives Information Provided: No Do you have a plan to hurt others: No Plan service: No 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al status: unemployed and disabled 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 HEENT: ?NC, AT. MMM. EOMI, clear conjunctiva, oropharynx clear. NECK: ?Supple without lymphadenopathy.? No stiffness or restricted ROM. TTP of left-sided cervical paraspinal muscles, no midline cervical spinal tenderness, no bony step-offs, full ROM intact, TTP over left trapezius muscle, no overlying skin changes HEART:? Normal rate and regular rhythm, normal S1/S2, no m/r/g LUNGS:? CTAB, moving air well. No crackles or wheezes are heard. ABDOMEN: ?Soft, nontender, nondistended with good bowel sounds heard. BACK: No CVAT, no obvious deformity. TTP of left-sided lumbar paraspinal muscles, no midline lumbar spinal tenderness, no bony step-offs, ROM intact however patient has significant pain when trying to perform extension, no overlying skin changes, no ecchymosis EXTREMITIES: ?Without cyanosis, clubbing or edema. NEUROLOGICAL: ?Grossly nonfocal. Alert and oriented, moving all 4 extremities. Patient ambulating with cane at baseline Skin: ?Warm and dry without any rash. Course Course Course Narrative: This is a Rapid Medical Examination (RME) performed by Chilango Foster PA-C in triage. Full HPI, ROS, assessment and treatment plan per primary provider in the Main ED. Hx: 55 yo F here for eval of acute on chronic L upper and lower back pain x3 days. reports hx of similar. takes tramadol and flexeril at home for back pain - no improvement. last doses at 0700 this morning. no recent injury/trauma/ falls. no hx of spinal surgery or IVDU. no saddle anesthesia, bowel/bladder incontinence or retention. PE/vitals: tearful. Plan: imaging Medications Administered Discontinued Medications Generic Name Dose Route Start Last Admin Trade Name Karsten PRN Reason Stop Dose Admin Acetaminophen 975 mg 04/13/25 17:17 04/13/25 17:45 Acetaminophen 325 Mg Tablet PO 04/13/25 17:18 975 mg ONCE ONE Administration Diazepam 5 mg 04/13/25 17:17 04/13/25 17:45 Diazepam 10 Mg/2 Ml Cartridge IM 04/13/25 17:18 5 mg STAT STA Administration Medical Decision Making Medical Decision Making [facility] Narrative: 55-year-old female with medical history of patellofemoral syndrome, ost eoarthritis, lumbar radiculopathy, cervical radiculopathy, chronic pain syndrome, HTN, anxiety, depression, hyperparathyroidism, presents to the ED due to acute on chronic back pain that starts at the L side cervical paraspinal muscles, into the left shoulder, down to left lumbar paraspinal muscles, and down posterior left thigh. No red flag symptoms such as fevers, weight loss, history of IVDU, fall, injury, trauma, history of malignancy, saddle paresthesias, bowel/bladder incontinence VS on initial observation-BP 161/86, pulse rate is 73, respiratory rate of 20, afebrile with oral temp of 96.6?, O2 saturation 98% on room air. On physical exam TTP of left-sided cervical paraspinal muscles, no midline cervical spinal tenderness, no bony step-offs, full ROM intact, TTP over left trapezius muscle, no overlying skin changes, TTP of left-sided lumbar paraspinal muscles, no midline lumbar spinal tenderness, no bony step-offs, ROM intact however patient has significant pain when trying to perform extension, no overlying skin changes, no ecchymosis XR thoracic spine, XR lumbar spine ordered from triage. Course 17:37- XR imaging negative for fracture, dislocation however does reveal degenerative changes of the lumbar and thoracic spine spine Patient medicated with 5 mg IM Valium for muscle spasm, and will be discharged home with 5 day course of 40 mg prednisone. Patient already has prescription for Flexeril, and tramadol at home. I counseled patient that tramadol may be unhelpful and that pain management is best with 500 mg of Tylenol, 400 mg of ibuprofen. I counseled patient to follow up with her primary care doctor as she may need physical therapy and to follow up with [facility] pain management for injections once insurance authorization is improved. I counseled patient that her muscle spasm may last over the next 4-6 weeks even with medication. Patient well enough to go home for self-care at this time. Patient is in agreement with the plan. Differential Diagnosis Differential Diagnoses: The differential diagnosis associated with the presentation includes SEA Cauda Equina Discitis Lumbar muscle strain Cervical muscle strain Cervical radiculopathy Lumbar radiculopathy Admission/Observation Consideration of admission/observation: Escalation of care including admission/observation considered Lab Data MDM Lab Attestation statement: I reviewed the patient's lab results. Independent Interpretation I performed an independent interpretation of an: Plain X-Ray Radiology Impression Discussion of test interpretation with radiology: I have reviewed the radiologist's reading. Radiologist Impression: XR thoracic spine Findings: No fractures or dislocations. Normal vertebral body alignment. There is xltm-wb-zcdfzgom mid to lower thoracic vertebral body spurring.. Impression: 1. Cery-dj-daihicpr mid to lower thoracic degenerative disc disease. This document has been electronically signed by: Roger Reyes MD on 04/13/2025 14:38:26 Dictated By: Roger Reyes MD Signed By: <Electronically signed by Roger Reyes MD in OV> 04/13/25 1439 XR Lumbar spine Findings: No fractures or dislocations. Stable vertebral body alignment. There is similar disc space narrowing at L5-S1. Remaining intervertebral disc heights appear maintained. There is bilateral facet arthropathy, more significant L4-S1. Impression: 1. Similar-appearing lumbar spine. This document has been electronically signed by: Roger Reyes MD on 04/13/2025 14:38:52 Dictated By: Roger Reyes MD Signed By: <Electronically signed by Roger Reyes MD in OV> 04/13/25 1439 External Record Review External record reviewed: Inpatient record, Office record, Outpatient record, Prior outpatient labs and Prior outpatient radiology Chronic Conditions Patient?s care impacted by: Hypertension and Other (HLD, patellofemoral syndrome, osteoarthritis, lumbar radiculopathy, cervical radiculopathy, chronic pain syndrome, anxiety, depression, hyperparathyroidism) Discharge Plan Discharge Clinical Impression: Cervical muscle strain, Lumbar radiculopathy Patient Disposition: Home, Self-Care Additional Instructions: You were evaluated in the emergency department for cervical, and lumbar back pain. Your x-ray imaging was negative for fracture or dislocation however does show degenerative changes consistent with osteoarthritis of your thoracic and lumbar back. This is most likely what is causing your back pain. You are being prescribed a 5 day course of 40 mg prednisone which is a steroid for lumbar pain radiating into the leg. To manage pain at home I recommend that you take 500 mg of Tylenol, and 400 mg of ibuprofen every 6 hours. Additionally, you should engage in gentle stretching, and placing a heating pad over the affected areas. Please follow up with your primary care doctor as you may need physical therapy for further management of your cervical, and lumbar back pain. Please follow up with pain management for possible trigger point injections that you were discussing. Please return to the emergency department if you experience numbness and tingling of the inner thighs or genital area, bowel/bladder incontinence, fevers over 100.4?, worsening pain, or any new/worsening/concerning symptoms. Prescriptions: New prednisone 20 mg tablet 20 mg PO BID 5 Days Qty: 10 0RF No Action losartan 25 mg tablet 25 mg PO DAILY 90 Days Qty: 90 1RF tramadol 50 mg tablet 50 mg PO DAILY 30 Days Qty: 30 0RF cyclobenzaprine 10 mg tablet 10 mg PO BEDTIME PRN (Reason: muscle spasm) 30 Days Qty: 30 1RF capsaicin [Arthritis Pain Relief(capsaic)] 0.1 % cream 1 appl topical BID Qty: 42.5 0RF Rx Instructions: do not wash area for at least 30 min after application mxxnkehxml-hmjtmhgixxnsa-ruai 50-325-40 mg tablet 1 tab PO Q6H PRN (Reason: pain headache) 15 Days Qty: 60 5RF omeprazole 40 mg capsule,delayed release(DR/EC) 40 mg PO DAILY cholecalciferol (vitamin D3) 25 mcg (1,000 unit) capsule 25 mcg PO DAILY Qty: 90 4RF Rx Instructions: Take one tablet daily in addition to the 2000 mcg of vitamin D prescribed daily for a total of 3000 mcg daily cholecalciferol (vitamin D3) 50 mcg (2,000 unit) capsule 50 mcg PO DAILY 90 Days Qty: 90 4RF Rx Instructions: Take 2000 units plus 1000 units for a total of 3000 units daily levothyroxine 150 mcg tablet 150 mcg PO DAILY Qty: 30 11RF celecoxib [Celebrex] 200 mg capsule 200 mg PO BID 30 Days Qty: 60 3RF Print Language: Telugu
--- OUTSIDE RECORDS SUMMARY | 2025-04-13 16:14 | XMS_ITS | Clinical Summary ---
Author Organization [address] [facility] Address [address] [place] [address] Phone Care Team Providers Care Garage Attendant Name Role Phone Sammi Beal MD Primary Care Provider [phone] Allergies Active Allergy Reactions Criticality Noted Date [...] (BMI) of 40.0 to 44.9 in adult ([facility] V24, [facility] V28) 03/25/2025 HTN (hypertension) 05/15/2024 Obstructive sleep apnea 05/15/2024 History of gastric bypass 05/15/2024 History of hysterectomy 05/15/2024 History of thyroidectomy 05/15/2024 Hypothyroidism 05/15/2024 Encounters Date Type Department Care Team Description 03/25/2025 1:00 PM EST Consult Bariatric Surgery - [address] [address] Class 3 severe obesity with serious comorbidity and body mass index (BMI) of 40.0 to 44.9 in adult, unspecified obesity type ([facility] V24, [facility] V28) (Primary Dx) from Last 3 [...] 1:30 PM EST Nutrition Bariatric Surgery - [place] [address] [facility] [address] [place] [address] Jud Swartz, RD [address] [address] 06/27/2025 1:00 PM EST Office Visit Bariatric Surgery - [place] [address] [address] Tamra Barry MD [address] [place] [id number] Health Maintenance Due Date Last Done Comments [...] [facility] Care Teams Garage Attendant Relationship Specialty Start Date End Date Sammi Beal MD [address] [place] [address] , [address] [facility] [place] PCP - General Internal Medicine 04/30/24
--- OUTSIDE RECORDS SUMMARY | 2025-04-13 16:14 | XMS_ITS | Encounter Summary ---
Author Organization [facility] [employer] [facility] Address [address] [facility] 7t [place] [address] Care Team Providers Care Director Medicare Sales Name Role Phone Unavailable Primary Care Provider [...]
--- OUTSIDE RECORDS SUMMARY | 2025-04-13 16:14 | XMS_ITS | Encounter Summary ---
Author Organization [facility] [employer] [facility] Address [address] [facility] 7t [place] [address] Care Team Providers Care Buffing Turner And Counter Name Role Phone Unavailable Primary Care Provider [...]
--- OUTSIDE RECORDS SUMMARY | 2025-04-13 16:14 | XMS_ITS | Encounter Summary ---
Author Organization [employer] Address [address] [facility] 7t [place] [address] Care Team Providers Care Comptometrist Name Role Phone Unavailable Primary Care Provider Unavailabl e Reason for Visit * Reason Comments Med Refill Encounter Details Date Type Department Care Team (Late st Contact Info) Description 03/11/[address] [facility] [address] [place] [address] Feroz Sterling DMD [address] [place] [address] Social History Tobacco Use Types Packs/Day Years [...]
--- OUTSIDE RECORDS SUMMARY | 2025-04-13 16:14 | XMS_ITS | Clinical Summary ---
Author Organization [employer] Address [address] [facility] [address]t [place] [address] Care Team Providers Care Two Way Radio Technician Name Role Phone Unavailable Primary Care [...] Type Department Care Team Description 03/11/2025 Refill [facility] [address] [place] [address] Feroz Sterling DMD 02/01/2025 Refill [facility] [address] [place] [address] Feroz Sterling DMD 01/24/2025 10:30 AM EDT Office Visit [facility] [address] [place] [address] Verena Hobson, TYRONE Full coverage crown needed for root canal-treated tooth (Primary Dx); Dental caries from Last 3 Months Social History Tobacco [...] needed for root canal-treated tooth Dental caries PROPHYLAXIS - ADULT Routine 08/01/2024 1 0:00 AM EDT Dental calculus Subgingival dental calculus Supragingival dental calculus Dental plaque Gingivitis INTRAORAL - COMPLETE SERIES OF RADIOGRAPHIC IMAGES Routine 08/01/2024 10:00 AM EDT PERIODIC ORAL EVALUATION - ESTABLISHED PATIENT Routine 08/01/2024 10:00 AM EDT from Last 3 Months or Most Recently Relevant to Health Maintenance Insurance DENTAL-[facility] MEDICAID STAND ADULT * Guarantor: Caro Maxwell Account Type Relation to Patient Date of Phone Billing Address Personal/Family Self [facility] [address]
--- OUTSIDE RECORDS SUMMARY | 2025-04-13 16:14 | XMS_ITS | Encounter Summary ---
Author Organization [employer] Address [address] [facility] 7t [place] [address] Care Team Providers Care Electronics Repair Technician Name Role Phone Unavailable Primary Care Provider Unavailabl e Reason for Visit * Reason Comments Med Refill Encounter Details Date Type Department Care Team (Late st Contact Info) Description 02/01/2025 Refill [facility] [address] [place] [address] Feroz Sterling DMD [address] [place] [address] Social History Tobacco Use Types Packs/Day Years [...]
[2025-04-13] MEDS: diazePAM 10 MG/2 ML CARTRIDGE 5 MG IM (17:45)
[2025-04-13 18:18] VITALS: BP 157/89; PULSE 75; RESP 20; O2SAT 99
[2025-04-13 18:30] VITALS: BP 157/89; PULSE 75; RESP 20; TEMP -17.7; TEMP 0; O2SAT 99
== END 2025-04-13 18:31 | disposition home or self-care (01) ==
PROVIDERS: Emergency Provider Emergency Medicine; PCP Internal Medicine
DX: S16.1XXA Strain of muscle, fascia and tendon at neck level, initial encounter (principal); X58.XXXA Exposure to other specified factors, initial encounter; Y93.9 Activity, unspecified; Y92.9 Unspecified place or not applicable; M54.16 Radiculopathy, lumbar region; M54.6 Pain in thoracic spine; I10 Essential (primary) hypertension; G89.4 Chronic pain syndrome; R20.0 Anesthesia of skin; R20.2 Paresthesia of skin
CPT/HCPCS: 72072; 72100; 96372; 99283; 99284; J3360

== ENCOUNTER → 2025-04-13 12:56 | Outpatient (BNV) | payer OTHER, SELFPAY | PROVIDERS: Emergency Provider Emergency Medicine; PCP Internal Medicine; Visit Provider Radiology Diagnostic Radiology | DX: M51.34 Other intervertebral disc degeneration, thoracic region (principal); M54.50 Low back pain, unspecified | CPT/HCPCS: 72072; 72100 ==

== ENCOUNTER 2025-04-23 12:14 | Day surgery (SDC) | payer OTHER, SELFPAY ==
--- OUTSIDE RECORDS SUMMARY | 2025-04-16 12:11 | XMS_ITS | Clinical Summary ---
Author Organization [email or web address] Address [address] [facility] [address]t [place] [address] Care Team Providers Care Qa Specialist Name Role Phone Unavailable Primary Care [...] TO TEETH 2 TIMES DAILY. 100 g 04/16/20 25 Active Sodium Fluoride 5000 PPM 1.1 % paste APPLY 1 APPLICATION. TO TEETH 2 TIMES DAILY. 100 g 03/11/20 25 025 Discontinued Active Problems Problem Noted Date Diagnosed Date Urinary incontinence 08/24/2024 History of hysterectomy 05/15/2024 History of gastric bypass 05/15/2024 HTN (hypertension) 05/15/2024 Hypothyroidism 05/15/2024 Obstructive sleep apnea 05/15/2024 History of thyroidectomy 05/15/2024 Status post total thyroidectomy 08/01/2019 Encounters Date Type Department Care Team Description 04/16/2025 Refill [facility] [address] [place] [address] Feroz Sterling DMD 03/11/2025 Refill [facility] [address] [place] [address] Feroz Sterling DMD 02/01/2025 Refill [facility] [address] [place] [address] Feroz Sterling DMD 01/24/2025 10:30 AM EDT Office Visit [facility] [address] [place] [address] Verena Hobson, DDS Full coverage crown needed for root [...]
--- OUTSIDE RECORDS SUMMARY | 2025-04-16 12:11 | XMS_ITS | Encounter Summary ---
Author Organization [employer] Address [address] [facility] [address] [place] [address] Care Team Providers Care Bead Forming Machine Set Up Operator Name Role Phone Unavailable Primary Care Provider Unavailabl e Reason for Visit * Reason Comments Med Refill Encounter Details Date Type Department Care Team (Late st Contact Info) Description 02/01/2025 Refill [facility] [address] [place] [address] Feroz Sterling DMD [address] [place] [address] Social History Tobacco Use Types Packs/Day Years [...]
--- OUTSIDE RECORDS SUMMARY | 2025-04-16 12:11 | XMS_ITS | Encounter Summary ---
Author Organization [employer] Address [address] [facility] [address]t [place] [address] Care Team Providers Care Seed Cleaning Machine Operator Name Role Phone Unavailable Primary Care Provider Unavailabl e Reason for Visit * Reason Comments Med Refill Encounter Details Date Type Department Care Team (Late st Contact Info) Description 04/16/2025 Refill [facility] [address] [place] [address] Feroz Sterling, GALLO [address] [place] [address] Social History Tobacco Use Types Packs/Day Years [...] encounter Miscellaneous Notes * Telephone Encounter - Verena Hobson DDS - 04/16/2025 8:46 AM EST Approving, but needs appt for additional refills. documented in this encounter Plan of Treatment Not on file documented as of this encounter Visit Diagnoses Not on filedocumented in this encounter
--- OUTSIDE RECORDS SUMMARY | 2025-04-16 12:11 | XMS_ITS | Encounter Summary ---
Author Organization [facility] [employer] [facility] Address [address] [facility] [address] [place] [address] Care Team Providers Care Nurse Transitional Name Role Phone Unavailable Primary Care Provider [...]
--- OUTSIDE RECORDS SUMMARY | 2025-04-16 12:11 | XMS_ITS | Encounter Summary ---
Author Organization [facility] [employer] [facility] Address [address] [facility] [address]t [place] [address] Care Team Providers Care Atmospheric Sciences Professor Name Role Phone Unavailable Primary Care [...]
--- OUTSIDE RECORDS SUMMARY | 2025-04-16 12:11 | XMS_ITS | Encounter Summary ---
Author Organization [employer] Address [address] [facility] [address] [place] [address] Care Team Providers Care Cigarette Making Machine Catcher Name Role Phone Unavailable Primary Care Provider Unavailabl e Reason for Visit * Reason Comments Med Refill Encounter Details Date Type Department Care Team ([facility] st Contact Info) Description 03/11/2025 Refill [facility] [address] [place] [address] Feroz Sterling DMD [address] [place] [address] Social History Tobacco Use Types Packs/Day Years [...]
--- OUTSIDE RECORDS SUMMARY | 2025-04-16 12:11 | XMS_ITS | Clinical Summary ---
Author Organization 175 [facility] Address 175 [place] [address] Phone Care Team Providers Care Customer Advisor Name Role Phone Sammi Beal MD Primary Care Provider [phone] Allergies Active Allergy Reactions Criticality Noted Date [...] (BMI) of 40.0 to 44.9 in adult ([facility] V24, [facility] V28) 03/25/2025 HTN (hypertension) 05/15/2024 Obstructive sleep apnea 05/15/2024 History of gastric bypass 05/15/2024 History of hysterectomy 05/15/2024 History of thyroidectomy 05/15/2024 Hypothyroidism 05/15/2024 Encounters Date Type Department Care Team Description 03/25/2025 1:00 PM EST Consult Bariatric Surgery - [address] [address] Class 3 severe obesity with serious comorbidity and body mass index (BMI) of 40.0 to 44.9 in adult, unspecified obesity type ([facility] V24, [facility] V28) (Primary Dx) from Last 3 Months [...] 1:30 PM EST Nutrition Bariatric Surgery - [place] 175 [facility] [address] [place] [address] Jud Swartz, RD [address] [address] 06/27/2025 1:00 PM EST Office Visit Bariatric Surgery - [place] [address] [address] Tamra Barry MD [address] [place] [phone] Health Maintenance Due Date Last Done Comments [...] patient's age to complete this topic Insurance [facility] PL[facility] Care Teams Customer Advisor Relationship Specialty Start Date End Date Sammi Beal MD [address] [place] [address] , [address] [facility] D/B/A: [facility] [place] PCP - General Internal Medicine 04/30/24
--- NOTE | 2025-04-19 09:55 | HO.ANESPROP2 ---
HPI - Anesthesia Eval Consult details Narrative: 55 yr old female for Cystoscopy Bladder Botox Injection s/p above procedure with TIVA 08/2024 BMI 43.4 MARY GERD PMFSH Active Problems Active Problems: All Active Problems Assistance needed at home (Acute) Neck pain (Acute) Patellofemoral arthritis of right knee (Acute) Bilateral post-traumatic osteoarthritis of knee (Acute) Physical exam (Acute) Osteoarthritis of left knee (Acute) Knee osteoarthritis (Acute) Lumbar radiculopathy (Acute) Cervical radiculopathy (Acute) Chronic pain syndrome (Acute) Spondylosis without myelopathy or radiculopathy, lumbar region (Acute) Arthritis of left knee (Acute) Urinary incontinence (Acute) Detrusor overactivity (Acute) OAB (overactive bladder) (Acute) Urinary retention (Acute) Hypophosphatemia (Acute) Hypokalemia (Acute) Sensation of pressure in bladder area (Acute) Mixed incontinence urge and stress (Acute) Recurrent UTI (Acute) Patellofemoral arthritis of left knee (Acute) Costovertebral angle tenderness (Acute) Left knee pain (Acute) Immunization due (Acute) Acute parotitis (Acute) Physical exam (Acute) Migraine with aura (Acute) Excessive daytime sleepiness (Acute) Snoring (Acute) Migraine (Acute) Migraines (Acute) Leg edema (Acute) Lipoma (Acute) Hyperlipidemia (Acute) Elevated LFTs (Acute) Adult general medical exam (Acute) Elevated blood pressure reading (Acute) Screening for colon cancer (Acute) Screening for hyperlipidemia (Acute) Screening for diabetes mellitus (Acute) Low back pain (Acute) Lumbar back pain with radiculopathy affecting left lower extremity (Acute) Knee pain (Acute) HTN (hypertension) (Acute) Obesity (Acute) Morbid obesity with BMI of 40.0-44.9, adult (Acute) JAYLENE (generalized anxiety disorder) (Acute) Moderate recurrent major depression (Acute) Lump of skin (Acute) Vitamin D deficiency (Acute) Hyperparathyroidism (Acute) Common cold (Acute) Hot flash not due to menopause (Acute) Amenorrhea (Acute) Hypothyroidism (Acute) Past Medical History Medical History Hyperlipidemia OAB (overactive bladder) Arthritis Lumbar radiculopathy Cervical radiculopathy Migraine Benzodiazepine withdrawal Morbid obesity with BMI of 40.0-44.9, adult JAYLENE (generalized anxiety disorder) Moderate recurrent major depression Lump of skin Vitamin D deficiency Hyperparathyroidism Common cold Hot flash not due to menopause HTN (hypertension) Amenorrhea Obesity Hypothyroidism Obstructive sleep apnea Family History Family History Father Diabetes Hypertension Mother Diabetes Alzheimer's disease Brother Substance use disorder Family/Other Mental health disorder Maternal Aunt Cancer Surgical History Surgical History Hx of excision of mass Hx of cystoscopy History of thyroidectomy Hx of gastric bypass Hx of hemorrhoidectomy Hx of hysterectomy Hx of tubal ligation Hx of multiple trauma Social History Social History Housing: Apartment Are you a primary resident care supervisor to a significant other at home: No Do you presently have visiting nurse or other home services: No Alcohol intake: current Alcohol intake frequency: does not drink Alcohol type: wine Patient Tobacco Use Status: Former Tobacco user Tobacco use type: Cigarette Cigarettes Per Day: 3 Years Smoked: 15 e-Cigarette/Vaping Use: Never Used Second Hand Smoke Exposure: Yes service: No 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al status: unemployed and disabled 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
[2025-04-23 13:21] VITALS: BMI 42.1
[2025-04-23 13:32] VITALS: BP 140/86; PULSE 69; RESP 18; TEMP 36.4; O2SAT 96
--- NOTE | 2025-04-23 15:19 | MHC.SHP ---
Pre-Procedural Eval Section A - 24 Hr Update-Section A only Date of Service: 04/23/25 The patient is an INPATIENT: No The patient has been examined within 24 hours of the surgical procedure. The History & Physical has been completed within 30 days and I have reviewed it.: Yes Section B - Complete if H&P > 30 days Chief Complaint: Overactive bladder Allergies: Allergies Allergy/AdvReac Type Severity Reaction Status Date / Time aspirin Allergy Severe Swelling Verified 04/23/25 13:36 topiramate AdvReac Intermediate cough Verified 04/23/25 13:36 Plan Diagnosis/Plan: Unchanged I have reviewed the history and physical and performed a pertinent physical examination on my patient. No changes have occurred unless specified. Cystoscopy Bladder botox injection 100 units. I have discussed risks to include hematuria, UTI, urinary retention, need to repeat procedure for sustained efficacy. Time Spent With Patient Time: Total time managing care of this patient today ____ minutes.
--- NOTE | 2025-04-23 15:20 | W.PM.OPN ---
Operative Note Operative Note Date of Service: 04/23/25 Narrative: PREOP DIAGNOSIS: OAB POSTOP DIAGNOSIS: OAB PROCEDURE: CYSTOSCOPY, BLADDER BOTOX INJECTION 100 UNITS SURGEON: Taj Sanabria MD ANESTHESIA: General Details of procedure: The patient was brought into the operating room placed on the OR table in supine position. Antibiotics confirmed. General anesthesia was administered. The patient was repositioned into lithotomy position, prepped and draped in the usual sterile fashion. Time-out was done per protocol. A 22 fr cystoscope was placed transurethrally into the bladder. Urine was sent for culture. The right and left ureteral orifices were visualized. There were moderate trabeculations noted. There were no suspicious bladder lesions seen. The Botox 100 units was mixed with 10 cc of normal saline and transurethral injections were placed into the posterior wall of the bladder. 0.5cc placed at each injection site. Injections were placed in a grid 5 across and 4 longitudinally. Injections were placed from the inferior to superior position. 2% lidocaine urojet was passed transurethrally into the bladder. The patient was brought out of anesthesia and taken to recovery in stable condition. Complications: None EBL: minimal (<5 mL) Drains: none
[2025-04-23 15:54] VITALS: BP 128/84; PULSE 73; RESP 14; TEMP 36.2; O2SAT 95
[2025-04-23 15:59] VITALS: BP 128/83; PULSE 76; RESP 12; O2SAT 95
[2025-04-23 16:04] VITALS: BP 138/82; PULSE 73; RESP 10; O2SAT 95
[2025-04-23 16:09] VITALS: BP 146/95; PULSE 66; RESP 12; O2SAT 97
[2025-04-23 16:24] VITALS: BP 151/87; PULSE 82; RESP 16; TEMP 36.8; O2SAT 98
== END 2025-04-23 16:28 | disposition home or self-care (01) ==
PROVIDERS: PCP Internal Medicine; Visit Provider Urology
PROC: 3E0K8GC Introduction of Other Therapeutic Substance into Genitourinary Tract, Via Natural or Artificial Opening Endoscopic (ICD-10-PCS; CPT 52287; principal; 2025-04-23 14:10)
DX: N32.81 Overactive bladder (principal); N32.89 Other specified disorders of bladder; R39.15 Urgency of urination; I10 Essential (primary) hypertension; E78.5 Hyperlipidemia, unspecified; E55.9 Vitamin D deficiency, unspecified; E03.9 Hypothyroidism, unspecified; E66.01 Morbid (severe) obesity due to excess calories; Z68.41 Body mass index [BMI] 40.0-44.9, adult; G47.33 Obstructive sleep apnea (adult) (pediatric); F33.1 Major depressive disorder, recurrent, moderate; F41.1 Generalized anxiety disorder; Z79.899 Other long term (current) drug therapy; Z88.6 Allergy status to analgesic agent; Z88.8 Allergy status to other drugs, medicaments and biological substances; Z87.891 Personal history of nicotine dependence; Z79.84 Long term (current) use of oral hypoglycemic drugs; Z98.890 Other specified postprocedural states
CPT/HCPCS: 52287; 87086; J0585; J0690; J1100; J2003; J2250; J2405; J2704; J3010

== ENCOUNTER → 2025-04-23 12:14 | Outpatient (BNV) | payer OTHER, SELFPAY | PROVIDERS: PCP Internal Medicine; Visit Provider Urology | DX: N32.81 Overactive bladder (principal) | CPT/HCPCS: 52287 ==

== ENCOUNTER 2025-05-01 13:34 | Outpatient (AMB) | payer OTHER, SELFPAY ==
[2025-05-01 13:48] VITALS: BP 146/86; PULSE 83; RESP 18; BMI 42.8
--- NOTE | 2025-05-01 13:48 | A.OFFPC_ITS ---
Vital Signs 05/01/25 13:48 Height 5 ft 3 in Weight 241 lb 8 oz BMI 42.8 BP 146/86 H Blood Pressure Location Lt brachial Position Sitting Respiration 18 Pulse 83 Pulse Source Pulse Oximeter Temp Source Temporal Artery Scan Oxygen Delivery Method Room Air Intake Visit Reasons: ED visit from 04/15 Back pain Body Shop Estimator Required: No Accompanied by: Self / Same As Patient Allergies aspirin Allergy (Severe, Verified 05/01/25 14:11) Swelling topiramate Adverse Reaction (Intermediate, Verified 05/01/25 14:11) cough Medication List - Last Reconciled 05/01/25 by Sammi Beal MD ghxvfanvop-edghgkqmfniur-qbji 50-325-40 mg 1 tab PO Q6H PRN 15 days capsaicin 0.1% (Arthritis Pain Relief (capsaicin)) 1 appl topical BID celecoxib (Celebrex) 200 mg PO BID 30 days cholecalciferol (vitamin D3) 25 mcg PO DAILY cholecalciferol (vitamin D3) 50 mcg PO DAILY 3 months cyclobenzaprine 10 mg PO BEDTIME PRN 30 days levothyroxine 150 mcg PO DAILY losartan 25 mg PO DAILY 90 days nitrofurantoin monohyd/m-cryst 100 mg (Macrobid) 100 mg PO BID 3 days omeprazole 40 mg PO DAILY phenazopyridine (Pyridium) 200 mg PO BID 2 days prednisone 20 mg PO BID 5 days tramadol 50 mg PO DAILY 30 days Tobacco use date assessed: 05/01/25 Dental Screening Dental Screen Date: 05/01/25 Did you have a dental visit in the last 12 months?: No Did you have a dental problem in the last 6 months where you did not have access to dental care?: No Was dental information given to patient?: Patient has dentist HPI HPI Comments History of Present Illness Details The patient is a 55 year old female presenting for follow-up of her back pain. She continues to experience back pain and is scheduled for a back block on the . She reports significant anxiety regarding the upcoming procedure due to a previous traumatic experience with a foot block performed by the same provider, which she describes as horrible and painful, causing her blood pressure to elevate. She experiences trembling of her mouth and hands and difficulty speaking when anticipating procedures with this doctor. The patient has a history of hypertension and hypothyroidism. Her medications include Fioricet, Celebrex, vitamin D, tizanidine as a muscle relaxant, levothyroxine, and losartan 25 mg for her blood pressure, which she did not take today. She also has tramadol, which was approved after initial denial by her insurance. She recently completed a 5-day course of prednisone. She has known allergies to aspirin and topiramate (Topamax). [facility] Medical History Hyperlipidemia OAB (overactive bladder) Arthritis Lumbar radiculopathy Cervical radiculopathy Migraine Benzodiazepine withdrawal Morbid obesity with BMI of 40.0-44.9, adult JAYLENE (generalized anxiety disorder) Moderate recurrent major depression Lump of skin Vitamin D deficiency Hyperparathyroidism Common cold Hot flash not due to menopause HTN (hypertension) Amenorrhea Obesity Hypothyroidism Obstructive sleep apnea Surgical History Hx of excision of mass Hx of cystoscopy History of thyroidectomy Hx of gastric bypass Hx of hemorrhoidectomy Hx of hysterectomy Hx of tubal ligation Hx of multiple trauma Family History Father Diabetes Hypertension Mother Diabetes Alzheimer's disease Brother Substance use disorder Family/Other Mental health disorder Maternal Aunt Cancer Social History Housing: Apartment Are you a primary healthcare receptionist to a significant other at home: No Do you presently have visiting nurse or other home services: No Alcohol intake: current Alcohol intake frequency: does not drink Alcohol type: wine Patient Tobacco Use Status: Former Tobacco user Tobacco use type: Cigarette Cigarettes Per Day: 3 Years Smoked: 15 Packs per year/per ci.25 e-Cigarette/Vaping Use: Never Used Second Hand Smoke Exposure: Yes service: No 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al status: unemployed and disabled 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 Cognitive needs: Yes (Cane) Hearing needs: No Vision needs: Yes (Glasses) Questionnaire Thrive Questionnaire Date Thrive assessed: 05/01/25 I am a: Patient What is your living situation today?: I choose not to answer this question Within the past 12 months, did the food you bought not last and you didn't have the money to get more?: Never true Within the past 12 months, did you worry whether your food would run out before you got money to buy more?: Sometimes True Do you have trouble paying for medicines?: No Do you have trouble getting transportation to medical appointments?: No Do you have trouble paying your heating and electricity bill?: No Do you have trouble taking care of your child, family member or friend?: I choose not to answer this question Do you have trouble with day-to-day activities such as bathing, preparing meals, shopping, managing finances, etc.?: No Are you currently unemployed and looking for a job?: No Are you interested in more education?: No Please select the resources that you would like help with: None Currently or been in a relationship where the following occur: I choose not to answer THRIVE Score: 1 JAYLENE-7 AMB Questionnaire JAYLENE-7 Date JAYLENE - 7 assessed: 05/18/24 Source: Developed by Drs. Jose Maria Lugo, Felicia Harmon, Yefri Peterson and colleagues, with an educational roger from [employer]. Review of Systems Const All systems reviewed & are unremarkable except as noted in HPI and below Card Denies chest pain at rest, Denies chest pain with activity, Denies edema, Denies irregular heart rhythm, Denies claudication, Denies dyspnea, Denies dyspnea on exertion, Denies orthopnea, Denies paroxysmal nocturnal dyspnea and Denies slow heart rate Resp Denies cough, Denies dyspnea and Denies dyspnea on exertion GI Denies abdominal pain, Denies change in bowel habits, Denies excessive flatus, Denies nausea and Denies vomiting Physical exam (Primary Care) Vital Signs: Last Vital Signs Pulse 83 05/01/25 13:48 Resp 18 05/01/25 13:48 BP 146/86 H 05/01/25 13:48 Oxygen Delivery Method Room Air 05/01/25 13:48 BMI result Body Mass Index 42.8 BMI Assessment/Plan discussion: High BMI High, discussed plan: lifestyle, weight reduction, dietary and physical activity Tobacco/Smoking Status: Tobacco use Status Tobacco use date assessed 05/01/25 05/01/25 13:58 Patient Tobacco Use Status Former Tobacco user 05/01/25 13:58 Tobacco use type Cigarette 05/01/25 13:58 e-Cigarette/Vaping Use Never Used 05/01/25 13:58 Thrive Assessment: Date of Thrive Assessment Date Thrive assessed 05/01/25 05/01/25 13:58 Currently or been in a relationship where the following occur: I choose not to answer Resp Effort & Inspection: normal respiratory effort Auscultation: clear to auscultation bilaterally Cardio Jugular venous distension: no JVD Rate: regular rate Rhythm: regular rhythm Heart sounds: S1 normal heart sound present and S2 normal heart sound present Extrem General: Yes full ROM Coding Level of Care Code Add On Preventative Visit Only Diagnoses Moderate recurrent major depression F33.1 JAYLENE (generalized anxiety disorder) F41.1 Primary hypertension I10 Hypertension type: primary hypertension Postoperative hypothyroidism E89.0 Hypothyroidism type: postoperative Morbid obesity with BMI of 40.0-44.9, adult E66.01; Z68.41 Time Spent (min) 20 Assessment & Plan Assessment & Plan (1) Moderate recurrent major depression: Code(s): F33.1 - Major depressive disorder, recurrent, moderate Category: Medical (2) JAYLENE (generalized anxiety disorder): Code(s): F41.1 - Generalized anxiety disorder Category: Medical (3) HTN (hypertension): Code(s): I10 - Essential (primary) hypertension Category: Medical Qualifiers: Hypertension type: primary hypertension Qualified Code(s): I10 - Essential (primary) hypertension (4) Hypothyroidism: Code(s): E03.9 - Hypothyroidism, unspecified Category: Medical Qualifiers: Hypothyroidism type: postoperative Qualified Code(s): E89.0 - Postprocedural hypothyroidism (5) Morbid obesity with BMI of 40.0-44.9, adult: Code(s): E66.01 - Morbid (severe) obesity due to excess calories; Z68.41 - Body mass index [BMI] 40.0-44.9, adult Category: Medical Plan Plan 1. Back Pain The patient continues to experience back pain. She will [facility] on the for pain management. 2. Procedural Anxiety The patient has significant situational anxiety and phobia related to medical procedures, stemming from a previous negative experience. A prescription for a benzodiazepine will be sent to [facility] for her to take 45 minutes before her procedure to alleviate anxiety. 3. Hypertension The patient?s blood pressure was slightly elevated today, and she reported not taking her losartan. She was advised to take her blood pressure medication consistently, including on the day of her procedure. \4. Morbid obesity BMI goal is less than 30. Medications: New alprazolam Take 45 minutes before procedure 0.5 mg PO DAILY 1 tab 0RF 1 day
--- OUTSIDE RECORDS SUMMARY | 2025-05-01 18:08 | XMS_ITS | Clinical Summary ---
Author Organization 175 [facility] Address 175 [place] [address] Phone Care Team Providers Care Director Cardiac Name Role Phone Sammi Beal MD Primary Care Provider [phone] Allergies Active Allergy Reactions Criticality Noted Date [...] (BMI) of 40.0 to 44.9 in adult 03/25/2025 HTN (hypertension) 05/15/2024 Obstructive sleep apnea 05/15/2024 History of gastric bypass 05/15/2024 History of hysterectomy 05/15/2024 History of thyroidectomy 05/15/2024 Hypothyroidism 05/15/2024 Encounters Date Type Department Care Team Description 03/25/2025 1:00 PM EST Consult Bariatric Surgery - [address] [address] Class 3 severe obesity with serious comorbidity and body mass index (BMI) of 40.0 to 44.9 in adult, unspecified obesity type (CMS/HCC V24, CMS/HCC V28) (Primary Dx) from [...] 1:30 PM EST Nutrition Bariatric Surgery - [place] 175 [facility] [address] [place] [address] GayathriArenas, Jud, RD [address] [address] 06/27/2025 1:00 PM EST Office Visit Bariatric Surgery - [place] 175 [facility] [address] [place] [address] Tamra Barry MD [address] [place] [phone] Health Maintenance Due Date Last Done [...] Depression Screening 05/16/2024 COVID-19 Vaccine (3 - season) 2025 09/06/2020, [...] patient's age to complete this topic Insurance [facility] [employer] PLAN Care Teams Director Cardiac Relationship Specialty Start Date End Date Sammi Beal MD [address] [place] [address] , [address] [facility] D/B/A: [facility] JAVI Mistry PCP - General Internal Medicine 04/30/24
--- OUTSIDE RECORDS SUMMARY | 2025-05-01 18:08 | XMS_ITS | Clinical Summary ---
Author Organization [employer] Address 75 [facility] 7t [place] [address] Care Team Providers Care Wrapper Sizer Name Role Phone Unavailable Primary Care Provider [...] Type Department Care Team Description 04/16/2025 Refill [facility] ADULT DENTAL [address] [place] [address] Feroz Sterling DMD 03/11/2025 Refill [facility] ADULT DENTAL [address] [place] [address] Feorz Sterling DMD 02/01/2025 Refill [facility] ADULT DENTAL [address] [place] [address] Feroz Sterling DMD from Last 3 Months Social History Tobacco [...] Associated Diagnosis Comments PROPHYLAXIS - ADULT Routine 08/01/2024 1 0:00 AM EDT Dental calculus Subgingival dental calculus Supragingival dental calculus Dental plaque Gingivitis INTRAORAL - COMPLETE SERIES OF RADIOGRAPHIC IMAGES Routine 08/01/2024 10:00 AM EDT PERIODIC ORAL EVALUATION - ESTABLISHED PATIENT Routine 08/01/2024 10:00 AM EDT from Last 3 Months or Most Recently Relevant to Health Maintenance Insurance [facility] MEDICAID STAND ADULT
--- OUTSIDE RECORDS SUMMARY | 2025-05-01 18:09 | XMS_ITS | Encounter Summary ---
Author Organization [employer] Address 75 [facility] 7t [place] [address] Care Team Providers Care Health Administrator Name Role Phone Unavailable Primary Care Provider Unavailabl e Reason for Visit * Reason Comments Med Refill Encounter Details Date Type Department Care Team (Late st Contact Info) Description 04/16/2025 Refill [facility] ADULT DENTAL [address] [place] [address] Feroz Sterling, GALLO [address] [place] [address] Social History Tobacco Use Types Packs/Day Years [...]
--- OUTSIDE RECORDS SUMMARY | 2025-05-01 18:09 | XMS_ITS | Encounter Summary ---
Author Organization [employer] Address 75 [facility] 7t [place] [address] Care Team Providers Care Mine Inspector Name Role Phone Unavailable Primary Care Provider Unavailabl e Reason for Visit * Reason Comments Med Refill Encounter Details Date Type Department Care Team ([facility] st Contact Info) Description 02/01/2025 Refill [facility] ADULT DENTAL [address] [place] [address] Feroz Sterling DMD [address] [place] [address] Social History Tobacco Use Types Packs/Day Years [...]
--- OUTSIDE RECORDS SUMMARY | 2025-05-01 18:09 | XMS_ITS | Encounter Summary ---
Author Organization [facility] [employer] [facility] Address 75 [facility] 7t [place] [address] Care Team Providers Care Science Professor Name Role Phone Unavailable Primary [...]
--- OUTSIDE RECORDS SUMMARY | 2025-05-01 18:09 | XMS_ITS | Encounter Summary ---
Author Organization [employer] Address 75 [facility] 7t [place] [address] Care Team Providers Care Decoration Checker Name Role Phone Unavailable Primary Care Provider Unavailabl e Reason for Visit * Reason Comments Med Refill Encounter Details Date Type Department Care Team ([facility] st Contact Info) Description 03/11/2025 Refill [facility] ADULT DENTAL [address] [place] [address] Feroz Sterling DMD [address] [place] [address] Social History Tobacco Use Types Packs/Day Years [...]
--- OUTSIDE RECORDS SUMMARY | 2025-05-01 18:09 | XMS_ITS | Encounter Summary ---
Author Organization [facility] [employer] [facility] Address 75 [facility] 7t [place] [address] Care Team Providers Care Car Sales Consultant Name Role Phone Unavailable Primary Care [...]
== END 2025-05-01 14:24 | disposition home or self-care (01) ==
LOC: HO.HMCH 13:35
PROVIDERS: PCP Internal Medicine; Visit Provider Internal Medicine
DX: F33.1 Major depressive disorder, recurrent, moderate (principal); F41.1 Generalized anxiety disorder; I10 Essential (primary) hypertension; E89.0 Postprocedural hypothyroidism; E66.01 Morbid (severe) obesity due to excess calories; Z68.41 Body mass index [BMI] 40.0-44.9, adult

== ENCOUNTER → 2025-05-01 13:34 | Outpatient (BNVA) | payer OTHER, SELFPAY | PROVIDERS: PCP Internal Medicine; Visit Provider Internal Medicine | DX: I10 Essential (primary) hypertension (principal); M54.9 Dorsalgia, unspecified; F41.9 Anxiety disorder, unspecified; F33.1 Major depressive disorder, recurrent, moderate; F41.1 Generalized anxiety disorder; E89.0 Postprocedural hypothyroidism; E66.01 Morbid (severe) obesity due to excess calories; Z68.41 Body mass index [BMI] 40.0-44.9, adult; Z79.899 Other long term (current) drug therapy | CPT/HCPCS: 99212 ==

== ENCOUNTER → 2025-05-06 09:10 | Outpatient (BNVA) | payer OTHER, SELFPAY | PROVIDERS: PCP Internal Medicine; Visit Provider Urology | DX: N39.46 Mixed incontinence (principal) | CPT/HCPCS: 51798 ==

== ENCOUNTER 2025-05-07 06:21 | Outpatient (REF) | payer OTHER, SELFPAY ==
--- NOTE | ~2025-05-07 | FL_ITS ---
EXAMINATION: FL GUIDANCE ONLY HISTORY: M47.816 - Spondylosis without myelopathy or radiculopathy, lumbar region COMPARISON: None available. TECHNIQUE: Fluoroscopy time: 58 seconds. Cumulative Dose: 18.30 mGy. DAP: 3923.00 mGycm2 Images: 6. FINDINGS: Fluoroscopic spot films of the lumbar spine demonstrate needles and contrast material in the regions of the bilateral L3-4, L4-5, and L5-S1 facet joints. FL/FL guidance in treatment room IMPRESSION: Fluoroscopy during procedure. Please see procedure report for additional information. Electronically signed by: Jose Maria Esparza MD 05/07/2025 12:52 PM [facility] [place]
--- OUTSIDE RECORDS SUMMARY | 2025-05-07 06:23 | XMS_ITS | Encounter Summary ---
Author Organization [facility] [employer] [facility] Address 75 [facility] 7t [place] [address] Care Team Providers Care Contractor Broomcorn Threshing Name Role Phone Unavailable Primary Care Provider [...]
--- OUTSIDE RECORDS SUMMARY | 2025-05-07 06:23 | XMS_ITS | Encounter Summary ---
Author Organization [employer] Address 75 [facility] 7t [place] [address] Care Team Providers Care Coil Machine Supervisor Name Role Phone Unavailable Primary Care Provider Unavailabl e Reason for Visit * Reason Comments Med Refill Encounter Details Date Type Department Care Team ([facility] st Contact Info) Description 02/01/2025 Refill [facility] ADULT DENTAL [address] [place] [address] Feorz Sterling DMD [address] [place] [address] Social History Tobacco Use Types Packs/Day Years [...]
--- OUTSIDE RECORDS SUMMARY | 2025-05-07 06:23 | XMS_ITS | Encounter Summary ---
Author Organization [facility] [employer] [facility] Address 75 [facility] 7t [place] [address] Care Team Providers Care Defence Force Senior Officer Name Role Phone Unavailable Primary Care [...]
--- OUTSIDE RECORDS SUMMARY | 2025-05-07 06:23 | XMS_ITS | Encounter Summary ---
Author Organization [employer] Address 75 [facility] 7t [place] [address] Care Team Providers Care Reverberatory Skimmer Name Role Phone Unavailable Primary Care Provider Unavailabl e Reason for Visit * Reason Comments Med Refill Encounter Details Date Type Department Care Team ([facility] st Contact Info) Description 03/11/2025 Refill [facility] ADULT DENTAL [address] [place] [address] Feroz Sterling DMD [address] [place] [address] Social History Tobacco Use Types Packs/Day Years [...]
--- OUTSIDE RECORDS SUMMARY | 2025-05-07 06:23 | XMS_ITS | Encounter Summary ---
Author Organization [employer] Address 75 [facility] 7t [place] [address] Care Team Providers Care Guest Experience Representative Name Role Phone Unavailable Primary Care Provider Unavailabl e Reason for Visit * Reason Comments Med Refill Encounter Details Date Type Department Care Team (Late st Contact Info) Description 04/16/2025 Refill [facility] ADULT DENTAL [address] [place] [address] Feroz Sterling, GALLO [address] [place] [address] Social History Tobacco Use Types Packs/Day Years [...]
--- OUTSIDE RECORDS SUMMARY | 2025-05-07 06:23 | XMS_ITS | Clinical Summary ---
Author Organization 175 [facility] Address 175 [place] [address] Phone Care Team Providers Care Production Recovery Operator Name Role Phone Sammi Beal MD Primary Care Provider [phone] Allergies Active Allergy Reactions Criticality Noted Date [...] 1:00 PM EST Consult Bariatric Surgery - [address] [address] Class 3 [...] 1:30 PM EST Nutrition Bariatric Surgery - [place] 175 [facility] [address] [place] [address] ZamudioRobertArenas, Jud, RD [address] [address] 06/27/2025 1:00 PM EST Office Visit Bariatric Surgery - [place] 175 [facility] [address] [place] [address] Tamra Barry MD [address] [place] [address] Health Maintenance Due Date Last Done Comments Breast Cancer Screening 1971 Colorectal Cancer Screening: Colonoscopy 1971 Drug Screen 1971 Non-Opioid Controlled Substance Agreement 1971 Hepatitis B Vaccines (1 of 3 [...] patient's age to complete this topic Insurance [facility] PLAN Care Teams Production Recovery Operator Relationship Specialty Start Date End Date Sammi Beal MD [address] [place] [address] , [address] [facility] D/B/A: [facility] JAVI Mistry PCP - General Internal Medicine 04/30/24
--- OUTSIDE RECORDS SUMMARY | 2025-05-07 06:23 | XMS_ITS | Clinical Summary ---
Author Organization [employer] Address 75 [facility] 7t [place] [address] Care Team Providers Care Rd Manager Name Role Phone Unavailable Primary Care [...] Type Department Care Team Description 04/16/[address] [facility] ADULT DENTAL [address] [place] [address] Feroz Sterling DMD 03/11/[address] [facility] ADULT DENTAL [address] [place] [address] Feroz Sterling DMD from Last 3 Months [...] Most Recently Relevant to Health Maintenance Insurance [facility]AL-[facility] MEDICAID STAND ADULT
== END 2025-05-07 06:22 | disposition home or self-care (01) ==
LOC: CF 06:21
PROVIDERS: Visit Provider Anesthesiology
DX: M47.816 Spondylosis without myelopathy or radiculopathy, lumbar region (principal)
CPT/HCPCS: 64493; 64494; J2003; J2795; Q9967

== ENCOUNTER 2025-05-07 08:59 | Outpatient (AMB) | payer OTHER, SELFPAY ==
[2025-05-07 09:01] VITALS: BP 158/72; PULSE 102; RESP 16; O2SAT 97; BMI 42.7
--- NOTE | 2025-05-07 09:01 | MHC.OFFVIS ---
Vital Signs 05/07/25 09:01 05/07/25 09:40 Height 5 ft 3 in Weight 241 lb BMI 42.7 BP 158/72 H 152/86 H Blood Pressure Location Lt brachial Lt brachial Position Sitting Sitting Respiration 16 16 Pulse 102 H 88 Pulse Source Pulse Oximeter Pulse Oximeter Pulse Oximetry (%) 97 95 Oxygen Delivery Method Room Air Room Air Intake Visit Reasons: Bilateral Diagnostic L3-L4-DR L5 MBB Allergies aspirin Allergy (Severe, Verified 05/01/25 14:11) Swelling topiramate Adverse Reaction (Intermediate, Verified 05/01/25 14:11) cough PFSH Medical History Hyperlipidemia OAB (overactive bladder) Arthritis Lumbar radiculopathy Cervical radiculopathy Migraine Benzodiazepine withdrawal Morbid obesity with BMI of 40.0-44.9, adult JAYLENE (generalized anxiety disorder) Moderate recurrent major depression Lump of skin Vitamin D deficiency Hyperparathyroidism Common cold Hot flash not due to menopause HTN (hypertension) Amenorrhea Obesity Hypothyroidism Obstructive sleep apnea Surgical History Hx of excision of mass Hx of cystoscopy History of thyroidectomy Hx of gastric bypass Hx of hemorrhoidectomy Hx of hysterectomy Hx of tubal ligation Hx of multiple trauma Family History Father Diabetes Hypertension Mother Diabetes Alzheimer's disease Brother Substance use disorder Family/Other Mental health disorder Maternal Aunt Cancer Social History Housing: Apartment Are you a primary career guidance technician to a significant other at home: No Do you presently have visiting nurse or other home services: No Alcohol intake: current Alcohol intake frequency: does not drink Alcohol type: wine Patient Tobacco Use Status: Former Tobacco user Tobacco use type: Cigarette Cigarettes Per Day: 3 Years Smoked: 15 e-Cigarette/Vaping Use: Never Used Second Hand Smoke Exposure: Yes service: No 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al status: unemployed and disabled 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 ? ?Informed consent was explained to the patient. All questions were explained and? answered.? The patient was taken inside the operating room where she was positioned prone on the operating table. Time-out was performed delineating correct site, side, the nature of the procedure, patient's allergy, . All operating room staff was participating in OR time-out procedure. ? ? The lower back was prepped with ChloraPrep and draped with sterile utility towels.? C-arm was brought over the operating field and sq picture of L4-, L5 vertebra and S1 AREA were delineated on the screen.? Point of interest were delineated as confluence of superior articular process of L4 and L5 vertebra bilaterally with corresponding transverse processes as well as confluence of the sacral alae bilaterally with superior articular process of S1.? The projection of the point of interest to the skin were injected with the small amount of local anesthetic lidocaine 2% mixed with ropivacaine 0.5% 1-1 approximately 1 cc.? After that 22 gauge 5 inch spinal needle was driven sequentially to the points of interest in tunnel vision fashion. After needles gently contacted the bone at the point of interests the needle was injected with small amount of the contrast.? The injection of the contrast did not demonstrate any intravascular or intrathecal spread of the contrast.? After that injection of the? ropivacaine 0.5%-1cc was performed at each needle location.?After that the needles were removed and Bandaids were applied Orders: Orders FL guidance in treatment room Today M47.816 - Spondylosis without myelopathy or radiculopathy, lumbar region Coding Level of Care Code Procedure Only Diagnoses Spondylosis without myelopathy or radiculopathy, lumbar region M47.816
[2025-05-07 09:40] VITALS: BP 152/86; PULSE 88; RESP 16; O2SAT 95
== END 2025-05-07 09:41 | disposition home or self-care (01) ==
LOC: HO.PMCPRC 08:59
PROVIDERS: PCP Internal Medicine; Visit Provider Anesthesiology
DX: M47.816 Spondylosis without myelopathy or radiculopathy, lumbar region (principal)
CPT/HCPCS: 64493; 64494

== ENCOUNTER 2025-05-14 13:43 | Outpatient (REF) | payer OTHER, SELFPAY ==
--- NOTE | ~2025-05-14 | MM_ITS ---
EXAMINATION: MM SCREENING DIGITAL BREAST TOMOSYNTHESIS, BILATERAL CLINICAL INFORMATION: Screening. Asymptomatic. COMPARISON: Mammography: Comparison is made with available priors TECHNIQUE: Digital breast mammography with tomosynthesis is performed in both the craniocaudal and mediolateral oblique views along with computer-aided detection (CAD). FINDINGS: There are scattered areas of fibroglandular density. Right: Grouped calcifications in the lower central slightly inner breast have a segmental in linear distribution. Additional imaging is recommended at this time. No suspicious masses or other abnormal findings. Left: There are no significant masses, abnormal calcifications, or other abnormalities. MM/MM tomosynthesis screening BI IMPRESSION: Additional imaging is recommended ASSESSMENT: BI-RADS Category 0: Incomplete - Need additional Imaging Evaluation RECOMMENDATION: 1. Additional views of the right breast with magnification views. 2. Targeted ultrasound if warranted after review of the additional views. 3. Radiology department staff will contact the patient for additional imaging. Additional Imaging required Electronically signed by: Francine Ferris DO 05/15/2025 01:31 PM [facility]
--- OUTSIDE RECORDS SUMMARY | 2025-05-14 17:33 | XMS_ITS | Encounter Summary ---
Author Organization [employer] [employer] [facility] Address 75 [facility] 7t [place] [address] Care Team Providers Care Hi Teacher Name Role Phone Unavailable Primary Care [...]
--- OUTSIDE RECORDS SUMMARY | 2025-05-14 17:33 | XMS_ITS | Clinical Summary ---
Author Organization [employer] Address 75 [facility] 7t [place] [address] Care Team Providers Care Cartography Supervisor Name Role Phone Unavailable Primary Care [...] Type Department Care Team Description 04/16/2025 Refill [facility] ADULT DENTAL [address] [place] [address] Feroz Sterling DMD 03/11/2025 Refill [facility] ADULT DENTAL [address] [place] [address] Feroz Sterling DMD from Last 3 Months [...] Most Recently Relevant to Health Maintenance Insurance DENTAL-[facility] MEDICAID STAND ADULT
--- OUTSIDE RECORDS SUMMARY | 2025-05-14 17:33 | XMS_ITS | Encounter Summary ---
Author Organization [facility] [employer] [facility] Address 75 [facility] 7t [place] [address] Care Team Providers Care Assembler Brazer Name Role Phone Unavailable Primary Care Provider [...]
--- OUTSIDE RECORDS SUMMARY | 2025-05-14 17:33 | XMS_ITS | Encounter Summary ---
Author Organization [email or web address] Address 75 [facility] 7t [place] [address] Care Team Providers Care Platinum And Palladium Kettle Tender Name Role Phone Unavailable Primary Care Provider Unavailabl e Reason for Visit * Reason Comments Med Refill Encounter Details Date Type Department Care Team (Late st Contact Info) Description 03/11/2025 Refill [facility] ADULT DENTAL [address] [place] [address] Feroz Sterling DMD [address] [place] [address] Social History Tobacco Use Types Packs/Day Years [...]
--- OUTSIDE RECORDS SUMMARY | 2025-05-14 17:33 | XMS_ITS | Clinical Summary ---
Author Organization 175 [facility] Address 175 [place] [address] Phone Care Team Providers Care Certified Nurse Name Role Phone Sammi Beal MD Primary Care Provider [phone] Allergies Active Allergy Reactions Criticality Noted Date [...] 1:00 PM EST Consult Bariatric Surgery - [address] [address] Class 3 [...] 1:30 PM EST Nutrition Bariatric Surgery - [place] 175 [facility] [address] [place] [address] ZamudioRobertArenas, Jud, RD [address] [address] 06/27/2025 1:00 PM EST Office Visit Bariatric Surgery - [place] 175 [facility] [address] [place] [address] Tamra Barry MD [address] [place] [address] Health Maintenance Due Date Last [...] patient's age to complete this topic Insurance [facility] PLAN Care Teams Certified Nurse Relationship Specialty Start Date End Date Sammi Beal MD [address] [place] [address] , [address] [facility] D/B/A: [facility] JAVI Mistry PCP - General Internal Medicine 04/30/24
--- OUTSIDE RECORDS SUMMARY | 2025-05-14 17:33 | XMS_ITS | Encounter Summary ---
Author Organization [employer] Address 75 [facility] 7t [place] [address] Care Team Providers Care Data Center Operator Name Role Phone Unavailable Primary Care Provider Unavailabl e Reason for Visit * Reason Comments Med Refill Encounter Details Date Type Department Care Team (Late st Contact Info) Description 04/16/2025 Refill [facility] ADULT DENTAL [address] [place] [address] Feroz Sterling, GALLO [address] [place] [address] Social History Tobacco Use Types Packs/Day Years [...]
--- OUTSIDE RECORDS SUMMARY | 2025-05-14 17:33 | XMS_ITS | Encounter Summary ---
Author Organization [employer] Address 75 [facility] 7t [place] [address] Care Team Providers Care Programmer Analyst Consultant Name Role Phone Unavailable Primary Care Provider Unavailabl e Reason for Visit * Reason Comments Med Refill Encounter Details Date Type Department Care Team (Late st Contact Info) Description 02/01/[address] [facility] ADULT DENTAL [address] [place] [address] Feroz Sterling DMD [address] [place] [address] Social History Tobacco Use Types Packs/Day Years [...]
== END 2025-05-14 13:44 ==
LOC: HO.MAMMO 13:43
PROVIDERS: PCP Internal Medicine; Visit Provider Internal Medicine
DX: Z12.31 Encounter for screening mammogram for malignant neoplasm of breast (principal)
CPT/HCPCS: 77063; 77067

== ENCOUNTER → 2025-05-14 14:00 | Outpatient (BNV) | payer OTHER, SELFPAY | PROVIDERS: PCP Internal Medicine; Visit Provider Internal Medicine | DX: Z12.31 Encounter for screening mammogram for malignant neoplasm of breast (principal) | CPT/HCPCS: 77063; 77067 ==

== ENCOUNTER 2025-05-15 09:19 | Outpatient (AMB) | payer OTHER, SELFPAY ==
[2025-05-15 09:24] VITALS: BP 160/85; PULSE 95; RESP 16; O2SAT 96; BMI 43.4
--- NOTE | 2025-05-15 09:24 | A.OFFVIS_ITS ---
Vital Signs 05/15/25 09:24 Height 5 ft 3 in Weight 245 lb BMI 43.4 BP 160/85 H Blood Pressure Location Lt brachial Position Sitting Respiration 16 Pulse 95 Pulse Source Pulse Oximeter Pulse Oximetry (%) 96 Oxygen Delivery Method Room Air Intake Visit Reasons: S/P Bilateral Diagnostic L3-L4-DR L5 MBB [employer] Bpm Consultant Required: Yes [employer] Bpm Consultant Language: Truck Driver Teamster Name: Jessica [id number] Accompanied by: Self / Same As Patient Allergies aspirin Allergy (Severe, Verified 05/15/25 09:30) Swelling topiramate Adverse Reaction (Intermediate, Verified 05/15/25 09:30) cough HPI Comments Details: Caro is back in my office after diagnostic medial branch block L3-L4 dorsal ramus L5. She reported aggravation of the pain after the injection. She reported no pain relief from injection. She stated that her pain is starting in the middle of the lower lumbar spine and radiates down to the left lower extremity all the way to the lower leg as well as into her foot and sometimes into the toes. She reports weakness in the left lower extremity. He denies numbness but admits burning and tingling sensation. Therefore very likely her pain is radiculopathic. I will send her for the MRI of the lumbar spine. I will see her after MRI is ready. is very pleasant Ukrainian-speaking 55 years old female who came in my office for the follow-up and discussion of the pain conditions. In the past he received diagnostic genicular nerve block which resulted in no pain improvement. I offered her femoral nerve block however she did not show for the procedure. She stated today that it is possibility that we have a wrong telephone number. However today she came with complains on lower back pain. She reports that standing sitting laying down and walking all aggravate her pain. She states that flexing backwards aggravate her pain. Loading test is positive bilaterally. I will schedule this patient for bilateral diagnostic medial branch block L3, L4, dorsal ramus L5. She is morbidly obese. We would need to consider a longer needle for injections. Prior: Patient is a 55-year-old female with a history of chronic pain of bilateral knees lower back and neck, due to advanced knee osteoarthritis, patellofemoral arthritis, as well as degenerative disc disease and lumbar spine arthritis, with known lumbar radiculopathy and cervical radiculopathy. Patient presenting today complaining of her chronic pains as well as neck pain radiating down her bilateral shoulders and arms. 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 She requires assistance with home chores and bathing. Patient follows with pain management and Orthopedics and on multiple treatments for pain including injections, tramadol, Celebrex, capsaicin topical. She has attended physical therapy in the past and continues to perform stretching exercises at home She was also offered femoral nerve block with pain management, yet to be scheduled. [facility] Medical History Hyperlipidemia OAB (overactive bladder) Arthritis Lumbar radiculopathy Cervical radiculopathy Migraine Benzodiazepine withdrawal Morbid obesity with BMI of 40.0-44.9, adult JAYLENE (generalized anxiety disorder) Moderate recurrent major depression Lump of skin Vitamin D deficiency Hyperparathyroidism Common cold Hot flash not due to menopause HTN (hypertension) Amenorrhea Obesity Hypothyroidism Obstructive sleep apnea Surgical History Hx of excision of mass Hx of cystoscopy History of thyroidectomy Hx of gastric bypass Hx of hemorrhoidectomy Hx of hysterectomy Hx of tubal ligation Hx of multiple trauma Family History Father Diabetes Hypertension Mother Diabetes Alzheimer's disease Brother Substance use disorder Family/Other Mental health disorder Maternal Aunt Cancer Social History Housing: Apartment Are you a primary care worker to a significant other at home: No Do you presently have visiting nurse or other home services: No Alcohol intake: current Alcohol intake frequency: does not drink Alcohol type: wine Patient Tobacco Use Status: Former Tobacco user Tobacco use type: Cigarette Cigarettes Per Day: 3 Years Smoked: 15 e-Cigarette/Vaping Use: Never Used Second Hand Smoke Exposure: Yes service: No 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al status: unemployed and disabled 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 Cognitive needs: Yes (Cane) Hearing needs: No Vision needs: Yes (Glasses) Review of Systems Const All systems reviewed & are unremarkable except as noted in HPI and below Physical Exam Vital Signs: Last Vital Signs Pulse 95 05/15/25 09:24 Resp 16 05/15/25 09:24 BP 160/85 H 12/31/25 09:24 Pulse Ox 96 05/15/25 09:24 Oxygen Delivery Method Room Air 05/15/25 09:24 BMI result Body Mass Index 43.4 Const General: cooperative, healthy appearing, comfortable, no acute distress, well developed and alert Orientation/consciousness: patient oriented x3 HEENT Head: Yes normal to inspection, Yes normocephalic and Yes atraumatic Eyes General: appearance normal, both eyes and all related structures Resp Effort & Inspection: normal respiratory effort and able to speak in complete sentences Cardio Rate: regular rate Peripheral pulses: Peripheral pulses 2+ throughout GI Palpation (GI): Soft to palpation Back/Spine/Pelvis Other: SLR is positive on the left, Lasegue test is positive on the left. There is tenderness on palpation in the projection of the midline lumbar spine. Skin Lesions: no lesions Rashes: no rashes Neuro General: patient oriented x3 Extrem Other: Left knee: Skin intact, no erythema or joint effusion. Lateral retropatellar tenderness present. Full ROM with crepitus. Negative Tyrell?s. No ligamentous laxity. NVI. Right knee: Skin intact, no erythema or joint effusion. Tenderness along the medial and lateral joint line. Full ROM with crepitus. Negative Tyrell?s. No ligamentous laxity. NVI. Assessment & Plan Assessment & Plan (1) Arthritis of left knee: Code(s): M17.12 - Unilateral primary osteoarthritis, left knee Category: Medical (2) Chronic pain syndrome: Code(s): G89.4 - Chronic pain syndrome Category: Medical (3) Left knee pain: Code(s): M25.562 - Pain in left knee Category: Medical Qualifiers: Chronicity: unspecified Qualified Code(s): M25.562 - Pain in left knee (4) Disc degeneration, lumbar: Code(s): M51.369 - Other intervertebral disc degeneration, lumbar region without mention of lumbar back pain or lower extremity pain Category: Medical (5) Lumbar radiculopathy: Code(s): M54.16 - Radiculopathy, lumbar region Category: Medical Plan This patient is suffering from advanced left knee osteoarthritis, moderate nature of the arthritis results in significant pain syndrome. Diagnostic genicular nerve block did not result in improvement. She reported no pain relief. I offered her femoral nerve block on the left, she insisted to have this procedure under deep sedation. However there were problem scheduling her procedure. She started to complain on pain in the lower back with radiation of the pain into the left lower extremity. Today on physical exam her pain is likely radiculopathic. I will send her for the MRI of the lumbar spine. Orders: Orders MR lumbar spine wo con Today M51.369 - Other intervertebral disc degeneration, lumbar region without mention of lumbar back pain or lower extremity pain, M54.16 - Radiculopathy, lumbar region Coding Level of Care Code Est Pt Level 3 (46411) Diagnoses Arthritis of left knee M17.12 Chronic pain syndrome G89.4 Left knee pain, unspecified chronicity M25.562 Chronicity: unspecified Disc degeneration, lumbar M51.369 Lumbar radiculopathy M54.16
--- OUTSIDE RECORDS SUMMARY | 2025-05-15 09:33 | XMS_ITS | Encounter Summary ---
Author Organization [facility] [employer] [facility] Address 75 [facility] 7t [place] [address] Care Team Providers Care Scientist Electronics Name Role Phone Unavailable Primary Care Provider [...]
--- OUTSIDE RECORDS SUMMARY | 2025-05-15 09:33 | XMS_ITS | Encounter Summary ---
Author Organization [employer] [facility] Address 75 [facility] 7t [place] [address] Care Team Providers Care Pediatric Sports Medicine Specialist Name Role Phone Unavailable Primary Care Provider Unavailabl e Reason for Visit * Reason Comments Med Refill Encounter Details Date Type Department Care Team (Late st Contact Info) Description 05/14/2025 Refill [facility] ADULT DENTAL [address] [place] [address] Celestino Perez DDS [address] [place] [address] Social History Tobacco Use Types Packs/Day Years [...]
--- OUTSIDE RECORDS SUMMARY | 2025-05-15 09:33 | XMS_ITS | Clinical Summary ---
Author Organization [employer] Address 75 [facility] 7t [place] [address] Care Team Providers Care Ward Attendant Name Role Phone Unavailable Primary Care [...] Encounters Date Type Department Care Team Description 05/14/[address] [facility] ADULT DENTAL [address] [place] [address] Celestino Perez DDS 04/16/[address] [facility] ADULT DENTAL [address] [place] [address] Feroz Sterling DMD 03/11/[address] [facility] ADULT DENTAL [address] [place] [address] Feroz Sterling DMD from Last 3 Months [...] Most Recently Relevant to Health Maintenance Insurance [facility] [address] MEDICAID STAND ADULT
--- OUTSIDE RECORDS SUMMARY | 2025-05-15 09:33 | XMS_ITS | Encounter Summary ---
Author Organization [facility] [employer] [facility] Address 75 [facility] 7t [place] [address] Care Team Providers Care Clinical Document Improvement Educator Name Role Phone Unavailable Primary Care Provider [...]
--- OUTSIDE RECORDS SUMMARY | 2025-05-15 09:33 | XMS_ITS | Encounter Summary ---
Author Organization [employer] Address [address] [facility] 7t [place] [address] Care Team Providers Care Marketing Technologist Name Role Phone Unavailable Primary Care Provider Unavailabl e Reason for Visit * Reason Comments Med Refill Encounter Details Date Type Department Care Team ([facility] st Contact Info) Description 03/11/2025 Refill [facility] ADULT DENTAL [address] [place] [address] Feroz Sterling DMD [address] [place] [address] Social History Tobacco Use Types Packs/Day Years [...]
--- OUTSIDE RECORDS SUMMARY | 2025-05-15 09:33 | XMS_ITS | Encounter Summary ---
Author Organization [employer] Address [address] [facility] 7t [place] [address] Care Team Providers Care Case Maker Name Role Phone Unavailable Primary Care Provider Unavailabl e Reason for Visit * Reason Comments Med Refill Encounter Details Date Type Department Care Team ([facility] st Contact Info) Description 02/01/2025 Refill [facility] ADULT DENTAL [address] [place] [address] Feroz Sterling DMD [address] [place] [address] Social History Tobacco Use Types Packs/Day Years [...]
--- OUTSIDE RECORDS SUMMARY | 2025-05-15 09:33 | XMS_ITS | Encounter Summary ---
Author Organization [employer] Address [address] [facility] 7t [place] [address] Care Team Providers Care Finisher Tailor Apprentice Name Role Phone Unavailable Primary Care Provider Unavailabl e Reason for Visit * Reason Comments Med Refill Encounter Details Date Type Department Care Team (Late st Contact Info) Description 04/16/2025 Refill [facility] ADULT DENTAL [address] [place] [address] Feroz Sterling, GALLO [address] [place] [address] Social History Tobacco Use Types Packs/Day Years [...]
--- OUTSIDE RECORDS SUMMARY | 2025-05-15 09:33 | XMS_ITS | Clinical Summary ---
Author Organization [address] [facility] Address 175 [place] [address] Phone Care Team Providers Care Bay Stocker Name Role Phone Sammi Beal MD Primary Care Provider [phone] Allergies Active Allergy Reactions Criticality Noted Date [...] 1:00 PM EST Consult Bariatric Surgery - [address] [address] Class 3 [...] 1:30 PM EST Nutrition Bariatric Surgery - [place] [facility] [address] [place] [address] ZamudioRobertArenas, Jud, RD [address] [address] 06/27/2025 1:00 PM EST Office Visit Bariatric Surgery - [place] [facility] [address] [place] [address] Tamra Barry MD [address] [place] [address] Health Maintenance Due Date Last [...] patient's age to complete this topic Insurance [facility] [employer] Care Teams Bay Stocker Relationship Specialty Start Date End Date Sammi Beal MD [address] [place] [address] , [address] [facility] D/B/A: [facility] JAVI Mistry PCP - General Internal Medicine 04/30/24
== END 2025-05-15 09:36 | disposition home or self-care (01) ==
LOC: HO.PMC 09:20
PROVIDERS: PCP Internal Medicine; Visit Provider Anesthesiology
DX: M17.12 Unilateral primary osteoarthritis, left knee (principal); G89.4 Chronic pain syndrome; M25.562 Pain in left knee; M51.369 Other intervertebral disc degeneration, lumbar region without mention of lumbar back pain or lower extremity pain; M54.16 Radiculopathy, lumbar region
CPT/HCPCS: 99213

== ENCOUNTER → 2025-05-15 09:19 | Outpatient (BNVA) | payer OTHER, SELFPAY | PROVIDERS: PCP Internal Medicine; Visit Provider Anesthesiology | DX: M51.16 Intervertebral disc disorders with radiculopathy, lumbar region (principal); M17.12 Unilateral primary osteoarthritis, left knee; G89.4 Chronic pain syndrome | CPT/HCPCS: 99212 ==